=== PATIENT | male | born 1960 | race Caucasian/White ===

== ENCOUNTER 2016-07-29 13:40 | Inpatient (IN) | payer MEDICARE, MEDICAID ==
[2016-07-29 14:17] VITALS: BMI 24.6
[2016-07-29] MEDS ORDERED: Lidocaine 2% Jelly (Uro-Jet) TOP ONE (14:25)
[2016-07-29 14:44] LABS: BASO # 0.1 K/uL (0.0-0.2); EOS # 0.2 K/uL (0.0-0.7); EOS % 1.9 % (0.0-4.0); HEMATOCRIT 36.3 % (35.0-51.0); LYMPH % 21.5 % (20.0-40.0); MEAN CELL VOLUME 85.8 fL (80.0-94.0); MEAN CORPUSCULAR HEMOGLOBIN 27.8 pg (27.0-31.0); MEAN CORPUSCULAR HGB CONC 32.4 g/dL (33.0-37.0); MEAN PLATELET VOLUME 7.5 fL (7.2-11.7); MONO # 0.7 K/uL (0.0-0.8); MONO % 7.6 % (0.0-10.0); RED CELL DISTRIBUTION WIDTH 14.7 % (11.5-14.5); WHITE BLOOD COUNT 9.1 K/uL (4.8-10.8)
[2016-07-29] MEDS ORDERED: Lidocaine 2% Jelly (Uro-Jet) ONE (14:47)
[2016-07-29 15:02] LABS: POTASSIUM 4.3 mmol/L (3.6-5.2)
[2016-07-29 15:04] LABS: ALB/GLOB RATIO 1.1 (1.0-2.1); BILIRUBIN,TOTAL 0.4 mg/dL (0.2-1.3); TOTAL PROTEIN 8.3 g/dL (6.3-8.3)
[2016-07-29 15:05] LABS: CALCIUM 9.5 mg/dl (8.6-10.4)
[2016-07-29 15:14] LABS: TROPONIN I 0.027 ng/mL (0.00-0.120)
[2016-07-29 15:16] LABS: RBC URINE 2 /hpf (0-3); URINE BACTERIA RARE (<OCC); URINE BILIRUBIN NEGATIVE (NEGATIVE); URINE BLOOD NEGATIVE (NEGATIVE); URINE COLOR Yellow (YELLOW); URINE GLUCOSE (UA) NORMAL (Normal); URINE HYALINE CAST >20 /lpf (0-2); URINE KETONE NEGATIVE (NEGATIVE); URINE LEUKOCYTE ESTERASE NEG Leu/uL (Negative); URINE PROTEIN 1+ mg/dL (NEGATIVE); URINE UROBILINOGEN NORMAL mg/dL (0.2-1.0); WBC URINE 6 /hpf (0-5)
--- NOTE | 2016-07-29 15:35 | RAD ---
HISTORY: cp COMPARISON: 05/28/2016 FINDINGS: LUNGS: No focal airspace opacity. PLEURA: No significant pleural effusion identified, no pneumothorax apparent. CARDIOVASCULAR: Possible coronary stent noted. OSSEOUS STRUCTURES: The osseous structures demonstrate degenerative changes. VISUALIZED UPPER ABDOMEN: Upper abdomen is suboptimally evaluated. OTHER FINDINGS: Left-sided AICD. IMPRESSION: No focal airspace opacity.
[2016-07-29] MEDS ORDERED: Sodium Chloride 0.9% 1,000 ML IV ONE (16:57)
--- NOTE | 2016-07-29 17:00 | C.PDOC ---
History Of Present Illness 55-year-old male, presents to the emergency department with complaints of urinary retention since last night. Pt notes a small dribble this morning,. Associated lower abdominal discomfort. Additionally patient reports he had a cardiac catheterization done two months ago, and has been experiencing frequent chest pain since then. States he told EMS en route, and they administered Nitro , after which pain resolved. No other complaints at this time. Time Seen by Provider: 07/29/16 14:02 Chief Complaint (Nursing): Chest Pain Past Medical History Vital Signs: Last Vital Signs Temp 98.2 F 07/30/16 08:00 Pulse 64 07/30/16 08:00 Resp 20 07/30/16 08:00 BP 121/80 07/30/16 10:44 Pulse Ox 99 07/30/16 08:00 - Medical History PMH: Anxiety, Asthma, Bipolar Disorder, Bronchitis, CAD, Cardia Arrhythmia, CHF , COPD (EMPHYSEMA), Diabetes, Emphysema, HTN, Hypercholesterolemia, Hypothyroidism, Pneumonia Denies: Chronic Kidney Disease Surgical History: Coronary Stent (x13), Pacemaker (defibrilator BY [employer]) - [facility] Procedures APPLICATION OF SPLINT (07/14/14) BUNIONECTOMY NEC (11/25/14) CORONAR ARTERIOGR-2 CATH (06/07/13) DESTRUC-FOOT JT LES NEC (11/25/14) FLUOROSCOPY OF LEFT HEART USING LOW OSMOLAR CONTRAST (05/23/16) FLUOROSCOPY OF MULT COR ART USING L OSM CONTRAST (05/23/16) LARYGNOSCOPY AND OTH TRACHEOSCOPY (12/31/13) LEFT HEART CARDIAC CATH (06/07/13) MEASURE OF CARDIAC SAMPL & PRESSURE, L HEART, PERC APPROACH (05/23/16) RT & LT HEART ANGIOCARD (06/07/13) Family History: States: Unknown Family Hx, [place] (dad at 49) - Social History Hx Tobacco Use: No Hx Alcohol Use: No Hx Substance Use: No - Immunization History Hx Tetanus Toxoid Vaccination: No Hx Influenza Vaccination: No Hx Pneumococcal Vaccination: No Review Of Systems Except As Marked, All Systems Reviewed And Found Negative. Constitutional: Negative for: Fever, Chills Cardiovascular: Positive for: Chest Pain. Negative for: Palpitations, Edema Gastrointestinal: Positive for: Abdominal Pain (discomfortt, lower). Negative for: Nausea, Vomiting Genitourinary: Positive for: Other (inability to urinate) Musculoskeletal: Negative for: Neck Pain, Back Pain Skin: Negative for: Rash Neurological: Negative for: Weakness, Numbness, Headache, Dizziness Physical Exam - Physical Exam Appears: Non-toxic, No Acute Distress Skin: Normal Color, Warm, Dry Head: Atraumatic, Normacephalic Eye(s): bilateral: Normal Inspection, PERRL Nose: Normal Oral Mucosa: Moist Lips: Normal Appearing Neck: Normal ROM Cardiovascular: Rhythm Regular Respiratory: Normal Breath Sounds Gastrointestinal/Abdominal: Soft, Tenderness (mild, suprapubic), No Guarding, No Rebound Extremity: Normal ROM Neurological/Psych: Oriented x3, Normal Speech ED Course And Treatment - Laboratory Results Result Diagrams: 07/30/16 07:21 07/30/16 07:21 ECG: Interpreted By Me, Viewed By Me, Discussed With Financial Secretary (Case/EKG discussed w/ Dr Jackson, 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 Disposition - Disposition Disposition: HOSPITALIZED Disposition Time: 17:11 Condition: STABLE - Clinical Impression Clinical Impression: Acute kidney injury - Scribe Statement The provider has reviewed the documentation as recorded by the Mrat Castle Provider Attestation: All medical record entries made by the Mart were at my direction and personally dictated by me. I have reviewed the chart and agree that the record accurately reflects my personal performance of the history, physical exam, medical decision making, and the department course for this patient. I have also personally directed, reviewed, and agree with the discharge instructions and disposition.
[2016-07-29] MEDS ORDERED: Sodium Chloride 0.9% 1,000 ML ONE ×2 (17:14→21:27)
[2016-07-29] MEDS ORDERED: Iohexol 350mg/ml 100 ML ONE (18:00)
--- NOTE | 2016-07-29 20:01 | CT ---
EXAM: CT Abdomen and Pelvis Without Intravenous Contrast. CLINICAL HISTORY: 55 years old, male; Pain; Abdominal pain; Flank; Right lower quadrant (rlq); Patient HX: Acute renal injury TECHNIQUE: Axial computed tomography images of the abdomen and pelvis without intravenous contrast. This CT exam was performed using one or more of the following dose reduction techniques: automated exposure control, adjustment of the mA and/or kV according to patient size, and/or use of iterative reconstruction technique. Coronal and sagittal reformatted images were created and reviewed. EXAM DATE/TIME: 07/29/2016 4:57 PM COMPARISON: CT - ABD PELVIS IV CONTRAST ONLY 12/11/2015 1:17:29 AM FINDINGS: Lower thorax: The heart is mildly enlarged.There is streak artifact from pacemaker leads. There is minimal scarring at the lung bases. ABDOMEN: Liver: unremarkable Gallbladder and bile ducts: unremarkable Pancreas: Pancreas is mildly fatty replaced. Spleen: unremarkable Adrenals: unremarkable Kidneys and ureters: Kidneys are unremarkable. There is no perinephric fluid or stranding.There is no pelvocaliectasis or ureterectasis. Stomach and bowel: Stomach is partially distended. Rotation is normal. There is no obstruction.Appendix and terminal ileum are unremarkable. There is moderate stool in the colon. There is scattered diverticulosis. Appendix: See stomach and bowel PELVIS: Bladder: Bladder is almost completely empty. Reproductive: Seminal vesicles and prostate are unremarkable. ABDOMEN and PELVIS: Intraperitoneal space: There is no free air or free fluid. Bones/joints: There are degenerative changes in the osseus structures. Soft tissues: There are small opacities in the subcutaneous fat of the abdominal wall. Vasculature: There are vascular calcifications. Lymph nodes: There is no pathologic adenopathy. IMPRESSION: Slightly limited evaluation of solid viscera due to lack of intravenous contrast, no acute solid visceral abnormality identified, no focal renal abnormality identified; no CT findings of appendicitis or diverticulitis; mild cardiomegaly with pacemaker
--- NOTE | 2016-07-29 20:50 | CP.PCM.HP ---
History of Present Illness - History of Present Illness History of Present Illness: H & P for Dr. Daquan Mancia, PGY-1 Pt S & E at bedside. 55M w/PMH sig for CHF, HT, HLD, DM, Peripheral neuropathy, bradycardia s/p AICD placement and BPH admitted with acute renal failure. Pt reports inability to urinate since last night, has only been dribbling. Additionally, last night pt reports mechanical fall w/trauma to his head and knees. Admits to one episodes of nbnb emesis, some nausea, wt loss of 50lbs/6 mos, poor appetite, constipation , headache, B/L flank pain with radiation to suprapubic area, suprapubic abdominal pain, depression, unsteady gait/feels that he can't walk straight, mood swings, anhedonia,chest pain x 4 mos s/p cardiac cath. Denies LOC, syncope , dizziness, changes in vision, dysuria, changes in hearing, F/C. PMH: CHF, HTN, HLD, DM, BPH, Peripheral neuropathy, bradycardia s/p AICD, hypothyroidism, CAD, Afib PSH: AICD x 2 All: Moxifloxacin, docosanol SH: History of ETOH, Tobacco, cocaine use (remote) PMD: Tiburcio Phamarcy: [facility] on [address] in [place] Present on Admission - Present on Admission Any Indicators Present on Admission: No History of DVT/PE: No History of Uncontrolled Diabetes: No Urinary Catheter: No Decubitus Ulcer Present: No Review of Systems - Review of Systems All systems: reviewed and no additional remarkable complaints except - Constitutional Constitutional: Weight Loss. absent: Chills, Fever - EENT Eyes: absent: Blurred Vision, Change in Vision Ears: absent: Dizziness Nose/Mouth/Throat: absent: Sore Throat - Cardiovascular Cardiovascular: Chest Pain (chronic). absent: Leg Edema - Respiratory Respiratory: absent: Cough - Gastrointestinal Gastrointestinal: Abdominal Pain, Constipation, Nausea, Vomiting. absent: Diarrhea, Hematemesis, Hematochezia - Genitourinary Genitourinary: Change in Urinary Stream, Difficulty Urinating, Flank Pain. absent: Dysuria, Hematuria - Musculoskeletal Musculoskeletal: Back Pain. absent: Numbness, Tingling - Neurological Neurological: Abnormal Gait. absent: Dizziness - Psychiatric Psychiatric: Anhedonia, Anxiety, Behavioral Changes, Irritability, Mood Swings Past Patient History - Infectious Disease Hx of Infectious Diseases: None - Tetanus Immunizations Tetanus Immunization: Unknown - Past Medical History & Family History Past Medical History?: Yes - Past Social History Smoking Status: Former Smoker - CARDIAC Hx Cardia Arrhythmia: Yes Hx Congestive Heart Failure: Yes Hx Hypercholesterolemia: Yes Hx Hypertension: Yes Hx Pacemaker: Yes (defibrilator BY [employer]) - PULMONARY Hx Asthma: Yes Hx Bronchitis: Yes Hx Chronic Obstructive Pulmonary Disease (COPD): Yes (EMPHYSEMA) Hx Emphysema: Yes Hx Pneumonia: Yes - NEUROLOGICAL Hx Neurological Disorder: No - HEENT Hx HEENT Problems: No - RENAL Hx Chronic Kidney Disease: No - ENDOCRINE/METABOLIC Hx Hypothyroidism: Yes - HEMATOLOGICAL/ONCOLOGICAL Hx Blood Disorders: No - INTEGUMENTARY Hx Dermatological Problems: No - MUSCULOSKELETAL/RHEUMATOLOGICAL Hx Falls: No - GASTROINTESTINAL Hx Gastrointestinal Disorders: No - GENITOURINARY/GYNECOLOGICAL Hx Genitourinary Disorders: No - PSYCHIATRIC Hx Anxiety: Yes Hx Bipolar Disorder: Yes Hx Substance Use: No - SURGICAL HISTORY Hx Coronary Stent: Yes (x13) - ANESTHESIA Hx Anesthesia: Yes Hx Anesthesia Reactions: No Hx Malignant Hyperthermia: No Meds Allergies/Adverse Reactions: Allergies Allergy/AdvReac Type Severity Reaction Status Date / Time moxifloxacin HCl Allergy RASH Verified 07/29/16 13:51 [From Avelox] docosanol [From Abreva] AdvReac Verified 07/29/16 13:51 Physical Exam - Constitutional Appears: Non-toxic, No Acute Distress - Head Exam Head Exam: ATRAUMATIC, NORMAL INSPECTION, NORMOCEPHALIC - Eye Exam Eye Exam: EOMI, Normal appearance, PERRL Pupil Exam: NORMAL ACCOMODATION, PERRL - ENT Exam ENT Exam: Mucous Membranes Moist, Normal Exam - Neck Exam Neck exam: Positive for: Full Rom, Normal Inspection - Respiratory Exam Respiratory Exam: Clear to Auscultation Bilateral, NORMAL BREATHING PATTERN. absent: Chest Wall Tenderness, Decreased Breath Sounds, Rales, Rhonchi, Wheezes , Respiratory Distress - Cardiovascular Exam Cardiovascular Exam: REGULAR RHYTHM, +S1, +S2 - GI/Abdominal Exam GI & Abdominal Exam: Normal Bowel Sounds, Soft, Tenderness (suprapubic). absent : Distended, Firm, Guarding - Extremities Exam Extremities exam: Positive for: normal inspection. Negative for: pedal edema, tenderness - Back Exam Back exam: NORMAL INSPECTION, paraspinal tenderness (low back) - Neurological Exam Neurological exam: Alert, CN II-XII Intact, Oriented x3 - Psychiatric Exam Psychiatric exam: Normal Affect, Normal Mood - Skin Skin Exam: Dry, Intact, Normal Color, Warm Results - Vital Signs Recent Vital Signs: Last Vital Signs Temp 97.7 F 07/29/16 17:15 Pulse 69 07/29/16 17:15 Resp 12 07/29/16 17:15 BP 101/75 07/29/16 17:15 Pulse Ox 99 07/29/16 17:57 - Labs Result Diagrams: 07/29/16 14:35 07/29/16 14:35 Assessment & Plan - Assessment and Plan (Free Text) Assessment: Acute Renal Failure BUN 17 Cr 1.9 Baseline Cr 1.0-1.4 NS@100 FU Renal U/S FU 24H urine protein FU 24H urine creatinine FU U/A CT abdomen/pelvis w/ Slightly limited evaluation of solid viscera due to lack of intravenous contrast, no acute solid visceral abnormality identified, no focal renal abnormality identified; no CT findings of appendicitis or diverticulitis; mild cardiomegaly with pacemaker s/p mechanical fall w/head trauma FU CT brain Fall precautions Cont home med: MV COPD Cont home med: Symbicort (or equivalent), Duonebs, Combivent DM/Peripheral neuropathy ISS Accuchecks Tylenol PRN pain HTN Cont home meds: Coreg, Enalapril CHF Cont home med: Lasix Hypothyroidism Cont home meds: Synthroid BPH Cont home med: Dutasteride CAD s/p AICD, AFib Cont home med: ASA, Brillinta, Amiodarone, Constipation Colace Nausea Zofran PRN HLD Cont home med: Crestor Anxiety Cont home med: Xanax GI/DVT ppx SCDs Pepcid Will consider starting VTE ppx if CT brain neg for bleed Dispo Admit to med-surg inpatient status VS Q4H Diabetic/Heart healthy diet Consider psych consult for depression [facility] attending - Date & Time Date: 07/29/16 Time: 06:30
--- NOTE | 2016-07-29 21:34 | CT ---
EXAM: CT Head Without Intravenous Contrast. CLINICAL HISTORY: 55 years old, male; Injury or trauma; Fall; Initial encounter; Concussion / head injury; Additional info: S/P fall- head injury TECHNIQUE: Axial computed tomography images of the head/brain without intravenous contrast. This CT exam was performed using one or more of the following dose reduction techniques: automated exposure control, adjustment of the mA and/or kV according to patient size, and/or use of iterative reconstruction technique. EXAM DATE/TIME: 07/29/2016 8:25 PM COMPARISON: There are no prior studies for comparison. FINDINGS: Brain: Ventricles are normal in size.. There is no midline shift. There is mild prominence of sulci and gyri. There are no intra-axial or extra-axial mass lesions or areas of hemorrhage. There are no abnormal fluid collections. Lo-white differentiation is maintained. Ventricles: See above. Bones: Cranial vault is intact. Soft tissues: unremarkable Sinuses: There is no acute sinusitis. Ears and mastoids: Middle ears are are unremarkable. Right mastoid is incompletely pneumatized. Orbits: Orbital contents are unremarkable. IMPRESSION: No acute intracranial abnormality
--- NOTE | 2016-07-29 21:56 | US ---
EXAM: US Retroperitoneal Complete, Renal. CLINICAL HISTORY: 55 years old, male; Condition or disease; Kidney or ureter condition; Other: Renal failure TECHNIQUE: Real-time ultrasound of the retroperitoneum (complete) with image documentation. EXAM DATE/TIME: 07/29/2016 8:25 PM COMPARISON: CT - ABD PELVIS W/O PO OR IV CONT 07/29/2016 7:39:01 PM FINDINGS: Right kidney: Right kidney measures approximately 10.5 x 4.4 x 4.7 cm. Corticomedullary differentiation is poorly visualized. There is no pelvocaliectasis. There is a 9 mm right lower pole cyst There is intrarenal flow on color Doppler imaging. Left kidney: Left kidney measures approximately 10.2 x 4.7 x 5 cm.Corticomedullary differentiation is not well visualized. There is no pelvocaliectasis. There is intrarenal flow on color imaging . Bladder: Bladder is empty which limits evaluation IMPRESSION: Normal size kidneys, no hydronephrosis; 9 mm right renal cyst
[2016-07-29] MEDS ORDERED: oxyCODONE 30 mg Immediate Release Tab PO PRN (21:59)
[2016-07-29] MEDS ORDERED: oxyCODONE 30 mg Immediate Release Tab ONE (22:03)
[2016-07-29] MEDS: Sodium Chloride 0.9% 1,000 ML IV SCH (22:15)
[2016-07-29] MEDS: (Novolog Mix 70/30) Insulin Aspart/Insulin Aspar 100 units/ml SC SCH (22:17)
[2016-07-30] MEDS ORDERED: oxyCODONE 30 mg Immediate Release Tab PO SCH
[2016-07-30 00:50] VITALS: RESP 20
[2016-07-30] MEDS: Sodium Chloride 0.9% 1,000 ML IV SCH ×2 (05:44→16:32)
[2016-07-30] MEDS: Levothyroxine 50 MCG TAB PO SCH (05:44)
[2016-07-30 07:34] LABS: BASO # 0.1 K/uL (0.0-0.2); BASO % 0.7 % (0.0-2.0); EOS # 0.2 K/uL (0.0-0.7); EOS % 2.2 % (0.0-4.0); HEMATOCRIT 32.9 % (35.0-51.0); LYMPH # 2.4 K/uL (1.0-4.3); LYMPH % 26.3 % (20.0-40.0); MEAN CORPUSCULAR HEMOGLOBIN 27.9 pg (27.0-31.0); MEAN CORPUSCULAR HGB CONC 32.5 g/dL (33.0-37.0); MEAN PLATELET VOLUME 7.4 fL (7.2-11.7); MONO # 0.9 K/uL (0.0-0.8); MONO % 10.2 % (0.0-10.0); RED CELL DISTRIBUTION WIDTH 14.9 % (11.5-14.5); WHITE BLOOD COUNT 8.9 K/uL (4.8-10.8)
[2016-07-30 07:49] LABS: CHLORIDE 100 mmol/L (98-107)
[2016-07-30 07:50] LABS: SODIUM 140 mmol/L (132-148)
[2016-07-30 07:51] LABS: POTASSIUM 4.2 mmol/L (3.6-5.2)
[2016-07-30 07:53] LABS: ALB/GLOB RATIO 1.1 (1.0-2.1); ALKALINE PHOSPHATASE 58 U/L (38-126); ALT/SGPT 30 U/L (21-72); AST/SGOT 29 U/L (17-59); BILIRUBIN,TOTAL 0.5 mg/dL (0.2-1.3); BLOOD UREA NITROGEN 20 mg/dL (9-20); CARBON DIOXIDE 26 mmol/L (22-30); GFR AFRICAN-AMERICAN > 60; GLUCOSE,RANDOM 91 mg/dL (75-110); TOTAL PROTEIN 7.3 g/dL (6.3-8.3)
[2016-07-30 07:54] LABS: CALCIUM 8.5 mg/dl (8.6-10.4)
[2016-07-30] MEDS ORDERED: Fluticasone-Salmeterol 250-50mcg Diskus INH SCH (08:00)
[2016-07-30] MEDS: (Novolog Mix 70/30) Insulin Aspart/Insulin Aspar 100 units/ml SC SCH ×2 (08:25→12:20)
[2016-07-30] MEDS ORDERED: Albuterol-Ipratrop 20 mcg/actuation (4 g) IH SCH (10:00)
[2016-07-30] MEDS: Multiple Vitamins Tab PO SCH (10:42)
[2016-07-30] MEDS: oxyCODONE 30 mg Immediate Release Tab PO PRN (14:31)
--- NOTE | 2016-07-30 16:49 | CP.PCM.PN ---
Subjective - Date & Time of Evaluation Date of Evaluation: 07/30/16 Time of Evaluation: 10:00 - Subjective Subjective: PGY2 on medicine Dr. Dye service: Pt seen and examined at bedside this morning. Pt said he was able to urinate with no problem. No other complaints at this time. Pt said he took dutasteride at home and it will make him stop urinating. Objective - Vital Signs/Intake and Output Vital Signs (last 24 hours): Temp Pulse Resp BP Pulse Ox 98.2 F 64 20 121/80 99 07/30/16 08:00 07/30/16 16:41 07/30/16 08:00 07/30/16 10:44 07/30/16 13:58 Intake and Output: 07/30/16 07/30/16 06:59 18:59 Intake Total 640 Balance 640 - Medications Medications: Current Medications Acetaminophen (Tylenol 325mg Tab) 650 mg PO Q6 PRN PRN Reason: Pain, moderate (4-7) Albuterol/Ipratropium (Combivent Respimat) 1 puff IH RQD STEPHAN Albuterol/Ipratropium (Duoneb 3 Mg/0.5 Mg (3 Ml) Ud) 3 ml IH RQ6 PRN PRN Reason: Shortness of Breath Alprazolam (Xanax) 1 mg PO BID [facility] Last Admin: 07/30/16 10:43 Dose: 1 mg Amiodarone HCl (Cordarone) 200 mg PO DAILY [facility] Last Admin: 07/30/16 10:43 Dose: 200 mg Aspirin (Aspirin Chewable) 81 mg PO DAILY [facility] Last Admin: 07/30/16 10:42 Dose: 81 mg Carvedilol (Coreg) 3.125 mg PO BID [facility] Last Admin: 07/30/16 10:43 Dose: 3.125 mg Docusate Sodium (Colace) 100 mg PO BID [facility] Last Admin: 07/30/16 10:44 Dose: 100 mg Enalapril Maleate (Vasotec) 5 mg PO DAILY [facility] Last Admin: 07/30/16 10:42 Dose: 5 mg Famotidine (Pepcid) 20 mg PO DAILY [facility] Last Admin: 07/30/16 10:43 Dose: 20 mg Finasteride (Proscar) 5 mg PO DAILY [facility] Last Admin: 07/30/16 10:46 Dose: Not Given Furosemide (Lasix) 20 mg PO DAILY [facility] Last Admin: 07/30/16 10:44 Dose: 20 mg Sodium Chloride (Sodium Chloride 0.9%) 1,000 mls @ 100 mls/hr IV .Q10H [facility] Last Admin: 07/30/16 16:32 Dose: 100 mls/hr Influenza Virus Vaccine (Afluria) 45 mcg IM .ONCE ONE Stop: 08/01/16 10:01 Insulin Aspart (Novolog Mix 70/30 (70/30 Units/Ml)) 0 units SC ACHS [facility] PRN Reason: Protocol Last Admin: 07/30/16 12:20 Dose: Not Given Levothyroxine Sodium (Synthroid) 50 mcg PO DAILY@0630 [facility] Last Admin: 07/30/16 05:44 Dose: 50 mcg Multivitamins (Hexavitamin) 1 tab PO DAILY [facility] Last Admin: 07/30/16 10:42 Dose: 1 tab Ondansetron HCl (Zofran Inj) 4 mg IVP Q6 PRN PRN Reason: Nausea/Vomiting Oxycodone HCl (Oxycodone Immediate Release Tab) 30 mg PO Q6H PRN PRN Reason: Pain, severe (8-10) Last Admin: 07/30/16 14:31 Dose: 30 mg Pneumococcal Polyvalent Vaccine (Pneumovax 23 Vaccine) 0.5 ml IM .ONCE ONE Stop: 08/01/16 10:11 Rosuvastatin Calcium (Crestor) 5 mg PO HS [facility] Last Admin: 07/29/16 22:17 Dose: 5 mg Fluticasone/Salmeterol (Advair Diskus 250/50) 1 puff INH RQ12 [facility] Ticagrelor (Brilinta) 90 mg PO BID [facility] Last Admin: 07/30/16 10:42 Dose: 90 mg - Labs Labs: 07/30/16 07:21 07/30/16 07:21 - Constitutional Appears: Non-toxic, No Acute Distress - Head Exam Head Exam: NORMAL INSPECTION, NORMOCEPHALIC - Eye Exam Eye Exam: EOMI, PERRL - Respiratory Exam Respiratory Exam: Clear to Ausculation Bilateral, NORMAL BREATHING PATTERN - Cardiovascular Exam Cardiovascular Exam: REGULAR RHYTHM, +S1, +S2. absent: Gallop, Rubs - GI/Abdominal Exam GI & Abdominal Exam: Soft, Normal Bowel Sounds - Neurological Exam Neurological Exam: Alert, Awake, Oriented x3 - Psychiatric Exam Psychiatric exam: Normal Mood - Skin Skin Exam: Dry, Intact Assessment and Plan - Assessment and Plan (Free Text) Assessment: Acute Renal Failure BUN 17 Cr 1.9 Baseline Cr 1.0-1.4 NS@100 FU Renal U/S FU 24H urine protein FU 24H urine creatinine FU U/A CT abdomen/pelvis w/ Slightly limited evaluation of solid viscera due to lack of intravenous contrast, no acute solid visceral abnormality identified, no focal renal abnormality identified; no CT findings of appendicitis or diverticulitis; mild cardiomegaly with pacemaker s/p mechanical fall w/head trauma FU CT brain Fall precautions Cont home med: MV COPD Cont home med: Symbicort (or equivalent), Duonebs, Combivent DM/Peripheral neuropathy ISS Accuchecks Tylenol PRN pain HTN Cont home meds: Coreg, Enalapril CHF Cont home med: Lasix Hypothyroidism Cont home meds: Synthroid BPH Cont home med: Dutasteride CAD s/p AICD, AFib Cont home med: ASA, Brillinta, Amiodarone, Constipation Colace Nausea Zofran PRN HLD Cont home med: Crestor Anxiety Cont home med: Xanax GI/DVT ppx SCDs Pepcid Will consider starting VTE ppx if CT brain neg for bleed Dispo Admit to med-surg inpatient status VS Q4H Diabetic/Heart healthy diet Consider psych consult for depression
[2016-07-30] MEDS: (Novolin R) Insulin Human Regular 100 units/ml vial SC SCH (21:22)
[2016-07-31] MEDS: Albuterol-Ipratrop 3 mg / 0.5 (3 ml) UD IH PRN ×3 (01:13→11:40)
[2016-07-31] MEDS: Sodium Chloride 0.9% 1,000 ML IV SCH ×2 (02:30→13:17)
[2016-07-31] MEDS: Levothyroxine 50 MCG TAB PO SCH (05:41)
[2016-07-31 06:20] LABS: BASO # 0.1 K/uL (0.0-0.2); EOS # 0.3 K/uL (0.0-0.7); EOS % 3.8 % (0.0-4.0); HEMATOCRIT 27.7 % (35.0-51.0); LYMPH # 1.4 K/uL (1.0-4.3); LYMPH % 20.9 % (20.0-40.0); MEAN CELL VOLUME 85.6 fL (80.0-94.0); MEAN CORPUSCULAR HEMOGLOBIN 28.8 pg (27.0-31.0); MEAN CORPUSCULAR HGB CONC 33.7 g/dL (33.0-37.0); MEAN PLATELET VOLUME 7.6 fL (7.2-11.7); MONO # 0.5 K/uL (0.0-0.8); MONO % 7.5 % (0.0-10.0); RED CELL DISTRIBUTION WIDTH 14.7 % (11.5-14.5); WHITE BLOOD COUNT 6.9 K/uL (4.8-10.8)
[2016-07-31 06:37] LABS: CHLORIDE 101 mmol/L (98-107); SODIUM 138 mmol/L (132-148)
[2016-07-31 06:39] LABS: AST/SGOT 31 U/L (17-59); BILIRUBIN,TOTAL 0.4 mg/dL (0.2-1.3); CARBON DIOXIDE 24 mmol/L (22-30); GFR AFRICAN-AMERICAN > 60
[2016-07-31 06:40] LABS: ALKALINE PHOSPHATASE 56 U/L (38-126); ALT/SGPT 28 U/L (21-72); BLOOD UREA NITROGEN 18 mg/dL (9-20); GLUCOSE,RANDOM 118 mg/dL (75-110); TOTAL PROTEIN 6.1 g/dL (6.3-8.3)
[2016-07-31 06:42] LABS: ALB/GLOB RATIO 1.3 (1.0-2.1)
[2016-07-31] MEDS: (Novolin R) Insulin Human Regular 100 units/ml vial SC SCH ×3 (08:08→16:54)
[2016-07-31] MEDS: oxyCODONE 30 mg Immediate Release Tab PO PRN ×2 (10:30→17:04)
[2016-07-31] MEDS: Multiple Vitamins Tab PO SCH (10:31)
[2016-07-31] MEDS ORDERED: Benzocaine/Menthol (Cepacol) Lozenge MT PRN (12:35)
[2016-07-31] MEDS ORDERED: Influenza Virus Vaccine 45 mcg/0.5 ml Syr IM ONE (16:30)
[2016-07-31 17:56] VITALS: BP 103/63; PULSE 73; TEMP 98; O2SAT 97
--- NOTE | 2016-07-31 18:41 | CP.PCM.DIS ---
Provider - Provider Date of Admission: 07/29/16 17:11 Attending physician: Emmett Dey Jr, MD Primary care physician: Dr. Dey Time Spent in preparation of Discharge (in minutes): 50 Hospital Course - Lab Results Lab Results: Most Recent Lab Values WBC 6.9 K/uL (4.8-10.8) 07/31/16 06:08 RBC 3.24 Mil/uL (4.40-5.90) L 07/31/16 06:08 Hgb 9.3 g/dL (12.0-18.0) L 07/31/16 06:08 Hct 27.7 % (35.0-51.0) L 07/31/16 06:08 MCV 85.6 fL (80.0-94.0) 07/31/16 06:08 MCH 28.8 pg (27.0-31.0) 07/31/16 06:08 MCHC 33.7 g/dL (33.0-37.0) 07/31/16 06:08 RDW 14.7 % (11.5-14.5) H 07/31/16 06:08 Plt Count 221 K/uL (130-400) 07/31/16 06:08 MPV 7.6 fL (7.2-11.7) 07/31/16 06:08 Neut % (Auto) 66.8 % (50.0-75.0) 07/31/16 06:08 Lymph % (Auto) 20.9 % (20.0-40.0) 07/31/16 06:08 [place] % (Auto) 7.5 % (0.0-10.0) 07/31/16 06:08 Eos % (Auto) 3.8 % (0.0-4.0) 07/31/16 06:08 Baso % (Auto) 1.0 % (0.0-2.0) 07/31/16 06:08 Neut # 4.6 K/uL (1.8-7.0) 07/31/16 06:08 Lymph # 1.4 K/uL (1.0-4.3) 07/31/16 06:08 [place] # 0.5 K/uL (0.0-0.8) 07/31/16 06:08 Eos # 0.3 K/uL (0.0-0.7) 07/31/16 06:08 Baso # 0.1 K/uL (0.0-0.2) 07/31/16 06:08 Sodium 138 mmol/L (132-148) 07/31/16 06:08 Potassium 4.0 mmol/L (3.6-5.2) 07/31/16 06:08 Chloride 101 mmol/L (98-107) 07/31/16 06:08 Carbon Dioxide 24 mmol/L (22-30) 07/31/16 06:08 Anion Gap 17 (10-20) 07/31/16 06:08 BUN 18 mg/dL (9-20) 07/31/16 06:08 Creatinine 1.3 MG/DL (0.8-1.5) 07/31/16 06:08 Est GFR ( Amer) > 60 07/31/16 06:08 Est GFR (Non-Af Amer) 57 07/31/16 06:08 POC Glucose (mg/dL) 92 mg/dL (65-110) 07/31/16 16:29 Random Glucose 118 mg/dL (75-110) H 07/31/16 06:08 Calcium 8.0 mg/dl (8.6-10.4) L 07/31/16 06:08 Total Bilirubin 0.4 mg/dL (0.2-1.3) 07/31/16 06:08 AST 31 U/L (17-59) 07/31/16 06:08 ALT 28 U/L (21-72) 07/31/16 06:08 Alkaline Phosphatase 56 U/L (38-126) 07/31/16 06:08 Troponin I 0.0270 ng/mL (0.00-0.120) 07/29/16 14:35 Total Protein 6.1 g/dL (6.3-8.3) L 07/31/16 06:08 Albumin 3.4 g/dL (3.5-5.0) L 07/31/16 06:08 Globulin 2.7 gm/dL (2.2-3.9) 07/31/16 06:08 Albumin/Globulin Ratio 1.3 (1.0-2.1) 07/31/16 06:08 Urine Color Yellow (YELLOW) 07/29/16 14:29 Urine Clarity Hazy (Clear) 07/29/16 14:29 Urine pH 5.0 (5.0-8.0) 07/29/16 14:29 Ur Specific [place] 1.024 (1.003-1.030) 07/29/16 14:29 Urine Protein 1+ mg/dL (NEGATIVE) H 07/29/16 14:29 Urine Glucose (UA) Normal mg/dL (Normal) 07/29/16 14:29 Urine Ketones Negative mg/dL (NEGATIVE) 07/29/16 14:29 Urine Blood Negative (NEGATIVE) 07/29/16 14: Urine Nitrate Negative (NEGATIVE) 07/29/16 14: Urine Bilirubin Negative (NEGATIVE) 07/29/16 14: Urine Urobilinogen Normal mg/dL (0.2-1.0) 07/29/16 14:29 Ur Leukocyte Esterase Neg [place]/uL (Negative) 07/29/16 14:29 Urine WBC (Auto) 6 /hpf (0-5) H 07/29/16 14:29 Urine RBC (Auto) 2 /hpf (0-3) 07/29/16 14:29 Ur Squamous Epith Cells 1 /hpf (0-5) 07/29/16 14:29 Urine Bacteria Rare (<OCC) 07/29/16 14:29 Hyaline Casts >20 /lpf (0-2) H 07/29/16 14:29 Urine Collection Time 24 HRS 07/31/16 06:32 Urine Total Volume 4350 mL 07/31/16 06:32 - Hospital Course Hospital Course: 55M w/PMH sig for CHF, HT, HLD, DM, Peripheral neuropathy, bradycardia s/p AICD placement and BPH admitted with acute renal failure. Pt reports inability to urinate since last night, has only been dribbling. Additionally, last night pt reports mechanical fall w/trauma to his head and knees. Admits to one episodes of nbnb emesis, some nausea, wt loss of 50lbs/6 mos, poor appetite, constipation , headache, B/L flank pain with radiation to suprapubic area, suprapubic abdominal pain, depression, unsteady gait/feels that he can't walk straight, mood swings, anhedonia,chest pain x 4 mos s/p cardiac cath. Denies LOC, syncope , dizziness, changes in vision, dysuria, changes in hearing, F/C. CT abdomen/pelvis w/ Slightly limited evaluation of solid viscera due to lack of intravenous contrast, no acute solid visceral abnormality identified, no focal renal abnormality identified; no CT findings of appendicitis or diverticulitis; mild cardiomegaly with pacemaker. Renal ultrasound and CT head were also negative for acute etiologies. Pt was able to void and finished 24 hour protein collection. Pt complained Dutasteride at home made him stop urinating. Pt had an episode of vomiting 07/30 night after eating rice, and another episode of bilious vomiting 07/31 with epigastric pain. Symptoms improved after Zofran. Pt also complains nose bleed 07/31 afternoon which stopped spontaneously as well. Pt instructed to resume his home medications with exception of Lasix, which he will now take one tablet every 12 hours instead of once daily. Zofran also written for pt as well. Pt instructed to follow up with Dr. Dey within 1-2 weeks after discharge. Pt and at bedside verbalize understanding. Discharge Exam - Head Exam Head Exam: NORMAL INSPECTION, NORMOCEPHALIC - Eye Exam Eye Exam: Normal appearance - Respiratory Exam Respiratory Exam: Clear to PA & Lateral, NORMAL BREATHING PATTERN - Cardiovascular Exam Cardiovascular Exam: REGULAR RHYTHM, +S1, +S2. absent: Gallop, Rubs - GI/Abdominal Exam GI & Abdominal Exam: Normal Bowel Sounds - Neurological Exam Neurological exam: Alert, Oriented x3 Discharge Plan - Discharge Medications Prescriptions: Furosemide [Lasix] 20 mg PO Q12H #60 tab Ondansetron [Zofran] 8 mg PO Q8H PRN #30 tab PRN Reason: nausea - Follow Up Plan Condition: IMPROVED Disposition: HOME/ ROUTINE Instructions: Acute Kidney Injury (DC) Additional Instructions: Discharged per Dr. Dey. Please resume your home medications with the following exceptions: Lasix will be 20mg tablets every 12 hours, and Zofran 8mg tablets as needed every 8 hours for nausea. Make appointment and follow up with your PMD Dr. Dey within 1-2 weeks after discharge. For tonight, take Xanax, Coreg, Crestor and Brilinta. Return to ED if symptoms reoccurred. Referrals: Emmett Dey Jr., MD [Medical Doctor] - Clinical Quality Measures - CQM - Heart Failure Ejection Fraction: Less Than 40 % Left Ventricular Function to be assessed after discharge: Yes BOBBY Inhibitor Prescribed: Yes Beta-Harini Prescribed: Carvedilol Angiotensin II Receptor Harini Prescribed: No Contraindication/Reason for not providing: on ACEI AnticoagulationTherapy for Atrial Fibrillation/Atrialflutter: Yes Aldosterone Antagonist Prescribed: No Contraindication/Reason for not providing: not indicated Hydralazine Nitrate Prescribed: No Contraindication/Reason for not providing: not indicated Implantable Cardioverter Defibrillator Therapy: Yes Cardiac Resynchronization Therapy Prescribed: No Contraindication/Reason for not providing: not indicated Will be discharged to: Home Follow Up Date (must be within 7 days from discharge): 08/08/16 Follow Up Time: 09:00
[2016-08-01] MEDS ORDERED: Pneumococcal 23-Valent Vaccine IM ONE (10:10)
== END 2016-07-31 17:25 | disposition home or self-care (01) | DRG 684 ==
LOC: C.ER 13:40 → C.9E 17:11 → OBSVTOIN 17:11 → C.3T 22:46
PROVIDERS: ADMIT Internal Medicine; ATTEND Internal Medicine
DX: N17.9 Acute kidney failure, unspecified (principal); I11.0 Hypertensive heart disease with heart failure; I50.9 Heart failure, unspecified; E11.42 Type 2 diabetes mellitus with diabetic polyneuropathy; W19.XXXA Unspecified fall, initial encounter; S09.90XA Unspecified injury of head, initial encounter; N40.1 Benign prostatic hyperplasia with lower urinary tract symptoms; R33.8 Other retention of urine; E03.9 Hypothyroidism, unspecified; I25.10 Atherosclerotic heart disease of native coronary artery without angina pectoris; R07.9 Chest pain, unspecified; I48.91 Unspecified atrial fibrillation; F41.9 Anxiety disorder, unspecified; F31.9 Bipolar disorder, unspecified; J43.9 Emphysema, unspecified; Y92.9 Unspecified place or not applicable; Z95.810 Presence of automatic (implantable) cardiac defibrillator; Z95.5 Presence of coronary angioplasty implant and graft; Z87.01 Personal history of pneumonia (recurrent); K59.00 Constipation, unspecified

== ENCOUNTER 2016-08-14 18:56 | Inpatient (IN) | payer MEDICARE, MEDICAID ==
[2016-08-14 18:56] VITALS: BMI 24.6
[2016-08-14] MEDS ORDERED: Albuterol-Ipratrop 3 mg / 0.5 (3 ml) UD INH STA (19:16)
[2016-08-14] MEDS ORDERED: Albuterol-Ipratrop 3 mg / 0.5 (3 ml) UD ONE (19:24)
[2016-08-14 19:45] LABS: BASO # 0.1 K/uL (0.0-0.2); BASO % 0.6 % (0.0-2.0); EOS # 0.2 K/uL (0.0-0.7); EOS % 1.6 % (0.0-4.0); HEMATOCRIT 28.8 % (35.0-51.0); LYMPH # 1.3 K/uL (1.0-4.3); LYMPH % 14.1 % (20.0-40.0); MEAN CELL VOLUME 86.2 fL (80.0-94.0); MEAN CORPUSCULAR HEMOGLOBIN 28.6 pg (27.0-31.0); MEAN CORPUSCULAR HGB CONC 33.2 g/dL (33.0-37.0); MEAN PLATELET VOLUME 7.4 fL (7.2-11.7); MONO # 0.5 K/uL (0.0-0.8); MONO % 5.5 % (0.0-10.0); NRBC % 0.1 % (0.0-2.0); RED CELL DISTRIBUTION WIDTH 15.4 % (11.5-14.5); WHITE BLOOD COUNT 9.5 K/uL (4.8-10.8)
--- NOTE | 2016-08-14 19:45 | C.PDOC ---
History Of Present Illness 55 year old male pt presents to the ED c/o increasing SOB for the past 2 days and productive coughs for the past day. Pt notes producing yellowish sputum with coughs. Pt states that he tool Nebulizers at home with no relief. Pt reports vomiting twice and a subjective fever, but denies chest pain, nausea, diarrhea, headaches, dizziness, or any other complaints. Chief Complaint (Nursing): Shortness Of Breath History Per: Patient Onset/Duration Of Symptoms: Days (2 days for SOB. 1 day for coughs) Current Symptoms Are (Timing): Still Present Severity: Mild Associated Symptoms: Fever (subjective) Recent travel outside of the [place]: No Past Medical History Reviewed: Historical Data, Nursing Documentation, Vital Signs Vital Signs: Last Vital Signs Temp 97.6 F 08/15/16 00:33 Pulse 81 08/15/16 00:33 Resp 20 08/15/16 00:33 BP 122/64 08/15/16 00:33 Pulse Ox 97 08/15/16 00:33 - Medical History PMH: Anxiety, Asthma, Bipolar Disorder, Bronchitis, CAD, Cardia Arrhythmia, CHF , COPD (EMPHYSEMA), Diabetes, Emphysema, HTN, Hypercholesterolemia, Hypothyroidism, Pneumonia Denies: Chronic Kidney Disease Surgical History: Coronary Stent (x13), Pacemaker (defibrilator BY [employer]) - [facility] Procedures APPLICATION OF SPLINT (07/14/14) BUNIONECTOMY NEC (11/25/14) CORONAR ARTERIOGR-2 CATH (06/07/13) DESTRUC-FOOT JT LES NEC (11/25/14) FLUOROSCOPY OF LEFT HEART USING LOW OSMOLAR CONTRAST (05/23/16) FLUOROSCOPY OF MULT COR ART USING L OSM CONTRAST (05/23/16) LARYGNOSCOPY AND OTH TRACHEOSCOPY (12/31/13) LEFT HEART CARDIAC CATH (06/07/13) MEASURE OF CARDIAC SAMPL & PRESSURE, L HEART, PERC APPROACH (05/23/16) RT & LT HEART ANGIOCARD (06/07/13) Family History: States: Unknown Family Hx, [place] (dad at 49) - Social History Hx Tobacco Use: No Hx Alcohol Use: No Hx Substance Use: No - Immunization History Hx Tetanus Toxoid Vaccination: No Hx Influenza Vaccination: No Hx Pneumococcal Vaccination: No Review Of Systems Except As Marked, All Systems Reviewed And Found Negative. Constitutional: Positive for: Fever (subjective fever) Cardiovascular: Negative for: Chest Pain Respiratory: Positive for: Cough, Shortness of Breath Gastrointestinal: Positive for: Vomiting. Negative for: Nausea, Diarrhea Neurological: Negative for: Headache, Dizziness Physical Exam - Physical Exam Appears: Non-toxic, No Acute Distress Skin: Warm, Dry Head: Atraumatic, Normacephalic Eye(s): bilateral: Normal Inspection Cardiovascular: Rhythm Regular, No Murmur Respiratory: Rales (Rales of the bases), No Rhonchi, Wheezing (Expiratory wheezing bilaterally) Gastrointestinal/Abdominal: Bowel Sounds (Normal), Soft, No Tenderness Neurological/Psych: Oriented x3, Normal Speech, Normal Cognition ED Course And Treatment - Laboratory Results Result Diagrams: 08/14/16 19:43 08/14/16 19:43 ECG: Interpreted By Me, Viewed By Me ECG Rhythm: AV Paced (AV dual-paced 67) O2 Sat by Pulse Oximetry: 96 (Nasal cannula) Pulse Ox Interpretation: Normal Medical Decision Making Medical Decision Making: Plans: -CXR -ALbuterol -IV fluids -Blood works -Nebulizer treatment -O2 nasal cannula -Rocephin -SOLU-Medrol -Tylenol -Zithromax -Reassess and disposition Disposition - Disposition Disposition: HOSPITALIZED Disposition Time: 20:20 Condition: GOOD - Clinical Impression Clinical Impression: Pneumonia, Chronic congestive heart failure - Scribe Statement The provider has reviewed the documentation as recorded by the Scribe Luis Miguel Evans All medical record entries made by the Scribe were at my direction and personally dictated by me. I have reviewed the chart and agree that the record accurately reflects my personal performance of the history, physical exam, medical decision making, and the department course for this patient. I have also personally directed, reviewed, and agree with the discharge instructions and disposition.
[2016-08-14 19:54] LABS: POTASSIUM 4.4 mmol/L (3.6-5.2)
[2016-08-14 19:56] LABS: ALB/GLOB RATIO 1.3 (1.0-2.1); BILIRUBIN,TOTAL 0.3 mg/dL (0.2-1.3)
[2016-08-14 19:57] LABS: CALCIUM 8.8 mg/dl (8.6-10.4)
[2016-08-14 20:09] LABS: TROPONIN I 0.07 ng/mL (0.00-0.120)
[2016-08-14] MEDS ORDERED: Azithromycin 500 MG in Sodium Chloride 0.9% 250 ML IVPB STA (20:20)
[2016-08-14] MEDS ORDERED: cefTRIAXone IV 1 gm in Dextros 50 ML IVPB ONE (20:26)
[2016-08-14] MEDS ORDERED: Azithromycin 500mg/250ML NS 250 ML IVPB ONE (21:17)
[2016-08-14] MEDS ORDERED: oxyCODONE 30 mg Immediate Release Tab ONE (21:17)
[2016-08-14] MEDS: oxyCODONE 30 mg Immediate Release Tab PO SCH (21:23)
--- NOTE | 2016-08-14 21:24 | CP.PCM.HP ---
History of Present Illness - History of Present Illness History of Present Illness: CC: "I couldn't breathe." Patient is a 55 year old male with past medical history of CHF s/p AICD, HTN, HLD, DM, peripheral neuropathy, and gout who presents with complaint that he could not breathe this evening. Patient states this occurred suddenly at home. He states that he tried his nebulizer at home and it did not help. Patient states that he did not try his inhalers as they are scheduled medications and it was not time to take them. Patient states he also experienced a tightness in his chest that he states he has had before when he has had a COPD exacerbation. Patient states that he also had a fever of 103.3 at home that decreased to around 100. Patient complains of cough productive of yellow sputum that also started today. Patient also complains of dizziness, light-headedness, and weakness that also began today. Patient denies nausea, vomiting, abdominal pain, change in appetite. Patient was recently hospitalized 07/29/16 for acute renal failure. PMD: Tiburcio Outpatient cardio: Manuel Outpatient pulm: Marcial Outpatient podiatry: Sherry PMHx: COPD/ emphysema, HLD, HTN, DM, CAD, gout, neuropathy, hypothyroidism PSHx: ACID, cardiac cath, left foot surgery FamHx: father of [place] @ 49, mother of lung cancer at 56 Social: former 5 ppd smoker for 40 years, quit 4 years ago; formerly used alcohol, quit in 2008 Allergies: moxifloxacin Present on Admission - Present on Admission Any Indicators Present on Admission: No Review of Systems - Constitutional Constitutional: Fever, Weakness. absent: Chills - EENT Eyes: absent: Blurred Vision Nose/Mouth/Throat: absent: Nasal Congestion - Cardiovascular Cardiovascular: Dyspnea, Lightheadedness. absent: Diaphoresis, Leg Edema - Respiratory Respiratory: Cough - Gastrointestinal Gastrointestinal: absent: Abdominal Pain, Nausea, Vomiting - Genitourinary Genitourinary: absent: Difficulty Urinating - Musculoskeletal Musculoskeletal: absent: Back Pain - Integumentary Integumentary: absent: Rash - Neurological Neurological: Dizziness, Weakness. absent: Focal Weakness Past Patient History - Infectious Disease Hx of Infectious Diseases: None - Tetanus Immunizations Tetanus Immunization: Unknown - Past Medical History & Family History Past Medical History?: Yes - Past Social History Smoking Status: Former Smoker - CARDIAC Hx Cardia Arrhythmia: Yes Hx Congestive Heart Failure: Yes Hx Hypercholesterolemia: Yes Hx Hypertension: Yes Hx Pacemaker: Yes (defibrilator BY [employer]) - PULMONARY Hx Asthma: Yes Hx Bronchitis: Yes Hx Chronic Obstructive Pulmonary Disease (COPD): Yes (EMPHYSEMA) Hx Emphysema: Yes Hx Pneumonia: Yes - NEUROLOGICAL Hx Neurological Disorder: No - HEENT Hx HEENT Problems: No - RENAL Hx Chronic Kidney Disease: No - ENDOCRINE/METABOLIC Hx Hypothyroidism: Yes - HEMATOLOGICAL/ONCOLOGICAL Hx Blood Disorders: No - INTEGUMENTARY Hx Dermatological Problems: No - MUSCULOSKELETAL/RHEUMATOLOGICAL Hx Falls: Yes - GASTROINTESTINAL Hx Gastrointestinal Disorders: No - GENITOURINARY/GYNECOLOGICAL Hx Genitourinary Disorders: No Hx Prostate Problems: Yes - PSYCHIATRIC Hx Anxiety: Yes Hx Bipolar Disorder: Yes Hx Substance Use: No - SURGICAL HISTORY Hx Coronary Stent: Yes (x13) - ANESTHESIA Hx Anesthesia: Yes Hx Anesthesia Reactions: No Hx Malignant Hyperthermia: No Meds Allergies/Adverse Reactions: Allergies Allergy/AdvReac Type Severity Reaction Status Date / Time moxifloxacin HCl Allergy RASH Verified 08/14/16 21:13 [From Avelox] docosanol [From Abreva] AdvReac Verified 08/14/16 21:13 Physical Exam - Constitutional Appears: Non-toxic, No Acute Distress - Head Exam Head Exam: ATRAUMATIC, NORMOCEPHALIC - Eye Exam Eye Exam: EOMI. absent: Conjunctival injection Additional comments: no conjunctival pallor - ENT Exam ENT Exam: Mucous Membranes Moist - Neck Exam Neck exam: Negative for: Lymphadenopathy - Respiratory Exam Respiratory Exam: Decreased Breath Sounds (poor inspiration). absent: Rales, Rhonchi, Wheezes - Cardiovascular Exam Cardiovascular Exam: RRR, +S1, +S2. absent: JVD - GI/Abdominal Exam GI & Abdominal Exam: Normal Bowel Sounds, Soft. absent: Tenderness - Extremities Exam Extremities exam: Positive for: normal inspection. Negative for: calf tenderness, pedal edema - Neurological Exam Neurological exam: Alert, CN II-XII Intact, Oriented x3 - Psychiatric Exam Psychiatric exam: Normal Affect, Normal Mood - Skin Skin Exam: Dry, Warm Results - Vital Signs Recent Vital Signs: Last Vital Signs Temp 101 F H 08/14/16 19:02 Pulse 68 08/14/16 19:02 Resp 20 08/14/16 19:02 BP 90/67 L 08/14/16 19:02 Pulse Ox 96 08/14/16 20:59 - Labs Result Diagrams: 08/14/16 19:43 08/14/16 19:43 Labs: Laboratory Results - last 24 hr 08/14/16 08/14/16 19:43 19:44 WBC 9.5 RBC 3.34 L Hgb 9.6 L Hct 28.8 L MCV 86.2 MCH 28.6 MCHC 33.2 RDW 15.4 H Plt Count 194 MPV 7.4 Neut % (Auto) 78.2 H Lymph % (Auto) 14.1 L [place] % (Auto) 5.5 Eos % (Auto) 1.6 Baso % (Auto) 0.6 Neut # 7.4 H Lymph # 1.3 [place] # 0.5 Eos # 0.2 Baso # 0.1 Sodium 139 Potassium 4.4 Chloride 100 Carbon Dioxide 26 Anion Gap 17 BUN 23 H Creatinine 1.5 Est GFR ( Amer) 59 Est GFR (Non-Af Amer) 49 Random Glucose 91 Calcium 8.8 Total Bilirubin 0.3 AST 40 ALT 42 Alkaline Phosphatase 51 Troponin I 0.0700 NT-Pro-B Natriuret Pep 2300 H Total Protein 7.0 Albumin 3.9 Globulin 3.1 Albumin/Globulin Ratio 1.3 Influenza Typ A,B (EIA) Negative for flu a/b Assessment & Plan - Assessment and Plan (Free Text) Assessment: 1. Pneumonia (HCAP) vs COPD exacerbation azithromycin 500mg IVPB daily ceftriaxone 1g daily tylenol 650 q6 prn fever advair 250/50 q12 duonebs q6 prn solumedrol 40mg IV q8h portable CXR, report pending pulm consult, Dr. Ceja: help appreciated 2. CHF- left ventricular systolic dysfunction s/p cath 05/23/16- EF 15-20 % BNP in ER: 2300 continue home meds: lasix 20mg PO q12h, amiodarone 200mg daily 3. CAD continue home meds: brilinta 90mg BID, ASA 81mg 4. HTN continue home meds: enalapril 5mg daily coreg 3.125mg BID 5 Hypothyroidism continue home meds: levothyroxine 50mcg daily 6. Diabetes continue home meds: glimepiride 1mg PO BIDAC ISS fingersticks ACHS 7. Peripheral neuropathy continue home meds: oxycodone 30mg PO Q6h 8. HDL continue home meds: crestor 5mg HS 9. Anxiety continue home meds: xanax 1mg PO BID 10. Prophylaxis heparin 5000 q8 protonix 40mg daily
[2016-08-14] MEDS: Azithromycin 500 MG in Sodium Chloride 0.9% 250 ML IVPB SCH (21:41)
[2016-08-14] MEDS: cefTRIAXone IV 1 gm in Dextros 50 ML IVPB SCH (21:41)
[2016-08-14] MEDS: (Novolin R) Insulin Human Regular 100 units/ml vial SC SCH (21:59)
[2016-08-15] MEDS ORDERED: MethylPREDNISolone 40 mg Vial IVP SCH (04:00)
[2016-08-15] MEDS: Albuterol-Ipratrop 3 mg / 0.5 (3 ml) UD IH PRN (05:14)
[2016-08-15] MEDS: Levothyroxine 50 MCG TAB PO SCH (05:37)
[2016-08-15] MEDS: oxyCODONE 30 mg Immediate Release Tab PO SCH ×3 (05:37→17:02)
[2016-08-15] MEDS: MethylPREDNISolone 40 mg Vial IVP SCH ×3 (05:39→21:29)
[2016-08-15 06:15] LABS: BASO % 0.1 % (0.0-2.0); EOS % 0.1 % (0.0-4.0); HEMATOCRIT 26.6 % (35.0-51.0); LYMPH # 0.9 K/uL (1.0-4.3); LYMPH % 10.3 % (20.0-40.0); MEAN CELL VOLUME 86.5 fL (80.0-94.0); MEAN CORPUSCULAR HEMOGLOBIN 28.5 pg (27.0-31.0); MEAN PLATELET VOLUME 7.8 fL (7.2-11.7); MONO # 0.1 K/uL (0.0-0.8); MONO % 0.7 % (0.0-10.0); WHITE BLOOD COUNT 8.5 K/uL (4.8-10.8)
[2016-08-15 06:29] LABS: POTASSIUM 4.4 mmol/L (3.6-5.2)
[2016-08-15 06:31] LABS: ALB/GLOB RATIO 1.2 (1.0-2.1); BILIRUBIN,TOTAL 0.7 mg/dL (0.2-1.3); TOTAL PROTEIN 6.8 g/dL (6.3-8.3)
[2016-08-15 06:32] LABS: CALCIUM 8.4 mg/dl (8.6-10.4)
--- NOTE | 2016-08-15 08:27 | RAD ---
PROCEDURE: CHEST RADIOGRAPH, 1 VIEW HISTORY: Pneumonia COMPARISON: 07/29/2016 FINDINGS: LUNGS: Mild venous congestion. Right hilar prominence. Left basilar airspace opacity with small left pleural effusion. PLEURA: As above. CARDIOVASCULAR: Cardiomegaly. Left-sided pacemaker. OSSEOUS STRUCTURES: No significant abnormalities. VISUALIZED UPPER ABDOMEN: Normal. OTHER FINDINGS: None. IMPRESSION: Mild venous congestion. Right hilar prominence. Left basilar airspace opacity with small left pleural effusion.
[2016-08-15] MEDS: (Novolin R) Insulin Human Regular 100 units/ml vial SC SCH ×4 (09:00→21:20)
[2016-08-15] MEDS ORDERED: Albuterol-Ipratrop 20 mcg/actuation (4 g) IH SCH (10:00)
[2016-08-15] MEDS: Pantoprazole 40 mg EC Tab PO SCH (10:56)
[2016-08-15] MEDS: Fluticasone-Salmeterol 250-50mcg Diskus IH SCH ×2 (11:28→19:30)
--- NOTE | 2016-08-15 13:21 | CP.PCM.CON ---
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 The patient was brought to [facility] for acute shortness of breath and wheezing. Pulmonology was consulted due to extensive history of asthma and COPD. The patient was seen and examined at bedside today in no acute distress and resting comfortably in bed. The patient reports that the day before the patient suddenly experienced an episode of shortness of breath and wheezing that did not respond to his rescue inhaler treatments. The patient's called an ambulance and the patient was brought to the hospital for further evaluation. The patient reported that he had intense wheezes that prompted his to call the ambulance, he denies fainting or losing consciousness. The patient is currently denies cough, nausea, vomiting, chest pain, fever, chill, headache, nasal congestion at this time. PMHx: COPD/ emphysema, HLD, HTN, DM, CAD, gout, neuropathy, hypothyroidism PSHx: ACID, cardiac cath, left foot surgery FamHx: father of NC @ 49, mother of lung cancer at 56 Social: former 5 ppd smoker for 40 years, quit 4 years ago; formerly used alcohol, quit in 2008 Allergies: moxifloxacin Review of Systems - Cardiovascular Cardiovascular: Dyspnea, Dyspnea on Exertion. absent: Chest Pain, Chest Pain at Rest, Edema, Palpitations, Pedal Edema, Syncope - Respiratory Respiratory: Dyspnea, Dyspnea on Exertion, Wheezing, Chest Congestion. absent: Cough, Stridor, Pain on Inspiration, Excessive Mucous Production Past Patient History - Infectious Disease Hx of Infectious Diseases: None - Tetanus Immunizations Tetanus Immunization: Unknown - Past Medical History & Family History Past Medical History?: Yes - Past Social History Smoking Status: Former Smoker - CARDIAC Hx Cardia Arrhythmia: Yes Hx Congestive Heart Failure: Yes Hx Hypercholesterolemia: Yes Hx Hypertension: Yes Hx Pacemaker: Yes (defibrilator BY [employer]) - PULMONARY Hx Asthma: Yes Hx Bronchitis: Yes Hx Chronic Obstructive Pulmonary Disease (COPD): Yes (EMPHYSEMA) Hx Emphysema: Yes Hx Pneumonia: Yes - NEUROLOGICAL Hx Neurological Disorder: No - HEENT Hx HEENT Problems: No - RENAL Hx Chronic Kidney Disease: No - ENDOCRINE/METABOLIC Hx Hypothyroidism: Yes - HEMATOLOGICAL/ONCOLOGICAL Hx Blood Disorders: No - INTEGUMENTARY Hx Dermatological Problems: No - MUSCULOSKELETAL/RHEUMATOLOGICAL Hx Falls: Yes - GASTROINTESTINAL Hx Gastrointestinal Disorders: No - GENITOURINARY/GYNECOLOGICAL Hx Genitourinary Disorders: Yes Hx Prostate Problems: Yes - PSYCHIATRIC Hx Anxiety: Yes Hx Bipolar Disorder: Yes Hx Substance Use: No - SURGICAL HISTORY Hx Coronary Stent: Yes (x13) - ANESTHESIA Hx Anesthesia: Yes Hx Anesthesia Reactions: No Hx Malignant Hyperthermia: No Has any member of the family had a problem w/ anesthesia?: No Meds Allergies/Adverse Reactions: Allergies Allergy/AdvReac Type Severity Reaction Status Date / Time moxifloxacin HCl Allergy RASH Verified 08/14/16 21:13 [From Avelox] docosanol [From Abreva] AdvReac Verified 08/14/16 21:13 - Medications Medications: Current Medications Acetaminophen (Tylenol 325mg Tab) 650 mg PO Q6H PRN PRN Reason: Fever >100.4 F Albuterol/Ipratropium (Duoneb 3 Mg/0.5 Mg (3 Ml) Ud) 3 ml IH RQ6 PRN PRN Reason: Shortness of Breath Last Admin: 08/15/16 05:14 Dose: 3 ml Alprazolam (Xanax) 1 mg PO BID [facility] Last Admin: 08/15/16 10:57 Dose: 1 mg Amiodarone HCl (Cordarone) 200 mg PO DAILY [facility] Last Admin: 08/15/16 10:56 Dose: 200 mg Aspirin (Aspirin Chewable) 81 mg PO DAILY [facility] Last Admin: 08/15/16 10:56 Dose: 81 mg Carvedilol (Coreg) 3.125 mg PO BID [facility] Last Admin: 08/15/16 10:56 Dose: 3.125 mg Enalapril Maleate (Vasotec) 5 mg PO DAILY [facility] Last Admin: 08/15/16 10:56 Dose: 5 mg Furosemide (Lasix) 20 mg PO Q12 [facility] Last Admin: 08/15/16 10:56 Dose: 20 mg Glimepiride (Amaryl) 1 mg PO BIDAC [facility] Last Admin: 08/15/16 09:10 Dose: 1 mg Heparin Sodium (Porcine) (Heparin) 5,000 units SC Q8 [facility] Last Admin: 08/15/16 05:39 Dose: 5,000 units Ceftriaxone Sodium (Rocephin Iv 1 Gm Duplex) 50 mls @ 100 mls/hr IVPB Q24H [facility] Last Admin: 08/14/16 21:41 Dose: Not Given Azithromycin 500 mg/ Sodium (Chloride) 250 mls @ 250 mls/hr IVPB Q24H [facility] Last Admin: 08/14/16 21:41 Dose: Not Given Insulin Human Regular (Novolin R) 0 unit SC ACHS [facility] PRN Reason: Protocol Last Admin: 08/15/16 12:45 Dose: 1 unit Levothyroxine Sodium (Synthroid) 50 mcg PO DAILY@0630 [facility] Last Admin: 08/15/16 05:37 Dose: 50 mcg Methylprednisolone (Solu-Medrol) 40 mg IVP Q8H [facility] Last Admin: 08/15/16 05:39 Dose: 40 mg Oxycodone HCl (Oxycodone Immediate Release Tab) 30 mg PO Q6 [facility] Last Admin: 08/15/16 13:00 Dose: 30 mg Pantoprazole Sodium (Protonix Ec Tab) 40 mg PO DAILY [facility] Last Admin: 08/15/16 10:56 Dose: 40 mg Rosuvastatin Calcium (Crestor) 5 mg PO HS [facility] Last Admin: 08/14/16 21:40 Dose: 5 mg Fluticasone/Salmeterol (Advair Diskus 250/50) 1 puff IH RQ12 [facility] Last Admin: 08/15/16 11:28 Dose: Not Given Ticagrelor (Brilinta) 90 mg PO BID [facility] Last Admin: 08/15/16 11:04 Dose: 90 mg Physical Exam - Constitutional Appears: Well, Non-toxic, No Acute Distress - Head Exam Head Exam: ATRAUMATIC, NORMAL INSPECTION - Eye Exam Eye Exam: Normal appearance - ENT Exam ENT Exam: Normal Exam - Neck Exam Neck exam: Positive for: Normal Inspection - Respiratory Exam Respiratory Exam: Decreased Breath Sounds, Wheezes - Cardiovascular Exam Cardiovascular Exam: +S1, +S2 - Neurological Exam Neurological exam: Alert, Oriented x3 - Skin Skin Exam: Dry, Normal Color, Warm Results - Vital Signs Recent Vital Signs: Last Vital Signs Temp 97.6 F 08/15/16 00:33 Pulse 81 08/15/16 00:33 Resp 20 08/15/16 00:33 BP 117/70 08/15/16 10:56 Pulse Ox 96 08/15/16 05:07 - Labs Result Diagrams: 08/15/16 06:03 08/15/16 06:03 Labs: Laboratory Results - last 24 hr 08/14/16 08/15/16 08/15/16 21:55 06:03 08:00 WBC 8.5 RBC 3.07 L Hgb 8.8 L Hct 26.6 L MCV 86.5 MCH 28.5 MCHC 33.0 RDW 15.0 H Plt Count 178 MPV 7.8 Neut % (Auto) 88.8 H Lymph % (Auto) 10.3 L [place] % (Auto) 0.7 Eos % (Auto) 0.1 Baso % (Auto) 0.1 Neut # 7.5 H Lymph # 0.9 L [place] # 0.1 Eos # 0.0 Baso # 0.0 Sodium 138 Potassium 4.4 Chloride 95 L Carbon Dioxide 25 Anion Gap 22 H BUN 27 H Creatinine 1.5 Est GFR ( Amer) 59 Est GFR (Non-Af Amer) 49 POC Glucose (mg/dL) 166 H 161 H Random Glucose 137 H Calcium 8.4 L Total Bilirubin 0.7 AST 34 ALT 41 Alkaline Phosphatase 47 Total Protein 6.8 Albumin 3.7 Globulin 3.0 Albumin/Globulin Ratio 1.2 Assessment & Plan - Assessment and Plan (Free Text) Plan: 1) Asthma Exacerbation Start IV steroids Continue breathing treatments as needed 2) COPD continue nebulizer treatments Continue recommendations by medicine team - Date & Time Date: 08/15/16 Time: 13:19
--- NOTE | 2016-08-15 16:13 | CP.PCM.PN ---
<Peterson Cristina - Last Filed: 08/15/16 16:42> Subjective - Date & Time of Evaluation Date of Evaluation: 08/15/16 Time of Evaluation: 09:05 - Subjective Subjective: Pt seen and examined. Pt reports that he is wheezing and has slight shortness of breath. He also reports feeling depressed due to being in the hospital and difficulty sleeping. Pt reports b/l knee pain and weakness in knees. Pt denies fever, chills, chest pain, nausea, and vomiting. Objective - Vital Signs/Intake and Output Vital Signs (last 24 hours): Temp Pulse Resp BP Pulse Ox 98.0 F 75 20 117/70 96 08/15/16 10:00 08/15/16 10:00 08/15/16 10:00 08/15/16 10:56 08/15/16 10:00 Intake and Output: 08/15/16 08/15/16 06:59 18:59 Intake Total 480 Balance 480 - Medications Medications: Current Medications Acetaminophen (Tylenol 325mg Tab) 650 mg PO Q6H PRN PRN Reason: Fever >100.4 F Albuterol/Ipratropium (Duoneb 3 Mg/0.5 Mg (3 Ml) Ud) 3 ml IH RQ6 PRN PRN Reason: Shortness of Breath Last Admin: 08/15/16 05:14 Dose: 3 ml Alprazolam (Xanax) 1 mg PO BID [facility] Last Admin: 08/15/16 10:57 Dose: 1 mg Amiodarone HCl (Cordarone) 200 mg PO DAILY [facility] Last Admin: 08/15/16 10:56 Dose: 200 mg Aspirin (Aspirin Chewable) 81 mg PO DAILY [facility] Last Admin: 08/15/16 10:56 Dose: 81 mg Carvedilol (Coreg) 3.125 mg PO BID [facility] Last Admin: 08/15/16 10:56 Dose: 3.125 mg Enalapril Maleate (Vasotec) 5 mg PO DAILY [facility] Last Admin: 08/15/16 10:56 Dose: 5 mg Furosemide (Lasix) 20 mg PO Q12 [facility] Last Admin: 08/15/16 10:56 Dose: 20 mg Glimepiride (Amaryl) 1 mg PO BIDAC [facility] Last Admin: 08/15/16 09:10 Dose: 1 mg Heparin Sodium (Porcine) (Heparin) 5,000 units SC Q8 [facility] Last Admin: 08/15/16 14:43 Dose: 5,000 units Ceftriaxone Sodium (Rocephin Iv 1 Gm Duplex) 50 mls @ 100 mls/hr IVPB Q24H [facility] Last Admin: 08/14/16 21:41 Dose: Not Given Azithromycin 500 mg/ Sodium (Chloride) 250 mls @ 250 mls/hr IVPB Q24H [facility] Last Admin: 08/14/16 21:41 Dose: Not Given Insulin Human Regular (Novolin R) 0 unit SC ACHS [facility] PRN Reason: Protocol Last Admin: 08/15/16 12:45 Dose: 1 unit Levothyroxine Sodium (Synthroid) 50 mcg PO DAILY@0630 [facility] Last Admin: 08/15/16 05:37 Dose: 50 mcg Methylprednisolone (Solu-Medrol) 40 mg IVP Q8H [facility] Last Admin: 08/15/16 14:43 Dose: 40 mg Oxycodone HCl (Oxycodone Immediate Release Tab) 30 mg PO Q6 [facility] Last Admin: 08/15/16 13:00 Dose: 30 mg Pantoprazole Sodium (Protonix Ec Tab) 40 mg PO DAILY [facility] Last Admin: 08/15/16 10:56 Dose: 40 mg Rosuvastatin Calcium (Crestor) 5 mg PO HS [facility] Last Admin: 08/14/16 21:40 Dose: 5 mg Fluticasone/Salmeterol (Advair Diskus 250/50) 1 puff IH RQ12 [facility] Last Admin: 08/15/16 11:28 Dose: Not Given Ticagrelor (Brilinta) 90 mg PO BID [facility] Last Admin: 08/15/16 11:04 Dose: 90 mg - Labs Labs: 08/15/16 06:03 08/15/16 06:03 - Constitutional Appears: No Acute Distress - Head Exam Head Exam: ATRAUMATIC, NORMOCEPHALIC - Eye Exam Eye Exam: EOMI, PERRL - ENT Exam ENT Exam: Mucous Membranes Moist. absent: Mucous Membranes Dry - Neck Exam Neck Exam: Full ROM. absent: Lymphadenopathy - Respiratory Exam Respiratory Exam: Wheezes. absent: Accessory Muscle Use, Rales - Cardiovascular Exam Cardiovascular Exam: Gallop, +S1, +S2. absent: Rubs - GI/Abdominal Exam GI & Abdominal Exam: Soft, Normal Bowel Sounds. absent: Tenderness - Neurological Exam Neurological Exam: Alert, Awake, Oriented x3 - Psychiatric Exam Psychiatric exam: Normal Affect, Normal Mood - Skin Skin Exam: Normal Color, Warm Assessment and Plan - Assessment and Plan (Free Text) Assessment: Community Acquired Pneumonia: CXR - Mild venous congestion, right hilar prominence, left basilar opacity with small left pleural effusion (please see full report) Tmax 101, nontachycardic No leukocytosis Azithromycin 500mg IVPB qd Ceftriaxone 1g IV q24h Blood cultures pending COPD Exacerbation: Mild venous congestion, right hilar prominence, left basilar opacity with small left pleural effusion (please see full report) azithromycin 500mg IVPB daily Pulmonology, Dr. Ceja, consulted. Help appreciated. Advair 250/50 1 puff IH q12h yanni Duonebs q6 prn Solumedrol 40mg IV q8h Acute on Chronic CHF: Left ventricular systolic dysfunction Cardiac Cath 05/23/16- EF 15-20 % Pro-BNP 2300 Lasix 20 mg po q12h yanni Coreg 3.125 mg po qd Enalapril 5 mg po qd Cardiology, Dr. Jackson, consulted. Help appreciated. Coronary Artery Disease: Brilinta 90 mg po bid ASA 81 mg po qd B/L Knee pain and weakness: Knee X rays b/l 3 views HTN: Enalapril 5 mg po qd Coreg 3.125 mg po qd Amiodarone 200 mg po qd Hypothyroidism: Levothyroxine 50 mcg po qd Diabetes: Glimepiride 1 mg PO BIDAC Regular Insulin sliding scale fingersticks ACHS Peripheral neuropathy: Oxycodone 30mg PO Q6h Hyperlipidemia: Crestor 5 mg po hs Anxiety Xanax 1mg PO BID Depression/Insomnia: Lexapro 10 mg po qd Restoril 15 mg po hs prn Prophylactic Measures: GI: Protonix 40 mg po qd DVT: heparin 5000 units sc q8h <Emmett Dey Jr. - Last Filed: 08/19/16 16:41> Objective - Vital Signs/Intake and Output Vital Signs (last 24 hours): Temp Pulse Resp BP Pulse Ox 97.9 F 96 H 20 136/75 85 L 08/18/16 15:00 08/18/16 16:33 08/18/16 15:00 08/18/16 15:00 08/18/16 15:00 - Labs Labs: 08/17/16 13:42 08/17/16 13:42 Attending/Attestation - Attestation I have personally seen and examined this patient.: Yes I have fully participated in the care of the patient.: Yes I have reviewed all pertinent clinical information, including history, physical exam and plan: Yes Notes (Text): 08/19/16 16:41 Patient seen and examined. Reviewed resident note and findings. Agree with findings and plan.
[2016-08-15] MEDS: cefTRIAXone IV 1 gm in Dextros 50 ML IVPB SCH (21:31)
[2016-08-15] MEDS: Azithromycin 500 MG in Sodium Chloride 0.9% 250 ML IVPB SCH (21:32)
[2016-08-16] MEDS: Albuterol-Ipratrop 3 mg / 0.5 (3 ml) UD IH PRN ×4 (00:30→12:27)
[2016-08-16] MEDS: MethylPREDNISolone 40 mg Vial IVP SCH ×3 (05:15→22:20)
[2016-08-16] MEDS: Levothyroxine 50 MCG TAB PO SCH (05:35)
[2016-08-16] MEDS: oxyCODONE 30 mg Immediate Release Tab PO SCH ×4 (05:35→17:47)
[2016-08-16] MEDS: Fluticasone-Salmeterol 250-50mcg Diskus IH SCH ×2 (07:42→19:52)
[2016-08-16 07:52] LABS: HEMATOCRIT 24.9 % (35.0-51.0); LYMPH # 0.8 K/uL (1.0-4.3); LYMPH % 4.7 % (20.0-40.0); MEAN CORPUSCULAR HEMOGLOBIN 28.2 pg (27.0-31.0); MEAN CORPUSCULAR HGB CONC 32.4 g/dL (33.0-37.0); MEAN PLATELET VOLUME 8.1 fL (7.2-11.7); MONO # 0.6 K/uL (0.0-0.8); MONO % 3.3 % (0.0-10.0); PLATELET COUNT 188 K/uL (130-400); RED CELL DISTRIBUTION WIDTH 15.5 % (11.5-14.5)
[2016-08-16 07:56] LABS: WHITE BLOOD COUNT 16.9 K/uL (4.8-10.8)
[2016-08-16 08:18] LABS: POTASSIUM 4.9 mmol/L (3.6-5.2)
[2016-08-16 08:20] LABS: ALB/GLOB RATIO 1.3 (1.0-2.1); BILIRUBIN,TOTAL 0.3 mg/dL (0.2-1.3); PHOSPHOROUS 3.8 mg/dL (2.5-4.5); TOTAL PROTEIN 6.9 g/dL (6.3-8.3)
[2016-08-16 08:21] LABS: CALCIUM 8.3 mg/dl (8.6-10.4); MAGNESIUM 2.2 mg/dL (1.6-2.3)
[2016-08-16] MEDS: (Novolin R) Insulin Human Regular 100 units/ml vial SC SCH ×4 (08:36→22:22)
[2016-08-16 09:08] LABS: TOTAL CELLS COUNTED 100
[2016-08-16 09:09] LABS: NEUTROPHIL 94 % (50-75)
[2016-08-16] MEDS: Pantoprazole 40 mg EC Tab PO SCH (10:18)
--- NOTE | 2016-08-16 11:31 | CP.PCM.CON ---
History of Present Illness - History of Present Illness History of Present Illness: I was asked to see patient by Dr. Dey. Patient is a 55 year old male with PMH HTN ischemic cardiomyopathy, HTN, who presents with dyspnea. The patient describes productive cough which began last week. The patient developed progressive wheezing necessitating [facility] admission. The patient denies chest pain or palpitations. Review of Systems - Constitutional Constitutional: absent: As Per HPI, Anorexia, Chills, Daytime Sleepiness, Excessive Sweating, Fatigue, Fever, Frequent Falls, Headache, Increased Appetite , Lethargy, Malaise, Night Sweats, Snoring, Sleep Apnea, Weight Gain, Weight Loss, Weakness, Other - EENT Eyes: absent: As Per HPI, Blind Spots, Blurred Vision, Change in Vision, Decreased Night Vision, Diplopia, Discharge, Dry Eye, Exophthalmos, Floaters, Irritation, Itchy Eyes, Loss of Peripheral Vision, Pain, Photophobia, Requires Corrective Lenses, Sees Flashes, Spots in Vision, Tunnel Vision, Other Visual Disturbances, Loss of Vision, Other Ears: absent: As Per HPI, Decreased Hearing, Ear Discharge, Ear Pain, Tinnitus, Abnormal Hearing, Disequilibrium, Dizziness, Other Nose/Mouth/Throat: absent: As Per HPI, Epistaxis, Nasal Congestion, Nasal Discharge, Nasal Obstruction, Nasal Trauma, Nose Pain, Post Nasal Drip, Sinus Pain, Sinus Pressure, Bleeding Gums, Change in Voice, Dental Pain, Dry Mouth, Dysphagia, Halitosis, Hoarsness, Lip Swelling, Mouth Lesions, Mouth Pain, Odynophagia, Sore Throat, Throat Swelling, Tongue Swelling, Facial Pain, Neck Pain, Neck Mass, Other - Cardiovascular Cardiovascular: absent: As Per HPI, Acrocyanosis, Chest Pain, Chest Pain at Rest , Chest Pain with Activity, Claudication, Diaphoresis, Dyspnea, Dyspnea on Exertion, Edema, Irregular Heart Rhythm, Pain Radiating to Arm/Neck/Jaw, Leg Edema, Leg Ulcers, Lightheadedness, Orthopnea, Palpitations, Paroxysmal Nocturnal Dyspnea, Pedal Edema, Radiating Pain, Rapid Heart Rate, Slow Heart Rate, Syncope, Other - Respiratory Respiratory: Cough, Dyspnea, Excessive Mucous Production - Gastrointestinal Gastrointestinal: absent: As Per HPI, Abdominal Pain, Belching, Bloating, Change in Bowel Habits, Change in Stool Character, Coffee Ground Emesis, Constipation, Cramping, Diarrhea, Dyspepsia, Dysphagia, Early Satiety, Excessive Flatus, Fecal Incontinence, Heartburn, Hematemesis, Hematochezia, Loose Stools, Melena, Nausea, Odynophagia, Temesmus, Vomiting, Other - Genitourinary Genitourinary: absent: As Per HPI, Change in Urinary Stream, Difficulty Urinating, Dysuria, Flank Pain, Hematuria, Pyuria, Nocturia, Urinary Incontinence, Urinary Frequency, Urinary Hesitance, Urinary Urgency, Voiding Freq/Small Amts, Freq UTI, Hx Renal/Bladder Calculi, Hx /Renal Surgery, Bladder Distension, Other - Musculoskeletal Musculoskeletal: absent: As Per HPI, Abnormal Gait, Arthralgias, Atrophy, Back Pain, Deformity, Joint Swelling, Limited Range of Motion, Loss of Height, Muscle Cramps, Muscle Weakness, Myalgias, Neck Pain, Numbness, Radiating Pain into Limb, Stiffness, Tingling, Other - Integumentary Integumentary: absent: As Per HPI, Acne, Alopecia, Bleeding Lesions, Change in Hair, Change in Nails, Change in Pigmentation, Changing Lesions, Dry Skin, Erythema, Furuncle, Hirsutism, Lesions, New Lesions, Non-Healing Lesions, Photosensitivity, Pruritus, Rash, Skin Pain, Skin Ulcer, Sores, Striae, Swelling , Unusual Bruising, Wounds, Jaundice, Other - Neurological Neurological: absent: As Per HPI, Abnormal Gait, Abnormal Hearing, Abnormal Movements, Abnormal Speech, Behavioral Changes, Burning Sensations, Confusion, Convulsions, Disequilibrium, Dizziness, Numbness, Focal Weakness, Frequent Falls , Headaches, Lack of Coordination, Loss of Vision, Memory Loss, Paresthesias, Radicular Pain, Restless Legs, Sensory Deficit, Syncope, Tingling, Tremor, Vertigo, Weakness, Other Visual Disturbances, Other - Psychiatric Psychiatric: absent: As Per HPI, Abnormal Sleep Pattern, Anhedonia, Anxiety, Auditory Hallucinations, Behavioral Changes, Change in Appetite, Change in Libido, Confusion, Depression, Difficulty Concentrating, Hallucinations, Homicidal Ideation, Hopelessness, Irritability, Memory Loss, Mood Swings, Panic Attacks, Paranoia, Suicidal Ideation, Visual Hallucinations, Tactile Hallucinations, Other - Endocrine Endocrine: absent: As Per HPI, Change in Body Appearance, Change in Libido, Cold Intolorance, Deepening of Voice, Excessive Sweating, Fatigue, Flushing, Heat Intolorance, Increase in Ring/Shoe/Hat Size, Palpitations, Polydipsia, Polyphagia, Polyuria, Other - Hematologic/Lymphatic Hematologic: absent: As Per HPI, Easy Bleeding, Easy Bruising, Lymphadenopathy, Other Past Patient History - Infectious Disease Hx of Infectious Diseases: None - Tetanus Immunizations Tetanus Immunization: Unknown - Past Medical History & Family History Past Medical History?: Yes - Past Social History Smoking Status: Former Smoker - CARDIAC Hx Cardia Arrhythmia: Yes Hx Congestive Heart Failure: Yes Hx Hypercholesterolemia: Yes Hx Hypertension: Yes Hx Pacemaker: Yes (defibrilator BY [employer]) - PULMONARY Hx Asthma: Yes Hx Bronchitis: Yes Hx Chronic Obstructive Pulmonary Disease (COPD): Yes (EMPHYSEMA) Hx Emphysema: Yes Hx Pneumonia: Yes - NEUROLOGICAL Hx Neurological Disorder: No - HEENT Hx HEENT Problems: No - RENAL Hx Chronic Kidney Disease: No - ENDOCRINE/METABOLIC Hx Hypothyroidism: Yes - HEMATOLOGICAL/ONCOLOGICAL Hx Blood Disorders: No - INTEGUMENTARY Hx Dermatological Problems: No - MUSCULOSKELETAL/RHEUMATOLOGICAL Hx Falls: Yes - GASTROINTESTINAL Hx Gastrointestinal Disorders: No - GENITOURINARY/GYNECOLOGICAL Hx Genitourinary Disorders: Yes Hx Prostate Problems: Yes - PSYCHIATRIC Hx Anxiety: Yes Hx Bipolar Disorder: Yes Hx Substance Use: No - SURGICAL HISTORY Hx Coronary Stent: Yes (x13) - ANESTHESIA Hx Anesthesia: Yes Hx Anesthesia Reactions: No Hx Malignant Hyperthermia: No Has any member of the family had a problem w/ anesthesia?: No Meds Allergies/Adverse Reactions: Allergies Allergy/AdvReac Type Severity Reaction Status Date / Time moxifloxacin HCl Allergy RASH Verified 08/14/16 21:13 [From Avelox] docosanol [From Abreva] AdvReac Verified 08/14/16 21:13 - Medications Medications: Current Medications Acetaminophen (Tylenol 325mg Tab) 650 mg PO Q6H PRN PRN Reason: Fever >100.4 F Albuterol/Ipratropium (Duoneb 3 Mg/0.5 Mg (3 Ml) Ud) 3 ml IH RQ6 PRN PRN Reason: Shortness of Breath Last Admin: 08/16/16 08:38 Dose: 3 ml Alprazolam (Xanax) 1 mg PO BID [facility] Last Admin: 08/16/16 10:19 Dose: 1 mg Amiodarone HCl (Cordarone) 200 mg PO DAILY [facility] Last Admin: 08/16/16 10:19 Dose: 200 mg Aspirin (Aspirin Chewable) 81 mg PO DAILY [facility] Last Admin: 08/16/16 10:17 Dose: 81 mg Benzocaine/Menthol (Cepacol Sore Throat) 1 yasir MT Q4 PRN PRN Reason: Sore Throat Carvedilol (Coreg) 3.125 mg PO BID [facility] Last Admin: 08/16/16 10:17 Dose: 3.125 mg Enalapril Maleate (Vasotec) 5 mg PO DAILY [facility] Last Admin: 08/16/16 10:17 Dose: 5 mg Escitalopram Oxalate (Lexapro) 10 mg PO DAILY [facility] Last Admin: 08/16/16 10:18 Dose: 10 mg Furosemide (Lasix) 20 mg PO Q12 [facility] Last Admin: 08/16/16 10:18 Dose: 20 mg Glimepiride (Amaryl) 1 mg PO BIDAC [facility] Last Admin: 08/16/16 08:36 Dose: 1 mg Heparin Sodium (Porcine) (Heparin) 5,000 units SC Q8 [facility] Last Admin: 08/16/16 05:15 Dose: 5,000 units Ceftriaxone Sodium (Rocephin Iv 1 Gm Duplex) 50 mls @ 100 mls/hr IVPB Q24H [facility] Last Admin: 08/15/16 21:31 Dose: 100 mls/hr Azithromycin 500 mg/ Sodium (Chloride) 250 mls @ 250 mls/hr IVPB Q24H [facility] Last Admin: 08/15/16 21:32 Dose: 250 mls/hr Insulin Human Regular (Novolin R) 0 unit SC ACHS [facility] PRN Reason: Protocol Last Admin: 08/16/16 08:36 Dose: 1 unit Levothyroxine Sodium (Synthroid) 50 mcg PO DAILY@0630 [facility] Last Admin: 08/16/16 05:35 Dose: 50 mcg Methylprednisolone (Solu-Medrol) 40 mg IVP Q8H [facility] Last Admin: 08/16/16 05:15 Dose: 40 mg Oxycodone HCl (Oxycodone Immediate Release Tab) 30 mg PO Q6 [facility] Last Admin: 08/16/16 05:35 Dose: 30 mg Pantoprazole Sodium (Protonix Ec Tab) 40 mg PO DAILY [facility] Last Admin: 08/16/16 10:18 Dose: 40 mg Rosuvastatin Calcium (Crestor) 5 mg PO HS [facility] Last Admin: 08/15/16 21:19 Dose: 5 mg Fluticasone/Salmeterol (Advair Diskus 250/50) 1 puff IH RQ12 [facility] Last Admin: 08/16/16 07:42 Dose: Not Given Temazepam (Restoril) 15 mg PO HS PRN PRN Reason: Insomnia Ticagrelor (Brilinta) 90 mg PO BID [facility] Last Admin: 08/16/16 10:18 Dose: 90 mg Physical Exam - Constitutional Appears: Non-toxic - Head Exam Head Exam: NORMAL INSPECTION - Eye Exam Eye Exam: Normal appearance - ENT Exam ENT Exam: Mucous Membranes Moist - Neck Exam Neck exam: Positive for: Full Rom - Respiratory Exam Respiratory Exam: Decreased Breath Sounds, Rhonchi, Wheezes - Cardiovascular Exam Cardiovascular Exam: REGULAR RHYTHM - GI/Abdominal Exam GI & Abdominal Exam: Normal Bowel Sounds - Rectal Exam Rectal Exam: Deferred - Extremities Exam Extremities exam: Positive for: full ROM. Negative for: pedal edema, tenderness - Back Exam Back exam: NORMAL INSPECTION - Neurological Exam Neurological exam: Alert, Oriented x3 - Psychiatric Exam Psychiatric exam: Normal Affect - Skin Skin Exam: Normal Color Results - Vital Signs Recent Vital Signs: Last Vital Signs Temp 97.7 F 08/16/16 08:11 Pulse 77 08/16/16 08:11 Resp 20 08/16/16 08:11 BP 109/61 08/16/16 10:18 Pulse Ox 95 08/16/16 08:11 - Labs Result Diagrams: 08/16/16 07:33 08/16/16 07:33 Labs: Laboratory Results - last 24 hr 08/15/16 08/15/16 08/15/16 11:35 16:07 21:14 WBC RBC Hgb Hct MCV MCH MCHC RDW Plt Count MPV Neut % (Auto) Lymph % (Auto) [place] % (Auto) Eos % (Auto) Baso % (Auto) Neut # Lymph # [place] # Eos # Baso # Neutrophils % (Manual) Band Neutrophils % Lymphocytes % (Manual) Monocytes % (Manual) Toxic Granulation Platelet Estimate Hypochromasia (manual) Poikilocytosis (manual Anisocytosis (manual) Tear Drop Cells Ovalocytes Sodium Potassium Chloride Carbon Dioxide Anion Gap BUN Creatinine Est GFR ( Amer) Est GFR (Non-Af Amer) POC Glucose (mg/dL) 160 H 135 H 116 H Random Glucose Calcium Phosphorus Magnesium Total Bilirubin AST ALT Alkaline Phosphatase Total Protein Albumin Globulin Albumin/Globulin Ratio 08/16/16 08/16/16 07:09 07:33 WBC 16.9 H D RBC 2.86 L Hgb 8.1 L Hct 24.9 L MCV 87.0 MCH 28.2 MCHC 32.4 L RDW 15.5 H Plt Count 188 MPV 8.1 Neut % (Auto) 92.0 H Lymph % (Auto) 4.7 L [place] % (Auto) 3.3 Eos % (Auto) 0.0 Baso % (Auto) 0.0 Neut # 15.6 H Lymph # 0.8 L [place] # 0.6 Eos # 0.0 Baso # 0.0 Neutrophils % (Manual) 94 H Band Neutrophils % 1 Lymphocytes % (Manual) 3 L Monocytes % (Manual) 2 Toxic Granulation Present Platelet Estimate Normal Hypochromasia (manual) Slight Poikilocytosis (manual Slight Anisocytosis (manual) Slight Tear Drop Cells Slight Ovalocytes Slight Sodium 130 L Potassium 4.9 Chloride 91 L Carbon Dioxide 24 Anion Gap 21 H BUN 32 H Creatinine 1.5 Est GFR ( Amer) 59 Est GFR (Non-Af Amer) 49 POC Glucose (mg/dL) 173 H Random Glucose 149 H Calcium 8.3 L Phosphorus 3.8 Magnesium 2.2 Total Bilirubin 0.3 AST 42 ALT 36 Alkaline Phosphatase 47 Total Protein 6.9 Albumin 3.9 Globulin 3.0 Albumin/Globulin Ratio 1.3 - EKG Data EKG Interpreted by: Myself Assessment & Plan (1) Bronchitis Assessment and Plan: likely exacerbating COPD. pulmonary management Status: Acute (2) Chronic congestive heart failure Assessment and Plan: current not in acute CHF. continue medical therapy Status: Acute (3) Ischemic cardiomyopathy Assessment and Plan: antiplatelet therapy Status: Acute (4) CAD (coronary artery disease) Assessment and Plan: antiplatelet therapy Status: Chronic
--- NOTE | 2016-08-16 13:21 | RAD ---
PROCEDURE: Bilateral Knee Radiographs. HISTORY: knee pain, weakness COMPARISON: None. FINDINGS: BONES: Right Knee: No fracture. Left Knee: . No fracture. JOINTS: Right Knee: . No osteoarthritis. Left knee: no osteoarthritis. SOFT TISSUES: Bilateral arterial vascular calcifications. Few concomitant calcified phleboliths possible JOINT EFFUSION: Right Knee: None. Left Knee: None. OTHER FINDINGS: Minimal tibial spine spurring bilaterally . Each patellofemoral joint space appears narrowed IMPRESSION: No destructive lesions. Minimal spurring consistent with minimal degenerative osteoarthrosis.
--- NOTE | 2016-08-16 13:29 | CP.PCM.PN ---
Subjective - Date & Time of Evaluation Date of Evaluation: 08/16/16 Time of Evaluation: 11:10 - Subjective Subjective: Patient was seen and examined at bedside, no acute distress, no acute events overnight. The patient was resting comofortably in bed, but reported that he had issues breathing overnight. The patient reports that he was unable to get the sufficient amount of breathing treatments that he needed to help him get through the night because they were spaced so far apart. Pt complains continued cough that has bringing up green sputum. Pt continues to complain of wheezing and mild dyspnea but does admit to mild improvement. Patient currently denies chest pain, palpitations, fever, chills, nausea, vomiting, nasal congestion, at this time. Objective - Vital Signs/Intake and Output Vital Signs (last 24 hours): Temp Pulse Resp BP Pulse Ox 97.7 F 77 20 109/61 95 08/16/16 08:11 08/16/16 08:11 08/16/16 08:11 08/16/16 10:18 08/16/16 08:11 Intake and Output: 08/16/16 08/16/16 06:59 18:59 Intake Total 320 Balance 320 - Medications Medications: Current Medications Acetaminophen (Tylenol 325mg Tab) 650 mg PO Q6H PRN PRN Reason: Fever >100.4 F Albuterol/Ipratropium (Duoneb 3 Mg/0.5 Mg (3 Ml) Ud) 3 ml IH RQ4 [facility] Alprazolam (Xanax) 1 mg PO BID [facility] Last Admin: 08/16/16 10:19 Dose: 1 mg Amiodarone HCl (Cordarone) 200 mg PO DAILY [facility] Last Admin: 08/16/16 10:19 Dose: 200 mg Aspirin (Aspirin Chewable) 81 mg PO DAILY [facility] Last Admin: 08/16/16 10:17 Dose: 81 mg Benzocaine/Menthol (Cepacol Sore Throat) 1 yasir MT Q4 PRN PRN Reason: Sore Throat Carvedilol (Coreg) 3.125 mg PO BID [facility] Last Admin: 08/16/16 10:17 Dose: 3.125 mg Enalapril Maleate (Vasotec) 5 mg PO DAILY [facility] Last Admin: 08/16/16 10:17 Dose: 5 mg Escitalopram Oxalate (Lexapro) 10 mg PO DAILY [facility] Last Admin: 08/16/16 10:18 Dose: 10 mg Furosemide (Lasix) 20 mg PO Q12 [facility] Last Admin: 08/16/16 10:18 Dose: 20 mg Glimepiride (Amaryl) 1 mg PO BIDAC [facility] Last Admin: 08/16/16 08:36 Dose: 1 mg Heparin Sodium (Porcine) (Heparin) 5,000 units SC Q8 [facility] Last Admin: 08/16/16 05:15 Dose: 5,000 units Ceftriaxone Sodium (Rocephin Iv 1 Gm Duplex) 50 mls @ 100 mls/hr IVPB Q24H [facility] Last Admin: 08/15/16 21:31 Dose: 100 mls/hr Azithromycin 500 mg/ Sodium (Chloride) 250 mls @ 250 mls/hr IVPB Q24H [facility] Last Admin: 08/15/16 21:32 Dose: 250 mls/hr Insulin Human Regular (Novolin R) 0 unit SC ACHS [facility] PRN Reason: Protocol Last Admin: 08/16/16 12:21 Dose: 1 unit Levothyroxine Sodium (Synthroid) 50 mcg PO DAILY@0630 [facility] Last Admin: 08/16/16 05:35 Dose: 50 mcg Methylprednisolone (Solu-Medrol) 40 mg IVP Q8H [facility] Last Admin: 08/16/16 05:15 Dose: 40 mg Oxycodone HCl (Oxycodone Immediate Release Tab) 30 mg PO Q6 [facility] Last Admin: 08/16/16 12:20 Dose: 30 mg Pantoprazole Sodium (Protonix Ec Tab) 40 mg PO DAILY [facility] Last Admin: 08/16/16 10:18 Dose: 40 mg Promethazine HCl/Dextromethorphan (Phenergan Dm Syrup) 5 ml PO Q6H PRN PRN Reason: Cough and congestion Rosuvastatin Calcium (Crestor) 5 mg PO HS [facility] Last Admin: 08/15/16 21:19 Dose: 5 mg Fluticasone/Salmeterol (Advair Diskus 250/50) 1 puff IH RQ12 [facility] Last Admin: 08/16/16 07:42 Dose: Not Given Temazepam (Restoril) 15 mg PO HS PRN PRN Reason: Insomnia Ticagrelor (Brilinta) 90 mg PO BID [facility] Last Admin: 08/16/16 10:18 Dose: 90 mg - Labs Labs: 08/16/16 07:33 08/16/16 07:33 - Constitutional Appears: Well, Non-toxic, No Acute Distress - Head Exam Head Exam: ATRAUMATIC, NORMAL INSPECTION - Eye Exam Eye Exam: Normal appearance - ENT Exam ENT Exam: Normal Exam - Neck Exam Neck Exam: Normal Inspection - Respiratory Exam Respiratory Exam: Decreased Breath Sounds, Clear to Ausculation Bilateral. absent: Wheezes - Cardiovascular Exam Cardiovascular Exam: +S1, +S2 - Neurological Exam Neurological Exam: Alert, Awake, Oriented x3 - Skin Skin Exam: Dry, Normal Color, Warm Assessment and Plan - Assessment and Plan (Free Text) Plan: 1) Bronchitis Patient is improving Switch nebulizer treatments to q4h continue Abx Cepacol for cough control continue steroid treatments 2) COPD Nebulizer treatments increased to q4 Continue recommendations by medicine team
--- NOTE | 2016-08-16 14:51 | CP.PCM.PN ---
<Peterson Cristina - Last Filed: 08/16/16 14:48> Subjective - Date & Time of Evaluation Date of Evaluation: 08/16/16 Time of Evaluation: 07:15 - Subjective Subjective: Pt seen and examined. Pt reports that he is wheezing, slightly short of breath, and reports productive cough with copious amounts of green phlegm. Pt denies fever, chills, chest pain, nausea, and vomiting. Objective - Vital Signs/Intake and Output Vital Signs (last 24 hours): Temp Pulse Resp BP Pulse Ox 97.7 F 77 20 109/61 95 08/16/16 08:11 08/16/16 08:11 08/16/16 08:11 08/16/16 10:18 08/16/16 08:11 Intake and Output: 08/16/16 08/16/16 06:59 18:59 Intake Total 320 Balance 320 - Medications Medications: Current Medications Acetaminophen (Tylenol 325mg Tab) 650 mg PO Q6H PRN PRN Reason: Fever >100.4 F Albuterol/Ipratropium (Duoneb 3 Mg/0.5 Mg (3 Ml) Ud) 3 ml IH RQ4 [facility] Alprazolam (Xanax) 1 mg PO BID [facility] Last Admin: 08/16/16 10:19 Dose: 1 mg Amiodarone HCl (Cordarone) 200 mg PO DAILY [facility] Last Admin: 08/16/16 10:19 Dose: 200 mg Aspirin (Aspirin Chewable) 81 mg PO DAILY [facility] Last Admin: 08/16/16 10:17 Dose: 81 mg Benzocaine/Menthol (Cepacol Sore Throat) 1 yasir MT Q4 PRN PRN Reason: Sore Throat Carvedilol (Coreg) 3.125 mg PO BID [facility] Last Admin: 08/16/16 10:17 Dose: 3.125 mg Enalapril Maleate (Vasotec) 5 mg PO DAILY [facility] Last Admin: 08/16/16 10:17 Dose: 5 mg Escitalopram Oxalate (Lexapro) 10 mg PO DAILY [facility] Last Admin: 08/16/16 10:18 Dose: 10 mg Furosemide (Lasix) 20 mg PO Q12 [facility] Last Admin: 08/16/16 10:18 Dose: 20 [facility] Admin: 08/16/16 08:36 Dose: 1 mg Heparin Sodium (Porcine) (Heparin) 5,000 units SC Q8 [facility] Last Admin: 08/16/16 05:15 Dose: 5,000 units Ceftriaxone Sodium (Rocephin Iv 1 Gm Duplex) 50 mls @ 100 mls/hr IVPB Q24H [facility] Last Admin: 08/15/16 21:31 Dose: 100 mls/hr Azithromycin 500 mg/ Sodium (Chloride) 250 mls @ 250 mls/hr IVPB Q24H [facility] Last Admin: 08/15/16 21:32 Dose: 250 mls/hr Insulin Human Regular (Novolin R) 0 unit SC ACHS [facility] PRN Reason: Protocol Last Admin: 08/16/16 12:21 Dose: 1 unit Levothyroxine Sodium (Synthroid) 50 mcg PO DAILY@0630 [facility] Last Admin: 08/16/16 05:35 Dose: 50 mcg Methylprednisolone (Solu-Medrol) 40 mg IVP Q8H [facility] Last Admin: 08/16/16 05:15 Dose: 40 mg Oxycodone HCl (Oxycodone Immediate Release Tab) 30 mg PO Q6 [facility] Last Admin: 08/16/16 12:20 Dose: 30 mg Pantoprazole Sodium (Protonix Ec Tab) 40 mg PO DAILY [facility] Last Admin: 08/16/16 10:18 Dose: 40 mg Promethazine HCl/Dextromethorphan (Phenergan Dm Syrup) 5 ml PO Q6H PRN PRN Reason: Cough and congestion Rosuvastatin Calcium (Crestor) 5 mg PO HS [facility] Last Admin: 08/15/16 21:19 Dose: 5 mg Fluticasone/Salmeterol (Advair Diskus 250/50) 1 puff IH RQ12 [facility] Last Admin: 08/16/16 07:42 Dose: Not Given Temazepam (Restoril) 15 mg PO HS PRN PRN Reason: Insomnia Ticagrelor (Brilinta) 90 mg PO BID [facility] Last Admin: 08/16/16 10:18 Dose: 90 mg - Labs Labs: 08/16/16 07:33 08/16/16 07:33 - Constitutional Appears: No Acute Distress - Head Exam Head Exam: ATRAUMATIC, NORMOCEPHALIC - Eye Exam Eye Exam: EOMI, PERRL - ENT Exam ENT Exam: Mucous Membranes Moist. absent: Mucous Membranes Dry - Neck Exam Neck Exam: Full ROM. absent: Lymphadenopathy - Respiratory Exam Respiratory Exam: Wheezes - Cardiovascular Exam Cardiovascular Exam: +S1, +S2. absent: Gallop, Rubs - Extremities Exam Extremities Exam: Full ROM. absent: Pedal Edema - Neurological Exam Neurological Exam: Alert, Awake, Oriented x3 - Psychiatric Exam Psychiatric exam: Normal Affect - Skin Skin Exam: Normal Color, Warm Assessment and Plan - Assessment and Plan (Free Text) Assessment: Assessment: Bronchitis: CXR - Mild venous congestion, right hilar prominence, left basilar opacity with small left pleural effusion (please see full report) Afebrile, nontachycardic WBC - 16.9, likely due to steroids Azithromycin 500mg IVPB qd Ceftriaxone 1g IV q24h Blood cultures pending COPD Exacerbation: Mild venous congestion, right hilar prominence, left basilar opacity with small left pleural effusion (please see full report) azithromycin 500mg IVPB daily Pulmonology, Dr. Ceja, consulted. Help appreciated. Advair 250/50 1 puff IH q12h yanni Duonebs q6 prn Solumedrol 40mg IV q8h Acute on Chronic CHF: Left ventricular systolic dysfunction Cardiac Cath 05/23/16- EF 15-20 % Pro-BNP 2300 Lasix 20 mg po q12h yanni Coreg 3.125 mg po qd Enalapril 5 mg po qd Cardiology, Dr. Jackson, consulted. Help appreciated. Coronary Artery Disease: Brilinta 90 mg po bid ASA 81 mg po qd B/L Knee pain and weakness: Knee X rays b/l 3 views - no fracture HTN: Enalapril 5 mg po qd Coreg 3.125 mg po qd Amiodarone 200 mg po qd Hypothyroidism: Levothyroxine 50 mcg po qd Diabetes: Glimepiride 1 mg PO BIDAC Regular Insulin sliding scale fingersticks ACHS Peripheral neuropathy: Oxycodone 30mg PO Q6h Hyperlipidemia: Crestor 5 mg po hs Anxiety Xanax 1mg PO BID Depression/Insomnia: Lexapro 10 mg po qd Restoril 15 mg po hs prn Prophylactic Measures: GI: Protonix 40 mg po qd DVT: heparin 5000 units sc q8h <Emmett Dey Jr. - Last Filed: 08/19/16 16:44> Objective - Vital Signs/Intake and Output Vital Signs (last 24 hours): Temp Pulse Resp BP Pulse Ox 97.9 F 96 H 20 136/75 85 L 08/18/16 15:00 08/18/16 16:33 08/18/16 15:00 08/18/16 15:00 08/18/16 15:00 - Labs Labs: 08/17/16 13:42 08/17/16 13:42 Attending/Attestation - Attestation I have personally seen and examined this patient.: Yes I have fully participated in the care of the patient.: Yes I have reviewed all pertinent clinical information, including history, physical exam and plan: Yes Notes (Text): 08/19/16 16:44 Patient seen and examined. Review resident note and agree with findings and plan of care
[2016-08-16] MEDS: Albuterol-Ipratrop 3 mg / 0.5 (3 ml) UD IH SCH ×3 (15:30→23:37)
[2016-08-16] MEDS: Promethazine DM 6.25 mg-15 mg/5 ml Syrup PO PRN (17:42)
[2016-08-16] MEDS: Benzocaine/Menthol (Cepacol) Lozenge MT PRN (17:47)
[2016-08-16] MEDS: cefTRIAXone IV 1 gm in Dextros 50 ML IVPB SCH (22:20)
[2016-08-16] MEDS: Azithromycin 500 MG in Sodium Chloride 0.9% 250 ML IVPB SCH (22:21)
[2016-08-17] MEDS: Albuterol-Ipratrop 3 mg / 0.5 (3 ml) UD IH SCH ×6 (03:00→23:25)
[2016-08-17] MEDS: Benzocaine/Menthol (Cepacol) Lozenge MT PRN ×3 (03:15→21:40)
[2016-08-17] MEDS: oxyCODONE 30 mg Immediate Release Tab PO SCH ×6 (03:20→17:36)
[2016-08-17] MEDS: Levothyroxine 50 MCG TAB PO SCH (05:39)
[2016-08-17] MEDS: MethylPREDNISolone 40 mg Vial IVP SCH ×3 (05:40→21:44)
[2016-08-17] MEDS: (Novolin R) Insulin Human Regular 100 units/ml vial SC SCH ×4 (07:40→21:41)
[2016-08-17] MEDS: Pantoprazole 40 mg EC Tab PO SCH (10:48)
[2016-08-17] MEDS: Promethazine DM 6.25 mg-15 mg/5 ml Syrup PO PRN ×2 (11:03→21:39)
--- NOTE | 2016-08-17 11:12 | CP.PCM.PN ---
Subjective - Date & Time of Evaluation Date of Evaluation: 08/17/16 Time of Evaluation: 10:15 - Subjective Subjective: Patient was seen and examined at bedside this morning, no acute distress, no acute events overnight. The pt reports that the nebulizer treatments have been improving his breathing and that he does not feel as if he is wheezing as much. the pt also reports that his cough has improved, it has become loser and clearer in color. The pt currently denies headache, nausea, vomiting, fever, chills, chest pain, dyspnea, nasal congestion, or stridor at this time. Objective - Vital Signs/Intake and Output Vital Signs (last 24 hours): Temp Pulse Resp BP Pulse Ox 98.0 F 81 20 109/66 95 08/17/16 07:00 08/17/16 07:00 08/17/16 07:00 08/17/16 10:49 08/17/16 07:00 Intake and Output: 08/17/16 08/17/16 06:59 18:59 Intake Total 320 Balance 320 - Medications Medications: Current Medications Acetaminophen (Tylenol 325mg Tab) 650 mg PO Q6H PRN PRN Reason: Fever >100.4 F Albuterol/Ipratropium (Duoneb 3 Mg/0.5 Mg (3 Ml) Ud) 3 ml IH RQ4 [facility] Last Admin: 08/17/16 03:00 Dose: 3 ml Alprazolam (Xanax) 1 mg PO BID [facility] Last Admin: 08/17/16 10:50 Dose: 1 mg Amiodarone HCl (Cordarone) 200 mg PO DAILY [facility] Last Admin: 08/17/16 10:49 Dose: 200 mg Aspirin (Aspirin Chewable) 81 mg PO DAILY [facility] Last Admin: 08/17/16 10:52 Dose: 81 mg Benzocaine/Menthol (Cepacol Sore Throat) 1 yasir MT Q4 PRN PRN Reason: Sore Throat Last Admin: 08/17/16 11:03 Dose: 1 yasir Carvedilol (Coreg) 3.125 mg PO BID [facility] Last Admin: 08/17/16 10:50 Dose: 3.125 mg Enalapril Maleate (Vasotec) 5 mg PO DAILY [facility] Last Admin: 08/17/16 10:49 Dose: 5 mg Escitalopram Oxalate (Lexapro) 10 mg PO DAILY [facility] Last Admin: 04/12/17 10:49 Dose: 10 mg Furosemide (Lasix) 20 mg PO Q12 [facility] Last Admin: 08/17/16 10:49 Dose: 20 mg Glimepiride (Amaryl) 1 mg PO BIDAC [facility] Last Admin: 08/17/16 08:20 Dose: 1 mg Heparin Sodium (Porcine) (Heparin) 5,000 units SC Q8 [facility] Last Admin: 08/17/16 05:35 Dose: 5,000 units Ceftriaxone Sodium (Rocephin Iv 1 Gm Duplex) 50 mls @ 100 mls/hr IVPB Q24H [facility] Last Admin: 08/16/16 22:20 Dose: 100 mls/hr Azithromycin 500 mg/ Sodium (Chloride) 250 mls @ 250 mls/hr IVPB Q24H [facility] Last Admin: 08/16/16 22:21 Dose: 250 mls/hr Insulin Human Regular (Novolin R) 0 unit SC ACHS [facility] PRN Reason: Protocol Last Admin: 08/17/16 07:40 Dose: Not Given Levothyroxine Sodium (Synthroid) 50 mcg PO DAILY@0630 [facility] Last Admin: 08/17/16 05:39 Dose: 50 mcg Methylprednisolone (Solu-Medrol) 40 mg IVP Q8H [facility] Last Admin: 08/17/16 05:40 Dose: 40 mg Oxycodone HCl (Oxycodone Immediate Release Tab) 30 mg PO Q6 [facility] Last Admin: 08/17/16 11:04 Dose: Not Given Pantoprazole Sodium (Protonix Ec Tab) 40 mg PO DAILY [facility] Last Admin: 08/17/16 10:48 Dose: 40 mg Promethazine HCl/Dextromethorphan (Phenergan Dm Syrup) 5 ml PO Q6H PRN PRN Reason: Cough and congestion Last Admin: 08/17/16 11:03 Dose: 5 ml Rosuvastatin Calcium (Crestor) 5 mg PO HS [facility] Last Admin: 08/16/16 22:21 Dose: 5 mg Fluticasone/Salmeterol (Advair Diskus 250/50) 1 puff IH RQ12 [facility] Last Admin: 08/16/16 19:52 Dose: Not Given Temazepam (Restoril) 15 mg PO HS PRN PRN Reason: Insomnia Last Admin: 08/16/16 22:20 Dose: 15 mg Ticagrelor (Brilinta) 90 mg PO BID [facility] Last Admin: 08/17/16 10:54 Dose: 90 mg - Labs Labs: 08/16/16 07:33 08/16/16 07:33 - Constitutional Appears: Well, Non-toxic, No Acute Distress - Head Exam Head Exam: NORMAL INSPECTION - Eye Exam Eye Exam: Normal appearance Pupil Exam: NORMAL ACCOMODATION - ENT Exam ENT Exam: Normal Exam - Neck Exam Neck Exam: Normal Inspection - Respiratory Exam Respiratory Exam: Decreased Breath Sounds, Wheezes - Cardiovascular Exam Cardiovascular Exam: +S1, +S2 - Neurological Exam Neurological Exam: Alert, Awake, Oriented x3 - Skin Skin Exam: Dry, Normal Color, Warm Assessment and Plan - Assessment and Plan (Free Text) Plan: 1) Bronchitis Patient is improving continue Abx continue steroids Pt can be discharged tomorrow with PO abx and PO steroids. 2) COPD continue steroid treatments discharge with PO steroids Continue recommendations by medicine team
[2016-08-17] MEDS: Fluticasone-Salmeterol 250-50mcg Diskus IH SCH (11:17)
[2016-08-17 13:46] LABS: BASO % 0.1 % (0.0-2.0); HEMATOCRIT 25.7 % (35.0-51.0); LYMPH # 0.7 K/uL (1.0-4.3); LYMPH % 4.6 % (20.0-40.0); MEAN CELL VOLUME 86.8 fL (80.0-94.0); MEAN CORPUSCULAR HEMOGLOBIN 28.3 pg (27.0-31.0); MEAN CORPUSCULAR HGB CONC 32.6 g/dL (33.0-37.0); MONO # 0.8 K/uL (0.0-0.8); MONO % 5.1 % (0.0-10.0); PLATELET COUNT 205 K/uL (130-400); RED CELL DISTRIBUTION WIDTH 15.9 % (11.5-14.5); WHITE BLOOD COUNT 15.9 K/uL (4.8-10.8)
[2016-08-17 13:53] LABS: CHLORIDE 93 mmol/L (98-107); SODIUM 131 mmol/L (132-148)
[2016-08-17 13:54] LABS: POTASSIUM 4.4 mmol/L (3.6-5.2)
[2016-08-17 13:55] LABS: GFR AFRICAN-AMERICAN > 60
[2016-08-17 13:56] LABS: ALB/GLOB RATIO 1.3 (1.0-2.1); ALKALINE PHOSPHATASE 51 U/L (38-126); ALT/SGPT 26 U/L (21-72); AST/SGOT 30 U/L (17-59); BILIRUBIN,TOTAL 0.2 mg/dL (0.2-1.3); BLOOD UREA NITROGEN 28 mg/dL (9-20); CARBON DIOXIDE 26 mmol/L (22-30); GLUCOSE,RANDOM 118 mg/dL (75-110); PHOSPHOROUS 2.8 mg/dL (2.5-4.5); TOTAL PROTEIN 6.9 g/dL (6.3-8.3)
[2016-08-17 13:57] LABS: CALCIUM 8.4 mg/dl (8.6-10.4); MAGNESIUM 2.3 mg/dL (1.6-2.3)
[2016-08-17 17:12] LABS: GIANT PLATELETS PRESENT; LARGE PLATELETS PRESENT; NEUTROPHIL 95 % (50-75); TOTAL CELLS COUNTED 100
--- NOTE | 2016-08-17 19:43 | CP.PCM.PN ---
<Peterson Cristina - Last Filed: 08/17/16 19:40> Subjective - Date & Time of Evaluation Date of Evaluation: 08/17/16 Time of Evaluation: 11:04 - Subjective Subjective: Pt seen and examined. Pt reports that his shortness of breath has improved. Pt reports productive cough with clear sputum. Pt denies fever, chills, chest pain , nausea, and vomiting. Objective - Vital Signs/Intake and Output Vital Signs (last 24 hours): Temp Pulse Resp BP Pulse Ox 97.1 F L 72 21 113/66 94 L 08/17/16 15:00 08/17/16 17:13 08/17/16 15:00 08/17/16 15:00 08/17/16 15:00 - Medications Medications: Current Medications Acetaminophen (Tylenol 325mg Tab) 650 mg PO Q6H PRN PRN Reason: Fever >100.4 F Albuterol/Ipratropium (Duoneb 3 Mg/0.5 Mg (3 Ml) Ud) 3 ml IH RQ4 [facility] Last Admin: 08/17/16 15:52 Dose: 3 ml Alprazolam (Xanax) 1 mg PO BID [facility] Last Admin: 08/17/16 17:36 Dose: 1 mg Amiodarone HCl (Cordarone) 200 mg PO DAILY [facility] Last Admin: 08/17/16 10:49 Dose: 200 mg Aspirin (Aspirin Chewable) 81 mg PO DAILY [facility] Last Admin: 08/17/16 10:52 Dose: 81 mg Benzocaine/Menthol (Cepacol Sore Throat) 1 yasir MT Q4 PRN PRN Reason: Sore Throat Last Admin: 08/17/16 11:03 Dose: 1 yasir Carvedilol (Coreg) 3.125 mg PO BID [facility] Last Admin: 08/17/16 17:39 Dose: 3.125 mg Enalapril Maleate (Vasotec) 5 mg PO DAILY [facility] Last Admin: 08/17/16 10:49 Dose: 5 mg Escitalopram Oxalate (Lexapro) 10 mg PO DAILY [facility] Last Admin: 08/17/16 10:49 Dose: 10 mg Furosemide (Lasix) 20 mg PO Q12 [facility] Last Admin: 08/17/16 10:49 Dose: 20 mg Glimepiride (Amaryl) 1 mg PO BIDAC [facility] Last Admin: 08/17/16 16:08 Dose: 1 mg Heparin Sodium (Porcine) (Heparin) 5,000 units SC Q8 [facility] Last Admin: 08/17/16 13:08 Dose: 5,000 units Ceftriaxone Sodium (Rocephin Iv 1 Gm Duplex) 50 mls @ 100 mls/hr IVPB Q24H [facility] Last Admin: 08/16/16 22:20 Dose: 100 mls/hr Azithromycin 500 mg/ Sodium (Chloride) 250 mls @ 250 mls/hr IVPB Q24H [facility] Last Admin: 08/16/16 22:21 Dose: 250 mls/hr Insulin Human Regular (Novolin R) 0 unit SC ACHS [facility] PRN Reason: Protocol Last Admin: 08/17/16 16:46 Dose: Not Given Levothyroxine Sodium (Synthroid) 50 mcg PO DAILY@0630 [facility] Last Admin: 08/17/16 05:39 Dose: 50 mcg Methylprednisolone (Solu-Medrol) 40 mg IVP Q8H [facility] Last Admin: 08/17/16 13:07 Dose: 40 mg Oxycodone HCl (Oxycodone Immediate Release Tab) 30 mg PO Q6 [facility] Last Admin: 08/17/16 17:36 Dose: 30 mg Pantoprazole Sodium (Protonix Ec Tab) 40 mg PO DAILY [facility] Last Admin: 08/17/16 10:48 Dose: 40 mg Promethazine HCl/Dextromethorphan (Phenergan Dm Syrup) 5 ml PO Q6H PRN PRN Reason: Cough and congestion Last Admin: 08/17/16 11:03 Dose: 5 ml Rosuvastatin Calcium (Crestor) 5 mg PO HS [facility] Last Admin: 08/16/16 22:21 Dose: 5 mg Fluticasone/Salmeterol (Advair Diskus 250/50) 1 puff IH RQ12 [facility] Last Admin: 08/17/16 11:17 Dose: Not Given Temazepam (Restoril) 15 mg PO HS PRN PRN Reason: Insomnia Last Admin: 08/16/16 22:20 Dose: 15 mg Ticagrelor (Brilinta) 90 mg PO BID [facility] Last Admin: 08/17/16 17:38 Dose: 90 mg - Labs Labs: 08/17/16 13:42 08/17/16 13:42 - Constitutional Appears: No Acute Distress - Head Exam Head Exam: ATRAUMATIC, NORMOCEPHALIC - Eye Exam Eye Exam: EOMI, PERRL - ENT Exam ENT Exam: Mucous Membranes Moist. absent: Mucous Membranes Dry - Neck Exam Neck Exam: Full ROM. absent: Lymphadenopathy - Respiratory Exam Respiratory Exam: Rhonchi, Wheezes. absent: Rales - Cardiovascular Exam Cardiovascular Exam: +S1, +S2 - GI/Abdominal Exam GI & Abdominal Exam: Soft. absent: Tenderness - Extremities Exam Extremities Exam: Full ROM. absent: Pedal Edema - Neurological Exam Neurological Exam: Alert, Awake, Oriented x3 - Psychiatric Exam Psychiatric exam: Normal Affect, Normal Mood - Skin Skin Exam: Normal Color, Warm Assessment and Plan - Assessment and Plan (Free Text) Assessment: Bronchitis: CXR - Mild venous congestion, right hilar prominence, left basilar opacity with small left pleural effusion (please see full report) Afebrile, nontachycardic WBC - 16.9, likely due to steroids Azithromycin 500mg IVPB qd Ceftriaxone 1g IV q24h Blood cultures negative after 48 hrs COPD Exacerbation: Mild venous congestion, right hilar prominence, left basilar opacity with small left pleural effusion (please see full report) azithromycin 500mg IVPB daily Pulmonology, Dr. Ceja, consulted. Help appreciated. Advair 250/50 1 puff IH q12h [facility] Duonebs q6 prn Solumedrol 40mg IV q8h Acute on Chronic CHF: Left ventricular systolic dysfunction Cardiac Cath 05/23/16- EF 15-20 % Pro-BNP 2300 Lasix 20 mg po q12h yanni Coreg 3.125 mg po qd Enalapril 5 mg po qd Cardiology, Dr. Jackson, consulted. Help appreciated. Coronary Artery Disease: Brilinta 90 mg po bid ASA 81 mg po qd B/L Knee pain and weakness: Knee X rays b/l 3 views - no fracture HTN: Enalapril 5 mg po qd Coreg 3.125 mg po qd Amiodarone 200 mg po qd Hypothyroidism: Levothyroxine 50 mcg po qd Diabetes: Glimepiride 1 mg PO BIDAC Regular Insulin sliding scale fingersticks ACHS Peripheral neuropathy: Oxycodone 30mg PO Q6h Hyperlipidemia: Crestor 5 mg po hs Anxiety Xanax 1mg PO BID Depression/Insomnia: Lexapro 10 mg po qd Restoril 15 mg po hs prn Prophylactic Measures: GI: Protonix 40 mg po qd DVT: heparin 5000 units sc q8h <Emmett Dey Jr. - Last Filed: 08/19/16 16:54> Objective - Vital Signs/Intake and Output Vital Signs (last 24 hours): Temp Pulse Resp BP Pulse Ox 97.9 F 96 H 20 136/75 85 L 08/18/16 15:00 08/18/16 16:33 08/18/16 15:00 08/18/16 15:00 08/18/16 15:00 - Labs Labs: 08/17/16 13:42 08/17/16 13:42 Attending/Attestation - Attestation I have personally seen and examined this patient.: Yes I have fully participated in the care of the patient.: Yes I have reviewed all pertinent clinical information, including history, physical exam and plan: Yes Notes (Text): 08/19/16 16:54 Patient seen and examined. Reviewed resident note and agree with plan of care and findings
[2016-08-17] MEDS: cefTRIAXone IV 1 gm in Dextros 50 ML IVPB SCH (21:33)
[2016-08-17] MEDS: Azithromycin 500 MG in Sodium Chloride 0.9% 250 ML IVPB SCH (22:39)
[2016-08-18] MEDS: oxyCODONE 30 mg Immediate Release Tab PO SCH ×4 (00:25→17:43)
[2016-08-18 01:12] VITALS: RESP 20
[2016-08-18] MEDS: Albuterol-Ipratrop 3 mg / 0.5 (3 ml) UD IH SCH ×4 (03:08→16:21)
[2016-08-18] MEDS: MethylPREDNISolone 40 mg Vial IVP SCH ×2 (06:10→13:08)
[2016-08-18] MEDS: Levothyroxine 50 MCG TAB PO SCH (06:11)
[2016-08-18] MEDS: Benzocaine/Menthol (Cepacol) Lozenge MT PRN ×2 (06:15→09:48)
[2016-08-18] MEDS: Fluticasone-Salmeterol 250-50mcg Diskus IH SCH (07:36)
[2016-08-18 07:49] VITALS: PULSE 96
[2016-08-18] MEDS: (Novolin R) Insulin Human Regular 100 units/ml vial SC SCH ×3 (08:13→16:30)
[2016-08-18] MEDS: Pantoprazole 40 mg EC Tab PO SCH (09:47)
[2016-08-18] MEDS: Promethazine DM 6.25 mg-15 mg/5 ml Syrup PO PRN (09:49)
--- NOTE | 2016-08-18 10:44 | CP.PCM.PN ---
Subjective - Date & Time of Evaluation Date of Evaluation: 08/18/16 Time of Evaluation: 10:41 - Subjective Subjective: Patient was seen and examined at bedside this am, no acute distress, no acute events overnight. The patient reports to be feeling much better and that the cough has improved as well, mucus is now clear. The pt reports that he slept well through the night and had no wheezes or shortness of breath. Pt is ready to go home. Pt currently denies nausea, vomiting, fever, chills, diarrhea, constipation, chest pain, palpitations, headaches at this time. Objective - Vital Signs/Intake and Output Vital Signs (last 24 hours): Temp Pulse Resp BP Pulse Ox 98 F 96 H 20 95/63 L 94 L 08/18/16 07:48 08/18/16 07:48 08/18/16 07:48 08/18/16 09:53 08/18/16 07:48 Intake and Output: 08/18/16 08/18/16 06:59 18:59 Intake Total 320 Balance 320 - Medications Medications: Current Medications Acetaminophen (Tylenol 325mg Tab) 650 mg PO Q6H PRN PRN Reason: Fever >100.4 F Albuterol/Ipratropium (Duoneb 3 Mg/0.5 Mg (3 Ml) Ud) 3 ml IH RQ4 [facility] Last Admin: 08/18/16 07:36 Dose: 3 ml Alprazolam (Xanax) 1 mg PO BID [facility] Last Admin: 08/18/16 09:47 Dose: 1 mg Amiodarone HCl (Cordarone) 200 mg PO DAILY [facility] Last Admin: 08/18/16 09:52 Dose: Not Given Aspirin (Aspirin Chewable) 81 mg PO DAILY [facility] Last Admin: 08/18/16 09:47 Dose: 81 mg Benzocaine/Menthol (Cepacol Sore Throat) 1 yasir MT Q4 PRN PRN Reason: Sore Throat Last Admin: 08/18/16 09:48 Dose: 1 yasir Carvedilol (Coreg) 3.125 mg PO BID [facility] Last Admin: 08/18/16 09:52 Dose: Not Given Enalapril Maleate (Vasotec) 5 mg PO DAILY [facility] Last Admin: 08/18/16 09:53 Dose: Not Given Escitalopram Oxalate (Lexapro) 10 mg PO DAILY [facility] Last Admin: 08/18/16 09:47 Dose: 10 mg Furosemide (Lasix) 20 mg PO Q12 [facility] Last Admin: 08/18/16 09:52 Dose: Not Given Glimepiride (Amaryl) 1 mg PO BIDAC [facility] Last Admin: 08/18/16 09:47 Dose: 1 mg Ceftriaxone Sodium (Rocephin Iv 1 Gm Duplex) 50 mls @ 100 mls/hr IVPB Q24H [facility] Last Admin: 08/17/16 21:33 Dose: 100 mls/hr Azithromycin 500 mg/ Sodium (Chloride) 250 mls @ 250 mls/hr IVPB Q24H [facility] Last Admin: 08/17/16 22:39 Dose: 250 mls/hr Insulin Human Regular (Novolin R) 0 unit SC ACHS [facility] PRN Reason: Protocol Last Admin: 08/18/16 08:13 Dose: 2 unit Levothyroxine Sodium (Synthroid) 50 mcg PO DAILY@0630 [facility] Last Admin: 08/18/16 06:11 Dose: 50 mcg Methylprednisolone (Solu-Medrol) 40 mg IVP Q8H [facility] Last Admin: 08/18/16 06:10 Dose: 40 mg Oxycodone HCl (Oxycodone Immediate Release Tab) 30 mg PO Q6 [facility] Last Admin: 08/18/16 06:10 Dose: 30 mg Pantoprazole Sodium (Protonix Ec Tab) 40 mg PO DAILY [facility] Last Admin: 08/18/16 09:47 Dose: 40 mg Promethazine HCl/Dextromethorphan (Phenergan Dm Syrup) 5 ml PO Q6H PRN PRN Reason: Cough and congestion Last Admin: 08/18/16 09:49 Dose: 5 ml Rosuvastatin Calcium (Crestor) 5 mg PO HS [facility] Last Admin: 08/17/16 21:28 Dose: 5 mg Fluticasone/Salmeterol (Advair Diskus 250/50) 1 puff IH RQ12 [facility] Last Admin: 08/18/16 07:36 Dose: Not Given Temazepam (Restoril) 15 mg PO HS PRN PRN Reason: Insomnia Last Admin: 08/17/16 21:39 Dose: 15 mg Ticagrelor (Brilinta) 90 mg PO BID [facility] Last Admin: 08/18/16 09:48 Dose: 90 mg - Labs Labs: 08/17/16 13:42 08/17/16 13:42 - Constitutional Appears: Well, Non-toxic, No Acute Distress - Head Exam Head Exam: ATRAUMATIC, NORMAL INSPECTION - Eye Exam Eye Exam: Normal appearance - Neck Exam Neck Exam: Normal Inspection - Respiratory Exam Respiratory Exam: Clear to Ausculation Bilateral, NORMAL BREATHING PATTERN. absent: Wheezes - Cardiovascular Exam Cardiovascular Exam: +S1, +S2 - Neurological Exam Neurological Exam: Alert, Awake, Oriented x3 - Skin Skin Exam: Dry, Normal Color, Warm Assessment and Plan - Assessment and Plan (Free Text) Plan: 1) Bronchitis Pt is stable from pulmonary standpoint, clear for discharge Discharge with PO Abx, cough medication, and steroid 2) COPD discharge with PO steroids Continue recommendations by medicine team
--- NOTE | 2016-08-18 11:03 | RAD ---
PROCEDURE: Radiographs of the right elbow. HISTORY: right elbow pain after fall COMPARISON: No prior. FINDINGS: BONES: S tiny anterior coronoid/ulnar spurring and posterior olecranon spurring are present. No cortical fracture. On 1 of the single frontal views a thread-like prominent vertically oriented trabecular marking over the central distal humerus just distal to the olecranon fossa is noted. JOINTS: Osteoarthrosis SOFT TISSUES: An overlying IV line is in place. There is trace subcutaneous gas along the lateral aspect of the distal forearm consistent with recent venous access attempt JOINT EFFUSION: None. OTHER FINDINGS: None. IMPRESSION: Mild osteoarthrosis. No cortical fracture. Probable prominent trabecular with the distal central humerus. If symptoms persist/warrant consider MRI.
[2016-08-18 17:23] VITALS: BP 136/75; TEMP 97.9; O2SAT 85
--- NOTE | 2016-08-18 17:49 | CP.PCM.DIS ---
Provider - Provider Date of Admission: 08/14/16 20:22 Attending physician: Emmett Dey Jr, MD Time Spent in preparation of Discharge (in minutes): 33 Hospital Course - Lab Results Lab Results: Most Recent Lab Values WBC 15.9 K/uL (4.8-10.8) H 08/17/16 13:42 RBC 2.96 Mil/uL (4.40-5.90) L 08/17/16 13:42 Hgb 8.4 g/dL (12.0-18.0) L 08/17/16 13:42 Hct 25.7 % (35.0-51.0) L 08/17/16 13:42 MCV 86.8 fL (80.0-94.0) 08/17/16 13:42 MCH 28.3 pg (27.0-31.0) 08/17/16 13:42 MCHC 32.6 g/dL (33.0-37.0) L 08/17/16 13:42 RDW 15.9 % (11.5-14.5) H 08/17/16 13:42 Plt Count 205 K/uL (130-400) 08/17/16 13:42 MPV 8.0 fL (7.2-11.7) 08/17/16 13:42 Neut % (Auto) 90.2 % (50.0-75.0) H 08/17/16 13:42 Lymph % (Auto) 4.6 % (20.0-40.0) L 08/17/16 13:42 Hodgeman % (Auto) 5.1 % (0.0-10.0) 08/17/16 13:42 Eos % (Auto) 0.0 % (0.0-4.0) 08/17/16 13:42 Baso % (Auto) 0.1 % (0.0-2.0) 08/17/16 13:42 Neut # 14.3 K/uL (1.8-7.0) H 08/17/16 13:42 Lymph # 0.7 K/uL (1.0-4.3) L 08/17/16 13:42 Hodgeman # 0.8 K/uL (0.0-0.8) 08/17/16 13:42 Eos # 0.0 K/uL (0.0-0.7) 08/17/16 13:42 Baso # 0.0 K/uL (0.0-0.2) 08/17/16 13:42 Neutrophils % (Manual) 95 % (50-75) H 08/17/16 13:42 Band Neutrophils % 1 % (0-2) 08/17/16 13:42 Lymphocytes % (Manual) 3 % (20-40) L 08/17/16 13:42 Monocytes % (Manual) 1 % (0-10) 08/17/16 13:42 Toxic Granulation Present 08/16/16 07:33 Platelet Estimate Normal (NORMAL) 08/17/16 13:42 Large Platelets Present 08/17/16 13:42 Giant Platelets Present 08/17/16 13:42 Hypochromasia (manual) Slight 08/17/16 13:42 Poikilocytosis (manual Slight 08/16/16 07:33 Anisocytosis (manual) Slight 08/16/16 07:33 Microcytosis (manual) Slight 08/17/16 13:42 Tear Drop Cells Slight 08/16/16 07:33 Ovalocytes Slight 08/16/16 07:33 Sodium 131 mmol/L (132-148) L 08/17/16 13:42 Potassium 4.4 mmol/L (3.6-5.2) 08/17/16 13:42 Chloride 93 mmol/L (98-107) L 08/17/16 13:42 Carbon Dioxide 26 mmol/L (22-30) 08/17/16 13:42 Anion Gap 17 (10-20) 08/17/16 13:42 BUN 28 mg/dL (9-20) H 08/17/16 13:42 Creatinine 1.2 MG/DL (0.8-1.5) 08/17/16 13:42 Est GFR ( Amer) > 60 08/17/16 13:42 Est GFR (Non-Af Amer) > 60 08/17/16 13:42 POC Glucose (mg/dL) 169 mg/dL (65-110) H 08/18/16 16:13 Random Glucose 118 mg/dL (75-110) H 08/17/16 13:42 Calcium 8.4 mg/dl (8.6-10.4) L 08/17/16 13:42 Phosphorus 2.8 mg/dL (2.5-4.5) 08/17/16 13:42 Magnesium 2.3 mg/dL (1.6-2.3) 08/17/16 13:42 Total Bilirubin 0.2 mg/dL (0.2-1.3) 08/17/16 13:42 AST 30 U/L (17-59) 08/17/16 13:42 ALT 26 U/L (21-72) 08/17/16 13:42 Alkaline Phosphatase 51 U/L (38-126) 08/17/16 13:42 Troponin I 0.0700 ng/mL (0.00-0.120) 08/14/16 19:43 NT-Pro-B Natriuret Pep 2300 pg/mL (0-900) H 08/14/16 19:43 Total Protein 6.9 g/dL (6.3-8.3) 08/17/16 13:42 Albumin 3.9 g/dL (3.5-5.0) 08/17/16 13:42 Globulin 3.0 gm/dL (2.2-3.9) 08/17/16 13:42 Albumin/Globulin Ratio 1.3 (1.0-2.1) 08/17/16 13:42 Influenza Typ A,B (EIA) Negative for flu a/b (NEGATIVE) 08/14/16 19:44 - Hospital Course Hospital Course: HPI: Pt is a 55 year old male with a PMHx of CHF s/p AICD, HTN, HLD, DM, peripheral neuropathy, and gout who presented with complaints of shortness of breath. Hospital Course: Pt was admitted for bronchitis, COPD exacerbation, and acute on chronic CHF. CXR revealed mild venous congestion, right hilar prominence, left basilar opacity with small left pleural effusion (please see full report). Pt initially presented with a fever of 101. Pt was nontachycardic and did not have leukocytosis on presentation. Pt was started on azithromycin and rocephin. Blood cultures were negative after 48 hrs. Pt was wheezing diffusely on presentation. Pulmonology, Dr. Ceja, was consulted. Cardiology, Dr. Jackson, was consulted. Pt was started on duonebs and steroids. Pro BNP on admission was 2300. Pt was started on lasix. Pt's home medications of coreg and enalapril were restarted. Pt improved clinically and his wheezing resolved. Pt was stable for discharge. Discharge Exam - Head Exam Head Exam: ATRAUMATIC, NORMAL INSPECTION - Eye Exam Eye Exam: EOMI, PERRL - ENT Exam ENT Exam: Mucous Membranes Moist. absent: Mucous Membranes Dry - Neck Exam Neck exam: Full Rom - Respiratory Exam Respiratory Exam: Wheezes (very slight wheezes). absent: Rales, Rhonchi - Cardiovascular Exam Cardiovascular Exam: +S1, +S2. absent: Rubs - GI/Abdominal Exam GI & Abdominal Exam: Soft. absent: Distended, Guarding - Extremities Exam Extremities exam: full ROM - Neurological Exam Neurological exam: Alert, Oriented x3 - Psychiatric Exam Psychiatric exam: Normal Affect, Normal Mood - Skin Skin Exam: Normal Color, Warm Discharge Plan - Discharge Medications Prescriptions: Methylprednisolone [Medrol Dose Pack (21 tabs)] 4 mg PO DAILY #21 mg - Follow Up Plan Condition: FAIR Disposition: HOME/ ROUTINE Patient education suggested?: Yes Instructions: Heart Failure (DC), Asthma (DC), Pneumonia (DC) Additional Instructions: Please follow up with PMD, Dr. Dey, within one week. Please resume all home medications and take new medication, medrol dose pack, as prescribed. Please return to the hospital if symptoms worsen or new symptoms arise. Referrals: Emmett Dey Jr., MD [Medical Doctor] -
--- NOTE | 2016-08-19 11:30 | PCM.HF ---
Heart Failure Core Measure - Heart Failure Ejection Fraction: Less Than 40 % (lvef 30%) BOBBY Inhibitor Prescribed: Yes Beta-Harini Prescribed: Carvedilol Angiotensin II Receptor Harini Prescribed: No Contraindication/Reason for not providing: on bobby AnticoagulationTherapy for Atrial Fibrillation/Atrialflutter: No Contraindication/Reason for not providing: no afib Aldosterone Antagonist Prescribed: No Contraindication/Reason for not providing: renal dysfunction Hydralazine Nitrate Prescribed: No Contraindication/Reason for not providing: low bp Implantable Cardioverter Defibrillator Therapy: Yes Cardiac Resynchronization Therapy Prescribed: No Contraindication/Reason for not providing: has AICD - Follow up Will be discharged to: Home Follow Up Date (must be within 7 days from discharge): 08/22/16 Follow Up Time: 09:00
== END 2016-08-18 18:15 | disposition home or self-care (01) | DRG 190 ==
LOC: C.ER 18:56 → C.9E 20:22 → C.3T 21:56
PROVIDERS: ADMIT Internal Medicine; ATTEND Internal Medicine
DX: J44.1 Chronic obstructive pulmonary disease with (acute) exacerbation (principal); I50.23 Acute on chronic systolic (congestive) heart failure; J44.0 Chronic obstructive pulmonary disease with (acute) lower respiratory infection; I11.0 Hypertensive heart disease with heart failure; E11.42 Type 2 diabetes mellitus with diabetic polyneuropathy; I25.10 Atherosclerotic heart disease of native coronary artery without angina pectoris; M25.562 Pain in left knee; M25.561 Pain in right knee; E78.5 Hyperlipidemia, unspecified; M10.9 Gout, unspecified; J20.9 Acute bronchitis, unspecified; E03.9 Hypothyroidism, unspecified; I25.5 Ischemic cardiomyopathy; F41.9 Anxiety disorder, unspecified; Z95.810 Presence of automatic (implantable) cardiac defibrillator; Z87.891 Personal history of nicotine dependence; Z88.1 Allergy status to other antibiotic agents

== ENCOUNTER 2016-09-21 23:40 | Emergency (ER) | payer MEDICAID, MEDICARE ==
[2016-09-21 23:41] VITALS: BMI 24.6
[2016-09-21 23:51] VITALS: BP 120/77; PULSE 69; RESP 20; TEMP 98.1; O2SAT 96
[2016-09-22] MEDS ORDERED: Sodium Chloride 0.9% 1,000 ML ONE (02:21)
[2016-09-22 23:09] LABS: ALB/GLOB RATIO 1.8 (1.0-2.1); ALKALINE PHOSPHATASE 63 U/L (38-126); ALT/SGPT 42 U/L (21-72); AST/SGOT 50 U/L (17-59); BILIRUBIN,TOTAL 0.7 mg/dL (0.2-1.3); BLOOD UREA NITROGEN 29 mg/dL (9-20); CARBON DIOXIDE 26 mmol/L (22-30); CHLORIDE 98 mmol/L (98-107); GFR AFRICAN-AMERICAN > 60; GLUCOSE,RANDOM 83 mg/dL (75-110); POTASSIUM 4.4 mmol/L (3.6-5.2); SODIUM 136 mmol/L (132-148); TOTAL PROTEIN 8.1 g/dL (6.3-8.3)
[2016-09-22 23:55] LABS: HEMATOCRIT 33.8 % (35.0-51.0); MEAN CELL VOLUME 86.2 fL (80.0-94.0); MEAN CORPUSCULAR HEMOGLOBIN 28.7 pg (27.0-31.0); MEAN CORPUSCULAR HGB CONC 33.3 g/dL (33.0-37.0); MEAN PLATELET VOLUME 7.3 fL (7.2-11.7); RED CELL DISTRIBUTION WIDTH 14.8 % (11.5-14.5); WHITE BLOOD COUNT 10.1 K/uL (4.8-10.8)
--- NOTE | 2016-09-23 10:08 | RAD ---
Chest x-ray two views History: Chest pain. Comparison: None available. Findings: No focal infiltrate or effusion. Left-sided pacemaker. Heart size within normal limits. Coronary calcification and/or stent. Degenerative changes in the spine. Impression: No focal infiltrate or effusion.
== END 2016-09-22 06:10 | disposition home or self-care (01) ==
LOC: C.ER 23:40
DX: J44.9 Chronic obstructive pulmonary disease, unspecified (principal); G62.9 Polyneuropathy, unspecified

== ENCOUNTER 2016-09-24 02:26 | Observation (INO) | payer MEDICAID, MEDICARE ==
[2016-09-24 02:26] VITALS: BMI 24.6
--- NOTE | 2016-09-24 02:37 | C.PDOC ---
History Of Present Illness Patient presents to the ER with a complaint of left sided chest wall pain, palpitations, and shortness of breath since 22:00. Patient is speaking in complete sentences, denies fever or chills. Time Seen by Provider: 09/24/16 02:36 History Per: Patient History/Exam Limitations: no limitations Onset/Duration Of Symptoms: Hrs (Since 22:00) Current Symptoms Are (Timing): Still Present Context: Other (Not known) Severity: Moderate Pain Scale Rating Of: 4 Quality: Other (Chest wall) Modifying Factors: None Exacerbating Factors: None Alleviating Factors: None Recent travel outside of the [place]: No Past Medical History Reviewed: Historical Data, Nursing Documentation, Vital Signs Vital Signs: Last Vital Signs Temp 97.9 F 09/24/16 02:37 Pulse 71 09/24/16 02:54 Resp 16 09/24/16 02:37 BP 120/82 09/24/16 02:37 Pulse Ox 99 09/24/16 03:45 - Medical History PMH: Anxiety, Asthma, Bipolar Disorder, Bronchitis, CAD, Cardia Arrhythmia, CHF , COPD (EMPHYSEMA), Diabetes, Emphysema, HTN, Hypercholesterolemia, Hypothyroidism, Pneumonia Surgical History: Coronary Stent, Pacemaker (defibrilator BY [employer]) - [facility] Procedures APPLICATION OF SPLINT (07/14/14) BUNIONECTOMY NEC (11/25/14) CORONAR ARTERIOGR-2 CATH (06/07/13) DESTRUC-FOOT JT LES NEC (11/25/14) FLUOROSCOPY OF LEFT HEART USING LOW OSMOLAR CONTRAST (05/23/16) FLUOROSCOPY OF MULT COR ART USING L OSM CONTRAST (05/23/16) LARYGNOSCOPY AND OTH TRACHEOSCOPY (12/31/13) LEFT HEART CARDIAC CATH (06/07/13) MEASURE OF CARDIAC SAMPL & PRESSURE, L HEART, PERC APPROACH (05/23/16) RT & LT HEART ANGIOCARD (06/07/13) Family History: States: [place] (dad at 49) - Social History Hx Tobacco Use: No Hx Alcohol Use: No Hx Substance Use: No - Immunization History Hx Tetanus Toxoid Vaccination: No Hx Influenza Vaccination: No Hx Pneumococcal Vaccination: No Review Of Systems Constitutional: Negative for: Fever, Chills ENT: Negative for: Mouth Pain Cardiovascular: Positive for: Chest Pain (Left sided), Palpitations Respiratory: Positive for: Shortness of Breath Gastrointestinal: Negative for: Nausea, Vomiting Genitourinary: Negative for: Hematuria Musculoskeletal: Negative for: Back Pain Skin: Negative for: Rash, Lesions, Jaundice Neurological: Negative for: Weakness Psych: Negative for: Anxiety Physical Exam - Physical Exam Appears: Non-toxic Skin: Warm, Dry Head: Normacephalic Eye(s): bilateral: Normal Inspection Oral Mucosa: Moist Neck: Supple Chest: Other (Pacemaker/defibrillator) Cardiovascular: Rhythm Regular, No Murmur Respiratory: Rales (At bases), No Rhonchi, No Wheezing Gastrointestinal/Abdominal: Soft, No Tenderness Back: Normal Inspection Extremity: Normal ROM Extremity: Bilateral: Atraumatic, Normal Color And Temperature Neurological/Psych: Oriented x3, Normal Speech, Normal Cognition Gait: Steady ED Course And Treatment - Laboratory Results Result Diagrams: 09/24/16 02:48 09/24/16 02:48 ECG: Interpreted By Me, Viewed By Me ECG Rhythm: Sinus Rhythm (77), R BBB (atrial paced), Nonspecific Changes O2 Sat by Pulse Oximetry: 99 Pulse Ox Interpretation: Normal - Radiology CXR: Interpreted by Me, Viewed By Me CXR Interpretation: No: Infiltrates, Fracture, Other (pacer on left, unchanged from 09/22/16) Progress Note: EKG, CXR, urinalysis, and blood work ordered. Ecotrin PO administered. Disposition Discussed With : Emmett Dey Jr. Comment: accepted the pt on his service and took over the care at 4:44 AM Doctor Will See Patient In The: ED Counseled Patient/Family Regarding: Studies Performed, Diagnosis - Disposition Disposition: HOSPITALIZED Disposition Time: 04:44 Condition: FAIR - POA Present On Arrival: None - Clinical Impression Clinical Impression: HTN (hypertension), Chest pain, COPD (chronic obstructive pulmonary disease) - Scribe Statement The provider has reviewed the documentation as recorded by the Scribe Provider Attestation: Deshawn Valdez All medical record entries made by the Scribe were at my direction and personally dictated by me. I have reviewed the chart and agree that the record accurately reflects my personal performance of the history, physical exam, medical decision making, and the department course for this patient. I have also personally directed, reviewed, and agree with the discharge instructions and disposition. Decision To Admit - Pt Status Changed To: Hospital Disposition Of: Observation - . Bed Request Type: Telemetry Admitting Physician: Emmett Dey Jr. Patient Diagnosis: HTN (hypertension), Chest pain, COPD (chronic obstructive pulmonary disease)
[2016-09-24] MEDS ORDERED: Aspirin 325 mg EC Tablets PO STA (02:40)
[2016-09-24 02:51] LABS: BASO # 0.1 K/uL (0.0-0.2); EOS # 0.1 K/uL (0.0-0.7); EOS % 0.8 % (0.0-4.0); HEMATOCRIT 33.1 % (35.0-51.0); LYMPH % 24.1 % (20.0-40.0); MEAN CELL VOLUME 86.4 fL (80.0-94.0); MEAN CORPUSCULAR HEMOGLOBIN 28.4 pg (27.0-31.0); MEAN CORPUSCULAR HGB CONC 32.8 g/dL (33.0-37.0); MEAN PLATELET VOLUME 7.2 fL (7.2-11.7); MONO # 0.6 K/uL (0.0-0.8); MONO % 7.2 % (0.0-10.0); RED CELL DISTRIBUTION WIDTH 15.2 % (11.5-14.5); WHITE BLOOD COUNT 8.4 K/uL (4.8-10.8)
[2016-09-24] MEDS ORDERED: Aspirin 325 mg EC Tablets PO ONE (02:51)
[2016-09-24 02:59] LABS: INR 1.2
[2016-09-24 03:02] LABS: CHLORIDE 101 mmol/L (98-107)
[2016-09-24 03:03] LABS: POTASSIUM 4.3 mmol/L (3.6-5.2); SODIUM 140 mmol/L (132-148)
[2016-09-24 03:05] LABS: ALB/GLOB RATIO 1.7 (1.0-2.1); ALKALINE PHOSPHATASE 61 U/L (38-126); ALT/SGPT 38 U/L (21-72); AST/SGOT 41 U/L (17-59); BILIRUBIN,TOTAL 0.4 mg/dL (0.2-1.3); BLOOD UREA NITROGEN 21 mg/dL (9-20); CARBON DIOXIDE 27 mmol/L (22-30); GFR AFRICAN-AMERICAN > 60; GLUCOSE,RANDOM 88 mg/dL (75-110); TOTAL PROTEIN 7.6 g/dL (6.3-8.3)
[2016-09-24 03:21] LABS: RBC URINE 1 /hpf (0-3); URINE BACTERIA RARE (<OCC); URINE BILIRUBIN NEGATIVE (NEGATIVE); URINE BLOOD NEGATIVE (NEGATIVE); URINE COLOR Yellow (YELLOW); URINE GLUCOSE (UA) NORMAL (Normal); URINE KETONE NEGATIVE (NEGATIVE); URINE LEUKOCYTE ESTERASE NEG Leu/uL (Negative); URINE PROTEIN NEGATIVE (NEGATIVE); URINE UROBILINOGEN NORMAL mg/dL (0.2-1.0); WBC URINE 1 /hpf (0-5)
--- NOTE | 2016-09-24 05:34 | CP.PCM.HP ---
History of Present Illness - History of Present Illness History of Present Illness: CC: "My blood pressure was high and then some chest pain and SOB" Patient is a 55 year old male with past medical history of CHF s/p AICD, HTN, HLD, DM, peripheral neuropathy, and gout who presents with complaint that he developed some left sided chest pain and SOB after eating some chilidogs. He states he checked his BP and it was 130's/90's and got scared. He reports having multiple MN's in the past and this does not feel like past MN's. He reports his chest pain alleviated as did his SOB prior to coming to the ED. He does report a history of neuropathy for which he is supposed to go to pain management. He also reports having felt his pacer go off tonight. He says at one point he became nauseous and had a green bowel movement. He denies any fever , chills, abdominal pain, dysuria, diarrhea, hematachezia, dizziness, or weakness. PMD: Tiburcio Outpatient cardio: Manuel Outpatient pulm: Marcial Outpatient podiatry: Sherry PMHx: COPD/ emphysema, HLD, HTN, DM, CAD, gout, neuropathy, hypothyroidism PSHx: ACID, cardiac cath, left foot surgery FamHx: father of MN @ 49, mother of lung cancer at 56 Social: former 5 ppd smoker for 40 years, quit 4 years ago; formerly used alcohol, quit in 2008 Allergies: moxifloxacin Present on Admission - Present on Admission Any Indicators Present on Admission: No Review of Systems - Constitutional Constitutional: absent: Chills, Fever, Weakness - EENT Eyes: absent: Change in Vision Ears: absent: Decreased Hearing, Disequilibrium Nose/Mouth/Throat: absent: Dysphagia, Sore Throat, Neck Mass - Cardiovascular Cardiovascular: Chest Pain (resolved), Dyspnea (improved). absent: Pain Radiating to Arm/Neck/Jaw, Leg Edema, Leg Ulcers - Respiratory Respiratory: Dyspnea (improved). absent: Cough, Hemoptysis - Gastrointestinal Gastrointestinal: Nausea. absent: Abdominal Pain, Vomiting - Genitourinary Genitourinary: absent: Dysuria - Integumentary Integumentary: absent: Lesions, Rash, Skin Pain, Wounds - Neurological Neurological: Tremor. absent: Dizziness, Weakness - Psychiatric Psychiatric: absent: Anxiety, Depression - Endocrine Endocrine: absent: Fatigue, Palpitations - Hematologic/Lymphatic Hematologic: absent: Easy Bleeding, Lymphadenopathy Past Patient History - Infectious Disease Hx of Infectious Diseases: None - Tetanus Immunizations Tetanus Immunization: Unknown - Past Medical History & Family History Past Medical History?: Yes - Past Social History Smoking Status: Former Smoker Alcohol: None Drugs: Denies Home Situation {Lives}: With Family - CARDIAC Hx Cardia Arrhythmia: Yes Hx Congestive Heart Failure: Yes Hx Hypercholesterolemia: Yes Hx Hypertension: Yes Hx Pacemaker: Yes (defibrilator BY [employer]) - PULMONARY Hx Asthma: Yes Hx Bronchitis: Yes Hx Chronic Obstructive Pulmonary Disease (COPD): Yes (EMPHYSEMA) Hx Emphysema: Yes Hx Pneumonia: Yes - NEUROLOGICAL Hx Neurological Disorder: No - HEENT Hx HEENT Problems: No - RENAL Hx Chronic Kidney Disease: No - ENDOCRINE/METABOLIC Hx Hypothyroidism: Yes - HEMATOLOGICAL/ONCOLOGICAL Hx Blood Disorders: No - INTEGUMENTARY Hx Dermatological Problems: No - MUSCULOSKELETAL/RHEUMATOLOGICAL Hx Falls: Yes - GASTROINTESTINAL Hx Gastrointestinal Disorders: No - GENITOURINARY/GYNECOLOGICAL Hx Genitourinary Disorders: Yes Hx Prostate Problems: Yes - PSYCHIATRIC Hx Anxiety: Yes Hx Bipolar Disorder: Yes Hx Substance Use: No - SURGICAL HISTORY Hx Coronary Stent: Yes - ANESTHESIA Hx Anesthesia: Yes Hx Anesthesia Reactions: No Hx Malignant Hyperthermia: No Meds Allergies/Adverse Reactions: Allergies Allergy/AdvReac Type Severity Reaction Status Date / Time moxifloxacin HCl Allergy RASH Verified 09/21/16 23:54 [From Avelox] docosanol [From Abreva] AdvReac Verified 09/21/16 23:54 Physical Exam - Constitutional Appears: Non-toxic, No Acute Distress - Head Exam Head Exam: ATRAUMATIC, NORMOCEPHALIC - Eye Exam Eye Exam: EOMI, Normal appearance, PERRL Pupil Exam: NORMAL ACCOMODATION, PERRL - ENT Exam ENT Exam: Mucous Membranes Moist, Normal Oropharynx - Neck Exam Neck exam: Positive for: Normal Inspection. Negative for: Tenderness - Respiratory Exam Respiratory Exam: Decreased Breath Sounds (bilaterl lower lobes), Clear to Auscultation Bilateral, NORMAL BREATHING PATTERN. absent: Chest Wall Tenderness , Rhonchi, Wheezes - Cardiovascular Exam Cardiovascular Exam: REGULAR RHYTHM, +S1, +S2. absent: Gallop, Rubs, Systolic Murmur - GI/Abdominal Exam GI & Abdominal Exam: Normal Bowel Sounds, Soft. absent: Distended, Firm, Guarding, Tenderness - Extremities Exam Extremities exam: Positive for: normal capillary refill, normal inspection, pedal pulses present. Negative for: pedal edema, tenderness - Back Exam Back exam: NORMAL INSPECTION. absent: rash noted, tenderness - Neurological Exam Neurological exam: Alert, CN II-XII Intact, Oriented x3 - Psychiatric Exam Psychiatric exam: Normal Affect, Normal Mood - Skin Skin Exam: Dry, Intact, Normal Color, Warm Results - Vital Signs Recent Vital Signs: Last Vital Signs Temp 97.9 F 09/24/16 02:37 Pulse 82 09/24/16 05:00 Resp 18 09/24/16 05:00 BP 127/76 09/24/16 05:00 Pulse Ox 100 09/24/16 05:00 - Labs Result Diagrams: 09/24/16 02:48 09/24/16 02:48 Labs: Laboratory Results - last 24 hr 09/24/16 09/24/16 09/24/16 02:48 02:48 02:48 WBC 8.4 RBC 3.83 L Hgb 10.9 L Hct 33.1 L MCV 86.4 MCH 28.4 MCHC 32.8 L RDW 15.2 H Plt Count 219 MPV 7.2 Neut % (Auto) 66.9 Lymph % (Auto) 24.1 Powell % (Auto) 7.2 Eos % (Auto) 0.8 Baso % (Auto) 1.0 Neut # 5.6 Lymph # 2.0 Powell # 0.6 Eos # 0.1 Baso # 0.1 PT 13.1 H INR 1.2 APTT 30 Sodium 140 Potassium 4.3 Chloride 101 Carbon Dioxide 27 Anion Gap 16 BUN 21 H Creatinine 1.2 Est GFR ( Amer) > 60 Est GFR (Non-Af Amer) > 60 Random Glucose 88 Calcium 9.0 Total Bilirubin 0.4 AST 41 ALT 38 Alkaline Phosphatase 61 Troponin I 0.0220 Total Protein 7.6 Albumin 4.8 Globulin 2.9 Albumin/Globulin Ratio 1.7 Urine Color Urine Clarity Urine pH Ur Specific Lane Urine Protein Urine Glucose (UA) Urine Ketones Urine Blood Urine Nitrate Urine Bilirubin Urine Urobilinogen Ur Leukocyte Esterase Urine WBC (Auto) Urine RBC (Auto) Ur Squamous Epith Cells Urine Bacteria 09/24/16 03:13 WBC RBC Hgb Hct MCV MCH MCHC RDW Plt Count MPV Neut % (Auto) Lymph % (Auto) Powell % (Auto) Eos % (Auto) Baso % (Auto) Neut # Lymph # Powell # Eos # Baso # PT INR APTT Sodium Potassium Chloride Carbon Dioxide Anion Gap BUN Creatinine Est GFR ( Amer) Est GFR (Non-Af Amer) Random Glucose Calcium Total Bilirubin AST ALT Alkaline Phosphatase Troponin I Total Protein Albumin Globulin Albumin/Globulin Ratio Urine Color Yellow Urine Clarity Hazy Urine pH [address] 1.012 Urine Protein Negative Urine Glucose (UA) Normal Urine Ketones Negative Urine Blood Negative Urine Nitrate Negative Urine Bilirubin Negative Urine Urobilinogen Normal Ur Leukocyte Esterase Neg Urine WBC (Auto) 1 Urine RBC (Auto) 1 Ur Squamous Epith Cells 5 Urine Bacteria Rare Assessment & Plan - Assessment and Plan (Free Text) Plan: 1. CP r/o ACS intitial troponin negative ekg paced 77bpm RBB and old lat infarct pain resolved follow up serial trop 2. CHF- left ventricular systolic dysfunction s/p cath 05/23/16- EF 15-20 % continue home meds: lasix 20mg PO q12h, amiodarone 200mg daily 3. CAD continue home meds: brilinta 90mg BID, ASA 81mg 4. HTN continue home meds: enalapril 5mg daily coreg 3.125mg BID 5 Hypothyroidism continue home meds: levothyroxine 50mcg daily 6. Diabetes continue home meds: glimepiride 1mg PO BIDAC ISS fingersticks ACHS 7. Peripheral neuropathy per patient, no longer on oxycodeone 30 will put percocet5/325 prn 8. HDL continue home meds: crestor 5mg HS 9. Anxiety continue home meds: xanax 1mg PO BID 10. Prophylaxis heparin 5000 q8 protonix 40mg daily
[2016-09-24] MEDS ORDERED: oxyCODONE 30 mg Immediate Release Tab PO SCH (06:00)
[2016-09-24] MEDS: Albuterol-Ipratrop 3 mg / 0.5 (3 ml) UD INH SCH ×2 (08:10→13:25)
--- NOTE | 2016-09-24 09:00 | RAD ---
PROCEDURE: CHEST RADIOGRAPH, 1 VIEW HISTORY: chest pain COMPARISON: 09/22/2016 FINDINGS: LUNGS: Mild venous congestion. Patchy left basilar airspace opacity. Upper lobe granulomatous changes. Punctate nodular density at the right lung apex may represent vessel on end versus small nodule and or granuloma. PLEURA: No pneumothorax or pleural fluid seen. CARDIOVASCULAR: Mild cardiomegaly. Left-sided pacemaker. OSSEOUS STRUCTURES: No significant abnormalities. VISUALIZED UPPER ABDOMEN: Normal. OTHER FINDINGS: None. IMPRESSION: Mild venous congestion. Patchy left basilar airspace opacity. Upper lobe granulomatous changes. Punctate nodular density at the right lung apex may represent vessel on end versus small nodule and or granuloma.
[2016-09-24] MEDS: Oxycodone/Acetaminophen 5/325 mg Tab PO PRN ×2 (09:04→17:26)
[2016-09-24] MEDS: Levothyroxine 50 MCG TAB PO SCH (09:04)
[2016-09-24] MEDS ORDERED: Levothyroxine 50 MCG TAB PO SCH (10:00)
[2016-09-24] MEDS ORDERED: Albuterol-Ipratrop 20 mcg/actuation (4 g) IH SCH (10:00)
[2016-09-24] MEDS ORDERED: Home Med 1 UNIT (Budesonide/Formoterol Fumarate [Symbicort 160-4.5 Mcg Inhaler] 1 AER) IH SCH (10:00)
[2016-09-24] MEDS: Pantoprazole 40 mg EC Tab PO SCH (10:26)
[2016-09-24] MEDS: Multiple Vitamins Tab PO SCH (10:26)
[2016-09-24 12:33] LABS: CHLORIDE 100 mmol/L (98-107)
[2016-09-24 12:34] LABS: SODIUM 139 mmol/L (132-148)
[2016-09-24 12:36] LABS: ALB/GLOB RATIO 1.3 (1.0-2.1); ALKALINE PHOSPHATASE 56 U/L (38-126); AST/SGOT 104 U/L (17-59); BILIRUBIN,TOTAL 0.5 mg/dL (0.2-1.3); BLOOD UREA NITROGEN 19 mg/dL (9-20); CARBON DIOXIDE 27 mmol/L (22-30); CHOLESTEROL 131 mg/dL (0-199); GFR AFRICAN-AMERICAN > 60; GLUCOSE,RANDOM 91 mg/dL (75-110); TOTAL PROTEIN 7.1 g/dL (6.3-8.3)
[2016-09-24 12:37] LABS: ALT/SGPT 33 U/L (21-72); CALCIUM 8.7 mg/dl (8.6-10.4)
[2016-09-24 12:55] LABS: T4 10.5 ug/dL (5.5-11.0)
[2016-09-24 13:09] LABS: THYROID STIMULATING HORMONE 3.32 mIU/L (0.46-4.68)
[2016-09-24] MEDS: (Novolin R) Insulin Human Regular 100 units/ml vial SC SCH ×2 (13:24→17:13)
--- NOTE | 2016-09-24 15:09 | CP.PCM.CON ---
History of Present Illness - History of Present Illness History of Present Illness: I was asked to see patient by Dr. Dey. Patient is a 55 year old male with a history of HTN who presents with dyspnea. He has had previous COPD exacerbation and cough. He is s/p stent of the RCA. He has nonspecific intermittent chest pain. Review of Systems - Constitutional Constitutional: absent: As Per HPI, Anorexia, Chills, Daytime Sleepiness, Excessive Sweating, Fatigue, Fever, Frequent Falls, Headache, Increased Appetite , Lethargy, Malaise, Night Sweats, Snoring, Sleep Apnea, Weight Gain, Weight Loss, Weakness, Other - EENT Eyes: absent: As Per HPI, Blind Spots, Blurred Vision, Change in Vision, Decreased Night Vision, Diplopia, Discharge, Dry Eye, Exophthalmos, Floaters, Irritation, Itchy Eyes, Loss of Peripheral Vision, Pain, Photophobia, Requires Corrective Lenses, Sees Flashes, Spots in Vision, Tunnel Vision, Other Visual Disturbances, Loss of Vision, Other Nose/Mouth/Throat: absent: As Per HPI, Epistaxis, Nasal Congestion, Nasal Discharge, Nasal Obstruction, Nasal Trauma, Nose Pain, Post Nasal Drip, Sinus Pain, Sinus Pressure, Bleeding Gums, Change in Voice, Dental Pain, Dry Mouth, Dysphagia, Halitosis, Hoarsness, Lip Swelling, Mouth Lesions, Mouth Pain, Odynophagia, Sore Throat, Throat Swelling, Tongue Swelling, Facial Pain, Neck Pain, Neck Mass, Other - Cardiovascular Cardiovascular: absent: As Per HPI, Acrocyanosis, Chest Pain, Chest Pain at Rest , Chest Pain with Activity, Claudication, Diaphoresis, Dyspnea, Dyspnea on Exertion, Edema, Irregular Heart Rhythm, Pain Radiating to Arm/Neck/Jaw, Leg Edema, Leg Ulcers, Lightheadedness, Orthopnea, Palpitations, Paroxysmal Nocturnal Dyspnea, Pedal Edema, Radiating Pain, Rapid Heart Rate, Slow Heart Rate, Syncope, Other - Respiratory Respiratory: Cough, Dyspnea - Gastrointestinal Gastrointestinal: absent: As Per HPI, Abdominal Pain, Belching, Bloating, Change in Bowel Habits, Change in Stool Character, Coffee Ground Emesis, Constipation, Cramping, Diarrhea, Dyspepsia, Dysphagia, Early Satiety, Excessive Flatus, Fecal Incontinence, Heartburn, Hematemesis, Hematochezia, Loose Stools, Melena, Nausea, Odynophagia, Temesmus, Vomiting, Other - Genitourinary Genitourinary: absent: As Per HPI, Change in Urinary Stream, Difficulty Urinating, Dysuria, Flank Pain, Hematuria, Pyuria, Nocturia, Urinary Incontinence, Urinary Frequency, Urinary Hesitance, Urinary Urgency, Voiding Freq/Small Amts, Freq UTI, Hx Renal/Bladder Calculi, Hx /Renal Surgery, Bladder Distension, Other - Musculoskeletal Musculoskeletal: absent: As Per HPI, Abnormal Gait, Arthralgias, Atrophy, Back Pain, Deformity, Joint Swelling, Limited Range of Motion, Loss of Height, Muscle Cramps, Muscle Weakness, Myalgias, Neck Pain, Numbness, Radiating Pain into Limb, Stiffness, Tingling, Other - Integumentary Integumentary: absent: As Per HPI, Acne, Alopecia, Bleeding Lesions, Change in Hair, Change in Nails, Change in Pigmentation, Changing Lesions, Dry Skin, Erythema, Furuncle, Hirsutism, Lesions, New Lesions, Non-Healing Lesions, Photosensitivity, Pruritus, Rash, Skin Pain, Skin Ulcer, Sores, Striae, Swelling , Unusual Bruising, Wounds, Jaundice, Other - Psychiatric Psychiatric: absent: As Per HPI, Abnormal Sleep Pattern, Anhedonia, Anxiety, Auditory Hallucinations, Behavioral Changes, Change in Appetite, Change in Libido, Confusion, Depression, Difficulty Concentrating, Hallucinations, Homicidal Ideation, Hopelessness, Irritability, Memory Loss, Mood Swings, Panic Attacks, Paranoia, Suicidal Ideation, Visual Hallucinations, Tactile Hallucinations, Other - Endocrine Endocrine: absent: As Per HPI, Change in Body Appearance, Change in Libido, Cold Intolorance, Deepening of Voice, Excessive Sweating, Fatigue, Flushing, Heat Intolorance, Increase in Ring/Shoe/Hat Size, Palpitations, Polydipsia, Polyphagia, Polyuria, Other - Hematologic/Lymphatic Hematologic: absent: As Per HPI, Easy Bleeding, Easy Bruising, Lymphadenopathy, Other Past Patient History - Infectious Disease Hx of Infectious Diseases: None - Tetanus Immunizations Tetanus Immunization: Unknown - Past Medical History & Family History Past Medical History?: Yes - Past Social History Smoking Status: Former Smoker - CARDIAC Hx Cardia Arrhythmia: Yes Hx Congestive Heart Failure: Yes Hx Hypercholesterolemia: Yes Hx Hypertension: Yes Hx Pacemaker: Yes (defibrilator BY [employer]) - PULMONARY Hx Asthma: Yes Hx Bronchitis: Yes Hx Chronic Obstructive Pulmonary Disease (COPD): Yes (EMPHYSEMA) Hx Emphysema: Yes Hx Pneumonia: Yes - NEUROLOGICAL Hx Neurological Disorder: No - HEENT Hx HEENT Problems: No - RENAL Hx Chronic Kidney Disease: No - ENDOCRINE/METABOLIC Hx Hypothyroidism: Yes - HEMATOLOGICAL/ONCOLOGICAL Hx Blood Disorders: No - INTEGUMENTARY Hx Dermatological Problems: No - MUSCULOSKELETAL/RHEUMATOLOGICAL Hx Falls: Yes - GASTROINTESTINAL Hx Gastrointestinal Disorders: No - GENITOURINARY/GYNECOLOGICAL Hx Genitourinary Disorders: Yes Hx Prostate Problems: Yes - PSYCHIATRIC Hx Anxiety: Yes Hx Bipolar Disorder: Yes Hx Substance Use: No - SURGICAL HISTORY Hx Coronary Stent: Yes - ANESTHESIA Hx Anesthesia: Yes Hx Anesthesia Reactions: No Hx Malignant Hyperthermia: No Meds Allergies/Adverse Reactions: Allergies Allergy/AdvReac Type Severity Reaction Status Date / Time moxifloxacin HCl Allergy RASH Verified 09/21/16 23:54 [From Avelox] docosanol [From Abreva] AdvReac Verified 09/21/16 23:54 - Medications Medications: Current Medications Acetaminophen (Tylenol 325mg Tab) 650 mg PO Q6 PRN PRN Reason: Fever >100.4 F Albuterol/Ipratropium (Combivent Respimat) 1 puff IH DAILY [facility] Albuterol/Ipratropium (Duoneb 3 Mg/0.5 Mg (3 Ml) Ud) 3 ml INH RQ6 [facility] Last Admin: 09/24/16 13:25 Dose: 3 ml Alprazolam (Xanax) 1 mg PO BID [facility] Last Admin: 09/24/16 10:26 Dose: 1 mg Amiodarone HCl (Cordarone) 200 mg PO DAILY [facility] Last Admin: 09/24/16 10:26 Dose: 200 mg Aspirin (Aspirin Chewable) 81 mg PO DAILY [facility] Last Admin: 09/24/16 10:26 Dose: 81 mg Carvedilol (Coreg) 3.125 mg PO BID [facility] Last Admin: 09/24/16 10:26 Dose: 3.125 mg Enalapril Maleate (Vasotec) 5 mg PO DAILY [facility] Last Admin: 09/24/16 10:26 Dose: 5 mg Furosemide (Lasix) 20 mg PO Q12H [facility] Last Admin: 09/24/16 06:34 Dose: 20 mg Glimepiride (Amaryl) 1 mg PO BID [facility] Last Admin: 09/24/16 10:27 Dose: Not Given Ibuprofen (Motrin Tab) 400 mg PO Q6 PRN PRN Reason: Pain, Mild (1-3) Insulin Human Regular (Novolin R) 0 unit SC ACHS [facility] PRN Reason: Protocol Last Admin: 09/24/16 13:24 Dose: Not Given Levothyroxine Sodium (Synthroid) 50 mcg PO DAILY@0630 [facility] Last Admin: 09/24/16 09:04 Dose: 50 mcg Multivitamins (Hexavitamin) 1 tab PO DAILY [facility] Last Admin: 09/24/16 10:26 Dose: 1 tab Ondansetron HCl (Zofran Inj) 4 mg IVP Q6 PRN PRN Reason: Nausea/Vomiting Oxycodone/Acetaminophen (Percocet 5/325 Mg Tab) 1 tab PO Q6H PRN PRN Reason: Pain, moderate (4-7) Stop: 09/27/16 05:43 Last Admin: 09/24/16 09:04 Dose: 1 tab Pantoprazole Sodium (Protonix Ec Tab) 40 mg PO DAILY [facility] Last Admin: 09/24/16 10:26 Dose: 40 mg Rosuvastatin Calcium (Crestor) 5 mg PO HS [facility] Fluticasone/Salmeterol (Advair Diskus 250/50) 1 puff IH RBID [facility] Ticagrelor (Brilinta) 90 mg PO BID [facility] Last Admin: 09/24/16 10:26 Dose: 90 mg Physical Exam - Constitutional Appears: Non-toxic - Head Exam Head Exam: NORMAL INSPECTION - Eye Exam Eye Exam: Normal appearance - ENT Exam ENT Exam: Mucous Membranes Moist - Neck Exam Neck exam: Positive for: Full Rom - Cardiovascular Exam Cardiovascular Exam: REGULAR RHYTHM - GI/Abdominal Exam GI & Abdominal Exam: Normal Bowel Sounds - Rectal Exam Rectal Exam: Deferred - Extremities Exam Extremities exam: Positive for: pedal edema - Back Exam Back exam: NORMAL INSPECTION - Neurological Exam Neurological exam: Alert - Psychiatric Exam Psychiatric exam: Normal Affect - Skin Skin Exam: Normal Color Results - Vital Signs Recent Vital Signs: Last Vital Signs Temp 98 F 09/24/16 07:30 Pulse 77 09/24/16 07:30 Resp 18 09/24/16 14:10 BP 109/70 09/24/16 10:26 Pulse Ox 98 09/24/16 14:10 - Labs Result Diagrams: 09/25/16 06:38 09/25/16 06:38 Labs: Laboratory Results - last 24 hr 09/24/16 12:26 Sodium 139 Potassium 4.0 Chloride 100 Carbon Dioxide 27 Anion Gap 16 BUN 19 Creatinine 1.2 Est GFR ( Amer) > 60 Est GFR (Non-Af Amer) > 60 Random Glucose 91 Calcium 8.7 Total Bilirubin 0.5 AST 104 H D ALT 33 Alkaline Phosphatase 56 Troponin I 0.0240 NT-Pro-B Natriuret Pep 1530 H Total Protein 7.1 Albumin 4.0 Globulin 3.1 Albumin/Globulin Ratio 1.3 Triglycerides 124 D Cholesterol 131 LDL Cholesterol Direct 56 HDL Cholesterol 39 Thyroxine (T4) 10.5 TSH 3rd Generation 3.32 - EKG Data EKG Interpreted by: Myself Assessment & Plan (1) Left ventricular systolic dysfunction, chronic Assessment and Plan: s/p BiV AICD. function is normal. Status: Acute (2) Chest pain Assessment and Plan: appears noncardiac. check serial cardiac enzymes Status: Acute (3) HTN (hypertension) Assessment and Plan: blood pressure control Status: Chronic (4) Hyperlipidemia Assessment and Plan: statin therapy Status: Acute (5) CAD (coronary artery disease) Assessment and Plan: continue ASA/Brilinta Status: Acute
--- NOTE | 2016-09-24 15:34 | CP.PCM.CON ---
History of Present Illness - History of Present Illness History of Present Illness: Reason for consultation: Shortness of breath and cough 55 year old white male well-known to me with past medical history of COPD, CHF s /p AICD, HTN, HLD, DM, peripheral neuropathy, and gout who presents with complaint of left sided chest pain and SOB after eating some chilidogs. Also complaining of cough productive of yellowish sputum. Denies fever or chills. He says at one point he became nauseous and had a green bowel movement. Review of Systems - Review of Systems All systems: reviewed and no additional remarkable complaints except (Shortness of breath and cough) Past Patient History - Infectious Disease Hx of Infectious Diseases: None - Tetanus Immunizations Tetanus Immunization: Unknown - Past Medical History & Family History Past Medical History?: Yes - Past Social History Smoking Status: Former Smoker - CARDIAC Hx Cardia Arrhythmia: Yes Hx Congestive Heart Failure: Yes Hx Hypercholesterolemia: Yes Hx Hypertension: Yes Hx Pacemaker: Yes (defibrilator BY [employer]) - PULMONARY Hx Asthma: Yes Hx Bronchitis: Yes Hx Chronic Obstructive Pulmonary Disease (COPD): Yes (EMPHYSEMA) Hx Emphysema: Yes Hx Pneumonia: Yes - NEUROLOGICAL Hx Neurological Disorder: No - HEENT Hx HEENT Problems: No - RENAL Hx Chronic Kidney Disease: No - ENDOCRINE/METABOLIC Hx Hypothyroidism: Yes - HEMATOLOGICAL/ONCOLOGICAL Hx Blood Disorders: No - INTEGUMENTARY Hx Dermatological Problems: No - MUSCULOSKELETAL/RHEUMATOLOGICAL Hx Falls: Yes - GASTROINTESTINAL Hx Gastrointestinal Disorders: No - GENITOURINARY/GYNECOLOGICAL Hx Genitourinary Disorders: Yes Hx Prostate Problems: Yes - PSYCHIATRIC Hx Anxiety: Yes Hx Bipolar Disorder: Yes Hx Substance Use: No - SURGICAL HISTORY Hx Coronary Stent: Yes - ANESTHESIA Hx Anesthesia: Yes Hx Anesthesia Reactions: No Hx Malignant Hyperthermia: No Meds Allergies/Adverse Reactions: Allergies Allergy/AdvReac Type Severity Reaction Status Date / Time moxifloxacin HCl Allergy RASH Verified 09/21/16 23:54 [From Avelox] docosanol [From Abreva] AdvReac Verified 09/21/16 23:54 - Medications Medications: Current Medications Acetaminophen (Tylenol 325mg Tab) 650 mg PO Q6 PRN PRN Reason: Fever >100.4 F Albuterol/Ipratropium (Combivent Respimat) 1 puff IH DAILY STEPHAN Albuterol/Ipratropium (Duoneb 3 Mg/0.5 Mg (3 Ml) Ud) 3 ml INH RQ6 [facility] Last Admin: 09/24/16 13:25 Dose: 3 ml Alprazolam (Xanax) 1 mg PO BID [facility] Last Admin: 09/24/16 10:26 Dose: 1 mg Amiodarone HCl (Cordarone) 200 mg PO DAILY [facility] Last Admin: 09/24/16 10:26 Dose: 200 mg Aspirin (Aspirin Chewable) 81 mg PO DAILY [facility] Last Admin: 09/24/16 10:26 Dose: 81 mg Carvedilol (Coreg) 3.125 mg PO BID [facility] Last Admin: 09/24/16 10:26 Dose: 3.125 mg Enalapril Maleate (Vasotec) 5 mg PO DAILY [facility] Last Admin: 09/24/16 10:26 Dose: 5 mg Furosemide (Lasix) 20 mg PO Q12H [facility] Last Admin: 09/24/16 06:34 Dose: 20 mg Glimepiride (Amaryl) 1 mg PO BID [facility] Last Admin: 09/24/16 10:27 Dose: Not Given Ibuprofen (Motrin Tab) 400 mg PO Q6 PRN PRN Reason: Pain, Mild (1-3) Insulin Human Regular (Novolin R) 0 unit SC [facility] PRN Reason: Protocol Last Admin: 09/24/16 13:24 Dose: Not Given Levothyroxine Sodium (Synthroid) 50 mcg PO DAILY@0630 [facility] Last Admin: 09/24/16 09:04 Dose: 50 mcg Multivitamins (Hexavitamin) 1 tab PO DAILY [facility] Last Admin: 09/24/16 10:26 Dose: 1 tab Ondansetron HCl (Zofran Inj) 4 mg IVP Q6 PRN PRN Reason: Nausea/Vomiting Oxycodone/Acetaminophen (Percocet 5/325 Mg Tab) 1 tab PO Q6H PRN PRN Reason: Pain, moderate (4-7) Stop: 09/27/16 05:43 Last Admin: 09/24/16 09:04 Dose: 1 tab Pantoprazole Sodium (Protonix Ec Tab) 40 mg PO DAILY [facility] Last Admin: 09/24/16 10:26 Dose: 40 mg Rosuvastatin Calcium (Crestor) 5 mg PO HS [facility] Fluticasone/Salmeterol (Advair Diskus 250/50) 1 puff IH RBID STEPHAN Ticagrelor (Brilinta) 90 mg PO BID [facility] Last Admin: 09/24/16 10:26 Dose: 90 mg Physical Exam - Constitutional Appears: No Acute Distress - Head Exam Head Exam: ATRAUMATIC, NORMOCEPHALIC - Eye Exam Eye Exam: Normal appearance - ENT Exam ENT Exam: Mucous Membranes Moist - Respiratory Exam Respiratory Exam: Clear to Auscultation Bilateral - Cardiovascular Exam Cardiovascular Exam: REGULAR RHYTHM - GI/Abdominal Exam GI & Abdominal Exam: Normal Bowel Sounds, Soft - Extremities Exam Extremities exam: Positive for: normal inspection Results - Vital Signs Recent Vital Signs: Last Vital Signs Temp 98 F 09/24/16 07:30 Pulse 77 09/24/16 07:30 Resp 18 09/24/16 14:10 BP 109/70 09/24/16 10:26 Pulse Ox 98 09/24/16 14:10 - Labs Result Diagrams: 09/24/16 17:52 09/24/16 12:26 Labs: Laboratory Results - last 24 hr 09/24/16 12:26 Sodium 139 Potassium 4.0 Chloride 100 Carbon Dioxide 27 Anion Gap 16 BUN 19 Creatinine 1.2 Est GFR ( Amer) > 60 Est GFR (Non-Af Amer) > 60 Random Glucose 91 Calcium 8.7 Total Bilirubin 0.5 AST 104 H D ALT 33 Alkaline Phosphatase 56 Troponin I 0.0240 NT-Pro-B Natriuret Pep 1530 H Total Protein 7.1 Albumin 4.0 Globulin 3.1 Albumin/Globulin Ratio 1.3 Triglycerides 124 D Cholesterol 131 LDL Cholesterol Direct 56 HDL Cholesterol 39 Thyroxine (T4) 10.5 TSH 3rd Generation 3.32 Assessment & Plan (1) COPD exacerbation Status: Acute Comment: Started on IV steroids and nebulizer treatment. Antibiotics because of productive cough (2) Pneumonia Assessment and Plan: Chest x-ray consistent with left retrocardiac infiltrate Check procalcitonin level unLikely pneumonia Status: Acute
[2016-09-24] MEDS ORDERED: cefTRIAXone IV 1 gm in Dextros 50 ML IVPB SCH (16:30)
[2016-09-24 18:03] LABS: BASO # 0.1 K/uL (0.0-0.2); BASO % 0.7 % (0.0-2.0); EOS # 0.1 K/uL (0.0-0.7); EOS % 1.1 % (0.0-4.0); HEMATOCRIT 31.1 % (35.0-51.0); LYMPH # 1.6 K/uL (1.0-4.3); MEAN CELL VOLUME 86.5 fL (80.0-94.0); MEAN CORPUSCULAR HEMOGLOBIN 28.4 pg (27.0-31.0); MEAN CORPUSCULAR HGB CONC 32.9 g/dL (33.0-37.0); MEAN PLATELET VOLUME 7.6 fL (7.2-11.7); MONO # 0.5 K/uL (0.0-0.8); RED CELL DISTRIBUTION WIDTH 15.2 % (11.5-14.5); WHITE BLOOD COUNT 7.3 K/uL (4.8-10.8)
[2016-09-24 18:07] LABS: INR 1.2
[2016-09-24 18:10] VITALS: RESP 20
[2016-09-24] MEDS ORDERED: Fluticasone-Salmeterol 250-50mcg Diskus IH SCH (20:00)
[2016-09-25] MEDS: Oxycodone/Acetaminophen 5/325 mg Tab PO PRN ×3 (00:13→12:14)
[2016-09-25] MEDS: Albuterol-Ipratrop 3 mg / 0.5 (3 ml) UD INH SCH ×3 (01:22→13:53)
[2016-09-25] MEDS: Levothyroxine 50 MCG TAB PO SCH (06:20)
[2016-09-25 06:47] LABS: BASO % 0.3 % (0.0-2.0); HEMATOCRIT 32.7 % (35.0-51.0); LYMPH # 0.8 K/uL (1.0-4.3); LYMPH % 11.5 % (20.0-40.0); MEAN CELL VOLUME 85.9 fL (80.0-94.0); MEAN CORPUSCULAR HEMOGLOBIN 28.7 pg (27.0-31.0); MEAN CORPUSCULAR HGB CONC 33.4 g/dL (33.0-37.0); MEAN PLATELET VOLUME 7.6 fL (7.2-11.7); MONO % 0.5 % (0.0-10.0); NRBC % 0.1 % (0.0-2.0); WHITE BLOOD COUNT 6.6 K/uL (4.8-10.8)
[2016-09-25 07:03] LABS: CHLORIDE 100 mmol/L (98-107)
[2016-09-25 07:04] LABS: POTASSIUM 4.7 mmol/L (3.6-5.2); SODIUM 138 mmol/L (132-148)
[2016-09-25 07:06] LABS: ALB/GLOB RATIO 1.5 (1.0-2.1); ALKALINE PHOSPHATASE 53 U/L (38-126); AST/SGOT 29 U/L (17-59); BILIRUBIN,TOTAL 0.5 mg/dL (0.2-1.3); BLOOD UREA NITROGEN 20 mg/dL (9-20); CARBON DIOXIDE 24 mmol/L (22-30); GFR AFRICAN-AMERICAN > 60; GLUCOSE,RANDOM 157 mg/dL (75-110); TOTAL PROTEIN 7.1 g/dL (6.3-8.3)
[2016-09-25 07:07] LABS: ALT/SGPT 32 U/L (21-72); CALCIUM 8.5 mg/dl (8.6-10.4)
[2016-09-25 08:50] VITALS: PULSE 70; TEMP 98.2; O2SAT 97
[2016-09-25] MEDS: Pantoprazole 40 mg EC Tab PO SCH (10:05)
[2016-09-25] MEDS: Multiple Vitamins Tab PO SCH (10:05)
[2016-09-25] MEDS: (Novolin R) Insulin Human Regular 100 units/ml vial SC SCH ×2 (10:06→12:14)
[2016-09-25 10:07] VITALS: BP 104/63
--- NOTE | 2016-09-25 16:30 | CP.PCM.DIS ---
Provider - Provider Date of Admission: 09/24/16 04:47 Attending physician: Emmett Dey Jr, MD Primary care physician: Dr. Dey Consults: Dr. Ceja, Dr. Jackson Time Spent in preparation of Discharge (in minutes): 30 Hospital Course - Lab Results Lab Results: Most Recent Lab Values WBC 6.6 K/uL (4.8-10.8) 09/25/16 06:38 RBC 3.80 Mil/uL (4.40-5.90) L 09/25/16 06:38 Hgb 10.9 g/dL (12.0-18.0) L 09/25/16 06:38 Hct 32.7 % (35.0-51.0) L 09/25/16 06:38 MCV 85.9 fL (80.0-94.0) 09/25/16 06:38 MCH 28.7 pg (27.0-31.0) 09/25/16 06:38 MCHC 33.4 g/dL (33.0-37.0) 09/25/16 06:38 RDW 15.0 % (11.5-14.5) H 09/25/16 06:38 Plt Count 213 K/uL (130-400) 09/25/16 06:38 MPV 7.6 fL (7.2-11.7) 09/25/16 06:38 Neut % (Auto) 87.7 % (50.0-75.0) H 09/25/16 06:38 Lymph % (Auto) 11.5 % (20.0-40.0) L 09/25/16 06:38 [place] % (Auto) 0.5 % (0.0-10.0) 09/25/16 06:38 Eos % (Auto) 0.0 % (0.0-4.0) 09/25/16 06:38 Baso % (Auto) 0.3 % (0.0-2.0) 09/25/16 06:38 Neut # 5.8 K/uL (1.8-7.0) 09/25/16 06:38 Lymph # 0.8 K/uL (1.0-4.3) L 09/25/16 06:38 [place] # 0.0 K/uL (0.0-0.8) 09/25/16 06:38 Eos # 0.0 K/uL (0.0-0.7) 09/25/16 06:38 Baso # 0.0 K/uL (0.0-0.2) 09/25/16 06:38 PT 13.8 SECONDS (9.7-12.2) H 09/24/16 17:52 INR 1.2 09/24/16 17:52 APTT 30 SECONDS (21-34) 09/24/16 17:52 Sodium 138 mmol/L (132-148) 09/25/16 06:38 Potassium 4.7 mmol/L (3.6-5.2) 09/25/16 06:38 Chloride 100 mmol/L (98-107) 09/25/16 06:38 Carbon Dioxide 24 mmol/L (22-30) 09/25/16 06:38 Anion Gap 18 (10-20) 09/25/16 06:38 BUN 20 mg/dL (9-20) 09/25/16 06:38 Creatinine 1.4 MG/DL (0.8-1.5) 09/25/16 06:38 Est GFR ( Amer) > 60 09/25/16 06:38 Est GFR (Non-Af Amer) 53 09/25/16 06:38 Random Glucose 157 mg/dL (75-110) H 09/25/16 06:38 Calcium 8.5 mg/dl (8.6-10.4) L 09/25/16 06:38 Total Bilirubin 0.5 mg/dL (0.2-1.3) 09/25/16 06:38 AST 29 U/L (17-59) 09/25/16 06:38 ALT 32 U/L (21-72) 09/25/16 06:38 Alkaline Phosphatase 53 U/L (38-126) 09/25/16 06:38 Troponin I 0.0180 ng/mL (0.00-0.120) 09/24/16 18:10 NT-Pro-B Natriuret Pep 1530 pg/mL (0-900) H 09/24/16 12:26 Total Protein 7.1 g/dL (6.3-8.3) 09/25/16 06:38 Albumin 4.2 g/dL (3.5-5.0) 09/25/16 06:38 Globulin 2.9 gm/dL (2.2-3.9) 09/25/16 06:38 Albumin/Globulin Ratio 1.5 (1.0-2.1) 09/25/16 06:38 Triglycerides 124 mg/dL (0-149) D 09/24/16 12:26 Cholesterol 131 mg/dL (0-199) 09/24/16 12:26 LDL Cholesterol Direct 56 mg/dL (0-129) 09/24/16 12:26 HDL Cholesterol 39 mg/dL (30-70) 09/24/16 12:26 Procalcitonin < 0.05 NG/ML (0.19-0.49) L 09/24/16 17:16 Thyroxine (T4) 10.5 ug/dL (5.5-11.0) 09/24/16 12:26 TSH 3rd Generation 3.32 mIU/L (0.46-4.68) 09/24/16 12:26 Urine Color Yellow (YELLOW) 09/24/16 03:13 Urine Clarity Hazy (Clear) 09/24/16 03:13 Urine pH 6.0 (5.0-8.0) 09/24/16 03:13 Ur Specific Herald 1.012 (1.003-1.030) 09/24/16 03:13 Urine Protein Negative mg/dL (NEGATIVE) 09/24/16 03:13 Urine Glucose (UA) Normal mg/dL (Normal) 09/24/16 03:13 Urine Ketones Negative mg/dL (NEGATIVE) 09/24/16 03:13 Urine Blood Negative (NEGATIVE) 09/24/16 03:13 Urine Nitrate Negative (NEGATIVE) 09/24/16 03:13 Urine Bilirubin Negative (NEGATIVE) 09/24/16 03:13 Urine Urobilinogen Normal mg/dL (0.2-1.0) 09/24/16 03:13 Ur Leukocyte Esterase Neg Jeronimo/uL (Negative) 09/24/16 03:13 Urine WBC (Auto) 1 /hpf (0-5) 09/24/16 03:13 Urine RBC (Auto) 1 /hpf (0-3) 09/24/16 03:13 Ur Squamous Epith Cells 5 /hpf (0-5) 09/24/16 03:13 Urine Bacteria Rare (<OCC) 09/24/16 03:13 - Hospital Course Hospital Course: Patient is a 55 year old male with past medical history of CHF s/p AICD, HTN, HLD, DM, peripheral neuropathy, and gout who presents with complaint that he developed some left sided chest pain and SOB after eating some chilidogs. He states he checked his BP and it was 130's/90's and got scared. He reports having multiple NM's in the past and this does not feel like past NM's. He reports his chest pain alleviated as did his SOB prior to coming to the ED. He does report a history of neuropathy for which he is supposed to go to pain management. He also reports having felt his pacer go off tonight. He says at one point he became nauseous and had a green bowel movement. He denies any fever , chills, abdominal pain, dysuria, diarrhea, hematachezia, dizziness, or weakness. EKG, EMMA were ordered and negative. Home medications were resumed. Dr. Jackson and Dr. Ceja were consulted. CXR showed left retrocardiac infiltrate and Rocephin was started for productive cough. Pt condition improved and discharged with home meds with addition of Augmentin for 7 days. Discharge Exam - Head Exam Head Exam: NORMAL INSPECTION - Eye Exam Eye Exam: Normal appearance - Respiratory Exam Respiratory Exam: Clear to PA & Lateral, NORMAL BREATHING PATTERN - Cardiovascular Exam Cardiovascular Exam: REGULAR RHYTHM, +S1, +S2. absent: Gallop, Rubs - GI/Abdominal Exam GI & Abdominal Exam: Normal Bowel Sounds, Soft. absent: Tenderness - Neurological Exam Neurological exam: Alert, Oriented x3 Discharge Plan - Discharge Medications Prescriptions: Amoxicillin/Clavulanate [Augmentin 875 MG-125 MG] 1 tab PO Q12H #14 tab - Follow Up Plan Condition: IMPROVED Disposition: HOME/ ROUTINE Instructions: Amoxicillin/Clavulanate Potassium (By mouth), Heart Failure (GEN) , Chest Pain (GEN), Dyspnea (GEN) Additional Instructions: Discharged per Dr. Dey. Please resume all of your home medications. Take antibiotics and complete it in 7 days. Make appointment and follow up with Dr. Dey, Dr. Ceja and Dr. Jackson within 1-2 weeks. Avoid eating chilidogs. Come to ED if symptoms reoccurred. Referrals: Mike Ceja MD [Staff Provider] - Emmett Dey Jr., MD [Medical Doctor] - Sarah Jackson MD [Staff Provider] -
[2016-09-25] MEDS ORDERED: Fluticasone-Salmeterol 250-50mcg Diskus IH SCH (20:00)
--- NOTE | 2016-09-25 20:07 | CP.PCM.PN ---
Subjective - Date & Time of Evaluation Date of Evaluation: 09/25/16 Time of Evaluation: 10:30 - Subjective Subjective: less dyspnea. no current chest pain. Objective - Vital Signs/Intake and Output Vital Signs (last 24 hours): Temp Pulse Resp BP Pulse Ox 98.2 F 70 20 104/63 97 09/25/16 08:00 09/25/16 08:00 09/25/16 08:00 09/25/16 10:06 09/25/16 08:00 - Labs Labs: 09/25/16 06:38 09/25/16 06:38 PT 13.8 SECONDS (9.7-12.2) H 09/24/16 17:52 INR 1.2 09/24/16 17:52 APTT 30 SECONDS (21-34) 09/24/16 17:52 - Constitutional Appears: Non-toxic - Head Exam Head Exam: NORMAL INSPECTION - Eye Exam Eye Exam: Normal appearance - ENT Exam ENT Exam: Mucous Membranes Moist - Neck Exam Neck Exam: Full ROM - Cardiovascular Exam Cardiovascular Exam: REGULAR RHYTHM - GI/Abdominal Exam GI & Abdominal Exam: Normal Bowel Sounds - Rectal Exam Rectal Exam: Deferred - Extremities Exam Extremities Exam: Pedal Edema - Back Exam Back Exam: NORMAL INSPECTION - Neurological Exam Neurological Exam: Alert - Psychiatric Exam Psychiatric exam: Normal Affect - Skin Skin Exam: Normal Color Assessment and Plan (1) Left ventricular systolic dysfunction, chronic Assessment & Plan: well compensated Status: Acute (2) Chest pain Assessment & Plan: unlikely cardiac Status: Acute (3) HTN (hypertension) Assessment & Plan: well controlled Status: Chronic (4) Hyperlipidemia Assessment & Plan: statin therapy Status: Acute (5) CAD (coronary artery disease) Assessment & Plan: recommend continued ASA 81 mg daily, Brilinta 90 mg BID Status: Acute
[2016-09-26] MEDS ORDERED: Albuterol-Ipratrop 20 mcg/actuation (4 g) IH SCH ×2 (10:00)
--- NOTE | 2016-09-26 14:31 | CARD ---
APPROVED REPORT EKG Measurement Heart [id number] <Conclusion> Atrial-paced rhythm Right bundle branch block Possible Lateral infarct, age undetermined Inferior infarct, age undetermined Abnormal ECG
== END 2016-09-25 15:35 | disposition home or self-care (01) ==
LOC: C.ER 02:26 → C.5T 04:47 → C.9E 04:47 → INTOOBSV 04:47 → C.5T 07:59
PROVIDERS: ADMIT Internal Medicine; ATTEND Internal Medicine
DX: R07.89 Other chest pain (principal); E03.9 Hypothyroidism, unspecified; E78.00 Pure hypercholesterolemia, unspecified; F31.9 Bipolar disorder, unspecified; I11.0 Hypertensive heart disease with heart failure; I25.2 Old myocardial infarction; I50.9 Heart failure, unspecified; J44.9 Chronic obstructive pulmonary disease, unspecified; J45.909 Unspecified asthma, uncomplicated; M10.9 Gout, unspecified; Z87.891 Personal history of nicotine dependence
CPT/HCPCS: 36415; 71010; 80053; 80061; 81001; 82948; 83036; 83880; 84145; 84436; 84443; 84484; 85025; 85610; 85730; 93005; 94640; 99284; G0378; J0696; J2930

== ENCOUNTER 2016-10-01 18:42 | Observation (INO) | payer MEDICARE ==
[2016-10-01 18:42] VITALS: BMI 24.6
[2016-10-01 19:30] LABS: BASO % 0.6 % (0.0-2.0); EOS # 0.1 K/uL (0.0-0.7); EOS % 0.7 % (0.0-4.0); HEMATOCRIT 34.4 % (35.0-51.0); LYMPH # 1.7 K/uL (1.0-4.3); LYMPH % 22.5 % (20.0-40.0); MEAN CELL VOLUME 86.7 fL (80.0-94.0); MEAN CORPUSCULAR HEMOGLOBIN 28.6 pg (27.0-31.0); MEAN CORPUSCULAR HGB CONC 32.9 g/dL (33.0-37.0); MEAN PLATELET VOLUME 7.9 fL (7.2-11.7); MONO # 0.6 K/uL (0.0-0.8); MONO % 7.6 % (0.0-10.0); NRBC % 0.1 % (0.0-2.0); RED CELL DISTRIBUTION WIDTH 15.3 % (11.5-14.5); WHITE BLOOD COUNT 7.7 K/uL (4.8-10.8)
[2016-10-01 19:39] LABS: INR 1.1
[2016-10-01 19:42] LABS: CHLORIDE 97 mmol/L (98-107); SODIUM 135 mmol/L (132-148)
[2016-10-01 19:44] LABS: ALB/GLOB RATIO 1.6 (1.0-2.1); ALKALINE PHOSPHATASE 57 U/L (38-126); AST/SGOT 33 U/L (17-59); BILIRUBIN,TOTAL 0.5 mg/dL (0.2-1.3); CARBON DIOXIDE 25 mmol/L (22-30); GFR AFRICAN-AMERICAN > 60; TOTAL PROTEIN 7.5 g/dL (6.3-8.3)
[2016-10-01 19:45] LABS: ALT/SGPT 44 U/L (21-72); BLOOD UREA NITROGEN 22 mg/dL (9-20); CALCIUM 8.6 mg/dl (8.6-10.4); GLUCOSE,RANDOM 115 mg/dL (75-110)
--- NOTE | 2016-10-01 20:05 | C.PDOC ---
History Of Present Illness Patient is a 55 y/o male that presents to the ED complaining of not feeling well , and generalized pain. Pt reports increased left lower extremity pain due to neuropathy. Pt reports taking new meds, unknown name, today. Pt states he has difficulty ambulating, and fell several times today. Otherwise, denies any head injury, LOC, chest pain, shortness of breath, fever, chills, extremity numbness/ weakness, or any other associated symptoms at this time. Time Seen by Provider: 10/01/16 19:01 Chief Complaint (Nursing): Chest Pain History Per: Patient History/Exam Limitations: no limitations Current Symptoms Are (Timing): Still Present Past Medical History Reviewed: Historical Data, Nursing Documentation, Vital Signs Vital Signs: Last Vital Signs Temp 98.2 F 10/01/16 18:48 Pulse 69 10/01/16 21:28 Resp 15 10/01/16 21:28 BP 143/88 10/01/16 22:56 Pulse Ox 98 10/01/16 23:53 - Medical History PMH: Anxiety, Asthma, Bipolar Disorder, Bronchitis, CAD, Cardia Arrhythmia, CHF , COPD (EMPHYSEMA), Diabetes, Emphysema, HTN, Hypercholesterolemia, Hypothyroidism, Pneumonia Denies: Chronic Kidney Disease Surgical History: Coronary Stent (x13), Pacemaker (defibrilator BY [employer]) - [facility] Procedures APPLICATION OF SPLINT (07/14/14) BUNIONECTOMY NEC (11/25/14) CORONAR ARTERIOGR-2 CATH (06/07/13) DESTRUC-FOOT JT LES NEC (11/25/14) FLUOROSCOPY OF LEFT HEART USING LOW OSMOLAR CONTRAST (05/23/16) FLUOROSCOPY OF MULT COR ART USING L OSM CONTRAST (05/23/16) LARYGNOSCOPY AND OTH TRACHEOSCOPY (12/31/13) LEFT HEART CARDIAC CATH (06/07/13) MEASURE OF CARDIAC SAMPL & PRESSURE, L HEART, PERC APPROACH (05/23/16) RT & LT HEART ANGIOCARD (06/07/13) Family History: States: Unknown Family Hx, [place] (dad at 49) - Social History Hx Tobacco Use: No Hx Alcohol Use: No Hx Substance Use: No - Immunization History Hx Tetanus Toxoid Vaccination: No Hx Influenza Vaccination: No Hx Pneumococcal Vaccination: Yes Review Of Systems Except As Marked, All Systems Reviewed And Found Negative. Constitutional: Negative for: Fever, Chills Cardiovascular: Negative for: Chest Pain, Palpitations Respiratory: Negative for: Cough, Shortness of Breath Musculoskeletal: Positive for: Leg Pain (left) Neurological: Negative for: Weakness, Numbness Physical Exam - Physical Exam Appears: Non-toxic, No Acute Distress Skin: Normal Color, Warm, Dry Head: Atraumatic, Normacephalic Neck: Normal ROM, Supple Chest: Symmetrical Cardiovascular: Rhythm Regular, No Murmur Respiratory: Normal Breath Sounds, No Rales, No Rhonchi, No Wheezing Gastrointestinal/Abdominal: Soft, No Tenderness Extremity: Normal ROM, No Pedal Edema, No Deformity Neurological/Psych: Oriented x3, Normal Speech, Normal Cognition, Normal Motor, Normal Sensation Gait: Unsteady ED Course And Treatment - Laboratory Results Result Diagrams: 10/01/16 19:27 10/01/16 19:27 ECG: Interpreted By Me, Viewed By Id ECG Rhythm: A Paced Interpretation Of ECG: Left axis, non specific IVCD, no change from prior Rate From EC O2 Sat by Pulse Oximetry: 98 - Radiology CXR: Interpreted by Me CXR Interpretation: Yes: Other (AICD). No: Infiltrates - CT Scan/US Head CT Other Rad Studies (CT/US): Read By Radiologist, Radiology Report Reviewed CT/US Interpretation: FINDINGS: Brain: Unremarkable. No hemorrhage. No significant white matter disease. No edema. Ventricles: Unremarkable. No ventriculomegaly. Bones/joints: Unremarkable. No acute fracture. Soft tissues : Unremarkable. Sinuses: Unremarkable as visualized. No acute sinusitis. Mastoid air cells: Unremarkable as visualized. No mastoid effusion. IMPRESSION: Normal head/brain CT. Progress Note: Head CT, labs, EKG, CXR ordered and reviewed. Pt was given Tylenol and Toradol in the ER. Medical Decision Making Medical Decision Making: Pt stable in the ED Labs unremarkable, Falls may be related to the "new unknown" pain medication ??gabapentin Casee discussed with dr Dey, in view of the symptoms and medical problems observation indicated Disposition - Disposition Disposition: HOSPITALIZED Disposition Time: 20:02 Condition: GOOD - Clinical Impression Clinical Impression: Chronic congestive heart failure, CAD (coronary artery disease), Multiple falls , Neuropathy - Scribe Statement The provider has reviewed the documentation as recorded by the Mart Levi Provider Attestation: All medical record entries made by the Scribe were at my direction and personally dictated by me. I have reviewed the chart and agree that the record accurately reflects my personal performance of the history, physical exam, medical decision making, and the department course for this patient. I have also personally directed, reviewed, and agree with the discharge instructions and disposition.
--- NOTE | 2016-10-01 21:09 | CT ---
EXAM: CT Head Without Intravenous Contrast CLINICAL HISTORY: 55 years old, male; Injury or trauma; Fall; Initial encounter; Blunt trauma (contusions or hematomas); Additional info: Multiple fall on noac TECHNIQUE: Axial computed tomography images of the head/brain without intravenous contrast. This CT exam was performed using one or more of the following dose reduction techniques: automated exposure control, adjustment of the mA and/or kV according to patient size, and/or use of iterative reconstruction technique. EXAM DATE/TIME: Exam ordered 10/01/2016 8:04 PM COMPARISON: CT - HEAD W/O CONTRAST 07/29/2016 9:13:26 PM FINDINGS: Brain: Unremarkable. No hemorrhage. No significant white matter disease. No edema. Ventricles: Unremarkable. No ventriculomegaly. Bones/joints: Unremarkable. No acute fracture. Soft tissues: Unremarkable. Sinuses: Unremarkable as visualized. No acute sinusitis. Mastoid air cells: Unremarkable as visualized. No mastoid effusion. IMPRESSION: Normal head/brain CT.
--- NOTE | 2016-10-01 21:56 | CP.PCM.HP ---
History of Present Illness - History of Present Illness History of Present Illness: This is a 55 yo male with past medical hx of DM, diabetic neuropathy, gout, HLD , COPD, HF with pacemaker and defibrillator presenting with chief complaint of syncope. Pt was recently discharged last week. He reports 3 syncopal episodes today. Each time, he was in his bedroom, standing up. He cannot recall the circumstances surrounding each event or any symptoms before or after. He says each time they were witnessed by his . When asked why he did not come to the hospital after the first event, he says he has been to the hospital too much. He does say he fell to the ground and hit his head. He denies fevers, chills, vomiting, diarrhea, hematuria, bloody BMs. He does report a headache. He also reports he took unknown "pain med" 3x today that was given him by Dr. Jackson yesterday. PMH: DM, diabetic neuropathy, gout, HLD, COPD, HF with pacemaker/ICD PSH: Left foot sx, ICD/pacer Allergies: moxifloxacin, docosanol FH: Mother- - lung cancer; father- - [place] Social hx: Former smoker. Former heavy drinker, last drink 2008. Denies illegal drugs. Does not work. Lives in with . Present on Admission - Present on Admission Any Indicators Present on Admission: No History of DVT/PE: No History of Uncontrolled Diabetes: No Urinary Catheter: No Decubitus Ulcer Present: No Review of Systems - Review of Systems All systems: reviewed and no additional remarkable complaints except Review of Systems: Negative except as per HPI. Past Patient History - Infectious Disease Hx of Infectious Diseases: None - Tetanus Immunizations Tetanus Immunization: Unknown - Past Medical History & Family History Past Medical History?: Yes Past Family History: Reviewed and not pertinent - Past Social History Smoking Status: Former Smoker Chewing Tobacco Use: No Cigar Use: No Alcohol: None Drugs: Denies Home Situation {Lives}: With Family Domestic Violence: Negative - CARDIAC Hx Cardia Arrhythmia: Yes Hx Congestive Heart Failure: Yes Hx Hypercholesterolemia: Yes Hx Hypertension: Yes Hx Pacemaker: Yes (defibrilator BY [employer]) - PULMONARY Hx Asthma: Yes Hx Bronchitis: Yes Hx Chronic Obstructive Pulmonary Disease (COPD): Yes (EMPHYSEMA) Hx Emphysema: Yes Hx Pneumonia: Yes - NEUROLOGICAL Hx Neurological Disorder: No - HEENT Hx HEENT Problems: No - RENAL Hx Chronic Kidney Disease: No - ENDOCRINE/METABOLIC Hx Hypothyroidism: Yes - HEMATOLOGICAL/ONCOLOGICAL Hx Blood Disorders: No - INTEGUMENTARY Hx Dermatological Problems: No - MUSCULOSKELETAL/RHEUMATOLOGICAL Hx Falls: Yes - GASTROINTESTINAL Hx Gastrointestinal Disorders: No - GENITOURINARY/GYNECOLOGICAL Hx Genitourinary Disorders: Yes Hx Prostate Problems: Yes - PSYCHIATRIC Hx Anxiety: Yes Hx Bipolar Disorder: Yes Hx Substance Use: No - SURGICAL HISTORY Hx Coronary Stent: Yes (x13) - ANESTHESIA Hx Anesthesia: Yes Hx Anesthesia Reactions: No Hx Malignant Hyperthermia: No Meds Allergies/Adverse Reactions: Allergies Allergy/AdvReac Type Severity Reaction Status Date / Time moxifloxacin HCl Allergy RASH Verified 10/01/16 18:53 [From Avelox] docosanol [From Abreva] AdvReac Verified 10/01/16 18:53 Physical Exam - Constitutional Appears: Non-toxic, No Acute Distress - Head Exam Head Exam: ATRAUMATIC, NORMAL INSPECTION, NORMOCEPHALIC - Eye Exam Eye Exam: EOMI - ENT Exam ENT Exam: Mucous Membranes Moist - Neck Exam Neck exam: Positive for: Full Rom, Normal Inspection - Respiratory Exam Respiratory Exam: Decreased Breath Sounds. absent: Respiratory Distress - Cardiovascular Exam Cardiovascular Exam: +S1, +S2 - Extremities Exam Extremities exam: Positive for: full ROM, normal inspection - Back Exam Back exam: NORMAL INSPECTION - Neurological Exam Neurological exam: Alert, CN II-XII Intact, Oriented x3 - Psychiatric Exam Psychiatric exam: Normal Affect, Normal Mood - Skin Skin Exam: Dry, Intact, Normal Color, Warm Results - Vital Signs Recent Vital Signs: Last Vital Signs Temp 98.2 F 10/01/16 18:48 Pulse 69 10/01/16 21:28 Resp 15 10/01/16 21:28 BP 94/67 L 10/01/16 21:28 Pulse Ox 98 10/01/16 21:44 - Labs Result Diagrams: 10/01/16 19:27 10/01/16 19:27 Labs: Laboratory Results - last 24 hr 10/01/16 21:05 Troponin I 0.0260 Assessment & Plan - Assessment and Plan (Free Text) Assessment: This is a 55 yo male with past medical hx of DM, gout, HTN, HLD, Heart failure presenting with syncope x 3. 1. Syncope -orthostatics -head ct negative -cardiology consult. recs appreciated -trops x 3, 1st one negative -ekg -will start asa 81 mg po daily -will continue brillinta daily -cxr pending -carotid dopplers -echo -will get urine drug screen 2. hx of COPD -duonebs prn -advair 3. Hx of congestive heart failure -cardiology consult. recs appreciated. -continue enalapril daily -continue coreg daily -continue asa 81 daily -continue brillinta daily -continue crestor daily -continue amiodarone daily 4. hx of HLD -continue crestor PO HS 5. hx of DM -ISS/accuchecks 6. GI/DVT ppx -SCDs -protonix 40 daily to be discussed with Dr. Dey.
[2016-10-01] MEDS: (Novolin R) Insulin Human Regular 100 units/ml vial SC SCH (22:36)
[2016-10-02 03:04] LABS: CHLORIDE 107 mmol/L (98-107); POTASSIUM 3.1 mmol/L (3.6-5.2); SODIUM 137 mmol/L (132-148)
[2016-10-02 03:06] LABS: GFR AFRICAN-AMERICAN > 60
[2016-10-02 03:07] LABS: ALKALINE PHOSPHATASE 40 U/L (38-126); ALT/SGPT 31 U/L (21-72); AST/SGOT 24 U/L (17-59); BILIRUBIN,TOTAL 0.4 mg/dL (0.2-1.3); BLOOD UREA NITROGEN 18 mg/dL (9-20); CARBON DIOXIDE 22 mmol/L (22-30); GLUCOSE,RANDOM 67 mg/dL (75-110); PHOSPHOROUS 2.5 mg/dL (2.5-4.5); TOTAL PROTEIN 5.2 g/dL (6.3-8.3)
[2016-10-02 03:08] LABS: CALCIUM 6.4 mg/dl (8.6-10.4)
[2016-10-02 03:16] LABS: ALB/GLOB RATIO 1.2 (1.0-2.1)
[2016-10-02] MEDS ORDERED: Potassium Chloride 20 mEq ER Tab PO ONE ×2 (03:40→08:15)
[2016-10-02] MEDS: Levothyroxine 50 MCG TAB PO SCH (06:51)
--- NOTE | 2016-10-02 07:54 | CP.PCM.PN ---
<Amelia Quick - Last Filed: 10/03/16 11:56> Subjective - Date & Time of Evaluation Date of Evaluation: 10/02/16 Time of Evaluation: 09:00 - Subjective Subjective: PGY1 Medicine note for Dr. Dey Patient seen and examined at bedside. Patient was tearful on encounter and saying he was in a lot of pain. The last time he received opioids was when he was admitted at . Patient was also complaining of neuropathic pain in his legs b/l. He denied headache, dizziness, chest pain, palpitations, SOB, cough, abd pain, nausea, vomiting, bowel/bladder complaints. Objective - Vital Signs/Intake and Output Vital Signs (last 24 hours): Temp Pulse Resp BP Pulse Ox 97.5 F L 62 18 100/65 98 10/02/16 04:44 10/02/16 04:44 10/02/16 04:44 10/02/16 04:44 10/02/16 04:44 - Medications Medications: Current Medications Amiodarone HCl (Cordarone) 200 mg PO DAILY [facility] Aspirin (Aspirin Chewable) 81 mg PO DAILY [facility] Carvedilol (Coreg) 3.125 mg PO BID [facility] Enalapril Maleate (Vasotec) 5 mg PO DAILY [facility] Furosemide (Lasix) 20 mg PO Q12H [facility] Last Admin: 10/01/16 22:56 Dose: 20 mg Insulin Human Regular (Novolin R) 0 unit SC ACHS [facility] PRN Reason: Protocol Last Admin: 10/01/16 22:36 Dose: Not Given Levothyroxine Sodium (Synthroid) 50 mcg PO DAILY@0630 [facility] Last Admin: 10/02/16 06:51 Dose: 50 mcg Multivitamins (Hexavitamin) 1 tab PO DAILY [facility] Pantoprazole Sodium (Protonix Inj) 40 mg IVP DAILY [facility] Pneumococcal Polyvalent Vaccine (Pneumovax 23 Vaccine) 0.5 ml IM .ONCE ONE Stop: 10/03/16 10:01 Potassium Chloride (K-Dur 20 Meq Er Tab) 40 meq PO ONCE ONE Stop: 10/02/16 07:45 Rosuvastatin Calcium (Crestor) 5 mg PO HS [facility] Last Admin: 10/01/16 22:57 Dose: 5 mg Fluticasone/Salmeterol (Advair Diskus 250/50) 1 puff INH RQ12 [facility] Ticagrelor (Brilinta) 90 mg PO BID [facility] - Labs Labs: 10/02/16 02:52 PT 12.4 SECONDS (9.7-12.2) H 10/01/16 19:27 INR 1.1 10/01/16 19:27 APTT 25 SECONDS (21-34) 10/01/16 19:27 - Constitutional Appears: Non-toxic, No Acute Distress - Head Exam Head Exam: NORMAL INSPECTION - Eye Exam Eye Exam: Normal appearance. absent: Conjunctival injection, Scleral icterus - ENT Exam ENT Exam: Mucous Membranes Moist - Neck Exam Neck Exam: Normal Inspection. absent: Tenderness - Respiratory Exam Respiratory Exam: Clear to Ausculation Bilateral, NORMAL BREATHING PATTERN. absent: Rales, Rhonchi, Wheezes - Cardiovascular Exam Cardiovascular Exam: +S1, +S2 - GI/Abdominal Exam GI & Abdominal Exam: Soft, Normal Bowel Sounds. absent: Tenderness - Rectal Exam Rectal Exam: Deferred - Extremities Exam Extremities Exam: Normal Capillary Refill, Normal Inspection - Back Exam Back Exam: NORMAL INSPECTION. absent: rash noted - Neurological Exam Neurological Exam: Alert, Awake, Oriented x3 - Psychiatric Exam Psychiatric exam: Anxious - Skin Skin Exam: Dry, Intact, Warm Assessment and Plan - Assessment and Plan (Free Text) Assessment: 55 yo male with past medical hx of DM, gout, HTN, HLD, Heart failure presenting with syncope x 3. Plan: Syncope -orthostatics -head ct negative -cardiology consult. recs appreciated -trops x 3, 1st one negative -ekg -will start asa 81 mg po daily -will continue brillinta daily -cxr pending -carotid dopplers -echo -will get urine drug screen hx of COPD -duonebs prn -advair Hx of congestive heart failure -cardiology consult. recs appreciated. -continue enalapril daily -continue coreg daily -continue asa 81 daily -continue brillinta daily -continue crestor daily -continue amiodarone daily Hx of HLD -Crestor PO HS Hx of DM -ISS/accuchecks GI/DVT ppx -SCDs -protonix 40 daily Will discuss with Dr. Tiburcio Quick PGY1 <Emmett Dey Jr. - Last Filed: 10/05/16 14:57> Objective - Vital Signs/Intake and Output Vital Signs (last 24 hours): Temp Pulse Resp BP Pulse Ox 98.3 F 71 18 120/83 98 10/03/16 08:12 10/03/16 08:12 10/03/16 08:12 10/03/16 10:59 10/03/16 08:12 - Labs Labs: 10/03/16 11:08 10/03/16 11:08 PT 12.4 SECONDS (9.7-12.2) H 10/01/16 19:27 INR 1.1 10/01/16 19:27 APTT 25 SECONDS (21-34) 10/01/16 19:27 Attending/Attestation - Attestation I have personally seen and examined this patient.: Yes I have fully participated in the care of the patient.: Yes I have reviewed all pertinent clinical information, including history, physical exam and plan: Yes Notes (Text): 10/05/16 14:56 Agree with resident's findings and plan of care
[2016-10-02 07:58] LABS: BASO % 0.4 % (0.0-2.0); EOS # 0.2 K/uL (0.0-0.7); EOS % 1.9 % (0.0-4.0); HEMATOCRIT 29.9 % (35.0-51.0); LYMPH # 2.8 K/uL (1.0-4.3); LYMPH % 34.7 % (20.0-40.0); MEAN CELL VOLUME 86.8 fL (80.0-94.0); MEAN CORPUSCULAR HGB CONC 33.4 g/dL (33.0-37.0); MEAN PLATELET VOLUME 7.6 fL (7.2-11.7); MONO # 0.7 K/uL (0.0-0.8); MONO % 9.1 % (0.0-10.0); RED CELL DISTRIBUTION WIDTH 15.7 % (11.5-14.5)
[2016-10-02] MEDS ORDERED: Fluticasone-Salmeterol 250-50mcg Diskus INH SCH (08:00)
[2016-10-02] MEDS: (Novolin R) Insulin Human Regular 100 units/ml vial SC SCH ×4 (08:28→21:09)
--- NOTE | 2016-10-02 09:04 | RAD ---
PROCEDURE: CHEST RADIOGRAPH, 1 VIEW portable study 19:15. HISTORY: chest pain COMPARISON: 09/24/2016. FINDINGS: LUNGS: Clear. PLEURA: No pneumothorax or pleural fluid seen. CARDIOVASCULAR: No radiographic findings to suggest acute or significant cardiovascular disease. Position/ configuration of pacemaker device: Satisfactory. OSSEOUS STRUCTURES: No significant abnormalities. VISUALIZED UPPER ABDOMEN: Normal. OTHER FINDINGS: None. IMPRESSION: No active disease. No acute/significant interval changes. Concordant results with the preliminary interpretation rendered by the emergency department physician procedure.
[2016-10-02] MEDS: Multiple Vitamins Tab PO SCH (10:34)
[2016-10-02] MEDS: Tramadol 25 mg PO PRN ×2 (15:07→21:54)
--- NOTE | 2016-10-03 03:50 | CP.PCM.PN ---
<MerrillingridWarren - Last Filed: 10/03/16 03:57> Subjective - Date & Time of Evaluation Date of Evaluation: 10/03/16 Time of Evaluation: 03:24 - Subjective Subjective: PGY1 Medicine note for Dr. Dey Pt seen and examined at bedside. Nursing reports no acute events overnight. Pt found laying in bed in no acute distress. He denies being in any pain at this time. He is tolerating diet, and reports having normal BM this AM. Objective - Vital Signs/Intake and Output Vital Signs (last 24 hours): Temp Pulse Resp BP Pulse Ox 98.6 F 65 20 106/75 97 10/02/16 23:05 10/02/16 23:30 10/02/16 23:05 10/02/16 23:05 10/02/16 23:05 Intake and Output: 10/02/16 10/03/16 18:59 06:59 Intake Total 350 Balance 350 - Medications Medications: Current Medications Amiodarone HCl (Cordarone) 200 mg PO DAILY [facility] Last Admin: 10/02/16 10:33 Dose: 200 mg Aspirin (Aspirin Chewable) 81 mg PO DAILY [facility] Last Admin: 10/02/16 10:33 Dose: 81 mg Carvedilol (Coreg) 3.125 mg PO BID [facility] Last Admin: 10/02/16 17:05 Dose: 3.125 mg Enalapril Maleate (Vasotec) 5 mg PO DAILY [facility] Last Admin: 10/02/16 10:35 Dose: 5 mg Furosemide (Lasix) 20 mg PO Q12H [facility] Last Admin: 10/02/16 21:54 Dose: Not Given Gabapentin (Neurontin) 100 mg PO TID [facility] Last Admin: 10/02/16 17:06 Dose: 100 mg Insulin Human Regular (Novolin R) 0 unit SC [facility] PRN Reason: Protocol Last Admin: 10/02/16 21:09 Dose: Not Given Levothyroxine Sodium (Synthroid) 50 mcg PO DAILY@0630 [facility] Last Admin: 10/02/16 06:51 Dose: 50 mcg Multivitamins (Hexavitamin) 1 tab PO DAILY [facility] Last Admin: 10/02/16 10:34 Dose: 1 tab Pantoprazole Sodium (Protonix Inj) 40 mg IVP DAILY [facility] Last Admin: 10/02/16 10:35 Dose: 40 mg Pneumococcal Polyvalent Vaccine (Pneumovax 23 Vaccine) 0.5 ml IM .ONCE ONE Stop: 10/03/16 10:01 Rosuvastatin Calcium (Crestor) 5 mg PO HS [facility] Last Admin: 10/02/16 21:53 Dose: 5 mg Fluticasone/Salmeterol (Advair Diskus 250/50) 1 puff INH RQ12 [facility] Ticagrelor (Brilinta) 90 mg PO BID [facility] Last Admin: 10/02/16 17:06 Dose: 90 mg Tramadol HCl (Ultram) 25 mg PO TID PRN PRN Reason: Pain, moderate (4-7) Last Admin: 10/02/16 21:54 Dose: 25 mg - Labs Labs: 10/02/16 07:24 10/02/16 02:52 PT 12.4 SECONDS (9.7-12.2) H 10/01/16 19:27 INR 1.1 10/01/16 19:27 APTT 25 SECONDS (21-34) 10/01/16 19:27 - Constitutional Appears: Non-toxic, No Acute Distress - Head Exam Head Exam: ATRAUMATIC, NORMAL INSPECTION, NORMOCEPHALIC - Eye Exam Eye Exam: EOMI Pupil Exam: PERRL - ENT Exam ENT Exam: Mucous Membranes Moist - Respiratory Exam Respiratory Exam: Clear to Ausculation Bilateral, NORMAL BREATHING PATTERN - Cardiovascular Exam Cardiovascular Exam: REGULAR RHYTHM, +S1, +S2 - Extremities Exam Extremities Exam: Normal Inspection. absent: Pedal Edema, Tenderness - Neurological Exam Neurological Exam: Alert, Awake, Oriented x3 - Psychiatric Exam Psychiatric exam: Normal Affect, Normal Mood - Skin Skin Exam: Normal Color, Warm Assessment and Plan - Assessment and Plan (Free Text) Assessment: 55 yo male with past medical hx of DM, gout, HTN, HLD, Heart failure presenting with syncope x 3. Plan: Syncope -orthostatics -head ct negative -cardiology consult. recs appreciated -trops negative x 3, -ekg (10/02/16): Av-dual paced rhythm, -asa 81 mg po daily -continue brillinta daily -cxr (10/02/16): NAD -f/u carotid dopplers -f/u echo -f/u urine drug screen hx of COPD -duonebs prn -advair Hx of congestive heart failure -cardiology consult. recs appreciated. -continue enalapril daily -continue coreg daily -continue asa 81 daily -continue brillinta daily -continue crestor daily -continue amiodarone daily Hx of HLD -Crestor PO HS Hx of DM -ISS/accuchecks GI/DVT ppx -SCDs -protonix 40mg IV daily Will discuss with Dr. Tiburcio Myrick PGY-1 <Emmett Dey Jr. - Last Filed: 10/05/16 14:55> Objective - Vital Signs/Intake and Output Vital Signs (last 24 hours): Temp Pulse Resp BP Pulse Ox 98.3 F 71 18 120/83 98 10/03/16 08:12 10/03/16 08:12 10/03/16 08:12 10/03/16 10:59 10/03/16 08:12 - Labs Labs: 10/03/16 11:08 10/03/16 11:08 PT 12.4 SECONDS (9.7-12.2) H 10/01/16 19:27 INR 1.1 10/01/16 19:27 APTT 25 SECONDS (21-34) 10/01/16 19:27 Attending/Attestation - Attestation I have personally seen and examined this patient.: Yes I have fully participated in the care of the patient.: Yes I have reviewed all pertinent clinical information, including history, physical exam and plan: Yes Notes (Text): 10/05/16 14:55 Agree with resident's findings and plan of care
[2016-10-03] MEDS: Tramadol 25 mg PO PRN ×2 (04:44→11:03)
[2016-10-03] MEDS: Levothyroxine 50 MCG TAB PO SCH (06:06)
[2016-10-03] MEDS: (Novolin R) Insulin Human Regular 100 units/ml vial SC SCH (07:45)
[2016-10-03] MEDS ORDERED: Albuterol-Ipratrop 3 mg / 0.5 (3 ml) UD INH PRN (08:00)
[2016-10-03 08:14] VITALS: PULSE 71; RESP 18; TEMP 98.3; O2SAT 98
[2016-10-03] MEDS ORDERED: Pneumococcal 23-Valent Vaccine IM ONE (10:00)
[2016-10-03] MEDS: Multiple Vitamins Tab PO SCH (11:00)
[2016-10-03 11:08] VITALS: BP 120/83
[2016-10-03 11:20] LABS: BASO # 0.1 K/uL (0.0-0.2); EOS # 0.3 K/uL (0.0-0.7); EOS % 2.8 % (0.0-4.0); HEMATOCRIT 33.4 % (35.0-51.0); LYMPH # 2.7 K/uL (1.0-4.3); LYMPH % 27.9 % (20.0-40.0); MEAN CORPUSCULAR HEMOGLOBIN 28.7 pg (27.0-31.0); MEAN PLATELET VOLUME 7.7 fL (7.2-11.7); MONO % 9.9 % (0.0-10.0); RED CELL DISTRIBUTION WIDTH 15.8 % (11.5-14.5); WHITE BLOOD COUNT 9.7 K/uL (4.8-10.8)
--- NOTE | 2016-10-03 11:20 | CP.PCM.DIS ---
Provider - Provider Date of Admission: 10/01/16 20:00 Attending physician: Emmett Dey Jr, MD Time Spent in preparation of Discharge (in minutes): 44 Hospital Course - Lab Results Lab Results: Most Recent Lab Values WBC 8.0 K/uL (4.8-10.8) 10/02/16 07:24 RBC 3.44 Mil/uL (4.40-5.90) L 10/02/16 07:24 Hgb 10.0 g/dL (12.0-18.0) L 10/02/16 07:24 Hct 29.9 % (35.0-51.0) L 10/02/16 07:24 MCV 86.8 fL (80.0-94.0) 10/02/16 07:24 MCH 29.0 pg (27.0-31.0) 10/02/16 07:24 MCHC 33.4 g/dL (33.0-37.0) 10/02/16 07:24 RDW 15.7 % (11.5-14.5) H 10/02/16 07:24 Plt Count 168 K/uL (130-400) 10/02/16 07:24 MPV 7.6 fL (7.2-11.7) 10/02/16 07:24 Neut % (Auto) 53.9 % (50.0-75.0) 10/02/16 07:24 Lymph % (Auto) 34.7 % (20.0-40.0) 10/02/16 07:24 Bradford % (Auto) 9.1 % (0.0-10.0) 10/02/16 07:24 Eos % (Auto) 1.9 % (0.0-4.0) 10/02/16 07:24 Baso % (Auto) 0.4 % (0.0-2.0) 10/02/16 07:24 Neut # 4.3 K/uL (1.8-7.0) 10/02/16 07:24 Lymph # 2.8 K/uL (1.0-4.3) 10/02/16 07:24 Bradford # 0.7 K/uL (0.0-0.8) 10/02/16 07:24 Eos # 0.2 K/uL (0.0-0.7) 10/02/16 07:24 Baso # 0.0 K/uL (0.0-0.2) 10/02/16 07:24 PT 12.4 SECONDS (9.7-12.2) H 10/01/16 19:27 INR 1.1 10/01/16 19:27 APTT 25 SECONDS (21-34) 10/01/16 19:27 Sodium 137 mmol/L (132-148) 10/02/16 02:52 Potassium 3.1 mmol/L (3.6-5.2) L 10/02/16 02:52 Chloride 107 mmol/L (98-107) 10/02/16 02:52 Carbon Dioxide 22 mmol/L (22-30) 10/02/16 02:52 Anion Gap 11 (10-20) 10/02/16 02:52 BUN 18 mg/dL (9-20) 10/02/16 02:52 Creatinine 1.1 MG/DL (0.8-1.5) 10/02/16 02:52 Est GFR ( Amer) > 60 10/02/16 02:52 Est GFR (Non-Af Amer) > 60 10/02/16 02:52 POC Glucose (mg/dL) 101 mg/dL (65-110) 10/03/16 06:03 Random Glucose 67 mg/dL (75-110) L 10/02/16 02:52 Calcium 6.4 mg/dl (8.6-10.4) L 10/02/16 02:52 Phosphorus 2.5 mg/dL (2.5-4.5) 10/02/16 02:52 Magnesium 2.0 mg/dL (1.6-2.3) 10/02/16 02:52 Total Bilirubin 0.4 mg/dL (0.2-1.3) 10/02/16 02:52 AST 24 U/L (17-59) 10/02/16 02:52 ALT 31 U/L (21-72) 10/02/16 02:52 Alkaline Phosphatase 40 U/L (38-126) 10/02/16 02:52 Troponin I 0.0280 ng/mL (0.00-0.120) 10/02/16 02:52 Total Protein 5.2 g/dL (6.3-8.3) L 10/02/16 02:52 Albumin 2.8 g/dL (3.5-5.0) L D 10/02/16 02:52 Globulin 2.4 gm/dL (2.2-3.9) 10/02/16 02:52 Albumin/Globulin Ratio 1.2 (1.0-2.1) 10/02/16 02:52 - Hospital Course Hospital Course: Upon Admission: This is a 55 yo male with past medical hx of DM, diabetic neuropathy, gout, HLD , COPD, HF with pacemaker and defibrillator presenting with chief complaint of syncope. Pt was recently discharged last week. He reports 3 syncopal episodes today. Each time, he was in his bedroom, standing up. He cannot recall the circumstances surrounding each event or any symptoms before or after. He says each time they were witnessed by his . When asked why he did not come to the hospital after the first event, he says he has been to the hospital too much. He does say he fell to the ground and hit his head. He denies fevers, chills, vomiting, diarrhea, hematuria, bloody BMs. He does report a headache. He also reports he took unknown "pain med" 3x today that was given him by Dr. Jackson yesterday. PMH: DM, diabetic neuropathy, gout, HLD, COPD, HF with pacemaker/ICD PSH: Left foot sx, ICD/pacer Allergies: moxifloxacin, docosanol FH: Mother- - lung cancer; father- - [place] Social hx: Former smoker. Former heavy drinker, last drink 2008. Denies illegal drugs. Does not work. Lives in with . Throughout Hospital Course: Patient was admitted under observation for syncope. Orthostatics were done, all workup was negative. Head CT was negative. Patient was continued on his home medications for COPD, CHF, HLD, and DM. Patient was instructed to follow up with [facility], Dr. Jackson. He was instructed to follow up with a Urologist for his symptoms of urinary frequency and difficulty urinating. This is a brief summary of the patient's hospital course. Please review EMR for full record. Discharge Exam - Head Exam Head Exam: ATRAUMATIC, NORMAL INSPECTION, NORMOCEPHALIC - Eye Exam Eye Exam: Normal appearance - ENT Exam ENT Exam: Mucous Membranes Moist - Respiratory Exam Respiratory Exam: Decreased Breath Sounds, NORMAL BREATHING PATTERN - Cardiovascular Exam Cardiovascular Exam: REGULAR RHYTHM, +S1, +S2 - GI/Abdominal Exam GI & Abdominal Exam: Normal Bowel Sounds, Soft. absent: Distended, Tenderness - Neurological Exam Neurological exam: Alert, Oriented x3 - Skin Skin Exam: Dry, Intact, Normal Color, Warm Discharge Plan - Discharge Medications Prescriptions: Nitrofurantoin Macrocrystals [Macrobid] 100 mg PO BID #14 cap - Follow Up Plan Condition: GOOD Disposition: HOME/ ROUTINE Instructions: Nitrofurantoin Combination (By mouth), Heart Failure (DC), Atrial Fibrillation (DC), How to Stop Smoking (GEN), Syncope (DC), Syncope (GEN) , Cigarette Smoking and Your Health (GEN), Chronic Pain (DC), Diabetic Neuropathy (DC), Implantable Cardioverter Defibrillator (DC) Additional Instructions: Patient is safe for discharge. He is to continue his current medications in addition to Macrobid 100mg by mouth twice a day for 7 days. Patient is to follow up with Urology for his difficulty urinating. Patient is to follow up with his [facility]. Patient is encouraged to return to the ED if his symptoms worsen or return.
[2016-10-03 11:29] LABS: CHLORIDE 98 mmol/L (98-107)
[2016-10-03 11:30] LABS: POTASSIUM 4.2 mmol/L (3.6-5.2); SODIUM 136 mmol/L (132-148)
[2016-10-03 11:32] LABS: ALB/GLOB RATIO 1.4 (1.0-2.1); AST/SGOT 44 U/L (17-59); BILIRUBIN,TOTAL 0.4 mg/dL (0.2-1.3); BLOOD UREA NITROGEN 18 mg/dL (9-20); CARBON DIOXIDE 28 mmol/L (22-30); GFR AFRICAN-AMERICAN > 60
[2016-10-03 11:33] LABS: ALKALINE PHOSPHATASE 56 U/L (38-126); ALT/SGPT 43 U/L (21-72); CALCIUM 9.1 mg/dl (8.6-10.4); GLUCOSE,RANDOM 96 mg/dL (75-110); MAGNESIUM 2.5 mg/dL (1.6-2.3); PHOSPHOROUS 3.9 mg/dL (2.5-4.5)
--- NOTE | 2016-10-04 12:13 | CARD ---
APPROVED REPORT EKG Measurement Heart [id number] <Conclusion> A-V SEQUENTIAL PACED RHYTHM
--- NOTE | 2016-10-05 08:13 | CARD ---
APPROVED REPORT EKG Measurement Heart [id number] <Conclusion> AV dual-paced rhythm Abnormal ECG
--- NOTE | 2016-10-05 17:27 | CARD ---
APPROVED REPORT EKG Measurement Heart [id number] <Conclusion> AV sequential-paced rhythm Inferior infarct, age undetermined Anterolateral infarct, age undetermined Abnormal ECG
== END 2016-10-03 13:15 | disposition home or self-care (01) ==
LOC: C.ER 18:42 → C.9E 20:00 → C.5T 21:03 → C.6T 10-02 12:23
PROVIDERS: ADMIT Internal Medicine; ATTEND Internal Medicine
DX: E11.40 Type 2 diabetes mellitus with diabetic neuropathy, unspecified (principal); E78.00 Pure hypercholesterolemia, unspecified; E78.5 Hyperlipidemia, unspecified; F31.9 Bipolar disorder, unspecified; J44.9 Chronic obstructive pulmonary disease, unspecified; M10.9 Gout, unspecified; R29.6 Repeated falls; Z87.891 Personal history of nicotine dependence; I25.10 Atherosclerotic heart disease of native coronary artery without angina pectoris
CPT/HCPCS: 36415; 70450; 71010; 80053; 82948; 83735; 84100; 84484; 85025; 85610; 85730; 93005; 96374; 99285; C9113; G0378; J1885; J2270

== ENCOUNTER 2016-10-20 23:36 | Inpatient (IN) | payer MEDICAID, MEDICARE ==
[2016-10-20 23:37] VITALS: BMI 24.6
[2016-10-21] MEDS ORDERED: Sodium Chloride 0.9% 1,000 ML IV ONE (00:09)
[2016-10-21] MEDS ORDERED: Iohexol 240 (50 ml) PO ONE (00:11)
[2016-10-21 00:18] LABS: BASO # 0.1 K/uL (0.0-0.2); EOS # 0.2 K/uL (0.0-0.7); EOS % 2.5 % (0.0-4.0); HEMATOCRIT 34.9 % (35.0-51.0); LYMPH # 1.9 K/uL (1.0-4.3); LYMPH % 28.9 % (20.0-40.0); MEAN CELL VOLUME 88.7 fL (80.0-94.0); MEAN CORPUSCULAR HEMOGLOBIN 28.8 pg (27.0-31.0); MEAN CORPUSCULAR HGB CONC 32.5 g/dL (33.0-37.0); MEAN PLATELET VOLUME 7.9 fL (7.2-11.7); MONO # 0.7 K/uL (0.0-0.8); MONO % 9.9 % (0.0-10.0); NRBC % 0.1 % (0.0-2.0); RED CELL DISTRIBUTION WIDTH 17.2 % (11.5-14.5); WHITE BLOOD COUNT 6.7 K/uL (4.8-10.8)
[2016-10-21] MEDS ORDERED: Sodium Chloride 0.9% 1,000 ML ONE (00:30)
[2016-10-21] MEDS ORDERED: Iohexol 240 (50 ml) ONE (00:30)
[2016-10-21 00:40] LABS: CHLORIDE 105 mmol/L (98-107); SODIUM 143 mmol/L (132-148)
[2016-10-21 00:41] LABS: POTASSIUM 4.2 mmol/L (3.6-5.2)
[2016-10-21 00:43] LABS: ALB/GLOB RATIO 1.4 (1.0-2.1); ALKALINE PHOSPHATASE 64 U/L (38-126); ALT/SGPT 99 U/L (21-72); AST/SGOT 81 U/L (17-59); BILIRUBIN,TOTAL 0.4 mg/dL (0.2-1.3); BLOOD UREA NITROGEN 19 mg/dL (9-20); CALCIUM 9.2 mg/dl (8.6-10.4); CARBON DIOXIDE 28 mmol/L (22-30); GFR AFRICAN-AMERICAN > 60; GLUCOSE,RANDOM 90 mg/dL (75-110); TOTAL PROTEIN 7.3 g/dL (6.3-8.3)
--- NOTE | 2016-10-21 00:56 | C.PDOC ---
History Of Present Illness A 55 y/o male c/o severe abdominal pain with one episode of bright red blood per rectal (BRBPR) that began tonight. Pt notes nausea but denies vomiting, diarrhea, fever, chills, or any other complaints. Time Seen by Provider: 10/21/16 00:34 Chief Complaint (Nursing): GI Problem History Per: Patient History/Exam Limitations: no limitations Onset/Duration Of Symptoms: Hrs Current Symptoms Are (Timing): Still Present Severity: Severe Recent travel outside of the [place]: No Additional History Per: Patient Past Medical History Reviewed: Historical Data, Nursing Documentation, Vital Signs Vital Signs: Last Vital Signs Temp 97.7 F 10/20/16 23:43 Pulse 64 10/21/16 06:55 Resp 20 10/21/16 06:55 BP 107/58 L 10/21/16 06:55 Pulse Ox 98 10/21/16 07:08 - Medical History PMH: Anxiety, Asthma, Bipolar Disorder, Bronchitis, CAD, Cardia Arrhythmia, CHF , COPD (EMPHYSEMA), Diabetes, Emphysema, HTN, Hypercholesterolemia, Hypothyroidism, Pneumonia Denies: Chronic Kidney Disease Surgical History: Coronary Stent, Pacemaker (defibrilator BY [employer]) - [facility] Procedures APPLICATION OF SPLINT (07/14/14) BUNIONECTOMY NEC (11/25/14) CORONAR ARTERIOGR-2 CATH (06/07/13) DESTRUC-FOOT JT LES NEC (11/25/14) FLUOROSCOPY OF LEFT HEART USING LOW OSMOLAR CONTRAST (05/23/16) FLUOROSCOPY OF MULT COR ART USING L OSM CONTRAST (05/23/16) LARYGNOSCOPY AND OTH TRACHEOSCOPY (12/31/13) LEFT HEART CARDIAC CATH (06/07/13) MEASURE OF CARDIAC SAMPL & PRESSURE, L HEART, PERC APPROACH (05/23/16) RT & LT HEART ANGIOCARD (06/07/13) Family History: States: Unknown Family Hx, [place] (dad at 49) - Social History Hx Tobacco Use: No Hx Alcohol Use: Yes (quit 4 years ago) Hx Substance Use: Yes (quit 4 years ago) - Immunization History Hx Tetanus Toxoid Vaccination: No Hx Influenza Vaccination: No Hx Pneumococcal Vaccination: No Review Of Systems Except As Marked, All Systems Reviewed And Found Negative. Constitutional: Negative for: Fever, Chills Gastrointestinal: Positive for: Nausea, Abdominal Pain, Other (BRBPR). Negative for: Vomiting, Diarrhea Physical Exam - Physical Exam Appears: Non-toxic, In Acute Distress (Mild distress) Skin: Warm, Dry Head: Atraumatic, Normacephalic Eye(s): bilateral: Normal Inspection Chest: Symmetrical Cardiovascular: Rhythm Regular, No Murmur Respiratory: Normal Breath Sounds, No Accessory Muscle Use, No Rales, No Rhonchi , No Wheezing Gastrointestinal/Abdominal: Soft, Tenderness (General tenderness more on the LLQ with rebound), Distention, No Guarding, Rebound Neurological/Psych: Oriented x3, Normal Speech, Normal Cognition, Other (No focal deficit) ED Course And Treatment - Laboratory Results Result Diagrams: 10/21/16 00:10 10/21/16 00:07 O2 Sat by Pulse Oximetry: 98 (RA) Pulse Ox Interpretation: Normal - CT Scan/US CT Abd/Pel with contrast Other Rad Studies (CT/US): Interpreted By Me, Read By Radiologist CT/US Interpretation: EXAM: CT Abdomen and Pelvis With Intravenous Contrast. CLINICAL HISTORY: 55 years old, male; Pain; Abdominal pain and other: Lwoer abd pain and gi mleed; Patient HX: . TECHNIQUE: Axial computed tomography images of the abdomen and pelvis with intravenous contrast. This CT. exam was performed using one or more of the following dose reduction techniques: automated. exposure control, adjustment of the mA and/or kV according to patient size, and/or use of iterative. reconstruction technique. Coronal and sagittal reformatted images were created and reviewed. CONTRAST: 100 mL of [id number] administered intravenously. EXAM DATE/TIME: 10/21/2016 2 :14 AM. COMPARISON: CT - ABD PELVIS W/O PO OR IV CONT 07/29/2016 7:39:01 PM. FINDINGS: Pacemaker and cardiomegaly. The liver is normal. The spleen is normal. The pancreas is normal. No gallstones. No hydronephrosis or perinephric stranding. The stomach is massively dilated. There are dilated small bowel loops measuring up to 3.5 cm in. diameter. There is normal caliber small bowel distally. The transition from dilated contrast-filled small. bowel to nondilated bowel occurs through a stool filled bowel loop in the upper pelvis on coronal. images 29 through 37, axial images 55 through 70. Stool is present throughout the colon. A normal appendix is identified coronal images 66 -71. IMPRESSION: Marked gastric dilation. Dilated small bowel proximally with nondilated small bowel distally. Findings. suggest distal obstruction although an abrupt transition point is not present but rather a gradual. change in caliber occurring through a stool filled loop in the upper pelvis. Medical Decision Making Medical Decision Making: Impression: A 55 y/o male c/o severe abdominal pain with one episode of BRBPR that began tonight. Plans: Blood labs CT Abd/pel Omnipaque Morphine IV fluids Reassess Spoke to Dr. Dey and pt is to be admitted. Disposition Discussed With : Emmett Dey Jr. Doctor Will See Patient In The: Hospital Counseled Patient/Family Regarding: Diagnosis - Disposition Disposition: HOSPITALIZED Disposition Time: 06:50 Condition: STABLE - POA Present On Arrival: None - Clinical Impression Clinical Impression: Abdominal pain, Small bowel obstruction - Scribe Statement The provider has reviewed the documentation as recorded by the Scribe Luis Miguel claudio All medical record entries made by the Lyndonibbradley were at my direction and personally dictated by me. I have reviewed the chart and agree that the record accurately reflects my personal performance of the history, physical exam, medical decision making, and the department course for this patient. I have also personally directed, reviewed, and agree with the discharge instructions and disposition.
[2016-10-21 01:03] LABS: URINE BILIRUBIN NEGATIVE (NEGATIVE); URINE BLOOD NEGATIVE (NEGATIVE); URINE COLOR Straw (YELLOW); URINE GLUCOSE (UA) NORMAL (Normal); URINE KETONE NEGATIVE (NEGATIVE); URINE LEUKOCYTE ESTERASE NEG Leu/uL (Negative); URINE PROTEIN NEGATIVE (NEGATIVE); URINE UROBILINOGEN NORMAL mg/dL (0.2-1.0); WBC URINE < 1 /hpf (0-5)
[2016-10-21] MEDS ORDERED: Albuterol-Ipratrop 3 mg / 0.5 (3 ml) UD ONE (01:04)
[2016-10-21] MEDS ORDERED: Albuterol-Ipratrop 3 mg / 0.5 (3 ml) UD INH STA (01:14)
[2016-10-21] MEDS ORDERED: Iodixanol 320 MG/ML 100 ML BOTTLE IV ONE (01:40)
--- NOTE | 2016-10-21 06:08 | CT ---
EXAM: CT Abdomen and Pelvis With Intravenous Contrast CLINICAL HISTORY: 55 years old, male; Pain; Abdominal pain and other: Lwoer abd pain and gi mleed; Patient HX: 07-29-16 TECHNIQUE: Axial computed tomography images of the abdomen and pelvis with intravenous contrast. This CT exam was performed using one or more of the following dose reduction techniques: automated exposure control, adjustment of the mA and/or kV according to patient size, and/or use of iterative reconstruction technique. Coronal and sagittal reformatted images were created and reviewed. CONTRAST: 100 mL of [id number] administered intravenously. EXAM DATE/TIME: 10/21/2016 2:14 AM COMPARISON: CT - ABD PELVIS W/O PO OR IV CONT 07/29/2016 7:39:01 PM FINDINGS: Pacemaker and cardiomegaly. The liver is normal. The spleen is normal. The pancreas is normal. No gallstones. No hydronephrosis or perinephric stranding. The stomach is massively dilated. There are dilated small bowel loops measuring up to 3.5 cm in diameter. There is normal caliber small bowel distally. The transition from dilated contrast-filled small bowel to nondilated bowel occurs through a stool filled bowel loop in the upper pelvis on coronal images 29 through 37, axial images 55 through 70. Stool is present throughout the colon. A normal appendix is identified coronal images 66-71. IMPRESSION: Marked gastric dilation. Dilated small bowel proximally with nondilated small bowel distally. Findings suggest distal obstruction although an abrupt transition point is not present but rather a gradual change in caliber occurring through a stool filled loop in the upper pelvis.
[2016-10-21] MEDS ORDERED: Dextrose 5%/0.9% NS 1,000 ML IV ONE ×3 (07:47→08:08)
--- NOTE | 2016-10-21 08:00 | CP.PCM.CON ---
History of Present Illness - History of Present Illness History of Present Illness: Gen Sx: Dr Borja Re: SBO Pt is a 55M with extensive cardiac history, s/p 12-13 MIs with defibrillator, on prison anti-coagulation. Pt presents to ED with cc of hemtochezia. Pt states yesterday he had 5 bowel movements, and on the last one he had a significant amount of bright red blood in the toilet. Despite his known history of hemorrhoids pt states he has never experienced this before. After showering and cleaning himself up pt notes there was no blood coming from hemorrhoid when he wiped the area, prompting his visit to ED for evaluation. Pt denies experiencing nausea or vomiting at any time. He has diffuse abdominal pain, 3/10, cramping in nature, feels distended, but continues to pass flatus. CT read as partial sbo, however beyond the distended stomach there is little evidence of small bowel dilatation. His HgB is consistent with previous admissions. Two attempts were made to pass NGT in the ED without success. Pt currently refusing, but procedure likely not necessary at this time. His care team includes Dr Dey, Dr Waleska Jackson, Dr Gomez, and Dr Ceja. Review of Systems - Review of Systems All systems: reviewed and no additional remarkable complaints except (as per hpi ) Past Patient History - Infectious Disease Hx of Infectious Diseases: None - Tetanus Immunizations Tetanus Immunization: Unknown - Past Medical History & Family History Past Medical History?: Yes - Past Social History Smoking Status: Former Smoker - CARDIAC Hx Cardia Arrhythmia: Yes Hx Congestive Heart Failure: Yes Hx Hypercholesterolemia: Yes Hx Hypertension: Yes Hx Pacemaker: Yes (defibrilator BY [employer]) - PULMONARY Hx Asthma: Yes Hx Bronchitis: Yes Hx Chronic Obstructive Pulmonary Disease (COPD): Yes (EMPHYSEMA) Hx Emphysema: Yes Hx Pneumonia: Yes - NEUROLOGICAL Hx Neurological Disorder: No - HEENT Hx HEENT Problems: No - RENAL Hx Chronic Kidney Disease: No - ENDOCRINE/METABOLIC Hx Hypothyroidism: Yes - HEMATOLOGICAL/ONCOLOGICAL Hx Blood Disorders: No - INTEGUMENTARY Hx Dermatological Problems: No - MUSCULOSKELETAL/RHEUMATOLOGICAL Hx Falls: Yes - GASTROINTESTINAL Hx Gastrointestinal Disorders: No - GENITOURINARY/GYNECOLOGICAL Hx Genitourinary Disorders: Yes Hx Prostate Problems: Yes - PSYCHIATRIC Hx Anxiety: Yes Hx Bipolar Disorder: Yes Hx Substance Use: Yes (quit 4 years ago) - SURGICAL HISTORY Hx Coronary Stent: Yes - ANESTHESIA Hx Anesthesia: Yes Hx Anesthesia Reactions: No Hx Malignant Hyperthermia: No Meds Allergies/Adverse Reactions: Allergies Allergy/AdvReac Type Severity Reaction Status Date / Time moxifloxacin HCl Allergy RASH Verified 10/20/16 23:41 [From Avelox] docosanol [From Abreva] AdvReac Verified 10/20/16 23:41 - Medications Medications: Current Medications Albuterol/Ipratropium (Combivent Respimat) 1 puff IH DAILY [facility] Amiodarone HCl (Cordarone) 200 mg PO DAILY [facility] Aspirin (Aspirin Chewable) 81 mg PO DAILY [facility] Carvedilol (Coreg) 3.125 mg PO BID [facility] Enalapril Maleate (Vasotec) 5 mg PO DAILY [facility] Furosemide (Lasix) 20 mg PO Q12H [facility] Gabapentin (Neurontin) 100 mg PO TID [facility] Glimepiride (Amaryl) 1 mg PO BIDAC [facility] Home Med (Budesonide/Formoterol Fumarate [Symbicort 160-4.5 Mcg Inhaler]) 1 aer IH DAILY [facility] Hydromorphone HCl (Dilaudid) 0.5 mg IVP Q3 PRN PRN Reason: Pain, severe (8-10) Sodium Chloride (Sodium Chloride 0.9%) 1,000 mls @ 100 mls/hr IV .Q10H ONE Stop: 10/21/16 10:08 Last Admin: 10/21/16 00:30 Dose: 100 mls/hr Dextrose/Sodium Chloride (Dextrose 5%/0.9% Ns 1000 Ml) 1,000 mls @ 60 mls/hr IV .[id number] ONE Stop: 10/22/16 00:26 Levothyroxine Sodium (Synthroid) 50 mcg PO DAILY@0630 [facility] Ondansetron HCl (Zofran Inj) 4 mg IVP Q6 PRN PRN Reason: Nausea/Vomiting Rosuvastatin Calcium (Crestor) 5 mg PO HS [facility] Ticagrelor (Brilinta) 90 mg PO BID [facility] Physical Exam - Constitutional Appears: Non-toxic, No Acute Distress - ENT Exam ENT Exam: Mucous Membranes Moist - Respiratory Exam Respiratory Exam: absent: Accessory Muscle Use, Respiratory Distress - Cardiovascular Exam Cardiovascular Exam: absent: Tachycardia - GI/Abdominal Exam GI & Abdominal Exam: Distended, Normal Bowel Sounds, Soft. absent: Firm, Guarding, Hernia, Rigid, Tenderness - Rectal Exam Rectal Exam: Hemorrhoids - Extremities Exam Extremities exam: Negative for: pedal edema - Neurological Exam Neurological exam: Alert, Oriented x3 - Psychiatric Exam Psychiatric exam: Normal Affect, Normal Mood - Skin Skin Exam: Normal Color, Warm Results - Vital Signs Recent Vital Signs: Last Vital Signs Temp 98.3 F 10/21/16 07:20 Pulse 62 10/21/16 07:20 Resp 18 10/21/16 07:20 BP 105/75 10/21/16 07:20 Pulse Ox 98 10/21/16 07:21 - Labs Result Diagrams: 10/21/16 00:10 10/21/16 00:07 Assessment & Plan - Assessment and Plan (Free Text) Assessment: 55M admitted with abdominal pain, hematochezia; Sx consulted r/o SBO Plan: unlikely obstructed as passing flatus and had 5 BMs yesterday more concern for reported bloody bowel movement recommend GI consult with Dr Gomez to eval possible lower GI bleed will cont to follow D/W Dr Huong Ryan, PGY2 - Date & Time Date: 10/21/16 Time: 10:03
[2016-10-21] MEDS: HYDROmorphone 0.5 mg/0.5 ml ISec IVP PRN ×5 (09:18→22:57)
[2016-10-21] MEDS ORDERED: Albuterol-Ipratrop 20 mcg/actuation (4 g) IH SCH ×2 (10:00→12:00)
[2016-10-21] MEDS ORDERED: Home Med 1 UNIT (Budesonide/Formoterol Fumarate [Symbicort 160-4.5 Mcg Inhaler] 1 AER) IH SCH (10:00)
[2016-10-21] MEDS: Levothyroxine 50 MCG TAB PO SCH (10:49)
--- NOTE | 2016-10-21 17:35 | CP.PCM.CON ---
History of Present Illness - History of Present Illness History of Present Illness: This is a 55 year old man admitted with abdominal pain and rectal bleeding. Patient states that he normally has three or four soft bowel movements a day, but had five bowel movements yesterday, the last of which contained bright red blood. At the same time, he noted sudden onset of severe, cramping lower abdominal pain radiating to the back. The pain persisted until he presented to the ER and received parenteral pain medication. He felt nauseated but did not vomit. He denies having heartburn, difficulty swallowing, loss of appetite or constipation. He had lost over forty pounds over the past six months, which he attributes to depression related to poor health and multiple hospitalizations. In the ER, the HGB was 11.3, unchanged from 10/03/2016. A CT scan showed dilatation of the stomach, dilated small bowel loops, several showing mural thickening. Review of Systems - Constitutional Constitutional: absent: Chills, Fever - Cardiovascular Cardiovascular: absent: Chest Pain, Dyspnea, Syncope - Respiratory Respiratory: absent: Cough - Gastrointestinal Gastrointestinal: Abdominal Pain, Hematochezia, Nausea. absent: Constipation, Dysphagia, Heartburn - Genitourinary Genitourinary: absent: Difficulty Urinating Past Patient History - Infectious Disease Hx of Infectious Diseases: None - Tetanus Immunizations Tetanus Immunization: Unknown - Past Medical History & Family History Past Medical History?: Yes - Past Social History Smoking Status: Former Smoker - CARDIAC Hx Cardia Arrhythmia: Yes Hx Congestive Heart Failure: Yes Hx Hypercholesterolemia: Yes Hx Hypertension: Yes Hx Pacemaker: Yes (defibrilator BY [employer]) - PULMONARY Hx Asthma: Yes Hx Bronchitis: Yes Hx Chronic Obstructive Pulmonary Disease (COPD): Yes (EMPHYSEMA) Hx Emphysema: Yes Hx Pneumonia: Yes - NEUROLOGICAL Hx Neurological Disorder: Yes Other/Comment: history of CVA 2009 - HEENT Hx HEENT Problems: No - RENAL Hx Chronic Kidney Disease: No - ENDOCRINE/METABOLIC Hx Hypothyroidism: Yes - HEMATOLOGICAL/ONCOLOGICAL Hx Blood Disorders: No - INTEGUMENTARY Hx Dermatological Problems: No - MUSCULOSKELETAL/RHEUMATOLOGICAL Hx Falls: No - GASTROINTESTINAL Hx Gastrointestinal Disorders: Yes Hx Hemorrhoids: Yes - GENITOURINARY/GYNECOLOGICAL Hx Genitourinary Disorders: Yes Hx Prostate Problems: Yes - PSYCHIATRIC Hx Anxiety: Yes Hx Bipolar Disorder: Yes Hx Substance Use: Yes (quit 8 years ago) - SURGICAL HISTORY Hx Coronary Stent: Yes Other/Comment: left foot surgery - ANESTHESIA Hx Anesthesia: Yes Hx Anesthesia Reactions: No Hx Malignant Hyperthermia: No Meds Allergies/Adverse Reactions: Allergies Allergy/AdvReac Type Severity Reaction Status Date / Time moxifloxacin HCl Allergy RASH Verified 10/20/16 23:41 [From Avelox] docosanol [From Abreva] AdvReac Verified 10/20/16 23:41 - Medications Medications: Current Medications Albuterol/Ipratropium (Combivent Respimat) 1 puff IH RQID [facility] Albuterol/Ipratropium (Duoneb 3 Mg/0.5 Mg (3 Ml) Ud) 3 ml INH RQ6 [facility] Amiodarone HCl (Cordarone) 200 mg PO DAILY [facility] Last Admin: 10/21/16 10:49 Dose: 200 mg Aspirin (Aspirin Chewable) 81 mg PO DAILY [facility] Carvedilol (Coreg) 3.125 mg PO BID [facility] Last Admin: 10/21/16 17:27 Dose: 3.125 mg Enalapril Maleate (Vasotec) 5 mg PO DAILY [facility] Last Admin: 10/21/16 12:04 Dose: 5 mg Furosemide (Lasix) 20 mg PO Q12H [facility] Last Admin: 10/21/16 10:49 Dose: 20 mg Gabapentin (Neurontin) 100 mg PO TID [facility] Last Admin: 10/21/16 17:26 Dose: 100 mg Glimepiride (Amaryl) 1 mg PO BIDAC [facility] Last Admin: 10/21/16 17:26 Dose: 1 mg Hydromorphone HCl (Dilaudid) 0.5 mg IVP Q3 PRN PRN Reason: Pain, severe (8-10) Last Admin: 10/21/16 15:54 Dose: 0.5 mg Dextrose/Sodium Chloride (Dextrose 5%/0.9% Ns 1000 Ml) 1,000 mls @ 60 mls/hr IV .[id number] ONE Stop: 10/22/16 00:26 Last Admin: 10/21/16 09:20 Dose: 60 mls/hr Levothyroxine Sodium (Synthroid) 50 mcg PO DAILY@0630 [facility] Last Admin: 10/21/16 10:49 Dose: 50 mcg Ondansetron HCl (Zofran Inj) 4 mg IVP Q6 PRN PRN Reason: Nausea/Vomiting Pantoprazole Sodium (Protonix Inj) 40 mg IVP Q12 [facility] Last Admin: 10/21/16 10:51 Dose: 40 mg Rosuvastatin Calcium (Crestor) 5 mg PO HS [facility] Fluticasone/Salmeterol (Advair Diskus 250/50) 1 puff INH RQ12 [facility] Ticagrelor (Brilinta) 90 mg PO BID [facility] Physical Exam - Constitutional Appears: No Acute Distress - Head Exam Head Exam: ATRAUMATIC, NORMOCEPHALIC - Eye Exam Eye Exam: EOMI, PERRL - Neck Exam Neck exam: Negative for: Lymphadenopathy, Thyromegaly - Respiratory Exam Respiratory Exam: NORMAL BREATHING PATTERN. absent: Rales, Rhonchi, Wheezes - Cardiovascular Exam Cardiovascular Exam: REGULAR RHYTHM, +S1, +S2. absent: Gallop, Rubs, Systolic Murmur - GI/Abdominal Exam GI & Abdominal Exam: Normal Bowel Sounds, Soft. absent: Mass, Organomegaly, Tenderness - Rectal Exam Additional comments: No stool in rectal vault - Extremities Exam Extremities exam: Negative for: calf tenderness, pedal edema Results - Vital Signs Recent Vital Signs: Last Vital Signs Temp 98 F 10/21/16 15:00 Pulse 64 10/21/16 15:00 Resp 20 10/21/16 15:00 BP 101/61 10/21/16 15:00 Pulse Ox 96 10/21/16 15:00 - Labs Result Diagrams: 10/22/16 07:34 10/22/16 07:34 Labs: Laboratory Results - last 24 hr 10/21/16 10/21/16 10/21/16 08:08 09:31 11:08 POC Glucose (mg/dL) 127 H 93 92 10/21/16 16:31 POC Glucose (mg/dL) 81 Assessment & Plan (1) Abdominal pain Assessment and Plan: Patient presents with abdominal pain, rectal bleeding and CT evidence of dilated bowel loops. Differential diagosis includes early or partial SBO, intramural hematoma, ischemia. Will check lactate and schedule CT angiogram. Status: Acute
[2016-10-21 18:03] LABS: HEMATOCRIT 32.7 % (35.0-51.0); MEAN CELL VOLUME 88.8 fL (80.0-94.0); MEAN CORPUSCULAR HEMOGLOBIN 29.1 pg (27.0-31.0); MEAN CORPUSCULAR HGB CONC 32.8 g/dL (33.0-37.0); RED CELL DISTRIBUTION WIDTH 17.1 % (11.5-14.5); WHITE BLOOD COUNT 9.3 K/uL (4.8-10.8)
[2016-10-21] MEDS: Albuterol-Ipratrop 3 mg / 0.5 (3 ml) UD INH SCH (19:22)
[2016-10-21] MEDS: Fluticasone-Salmeterol 250-50mcg Diskus INH SCH (19:24)
--- NOTE | 2016-10-21 20:21 | CP.PCM.HP ---
History of Present Illness - History of Present Illness History of Present Illness: CC - "I had a bloody bowel movement last night" HPI - 55 yeasr old male with an extensive cardiac history, CHF with pacemaker and defibrillator, of DM, diabetic neuropathy, gout, HLD, COPD, presenting with hemtochezia x 1 episode which occurred at around 10PM last evening, He states he did not want to come to the ED but his encouraged him to come. Pt states yesterday he had 5 bowel movements, and on the last one he had a significant amount of bright red blood in the toilet. Despite his known history of hemorrhoids pt states he has never experienced this before. Pt admits to experiencing nausea but has no vomited at this time. He has diffuse abdominal pain, 3/10, cramping in nature, feels distended, but continues to pass flatus. CT read as partial sbo, however beyond the distended stomach there is little evidence of small bowel dilatation. His HgB is consistent with previous admissions. Two attempts were made to pass NGT in the ED without success. Patient denies shortness or breath, chest pain, headache, changes in vision, numbness or weakness in the extremities, dizziness. Patient states he is frustrated because he keeps having to return to the hospital. PMH: DM, diabetic neuropathy, gout, HLD, COPD, CHF with pacemaker/ICD, hemorrhoids PSH: Left foot sx, ICD/pacer Allergies: moxifloxacin, docosanol Meds: FH: Mother: - lung cancer; father- - HI Social hx: Former smoker. Former heavy drinker, last drink 2008. Denies illegal drugs. Does not work. Lives in with . Present on Admission - Present on Admission Any Indicators Present on Admission: No Review of Systems - Constitutional Constitutional: absent: Chills, Fever - EENT Eyes: absent: Change in Vision - Cardiovascular Cardiovascular: absent: Chest Pain, Chest Pain at Rest, Chest Pain with Activity , Dyspnea, Syncope - Respiratory Respiratory: absent: Cough, Dyspnea, Dyspnea on Exertion - Gastrointestinal Gastrointestinal: Abdominal Pain, Bloating, Hematochezia, Nausea. absent: Constipation, Dyspepsia, Dysphagia, Heartburn, Vomiting - Genitourinary Genitourinary: absent: Change in Urinary Stream, Difficulty Urinating - Neurological Neurological: absent: Abnormal Gait, Numbness, Weakness Past Patient History - Infectious Disease Hx of Infectious Diseases: None - Tetanus Immunizations Tetanus Immunization: Unknown - Past Medical History & Family History Past Medical History?: Yes - Past Social History Smoking Status: Former Smoker - CARDIAC Hx Cardia Arrhythmia: Yes Hx Congestive Heart Failure: Yes Hx Hypercholesterolemia: Yes Hx Hypertension: Yes Hx Pacemaker: Yes (defibrilator BY [employer]) - PULMONARY Hx Asthma: Yes Hx Bronchitis: Yes Hx Chronic Obstructive Pulmonary Disease (COPD): Yes (EMPHYSEMA) Hx Emphysema: Yes Hx Pneumonia: Yes - NEUROLOGICAL Hx Neurological Disorder: Yes Other/Comment: history of CVA 2009 - HEENT Hx HEENT Problems: No - RENAL Hx Chronic Kidney Disease: No - ENDOCRINE/METABOLIC Hx Hypothyroidism: Yes - HEMATOLOGICAL/ONCOLOGICAL Hx Blood Disorders: No - INTEGUMENTARY Hx Dermatological Problems: No - MUSCULOSKELETAL/RHEUMATOLOGICAL Hx Falls: No - GASTROINTESTINAL Hx Gastrointestinal Disorders: Yes Hx Hemorrhoids: Yes - GENITOURINARY/GYNECOLOGICAL Hx Genitourinary Disorders: Yes Hx Prostate Problems: Yes - PSYCHIATRIC Hx Anxiety: Yes Hx Bipolar Disorder: Yes Hx Substance Use: Yes (quit 8 years ago) - SURGICAL HISTORY Hx Coronary Stent: Yes Other/Comment: left foot surgery - ANESTHESIA Hx Anesthesia: Yes Hx Anesthesia Reactions: No Hx Malignant Hyperthermia: No Meds Allergies/Adverse Reactions: Allergies Allergy/AdvReac Type Severity Reaction Status Date / Time moxifloxacin HCl Allergy RASH Verified 10/20/16 23:41 [From Avelox] docosanol [From Abreva] AdvReac Verified 10/20/16 23:41 Physical Exam - Constitutional Appears: Non-toxic, No Acute Distress - Eye Exam Eye Exam: Normal appearance, PERRL Pupil Exam: NORMAL ACCOMODATION - ENT Exam ENT Exam: Mucous Membranes Moist - Respiratory Exam Respiratory Exam: Clear to Auscultation Bilateral, Rales, NORMAL BREATHING PATTERN - Cardiovascular Exam Cardiovascular Exam: REGULAR RHYTHM, +S1, +S2 - GI/Abdominal Exam GI & Abdominal Exam: Distended (slightly), Guarding, Hypoactive Bowel Sounds, Soft, Tenderness. absent: Firm - Back Exam Back exam: NORMAL INSPECTION. absent: CVA tenderness (L), CVA tenderness (R), paraspinal tenderness - Neurological Exam Neurological exam: Alert, CN II-XII Intact, Oriented x3 - Psychiatric Exam Psychiatric exam: Anxious, Normal Affect - Skin Skin Exam: Dry, Intact, Normal Color Results - Vital Signs Recent Vital Signs: Last Vital Signs Temp 98 F 10/21/16 15:00 Pulse 80 10/21/16 15:30 Resp 20 10/21/16 15:00 BP 108/65 10/21/16 19:39 Pulse Ox 96 10/21/16 15:00 - Labs Result Diagrams: 10/21/16 17:52 10/21/16 00:07 Labs: Laboratory Results - last 24 hr 10/21/16 10/21/16 10/21/16 08:08 09:31 11:08 WBC RBC Hgb Hct MCV MCH MCHC RDW Plt Count MPV POC Glucose (mg/dL) 127 H 93 92 Lactic Acid Amylase 10/21/16 10/21/16 10/21/16 16:31 17:52 19:49 WBC 9.3 RBC 3.68 L Hgb 10.7 L Hct 32.7 L MCV 88.8 MCH 29.1 MCHC 32.8 L RDW 17.1 H Plt Count 216 MPV 8.0 POC Glucose (mg/dL) 81 Lactic Acid Amylase 52 10/21/16 19:49 WBC RBC Hgb Hct MCV MCH MCHC RDW Plt Count MPV POC Glucose (mg/dL) Lactic Acid 0.9 Amylase Assessment & Plan - Assessment and Plan (Free Text) Assessment: Small bowel obstruction r/o ischemia CT read as partial sbo, however beyond the distended stomach there is little evidence of small bowel dilatation Surgery consulted, Dr. Borja help appreciated GI consulted, Dr. Gomez, help appreciated Protonix IV NPO Liver enzymes noted to be elevated f/u am labs, lactate Hematochezia His HgB is consistent with previous admissions GI consulted, Dr. Gomez, help appreciated NG tube attempted to be placed but patient is anxious due to first attempt being unsuccessful and refusing Hx of congestive heart failure ICD/pace in place, patient with low EF Coreg 3.125 mg PO daily Enalapril 5mg PO daily Lasix 20 mg PO Q12 Crestor 5 mg PO HS Amiodarone 200 mg PO daily Hx HI/Coronary stents Brilinta 90 mg PO BID Aspirin 81 mg PO BID Has seen Dr. Curtis in the past Will hold until active GI bleed ruled out Hx of HLD Crestor PO HS Hx of DM ISS/accuchecks Glimepiride 1 mg PO BID D5NS at 60 cc/hour while NPO Hypothyroid Levothyroxine 50mcg PO daily COPD Duonebs prn Advair 250/50 Symicort GI/DVT ppx SCDs protonix 40mg IV BID NPO/bowel rest
[2016-10-22] MEDS: Albuterol-Ipratrop 3 mg / 0.5 (3 ml) UD INH SCH ×5 (01:35→19:55)
[2016-10-22] MEDS: HYDROmorphone 0.5 mg/0.5 ml ISec IVP PRN ×5 (04:35→22:13)
[2016-10-22] MEDS: Levothyroxine 50 MCG TAB PO SCH (05:58)
[2016-10-22] MEDS: Dextrose 5%/0.9% NS 1,000 ML IV ONE ×2 (06:35→20:18)
[2016-10-22 08:00] LABS: BASO % 0.5 % (0.0-2.0); EOS # 0.2 K/uL (0.0-0.7); EOS % 3.1 % (0.0-4.0); HEMATOCRIT 30.8 % (35.0-51.0); LYMPH % 26.3 % (20.0-40.0); MEAN PLATELET VOLUME 7.9 fL (7.2-11.7); MONO # 0.7 K/uL (0.0-0.8); MONO % 8.9 % (0.0-10.0); NRBC % 0.1 % (0.0-2.0); RED CELL DISTRIBUTION WIDTH 17.1 % (11.5-14.5); WHITE BLOOD COUNT 7.5 K/uL (4.8-10.8)
[2016-10-22 08:13] LABS: CHLORIDE 98 mmol/L (98-107)
[2016-10-22 08:14] LABS: POTASSIUM 4.2 mmol/L (3.6-5.2)
[2016-10-22] MEDS: Fluticasone-Salmeterol 250-50mcg Diskus INH SCH ×2 (08:14→19:56)
[2016-10-22 08:15] LABS: BILIRUBIN,TOTAL 0.6 mg/dL (0.2-1.3); GFR AFRICAN-AMERICAN > 60
[2016-10-22 08:16] LABS: ALB/GLOB RATIO 1.4 (1.0-2.1); ALKALINE PHOSPHATASE 57 U/L (38-126); ALT/SGPT 82 U/L (21-72); AST/SGOT 66 U/L (17-59); BLOOD UREA NITROGEN 21 mg/dL (9-20); CALCIUM 8.5 mg/dl (8.6-10.4); CARBON DIOXIDE 27 mmol/L (22-30); GLUCOSE,RANDOM 69 mg/dL (75-110); PHOSPHOROUS 3.9 mg/dL (2.5-4.5); TOTAL PROTEIN 6.3 g/dL (6.3-8.3)
[2016-10-22 08:18] LABS: SODIUM 134 mmol/L (132-148)
[2016-10-22] MEDS ORDERED: Iodixanol 320 mg/ml 150 ml Bottle IV ONE (08:35)
--- NOTE | 2016-10-22 09:57 | CP.PCM.PN ---
Subjective - Date & Time of Evaluation Date of Evaluation: 10/22/16 Time of Evaluation: 09:54 - Subjective Subjective: Gen Sx: Dr Borja Pt S&E. Continues to have bowel movements. No further bleeding. Denies abdominal pain at this time. Never had N/V. Wants to eat more food. Objective - Vital Signs/Intake and Output Vital Signs (last 24 hours): Temp Pulse Resp BP Pulse Ox 98.4 F 65 18 114/69 96 10/22/16 07:02 10/22/16 08:44 10/22/16 07:02 10/22/16 08:46 10/22/16 07:02 Intake and Output: 10/22/16 10/22/16 06:59 18:59 Intake Total 530 Balance 530 - Medications Medications: Current Medications Albuterol/Ipratropium (Combivent Respimat) 1 puff IH RQID [facility] Albuterol/Ipratropium (Duoneb 3 Mg/0.5 Mg (3 Ml) Ud) 3 ml INH RQ6 [facility] Last Admin: 10/22/16 08:14 Dose: 3 ml Alprazolam (Xanax) 1 mg PO DAILY [facility] Last Admin: 10/22/16 00:03 Dose: 1 mg Amiodarone HCl (Cordarone) 200 mg PO DAILY [facility] Last Admin: 10/21/16 10:49 Dose: 200 mg Aspirin (Aspirin Chewable) 81 mg PO DAILY [facility] Carvedilol (Coreg) 3.125 mg PO BID [facility] Last Admin: 10/21/16 17:27 Dose: 3.125 mg Enalapril Maleate (Vasotec) 5 mg PO DAILY [facility] Last Admin: 10/21/16 12:04 Dose: 5 mg Furosemide (Lasix) 20 mg PO Q12H [facility] Last Admin: 10/22/16 08:46 Dose: 20 mg Gabapentin (Neurontin) 100 mg PO TID [facility] Last Admin: 10/21/16 17:26 Dose: 100 mg Glimepiride (Amaryl) 1 mg PO BIDAC [facility] Last Admin: 10/22/16 08:03 Dose: Not Given Hydromorphone HCl (Dilaudid) 0.5 mg IVP Q3 PRN PRN Reason: Pain, severe (8-10) Last Admin: 10/22/16 08:46 Dose: 0.5 mg Dextrose/Sodium Chloride (Dextrose 5%/0.9% Ns 1000 Ml) 1,000 mls @ 60 mls/hr IV .[id number] ONE Stop: 10/22/16 23:12 Last Admin: 10/22/16 06:35 Dose: 60 mls/hr Levothyroxine Sodium (Synthroid) 50 mcg PO DAILY@0630 [facility] Last Admin: 10/22/16 05:58 Dose: 50 mcg Ondansetron HCl (Zofran Inj) 4 mg IVP Q6 PRN PRN Reason: Nausea/Vomiting Pantoprazole Sodium (Protonix Inj) 40 mg IVP Q12 [facility] Last Admin: 10/21/16 21:26 Dose: 40 mg Rosuvastatin Calcium (Crestor) 5 mg PO HS [facility] Last Admin: 10/21/16 21:27 Dose: 5 mg Fluticasone/Salmeterol (Advair Diskus 250/50) 1 puff INH RQ12 [facility] Last Admin: 10/22/16 08:14 Dose: Not Given Ticagrelor (Brilinta) 90 mg PO BID [facility] - Labs Labs: 10/22/16 07:34 10/22/16 07:34 PT 11.6 SECONDS (9.7-12.2) 10/21/16 00:10 INR 1.0 10/21/16 00:10 APTT 27 SECONDS (21-34) 10/21/16 00:10 - Constitutional Appears: Non-toxic, No Acute Distress - Respiratory Exam Respiratory Exam: NORMAL BREATHING PATTERN - Cardiovascular Exam Cardiovascular Exam: absent: Tachycardia - GI/Abdominal Exam GI & Abdominal Exam: Soft, Normal Bowel Sounds. absent: Distended, Tenderness - Neurological Exam Neurological Exam: Alert, Awake - Psychiatric Exam Psychiatric exam: Normal Affect, Normal Mood Assessment and Plan - Assessment and Plan (Free Text) Assessment: 55M with abdominal pain, brbpr; resolved Plan: no obstruction recommend colonoscopy OK to feed if OK with GI surgery signing off, please reconsult if necessary will d/w Dr Huong Ryan, PGY2
--- NOTE | 2016-10-22 11:11 | CP.PCM.PN ---
Subjective - Date & Time of Evaluation Date of Evaluation: 10/22/16 Time of Evaluation: 11:05 - Subjective Subjective: Patient states that the pain is much better; he has mild periumbilical pain still. He denies having nausea, vomiting. He had one bowel movement which was firm and required straining in order to evacuate. There was no rectal bleeding. Objective - Vital Signs/Intake and Output Vital Signs (last 24 hours): Temp Pulse Resp BP Pulse Ox 98.4 F 65 18 117/72 96 10/22/16 07:02 10/22/16 10:20 10/22/16 07:02 10/22/16 10:26 10/22/16 07:02 Intake and Output: 10/22/16 10/22/16 06:59 18:59 Intake Total 530 Balance 530 - Medications Medications: Current Medications Albuterol/Ipratropium (Combivent Respimat) 1 puff IH RQID [facility] Albuterol/Ipratropium (Duoneb 3 Mg/0.5 Mg (3 Ml) Ud) 3 ml INH RQ6 [facility] Last Admin: 10/22/16 08:14 Dose: 3 ml Alprazolam (Xanax) 1 mg PO DAILY [facility] Last Admin: 10/22/16 10:20 Dose: Not Given Amiodarone HCl (Cordarone) 200 mg PO DAILY [facility] Last Admin: 10/22/16 10:26 Dose: 200 mg Aspirin (Aspirin Chewable) 81 mg PO DAILY [facility] Carvedilol (Coreg) 3.125 mg PO BID [facility] Last Admin: 10/22/16 10:26 Dose: 3.125 mg Enalapril Maleate (Vasotec) 5 mg PO DAILY [facility] Last Admin: 10/22/16 10:26 Dose: 5 mg Furosemide (Lasix) 20 mg PO Q12H [facility] Last Admin: 10/22/16 08:46 Dose: 20 mg Gabapentin (Neurontin) 100 mg PO TID [facility] Last Admin: 10/22/16 10:26 Dose: 100 mg Glimepiride (Amaryl) 1 mg PO BIDAC [facility] Last Admin: 10/22/16 08:03 Dose: Not Given Hydromorphone HCl (Dilaudid) 0.5 mg IVP Q3 PRN PRN Reason: Pain, severe (8-10) Last Admin: 10/22/16 08:46 Dose: 0.5 mg Dextrose/Sodium Chloride (Dextrose 5%/0.9% Ns 1000 Ml) 1,000 mls @ 60 mls/hr IV .[id number] ONE Stop: 10/22/16 23:12 Last Admin: 10/22/16 06:35 Dose: 60 mls/hr Levothyroxine Sodium (Synthroid) 50 mcg PO DAILY@0630 [facility] Last Admin: 10/22/16 05:58 Dose: 50 mcg Ondansetron HCl (Zofran Inj) 4 mg IVP Q6 PRN PRN Reason: Nausea/Vomiting Pantoprazole Sodium (Protonix Inj) 40 mg IVP Q12 [facility] Last Admin: 10/22/16 10:26 Dose: 40 mg Rosuvastatin Calcium (Crestor) 5 mg PO HS [facility] Last Admin: 10/21/16 21:27 Dose: 5 mg Fluticasone/Salmeterol (Advair Diskus 250/50) 1 puff INH RQ12 [facility] Last Admin: 10/22/16 08:14 Dose: Not Given Ticagrelor (Brilinta) 90 mg PO BID [facility] - Labs Labs: 10/22/16 07:34 10/22/16 07:34 PT 11.6 SECONDS (9.7-12.2) 10/21/16 00:10 INR 1.0 10/21/16 00:10 APTT 27 SECONDS (21-34) 10/21/16 00:10 - Constitutional Appears: No Acute Distress - Head Exam Head Exam: ATRAUMATIC, NORMOCEPHALIC - Eye Exam Eye Exam: EOMI, PERRL - Neck Exam Neck Exam: absent: Lymphadenopathy, Thyromegaly - Respiratory Exam Respiratory Exam: NORMAL BREATHING PATTERN. absent: Rales, Rhonchi, Wheezes - Cardiovascular Exam Cardiovascular Exam: REGULAR RHYTHM, +S1, +S2. absent: Gallop, Rubs, Murmur - GI/Abdominal Exam GI & Abdominal Exam: Soft, Normal Bowel Sounds. absent: Tenderness, Mass, Organomegaly - Rectal Exam Rectal Exam: Deferred - Extremities Exam Extremities Exam: absent: Calf Tenderness, Pedal Edema Assessment and Plan (1) Abdominal pain Assessment & Plan: Abdominal pain is improving, though there is still no clear-cut etiology. Preliminary report on the CT angiogram shown no signficant stenoses. Will advance the diet and plan for colonoscopy on Monday. Status: Acute
--- NOTE | 2016-10-22 11:36 | CP.PCM.PN ---
<Nikki Meléndez H - Last Filed: 10/22/16 11:32> Subjective - Date & Time of Evaluation Date of Evaluation: 10/22/16 Time of Evaluation: 08:10 - Subjective Subjective: PGY2 Medicine Note - Dr. Dey's service: Patient seen and examined at bedside this AM. Patient upset that he was not able to eat last night. Patient saying he wants a corn muffin and a [employer] breakfast sandwich. Patient reports mild juanita umbilical pain. Patient reports small, hard bowel movement with straining this AM. Patient denies blood per rectum since night. Objective - Vital Signs/Intake and Output Vital Signs (last 24 hours): Temp Pulse Resp BP Pulse Ox 98.4 F 65 18 117/72 96 10/22/16 07:02 10/22/16 10:20 10/22/16 07:02 10/22/16 10:26 10/22/16 07:02 Intake and Output: 10/22/16 10/22/16 06:59 18:59 Intake Total 530 Balance 530 - Medications Medications: Current Medications Albuterol/Ipratropium (Combivent Respimat) 1 puff IH RQID [facility] Albuterol/Ipratropium (Duoneb 3 Mg/0.5 Mg (3 Ml) Ud) 3 ml INH RQ6 [facility] Last Admin: 10/22/16 08:14 Dose: 3 ml Alprazolam (Xanax) 1 mg PO DAILY [facility] Last Admin: 10/22/16 10:20 Dose: Not Given Amiodarone HCl (Cordarone) 200 mg PO DAILY [facility] Last Admin: 10/22/16 10:26 Dose: 200 mg Aspirin (Aspirin Chewable) 81 mg PO DAILY [facility] Carvedilol (Coreg) 3.125 mg PO BID [facility] Last Admin: 10/22/16 10:26 Dose: 3.125 mg Enalapril Maleate (Vasotec) 5 mg PO DAILY [facility] Last Admin: 10/22/16 10:26 Dose: 5 mg Furosemide (Lasix) 20 mg PO Q12H [facility] Last Admin: 10/22/16 08:46 Dose: 20 mg Gabapentin (Neurontin) 100 mg PO TID [facility] Last Admin: 10/22/16 10:26 Dose: 100 mg Glimepiride (Amaryl) 1 mg PO BIDAC [facility] Last Admin: 10/22/16 08:03 Dose: Not Given Hydromorphone HCl (Dilaudid) 0.5 mg IVP Q3 PRN PRN Reason: Pain, severe (8-10) Last Admin: 10/22/16 08:46 Dose: 0.5 mg Dextrose/Sodium Chloride (Dextrose 5%/0.9% Ns 1000 Ml) 1,000 mls @ 60 mls/hr IV .[id number] ONE Stop: 10/22/16 23:12 Last Admin: 10/22/16 06:35 Dose: 60 mls/hr Levothyroxine Sodium (Synthroid) 50 mcg PO DAILY@0630 [facility] Last Admin: 10/22/16 05:58 Dose: 50 mcg Ondansetron HCl (Zofran Inj) 4 mg IVP Q6 PRN PRN Reason: Nausea/Vomiting Pantoprazole Sodium (Protonix Inj) 40 mg IVP Q12 [facility] Last Admin: 10/22/16 10:26 Dose: 40 mg Rosuvastatin Calcium (Crestor) 5 mg PO HS [facility] Last Admin: 10/21/16 21:27 Dose: 5 mg Fluticasone/Salmeterol (Advair Diskus 250/50) 1 puff INH RQ12 [facility] Last Admin: 10/22/16 08:14 Dose: Not Given Ticagrelor (Brilinta) 90 mg PO BID [facility] - Labs Labs: 10/22/16 07:34 10/22/16 07:34 PT 11.6 SECONDS (9.7-12.2) 10/21/16 00:10 INR 1.0 10/21/16 00:10 APTT 27 SECONDS (21-34) 10/21/16 00:10 - Constitutional Appears: Non-toxic, No Acute Distress - Head Exam Head Exam: NORMAL INSPECTION - Eye Exam Eye Exam: EOMI - ENT Exam ENT Exam: Mucous Membranes Moist - Respiratory Exam Respiratory Exam: Clear to Ausculation Bilateral, NORMAL BREATHING PATTERN. absent: Rales, Rhonchi, Wheezes - Cardiovascular Exam Cardiovascular Exam: REGULAR RHYTHM, +S1, +S2. absent: Gallop, Rubs, Murmur - GI/Abdominal Exam GI & Abdominal Exam: Soft, Tenderness (per umbilical), Normal Bowel Sounds. absent: Firm, Guarding, Rigid - Extremities Exam Extremities Exam: absent: Pedal Edema - Neurological Exam Neurological Exam: Alert, Awake, Oriented x3 - Psychiatric Exam Psychiatric exam: Agitated - Skin Skin Exam: Normal Color, Warm Assessment and Plan - Assessment and Plan (Free Text) Assessment: Abdominal pain CTA of abdomen - celiac and SMA look open, f/u official report d dimer 488 CT read as partial sbo, however beyond the distended stomach there is little evidence of small bowel dilatation Surgery consulted, Dr. Borja help appreciated GI consulted, Dr. Gomez, help appreciated Protonix IV liquid diet - advance as tolerated Liver enzymes noted to be elevated Hematochezia Hgb dropped from 11.3 to 10.2 Likely secondary to hemorrhoids GI consulted, Dr. Gomez, help appreciated Colonoscopy for Monday surgery consult - Dr. Borja - f/u recs for hemorrhoidectomy Hx of congestive heart failure ICD/pace in place, patient with low EF Coreg 3.125 mg PO daily Enalapril 5mg PO daily Lasix 20 mg PO Q12 Crestor 5 mg PO HS Amiodarone 200 mg PO daily Hx MD/Coronary stents Brilinta 90 mg PO BID Aspirin 81 mg PO BID Has seen Dr. Curtis in the past Will hold until active GI bleed ruled out Hx of HLD Crestor PO HS Hx of DM ISS/accuchecks Glimepiride 1 mg PO BID D5NS at 60 cc/hour while NPO Hypothyroid Levothyroxine 50mcg PO daily COPD Duonebs prn Advair 250/50 Symicort GI/DVT ppx SCDs protonix 40mg IV BID NPO/bowel rest <Emmett Dey Jr. - Last Filed: 10/27/16 17:08> Objective - Vital Signs/Intake and Output Vital Signs (last 24 hours): Temp Pulse Resp BP Pulse Ox 97.6 F 101 H 18 122/80 98 10/25/16 08:35 10/25/16 08:35 10/25/16 08:35 10/25/16 09:40 10/25/16 08:35 - Labs Labs: 10/25/16 07:03 10/25/16 07:03 PT 11.6 SECONDS (9.7-12.2) 10/21/16 00:10 INR 1.0 10/21/16 00:10 APTT 27 SECONDS (21-34) 10/21/16 00:10 Attending/Attestation - Attestation I have personally seen and examined this patient.: Yes I have fully participated in the care of the patient.: Yes I have reviewed all pertinent clinical information, including history, physical exam and plan: Yes Notes (Text): 10/27/16 17:08 Agree with resident note and findings
--- NOTE | 2016-10-22 17:34 | CP.PCM.CON ---
History of Present Illness - History of Present Illness History of Present Illness: reason for consultation: productive cough 55 yeasr old male with an extensive cardiac history, CHF with pacemaker and defibrillator, of DM, diabetic neuropathy, gout, HLD, COPD, presenting with hemtochezia. Pt states yesterday he had 5 bowel movements, and on the last one he had a significant amount of bright red blood in the toilet. Patient also complaining of cough productive off initially blood-tinged and later brownish sputum. Denies shortness of breath, denies chills PMH: DM, diabetic neuropathy, gout, HLD, COPD, CHF with pacemaker/ICD, hemorrhoids PSH: Left foot sx, ICD/pacer Allergies: moxifloxacin, docosanol Meds: FH: Mother: - lung cancer; father- - [place] Social hx: Former smoker. Former heavy drinker, last drink 2008. Denies illegal drugs. Does not work. Lives in with . Review of Systems - Review of Systems All systems: reviewed and no additional remarkable complaints except (shortness of breath and hematochezia) Past Patient History - Infectious Disease Hx of Infectious Diseases: None - Tetanus Immunizations Tetanus Immunization: Unknown - Past Medical History & Family History Past Medical History?: Yes - Past Social History Smoking Status: Former Smoker - CARDIAC Hx Cardia Arrhythmia: Yes Hx Congestive Heart Failure: Yes Hx Hypercholesterolemia: Yes Hx Hypertension: Yes Hx Pacemaker: Yes (defibrilator BY [employer]) - PULMONARY Hx Asthma: Yes Hx Bronchitis: Yes Hx Chronic Obstructive Pulmonary Disease (COPD): Yes (EMPHYSEMA) Hx Emphysema: Yes Hx Pneumonia: Yes - NEUROLOGICAL Hx Neurological Disorder: Yes Other/Comment: history of CVA 2009 - HEENT Hx HEENT Problems: No - RENAL Hx Chronic Kidney Disease: No - ENDOCRINE/METABOLIC Hx Hypothyroidism: Yes - HEMATOLOGICAL/ONCOLOGICAL Hx Blood Disorders: No - INTEGUMENTARY Hx Dermatological Problems: No - MUSCULOSKELETAL/RHEUMATOLOGICAL Hx Falls: No - GASTROINTESTINAL Hx Gastrointestinal Disorders: Yes Hx Hemorrhoids: Yes - GENITOURINARY/GYNECOLOGICAL Hx Genitourinary Disorders: Yes Hx Prostate Problems: Yes - PSYCHIATRIC Hx Anxiety: Yes Hx Bipolar Disorder: Yes Hx Substance Use: Yes (quit 8 years ago) - SURGICAL HISTORY Hx Coronary Stent: Yes Other/Comment: left foot surgery - ANESTHESIA Hx Anesthesia: Yes Hx Anesthesia Reactions: No Hx Malignant Hyperthermia: No Meds Allergies/Adverse Reactions: Allergies Allergy/AdvReac Type Severity Reaction Status Date / Time moxifloxacin HCl Allergy RASH Verified 10/20/16 23:41 [From Avelox] docosanol [From Abreva] AdvReac Verified 10/20/16 23:41 - Medications Medications: Current Medications Albuterol/Ipratropium (Combivent Respimat) 1 puff IH RQID REPLACED BY [facility] Albuterol/Ipratropium (Duoneb 3 Mg/0.5 Mg (3 Ml) Ud) 3 ml INH RQ6 REPLACED BY [facility] Last Admin: 10/22/16 13:24 Dose: 3 ml Alprazolam (Xanax) 1 mg PO DAILY REPLACED BY [facility] Last Admin: 10/22/16 10:20 Dose: Not Given Amiodarone HCl (Cordarone) 200 mg PO DAILY REPLACED BY [facility] Last Admin: 10/22/16 10:26 Dose: 200 mg Aspirin (Aspirin Chewable) 81 mg PO DAILY REPLACED BY [facility] Carvedilol (Coreg) 3.125 mg PO BID REPLACED BY [facility] Last Admin: 10/22/16 17:24 Dose: 3.125 mg Enalapril Maleate (Vasotec) 5 mg PO DAILY REPLACED BY [facility] Last Admin: 10/22/16 10:26 Dose: 5 mg Furosemide (Lasix) 20 mg PO Q12H REPLACED BY [facility] Last Admin: 10/22/16 08:46 Dose: 20 mg Gabapentin (Neurontin) 100 mg PO TID REPLACED BY [facility] Last Admin: 10/22/16 17:24 Dose: 100 mg Glimepiride (Amaryl) 1 mg PO BIDAC REPLACED BY [facility] Last Admin: 10/22/16 17:24 Dose: 1 mg Hydromorphone HCl (Dilaudid) 0.5 mg IVP Q3 PRN PRN Reason: Pain, severe (8-10) Last Admin: 10/22/16 17:25 Dose: 0.5 mg Dextrose/Sodium Chloride (Dextrose 5%/0.9% Ns 1000 Ml) 1,000 mls @ 60 mls/hr IV .[id number] ONE Stop: 10/22/16 23:12 Last Admin: 10/22/16 06:35 Dose: 60 mls/hr Levothyroxine Sodium (Synthroid) 50 mcg PO DAILY@0630 REPLACED BY [facility] Last Admin: 10/22/16 05:58 Dose: 50 mcg Ondansetron HCl (Zofran Inj) 4 mg IVP Q6 PRN PRN Reason: Nausea/Vomiting Pantoprazole Sodium (Protonix Inj) 40 mg IVP Q12 REPLACED BY [facility] Last Admin: 10/22/16 10:26 Dose: 40 mg Polyethylene Glycol/Electrolytes (Golytely) 4,000 ml PO ONCE ONE Stop: 10/23/16 18:01 Rosuvastatin Calcium (Crestor) 5 mg PO HS REPLACED BY [facility] Last Admin: 10/21/16 21:27 Dose: 5 mg Fluticasone/Salmeterol (Advair Diskus 250/50) 1 puff INH RQ12 REPLACED BY [facility] Last Admin: 10/22/16 08:14 Dose: Not Given Ticagrelor (Brilinta) 90 mg PO BID REPLACED BY [facility] Physical Exam - Head Exam Head Exam: ATRAUMATIC, NORMOCEPHALIC - Eye Exam Eye Exam: Normal appearance - ENT Exam ENT Exam: Mucous Membranes Moist - Neck Exam Neck exam: Positive for: Normal Inspection - Respiratory Exam Respiratory Exam: Clear to Auscultation Bilateral - Cardiovascular Exam Cardiovascular Exam: REGULAR RHYTHM - GI/Abdominal Exam GI & Abdominal Exam: Normal Bowel Sounds Results - Vital Signs Recent Vital Signs: Last Vital Signs Temp 98.5 F 10/22/16 16:18 Pulse 86 10/22/16 16:18 Resp 20 10/22/16 16:18 BP 106/70 10/22/16 16:18 Pulse Ox 95 10/22/16 16:18 - Labs Result Diagrams: 10/22/16 07:34 10/22/16 07:34 Labs: Laboratory Results - last 24 hr 10/21/16 10/21/16 10/21/16 17:52 19:49 19:49 WBC 9.3 RBC 3.68 L Hgb 10.7 L Hct 32.7 L MCV 88.8 MCH 29.1 MCHC 32.8 L RDW 17.1 H Plt Count 216 MPV 8.0 Neut % (Auto) Lymph % (Auto) [place] % (Auto) Eos % (Auto) Baso % (Auto) Neut # Lymph # [place] # Eos # Baso # D-Dimer, Quantitative 488 H Sodium Potassium Chloride Carbon Dioxide Anion Gap BUN Creatinine Est GFR ( Amer) Est GFR (Non-Af Amer) POC Glucose (mg/dL) Random Glucose Lactic Acid Calcium Phosphorus Magnesium Total Bilirubin AST ALT Alkaline Phosphatase Total Protein Albumin Globulin Albumin/Globulin Ratio Amylase 52 10/21/16 10/21/16 10/21/16 19:49 21:05 21:59 WBC RBC Hgb Hct MCV MCH MCHC RDW Plt Count MPV Neut % (Auto) Lymph % (Auto) [place] % (Auto) Eos % (Auto) Baso % (Auto) Neut # Lymph # [place] # Eos # Baso # D-Dimer, Quantitative Sodium Potassium Chloride Carbon Dioxide Anion Gap BUN Creatinine Est GFR ( Amer) Est GFR (Non-Af Amer) POC Glucose (mg/dL) 63 L 74 Random Glucose Lactic Acid 0.9 Calcium Phosphorus Magnesium Total Bilirubin AST ALT Alkaline Phosphatase Total Protein Albumin Globulin Albumin/Globulin Ratio Amylase 10/22/16 10/22/16 10/22/16 06:30 07:34 07:34 WBC 7.5 RBC 3.50 L Hgb 10.2 L Hct 30.8 L MCV 88.0 MCH 29.0 MCHC 33.0 RDW 17.1 H Plt Count 198 MPV 7.9 Neut % (Auto) 61.2 Lymph % (Auto) 26.3 [place] % (Auto) 8.9 Eos % (Auto) 3.1 Baso % (Auto) 0.5 Neut # 4.6 Lymph # 2.0 [place] # 0.7 Eos # 0.2 Baso # 0.0 D-Dimer, Quantitative Sodium 134 Potassium 4.2 Chloride 98 Carbon Dioxide 27 Anion Gap 13 BUN 21 H Creatinine 1.2 Est GFR ( Amer) > 60 Est GFR (Non-Af Amer) > 60 POC Glucose (mg/dL) 157 H Random Glucose 69 L Lactic Acid Calcium 8.5 L Phosphorus 3.9 Magnesium 2.0 Total Bilirubin 0.6 AST 66 H ALT 82 H Alkaline Phosphatase 57 Total Protein 6.3 Albumin 3.6 Globulin 2.7 Albumin/Globulin Ratio 1.4 Amylase 10/22/16 10/22/16 11:24 17:04 WBC RBC Hgb Hct MCV MCH MCHC RDW Plt Count MPV Neut % (Auto) Lymph % (Auto) [place] % (Auto) Eos % (Auto) Baso % (Auto) Neut # Lymph # [place] # Eos # Baso # D-Dimer, Quantitative Sodium Potassium Chloride Carbon Dioxide Anion Gap BUN Creatinine Est GFR ( Amer) Est GFR (Non-Af Amer) POC Glucose (mg/dL) 184 H 105 Random Glucose Lactic Acid Calcium Phosphorus Magnesium Total Bilirubin AST ALT Alkaline Phosphatase Total Protein Albumin Globulin Albumin/Globulin Ratio Amylase Assessment & Plan (1) COPD (chronic obstructive pulmonary disease) Status: Acute Comment: continue nebulizer treatment and inhaled steroids. Follow up in the office. GI workup (2) Hematochezia Status: Acute
[2016-10-23] MEDS: Albuterol-Ipratrop 3 mg / 0.5 (3 ml) UD INH SCH ×5 (01:37→19:20)
[2016-10-23] MEDS: HYDROmorphone 0.5 mg/0.5 ml ISec IVP PRN (02:09)
[2016-10-23] MEDS ORDERED: DiphenhydrAMINE 50 mg/ml Inj IVP ONE (05:15)
[2016-10-23] MEDS: HYDROmorphone 1 mg/ml ISec IVP PRN ×5 (05:21→22:58)
[2016-10-23] MEDS: Levothyroxine 50 MCG TAB PO SCH (05:29)
[2016-10-23] MEDS: Fluticasone-Salmeterol 250-50mcg Diskus INH SCH ×2 (07:34→19:20)
--- NOTE | 2016-10-23 08:25 | CP.PCM.PN ---
<Nikki Meléndez H - Last Filed: 10/23/16 08:20> Subjective - Date & Time of Evaluation Date of Evaluation: 10/23/16 Time of Evaluation: 06:35 - Subjective Subjective: PGY2 Medicine Note - Dr. Dey's service: Patient seen and examined at bedside this AM. Patient says he started breathing treatments last night for his COPD and saw Dr. Ceja. Patient first said no surgeon ever saw him but later admitted to seeing Dr. Borja last night who he says he knows is a surgeon. Patient wants his hemorrhoid removed. He says he has used Preparation H which has not worked. Patient reports no abdominal pain, nausea, or vomiting. Objective - Vital Signs/Intake and Output Vital Signs (last 24 hours): Temp Pulse Resp BP Pulse Ox 98.5 F 68 20 106/67 96 10/22/16 23:05 10/22/16 23:05 10/22/16 23:05 10/22/16 23:05 10/22/16 23:05 Intake and Output: 10/23/16 10/23/16 06:59 18:59 Intake Total 880 Balance 880 - Medications Medications: Current Medications Albuterol/Ipratropium (Combivent Respimat) 1 puff IH RQID [facility] Albuterol/Ipratropium (Duoneb 3 Mg/0.5 Mg (3 Ml) Ud) 3 ml INH RQ6 [facility] Last Admin: 10/23/16 07:33 Dose: 3 ml Alprazolam (Xanax) 1 mg PO DAILY [facility] Last Admin: 10/22/16 10:20 Dose: Not Given Amiodarone HCl (Cordarone) 200 mg PO DAILY [facility] Last Admin: 10/22/16 10:26 Dose: 200 mg Aspirin (Aspirin Chewable) 81 mg PO DAILY [facility] Carvedilol (Coreg) 3.125 mg PO BID [facility] Last Admin: 10/22/16 17:24 Dose: 3.125 mg Enalapril Maleate (Vasotec) 5 mg PO DAILY [facility] Last Admin: 10/22/16 10:26 Dose: 5 mg Furosemide (Lasix) 20 mg PO Q12H [facility] Last Admin: 10/22/16 20:17 Dose: 20 mg Gabapentin (Neurontin) 100 mg PO TID [facility] Last Admin: 10/22/16 17:24 Dose: 100 mg Glimepiride (Amaryl) 1 mg PO BIDAC [facility] Last Admin: 10/22/16 17:24 Dose: 1 mg Hydromorphone HCl (Dilaudid) 0.5 mg IVP Q3 PRN PRN Reason: Pain, severe (8-10) Last Admin: 10/23/16 05:21 Dose: 0.5 mg Levothyroxine Sodium (Synthroid) 50 mcg PO DAILY@0630 [facility] Last Admin: 10/23/16 05:29 Dose: 50 mcg Ondansetron HCl (Zofran Inj) 4 mg IVP Q6 PRN PRN Reason: Nausea/Vomiting Pantoprazole Sodium (Protonix Inj) 40 mg IVP Q12 [facility] Last Admin: 10/22/16 22:12 Dose: 40 mg Polyethylene Glycol/Electrolytes (Golytely) 4,000 ml PO ONCE ONE Stop: 10/23/16 18:01 Rosuvastatin Calcium (Crestor) 5 mg PO HS [facility] Last Admin: 10/22/16 22:13 Dose: 5 mg Fluticasone/Salmeterol (Advair Diskus 250/50) 1 puff INH RQ12 [facility] Last Admin: 10/23/16 07:34 Dose: Not Given Ticagrelor (Brilinta) 90 mg PO BID [facility] - Labs Labs: 10/22/16 07:34 10/22/16 07:34 PT 11.6 SECONDS (9.7-12.2) 10/21/16 00:10 INR 1.0 10/21/16 00:10 APTT 27 SECONDS (21-34) 10/21/16 00:10 - Constitutional Appears: Non-toxic, No Acute Distress - Head Exam Head Exam: NORMAL INSPECTION - Eye Exam Eye Exam: EOMI - ENT Exam ENT Exam: Mucous Membranes Moist - Respiratory Exam Respiratory Exam: Clear to Ausculation Bilateral, NORMAL BREATHING PATTERN. absent: Rales, Rhonchi, Wheezes - Cardiovascular Exam Cardiovascular Exam: REGULAR RHYTHM, +S1, +S2. absent: Gallop, Rubs, Murmur - GI/Abdominal Exam GI & Abdominal Exam: Soft, Normal Bowel Sounds. absent: Tenderness - Extremities Exam Extremities Exam: absent: Pedal Edema - Neurological Exam Neurological Exam: Alert, Awake, Oriented x3 - Psychiatric Exam Psychiatric exam: Normal Affect, Normal Mood - Skin Skin Exam: Normal Color, Warm Assessment and Plan - Assessment and Plan (Free Text) Assessment: Abdominal pain d dimer 488 CTA of abdomen - celiac and SMA look open, f/u official report CT read as partial sbo, however beyond the distended stomach there is little evidence of small bowel dilatation Surgery consulted, Dr. Borja help appreciated GI consulted, Dr. Gomez, heena appreciated Protonix IV Liver enzymes noted to be elevated Liquid diet today and NPO after midnight for colonoscopy tomrrow Hematochezia Hgb dropped from 11.3 to 10.2 Likely secondary to hemorrhoids GI consulted, Dr. Gomez, help appreciated Colonoscopy for Monday surgery consult - Dr. Borja - heena appreciated No need for hemorrhoidectomy per residential driver, Dr. Londono Hx of congestive heart failure ICD/pace in place, patient with low EF Coreg 3.125 mg PO daily Enalapril 5mg PO daily Lasix 20 mg PO Q12 Crestor 5 mg PO HS Amiodarone 200 mg PO daily Hx ID/Coronary stents Brilinta 90 mg PO BID Aspirin 81 mg PO BID Has seen Dr. Curtis in the past Will hold until active GI bleed ruled out Hx of HLD Crestor PO HS Hx of DM ISS/accuchecks Glimepiride 1 mg PO BID D5NS at 60 cc/hour while NPO Hypothyroid Levothyroxine 50mcg PO daily COPD Duonebs prn Advair 250/50 Symicort GI/DVT ppx SCDs protonix 40mg IV BID NPO/bowel rest <Emmett Dey Jr. - Last Filed: 10/27/16 17:09> Objective - Vital Signs/Intake and Output Vital Signs (last 24 hours): Temp Pulse Resp BP Pulse Ox 97.6 F 101 H 18 122/80 98 10/25/16 08:35 10/25/16 08:35 10/25/16 08:35 10/25/16 09:40 10/25/16 08:35 - Labs Labs: 10/25/16 07:03 10/25/16 07:03 PT 11.6 SECONDS (9.7-12.2) 10/21/16 00:10 INR 1.0 10/21/16 00:10 APTT 27 SECONDS (21-34) 10/21/16 00:10 Attending/Attestation - Attestation I have personally seen and examined this patient.: Yes I have fully participated in the care of the patient.: Yes I have reviewed all pertinent clinical information, including history, physical exam and plan: Yes Notes (Text): 10/27/16 17:08 Agree with resident note and findings
[2016-10-23 08:41] LABS: BASO # 0.1 K/uL (0.0-0.2); BASO % 1.2 % (0.0-2.0); EOS # 0.2 K/uL (0.0-0.7); EOS % 4.5 % (0.0-4.0); HEMATOCRIT 32.2 % (35.0-51.0); LYMPH # 1.5 K/uL (1.0-4.3); LYMPH % 32.4 % (20.0-40.0); MEAN CELL VOLUME 88.8 fL (80.0-94.0); MEAN CORPUSCULAR HEMOGLOBIN 28.5 pg (27.0-31.0); MEAN CORPUSCULAR HGB CONC 32.1 g/dL (33.0-37.0); MEAN PLATELET VOLUME 8.1 fL (7.2-11.7); MONO # 0.5 K/uL (0.0-0.8); MONO % 11.6 % (0.0-10.0); RED CELL DISTRIBUTION WIDTH 17.1 % (11.5-14.5); WHITE BLOOD COUNT 4.7 K/uL (4.8-10.8)
[2016-10-23 08:49] LABS: POTASSIUM 4.2 mmol/L (3.6-5.2)
[2016-10-23 08:51] LABS: BILIRUBIN,TOTAL 0.5 mg/dL (0.2-1.3)
[2016-10-23 08:52] LABS: ALB/GLOB RATIO 1.4 (1.0-2.1); CALCIUM 8.5 mg/dl (8.6-10.4); PHOSPHOROUS 3.5 mg/dL (2.5-4.5); TOTAL PROTEIN 6.6 g/dL (6.3-8.3)
[2016-10-23 08:53] LABS: MAGNESIUM 2.3 mg/dL (1.6-2.3)
--- NOTE | 2016-10-23 11:16 | CP.PCM.PN ---
Subjective - Date & Time of Evaluation Date of Evaluation: 10/23/16 Time of Evaluation: 11:14 - Subjective Subjective: Patient complains of frequent urination overnight but he has not had a bowel movement. He denies having nausea, vomiting, abdominal pain. Objective - Vital Signs/Intake and Output Vital Signs (last 24 hours): Temp Pulse Resp BP Pulse Ox 97.9 F 79 20 128/81 96 10/23/16 07:00 10/23/16 09:52 10/23/16 07:00 10/23/16 09:54 10/23/16 07:00 Intake and Output: 10/23/16 10/23/16 06:59 18:59 Intake Total 880 Balance 880 - Medications Medications: Current Medications Albuterol/Ipratropium (Combivent Respimat) 1 puff IH RQID [facility] Albuterol/Ipratropium (Duoneb 3 Mg/0.5 Mg (3 Ml) Ud) 3 ml INH RQ6 [facility] Last Admin: 10/23/16 07:33 Dose: 3 ml Alprazolam (Xanax) 1 mg PO DAILY [facility] Last Admin: 10/23/16 09:54 Dose: 1 mg Amiodarone HCl (Cordarone) 200 mg PO DAILY [facility] Last Admin: 10/23/16 09:54 Dose: 200 mg Aspirin (Aspirin Chewable) 81 mg PO DAILY [facility] Carvedilol (Coreg) 3.125 mg PO BID [facility] Last Admin: 10/23/16 09:54 Dose: 3.125 mg Enalapril Maleate (Vasotec) 5 mg PO DAILY [facility] Last Admin: 10/23/16 09:54 Dose: 5 mg Furosemide (Lasix) 20 mg PO Q12H [facility] Last Admin: 10/23/16 08:36 Dose: 20 mg Gabapentin (Neurontin) 100 mg PO TID [facility] Last Admin: 10/23/16 09:54 Dose: 100 [facility] Last Admin: 10/23/16 08:29 Dose: 1 mg Hydromorphone HCl (Dilaudid) 0.5 mg IVP Q3 PRN PRN Reason: Pain, severe (8-10) Last Admin: 10/23/16 08:36 Dose: 0.5 mg Levothyroxine Sodium (Synthroid) 50 mcg PO DAILY@0630 [facility] Last Admin: 10/23/16 05:29 Dose: 50 mcg Ondansetron HCl (Zofran Inj) 4 mg IVP Q6 PRN PRN Reason: Nausea/Vomiting Pantoprazole Sodium (Protonix Inj) 40 mg IVP Q12 [facility] Last Admin: 10/22/16 22:12 Dose: 40 mg Polyethylene Glycol/Electrolytes (Golytely) 4,000 ml PO ONCE ONE Stop: 10/23/16 18:01 Rosuvastatin Calcium (Crestor) 5 mg PO HS [facility] Last Admin: 10/22/16 22:13 Dose: 5 mg Fluticasone/Salmeterol (Advair Diskus 250/50) 1 puff INH RQ12 [facility] Last Admin: 10/23/16 07:34 Dose: Not Given Ticagrelor (Brilinta) 90 mg PO BID [facility] - Labs Labs: 10/23/16 08:22 10/23/16 08:22 PT 11.6 SECONDS (9.7-12.2) 10/21/16 00:10 INR 1.0 10/21/16 00:10 APTT 27 SECONDS (21-34) 10/21/16 00:10 - Constitutional Appears: No Acute Distress - Head Exam Head Exam: ATRAUMATIC, NORMOCEPHALIC - Eye Exam Eye Exam: EOMI, PERRL - Neck Exam Neck Exam: absent: Lymphadenopathy, Thyromegaly - Respiratory Exam Respiratory Exam: NORMAL BREATHING PATTERN. absent: Rales, Rhonchi, Wheezes - Cardiovascular Exam Cardiovascular Exam: REGULAR RHYTHM, +S1, +S2. absent: Gallop, Rubs, Murmur - GI/Abdominal Exam GI & Abdominal Exam: Soft, Normal Bowel Sounds. absent: Tenderness, Mass, Organomegaly - Rectal Exam Rectal Exam: Deferred - Extremities Exam Extremities Exam: absent: Calf Tenderness Assessment and Plan (1) Abdominal pain Assessment & Plan: Abdominal pain has resolved, and patient has not had any further bleeding per rectum. The HGB is stable at 10.3. Colonosocpy in AM. Status: Acute
[2016-10-23] MEDS: Dextrose 5%/0.45% NS 1,000 ML IV SCH (16:17)
[2016-10-23] MEDS ORDERED: Peg-Electrolyte Oral Soln 4L (Golytely) PO ONE (18:00)
--- NOTE | 2016-10-24 01:20 | CT ---
EXAM: CT Abdomen and Pelvis With Intravenous Contrast CLINICAL HISTORY: 55 years old, male; Pain; Abdominal pain; Generalized; Additional info: Mesenteric ischemia TECHNIQUE: Axial computed tomography images of the abdomen and pelvis with intravenous contrast during the arterial phase of enhancement. This CT exam was performed using one or more of the following dose reduction techniques: automated exposure control, adjustment of the mA and/or kV according to patient size, and/or use of iterative reconstruction technique. Coronal and sagittal reformatted images were created and reviewed. CONTRAST: 100 mL of [id number] administered intravenously. EXAM DATE/TIME: 10/22/2016 7:00 AM COMPARISON: CT - ABD PELVIS PO IV CONTRAST 10/21/2016 2:14:37 AM FINDINGS: Lower thorax: The heart is mildly enlarged. There is streak artifact from pacemaker leads. There is atelectasis and scarring at the lung bases VASCULATURE: Aorta: There are atherosclerotic calcifications in the aorta. There is noncalcified plaque in the distal abdominal aorta. There is no aneurysm Celiac trunk and mesenteric arteries: Inferior mesenteric artery is unremarkable. There is a replaced gastric artery. There is small plaque at the origin the celiac artery. There is perfusion of hepatic and splenic arteries. There is a nonobstructing plaque at the origin of the superior mesenteric artery. There is perfusion of peripheral branches. Renal arteries: There is plaque at the origin of the left renal artery. Renal arteries are otherwise unremarkable. Iliac arteries: There is perfusion of iliac arteries bilaterally. There is atherosclerotic calcification in the iliacs. ABDOMEN: Liver: Liver is unremarkable. Gallbladder and bile ducts: Gallbladder is distended. There is radiopaque contrast in the gallbladder. Common duct is unremarkable. Pancreas: Pancreas is mildly fatty-replaced. Spleen: Spleen is unremarkable. Adrenals: unremarkable Kidneys and ureters: There are small bilateral renal cysts.Kidneys and ureters are otherwise unremarkable. Stomach and bowel: Stomach is almost completely empty. Rotation is normal. There are mildly distended small bowel loops in the upper abdomen with air-fluid levels. There is no focal wall thickening. There is no small bowel obstruction.. Terminal ileum is unremarkable. Appendix is unremarkable. There is contrast from a prior study in the colon. Appendix: See above. PELVIS: Bladder: unremarkable Reproductive: Seminal vesicles and prostate are unremarkable. ABDOMEN and PELVIS: Intraperitoneal space: There is no free air or free fluid. Bones/joints: There are degenerative changes in the osseus structures. Soft tissues: unremarkable Lymph nodes: unremarkable Other findings: There are calcified phleboliths. IMPRESSION: Mild atherosclerotic disease, no major arterial occlusion; probable mild ileus, no obstruction; vicarious excretion of contrast in the gallbladder Additional findings as described above.
[2016-10-24] MEDS: Albuterol-Ipratrop 3 mg / 0.5 (3 ml) UD INH SCH ×4 (01:44→19:29)
[2016-10-24] MEDS: Dextrose 5%/0.45% NS 1,000 ML IV SCH ×2 (05:00→22:46)
[2016-10-24] MEDS: Levothyroxine 50 MCG TAB PO SCH (05:31)
[2016-10-24 06:31] LABS: BASO # 0.1 K/uL (0.0-0.2); BASO % 1.2 % (0.0-2.0); EOS # 0.3 K/uL (0.0-0.7); EOS % 5.2 % (0.0-4.0); HEMATOCRIT 30.3 % (35.0-51.0); LYMPH # 1.5 K/uL (1.0-4.3); LYMPH % 30.5 % (20.0-40.0); MEAN CELL VOLUME 88.2 fL (80.0-94.0); MEAN CORPUSCULAR HEMOGLOBIN 28.5 pg (27.0-31.0); MEAN CORPUSCULAR HGB CONC 32.4 g/dL (33.0-37.0); MONO # 0.6 K/uL (0.0-0.8); MONO % 11.1 % (0.0-10.0); NRBC % 0.1 % (0.0-2.0); RED CELL DISTRIBUTION WIDTH 16.7 % (11.5-14.5)
[2016-10-24 06:41] LABS: CHLORIDE 100 mmol/L (98-107); POTASSIUM 3.7 mmol/L (3.6-5.2); SODIUM 135 mmol/L (132-148)
[2016-10-24 06:43] LABS: BILIRUBIN,TOTAL 0.5 mg/dL (0.2-1.3); GFR AFRICAN-AMERICAN > 60
[2016-10-24 06:44] LABS: ALB/GLOB RATIO 1.3 (1.0-2.1); ALKALINE PHOSPHATASE 52 U/L (38-126); ALT/SGPT 67 U/L (21-72); AST/SGOT 48 U/L (17-59); BLOOD UREA NITROGEN 12 mg/dL (9-20); CALCIUM 8.3 mg/dl (8.6-10.4); CARBON DIOXIDE 27 mmol/L (22-30); GLUCOSE,RANDOM 93 mg/dL (75-110); PHOSPHOROUS 2.9 mg/dL (2.5-4.5); TOTAL PROTEIN 6.1 g/dL (6.3-8.3)
[2016-10-24] MEDS: Fluticasone-Salmeterol 250-50mcg Diskus INH SCH ×2 (08:48→19:28)
[2016-10-24] MEDS ORDERED: Lactated Ringer's 500 ML IV SCH (10:00)
[2016-10-24] MEDS: HYDROmorphone 1 mg/ml ISec IVP PRN ×3 (11:14→21:41)
--- NOTE | 2016-10-24 11:40 | CP.PCM.PN ---
<Herb Cheema - Last Filed: 10/24/16 19:20> Subjective - Date & Time of Evaluation Date of Evaluation: 10/24/16 Time of Evaluation: 11:34 - Subjective Subjective: PGY1 Medicine Note - Dr. Dey's Service: Patient was seen and examined at bedside this AM. Patient was using breathing treatment during examination. Patient stated he felt well and had no overnight issues. He stated he did not have any bleeding per rectum overnight. Patient has been NPO since midnight as he was to have a colonoscopy this morning. Patient was seen again after the colonoscopy with Dr. Dey where patient stated he felt a little dizzy. He denies fevers, abdominal pain, chest pain, nausea or vomiting. Objective - Vital Signs/Intake and Output Vital Signs (last 24 hours): Temp Pulse Resp BP Pulse Ox 97.8 F 63 14 120/76 97 10/24/16 10:30 10/24/16 11:13 10/24/16 10:30 10/24/16 11:17 10/24/16 10:30 Intake and Output: 10/24/16 10/24/16 06:59 18:59 Intake Total 4060 200 Balance 4060 200 - Medications Medications: Current Medications Albuterol/Ipratropium (Combivent Respimat) 1 puff IH RQID [facility] Albuterol/Ipratropium (Duoneb 3 Mg/0.5 Mg (3 Ml) Ud) 3 ml INH RQ6 [facility] Last Admin: 10/24/16 08:20 Dose: 3 ml Alprazolam (Xanax) 1 mg PO DAILY [facility] Last Admin: 10/23/16 09:54 Dose: 1 mg Amiodarone HCl (Cordarone) 200 mg PO DAILY [facility] Last Admin: 10/24/16 11:17 Dose: 200 mg Aspirin (Aspirin Chewable) 81 mg PO DAILY [facility] Carvedilol (Coreg) 3.125 mg PO BID [facility] Last Admin: 10/24/16 11:18 Dose: 3.125 mg Enalapril Maleate (Vasotec) 5 mg PO DAILY [facility] Last Admin: 10/23/16 09:54 Dose: 5 mg Furosemide (Lasix) 20 mg PO Q12H [facility] Last Admin: 10/24/16 11:17 Dose: 20 mg Gabapentin (Neurontin) 100 mg PO TID [facility] Last Admin: 10/24/16 11:16 Dose: 100 mg Glimepiride (Amaryl) 1 mg PO BIDAC [facility] Last Admin: 10/24/16 07:42 Dose: Not Given Hydromorphone HCl (Dilaudid) 0.5 mg IVP Q3 PRN PRN Reason: Pain, severe (8-10) Last Admin: 10/24/16 11:14 Dose: 0.5 mg Dextrose/Sodium Chloride (Dextrose 5%/0.45% Ns 1000 Ml) 1,000 mls @ 80 mls/hr IV .[id number] [facility] Last Admin: 10/24/16 05:00 Dose: 80 mls/hr Lactated Ringer's (Lactated Ringer's 500ml) 500 mls @ 75 mls/hr IV .Q6H40M [facility] Levothyroxine Sodium (Synthroid) 50 mcg PO DAILY@0630 [facility] Last Admin: 10/24/16 05:31 Dose: 50 mcg Ondansetron HCl (Zofran Inj) 4 mg IVP Q6 PRN PRN Reason: Nausea/Vomiting Pantoprazole Sodium (Protonix Inj) 40 mg IVP Q12 [facility] Last Admin: 10/24/16 11:19 Dose: 40 mg Rosuvastatin Calcium (Crestor) 5 mg PO HS [facility] Last Admin: 10/23/16 21:27 Dose: 5 mg Fluticasone/Salmeterol (Advair Diskus 250/50) 1 puff INH RQ12 [facility] Last Admin: 10/24/16 08:48 Dose: Not Given Ticagrelor (Brilinta) 90 mg PO BID [facility] - Labs Labs: 10/24/16 06:19 10/24/16 06:19 PT 11.6 SECONDS (9.7-12.2) 10/21/16 00:10 INR 1.0 10/21/16 00:10 APTT 27 SECONDS (21-34) 10/21/16 00:10 - Additional Findings Additional findings: - Constitutional Appears: Non-toxic, No Acute Distress - Head Exam Head Exam: NORMAL INSPECTION - Eye Exam Eye Exam: EOMI - ENT Exam ENT Exam: Mucous Membranes Moist - Respiratory Exam Respiratory Exam: Clear to Ausculation Bilateral, NORMAL BREATHING PATTERN. absent: Rales, Rhonchi, Wheezes - Cardiovascular Exam Cardiovascular Exam: REGULAR RHYTHM, +S1, +S2. absent: Gallop, Rubs, Murmur - GI/Abdominal Exam GI & Abdominal Exam: Soft, Normal Bowel Sounds. absent: Tenderness - Extremities Exam Extremities Exam: absent: Pedal Edema - Neurological Exam Neurological Exam: Alert, Awake, Oriented x3 - Psychiatric Exam Psychiatric exam: Normal Affect, Normal Mood - Skin Skin Exam: Normal Color, Warm Assessment and Plan - Assessment and Plan (Free Text) Assessment: Abdominal pain d dimer 488 on 08/21/16 Angio abdomen & pelvis w/contrast exam date 10/22/16. Impression: Mild atherosclerotic disease, no major arterial occlusion; probably mild ileus, no obstruction; vicarious excretion of contrast in the gallbladder. Protonix IV Liver enzymes retruend to WNL Hematochezia Hgb dropped from 10.3 on 10/23 to 9.8 on 10/24 Likely secondary to internal hemorrhoids s/p colonoscopy this AM - Impression: internal hemorrhoids, diverticulosis in sigmoid colon, examination otherwise normal. Dr. Gomez recommends posisble same day discharge, regular diet, con't present meds, repeat colonoscopy in 10 yrs for screening purposes and f/u in office in 2 weeks Hx of congestive heart failure ICD/pace in place, patient with low EF Coreg 3.125 mg PO daily Enalapril 5mg PO daily Lasix 20 mg PO Q12 Crestor 5 mg PO HS Amiodarone 200 mg PO daily Hx NM/Coronary stents Brilinta 90 mg PO BID Aspirin 81 mg PO BID Has seen Dr. Curtis in the past Per GI no active bleed Hx of HLD Crestor PO HS Hx of DM ISS/accuchecks Glimepiride 1 mg PO BID D5NS at 60 cc/hour while NPO Hypothyroid Levothyroxine 50mcg PO daily COPD Continue nebulizer treatment and inhaled steroids Stable from pulmonary standpoint Duonebs prn Advair 250/50 Symicort GI/DVT ppx Patient is able to ambulate protonix 40mg IV BID <Emmett Dey Jr. - Last Filed: 10/27/16 17:11> Objective - Vital Signs/Intake and Output Vital Signs (last 24 hours): Temp Pulse Resp BP Pulse Ox 97.6 F 101 H 18 122/80 98 10/25/16 08:35 10/25/16 08:35 10/25/16 08:35 10/25/16 09:40 10/25/16 08:35 - Labs Labs: 10/25/16 07:03 10/25/16 07:03 PT 11.6 SECONDS (9.7-12.2) 10/21/16 00:10 INR 1.0 10/21/16 00:10 APTT 27 SECONDS (21-34) 10/21/16 00:10 Attending/Attestation - Attestation I have personally seen and examined this patient.: Yes I have fully participated in the care of the patient.: Yes I have reviewed all pertinent clinical information, including history, physical exam and plan: Yes Notes (Text): 10/27/16 17:11 Agree with resident note and findings
--- NOTE | 2016-10-24 12:06 | CP.PCM.PN ---
Subjective - Date & Time of Evaluation Date of Evaluation: 10/24/16 Time of Evaluation: 09:00 - Subjective Subjective: patient seen and examined. Patient is scheduled for colonoscopy today breathing much improved with slight cough Objective - Vital Signs/Intake and Output Vital Signs (last 24 hours): Temp Pulse Resp BP Pulse Ox 97.8 F 63 14 120/76 97 10/24/16 10:30 10/24/16 11:13 10/24/16 10:30 10/24/16 11:17 10/24/16 10:30 Intake and Output: 10/24/16 10/24/16 06:59 18:59 Intake Total 4060 200 Balance 4060 200 - Medications Medications: Current Medications Albuterol/Ipratropium (Combivent Respimat) 1 puff IH RQID [facility] Albuterol/Ipratropium (Duoneb 3 Mg/0.5 Mg (3 Ml) Ud) 3 ml INH RQ6 [facility] Last Admin: 10/24/16 08:20 Dose: 3 ml Alprazolam (Xanax) 1 mg PO DAILY [facility] Last Admin: 10/23/16 09:54 Dose: 1 mg Amiodarone HCl (Cordarone) 200 mg PO DAILY [facility] Last Admin: 10/24/16 11:17 Dose: 200 mg Aspirin (Aspirin Chewable) 81 mg PO DAILY [facility] Carvedilol (Coreg) 3.125 mg PO BID [facility] Last Admin: 10/24/16 11:18 Dose: 3.125 mg Enalapril Maleate (Vasotec) 5 mg PO DAILY [facility] Last Admin: 10/23/16 09:54 Dose: 5 mg Furosemide (Lasix) 20 mg PO Q12H [facility] Last Admin: 10/24/16 11:17 Dose: 20 mg Gabapentin (Neurontin) 100 mg PO TID [facility] Last Admin: 10/24/16 11:16 Dose: 100 mg [facility] Last Admin: 10/24/16 07:42 Dose: Not Given Hydromorphone HCl (Dilaudid) 0.5 mg IVP Q3 PRN PRN Reason: Pain, severe (8-10) Last Admin: 10/24/16 11:14 Dose: 0.5 mg Dextrose/Sodium Chloride (Dextrose 5%/0.45% Ns 1000 Ml) 1,000 mls @ 80 mls/hr IV .[id number] [facility] Last Admin: 10/24/16 05:00 Dose: 80 mls/hr Lactated Ringer's (Lactated Ringer's 500ml) 500 mls @ 75 mls/hr IV .Q6H40M [facility] Levothyroxine Sodium (Synthroid) 50 mcg PO DAILY@0630 [facility] Last Admin: 10/24/16 05:31 Dose: 50 mcg Ondansetron HCl (Zofran Inj) 4 mg IVP Q6 PRN PRN Reason: Nausea/Vomiting Pantoprazole Sodium (Protonix Inj) 40 mg IVP Q12 [facility] Last Admin: 10/24/16 11:19 Dose: 40 mg Rosuvastatin Calcium (Crestor) 5 mg PO HS [facility] Last Admin: 10/23/16 21:27 Dose: 5 mg Fluticasone/Salmeterol (Advair Diskus 250/50) 1 puff INH RQ12 [facility] Last Admin: 10/24/16 08:48 Dose: Not Given Ticagrelor (Brilinta) 90 mg PO BID [facility] - Labs Labs: 10/24/16 06:19 10/24/16 06:19 PT 11.6 SECONDS (9.7-12.2) 10/21/16 00:10 INR 1.0 10/21/16 00:10 APTT 27 SECONDS (21-34) 10/21/16 00:10 - Constitutional Appears: No Acute Distress - Head Exam Head Exam: ATRAUMATIC, NORMOCEPHALIC - Eye Exam Eye Exam: Normal appearance - ENT Exam ENT Exam: Mucous Membranes Moist - Neck Exam Neck Exam: Full ROM, Normal Inspection - Respiratory Exam Respiratory Exam: Clear to Ausculation Bilateral - Cardiovascular Exam Cardiovascular Exam: REGULAR RHYTHM - GI/Abdominal Exam GI & Abdominal Exam: Soft, Normal Bowel Sounds - Extremities Exam Extremities Exam: Normal Inspection - Neurological Exam Neurological Exam: Alert, Oriented x3 Assessment and Plan (1) COPD (chronic obstructive pulmonary disease) Assessment & Plan: continue nebulizer treatment and inhaled steroids GI workup Stable from pulmonary standpoint Status: Acute (2) Hematochezia Status: Acute
[2016-10-25] MEDS: HYDROmorphone 1 mg/ml ISec IVP PRN ×4 (01:05→11:29)
[2016-10-25] MEDS: Albuterol-Ipratrop 3 mg / 0.5 (3 ml) UD INH SCH ×3 (02:19→13:21)
[2016-10-25] MEDS: Levothyroxine 50 MCG TAB PO SCH (05:36)
--- NOTE | 2016-10-25 07:02 | CP.PCM.PN ---
Subjective - Date & Time of Evaluation Date of Evaluation: 10/25/16 Objective - Vital Signs/Intake and Output Vital Signs (last 24 hours): Temp Pulse Resp BP Pulse Ox 98.2 F 63 20 106/70 97 10/25/16 05:28 10/25/16 05:28 10/25/16 05:28 10/25/16 05:28 10/25/16 05:28 - Medications Medications: Current Medications Albuterol/Ipratropium (Combivent Respimat) 1 puff IH RQID [facility] Albuterol/Ipratropium (Duoneb 3 Mg/0.5 Mg (3 Ml) Ud) 3 ml INH RQ6 [facility] Last Admin: 10/25/16 02:19 Dose: Not Given Alprazolam (Xanax) 1 mg PO DAILY [facility] Last Admin: 10/24/16 12:27 Dose: 1 mg Amiodarone HCl (Cordarone) 200 mg PO DAILY [facility] Last Admin: 10/24/16 11:17 Dose: 200 mg Aspirin (Aspirin Chewable) 81 mg PO DAILY [facility] Carvedilol (Coreg) 3.125 mg PO BID [facility] Last Admin: 10/24/16 18:22 Dose: 3.125 mg Enalapril Maleate (Vasotec) 5 mg PO DAILY [facility] Last Admin: 10/24/16 12:28 Dose: 5 mg Furosemide (Lasix) 20 mg PO Q12H [facility] Last Admin: 10/24/16 20:53 Dose: 20 mg Gabapentin (Neurontin) 100 mg PO TID [facility] Last Admin: 10/24/16 18:23 Dose: 100 mg Glimepiride (Amaryl) 1 mg PO BIDAC [facility] Last Admin: 10/24/16 17:30 Dose: Not Given Hydromorphone HCl (Dilaudid) 0.5 mg IVP Q3 PRN PRN Reason: Pain, severe (8-10) Last Admin: 10/25/16 05:33 Dose: 0.5 mg Dextrose/Sodium Chloride (Dextrose 5%/0.45% Ns 1000 Ml) 1,000 mls @ 80 mls/hr IV .[id number] [facility] Last Admin: 10/24/16 22:46 Dose: Not Given Lactated Ringer's (Lactated Ringer's 500ml) 500 mls @ 75 mls/hr IV .Q6H40M [facility] Levothyroxine Sodium (Synthroid) 50 mcg PO DAILY@0630 [facility] Last Admin: 10/25/16 05:36 Dose: 50 mcg Ondansetron HCl (Zofran Inj) 4 mg IVP Q6 PRN PRN Reason: Nausea/Vomiting Pantoprazole Sodium (Protonix Inj) 40 mg IVP Q12 [facility] Last Admin: 10/24/16 21:41 Dose: 40 mg Rosuvastatin Calcium (Crestor) 5 mg PO HS [facility] Last Admin: 10/24/16 21:41 Dose: 5 mg Fluticasone/Salmeterol (Advair Diskus 250/50) 1 puff INH RQ12 [facility] Last Admin: 10/24/16 19:28 Dose: Not Given Ticagrelor (Brilinta) 90 mg PO BID [facility] - Labs Labs: 10/24/16 06:19 10/24/16 06:19 PT 11.6 SECONDS (9.7-12.2) 10/21/16 00:10 INR 1.0 10/21/16 00:10 APTT 27 SECONDS (21-34) 10/21/16 00:10
[2016-10-25 07:13] LABS: BASO % 0.8 % (0.0-2.0); EOS # 0.2 K/uL (0.0-0.7); EOS % 4.1 % (0.0-4.0); HEMATOCRIT 31.8 % (35.0-51.0); LYMPH # 1.6 K/uL (1.0-4.3); LYMPH % 29.4 % (20.0-40.0); MEAN CELL VOLUME 89.1 fL (80.0-94.0); MEAN CORPUSCULAR HEMOGLOBIN 28.5 pg (27.0-31.0); MEAN CORPUSCULAR HGB CONC 31.9 g/dL (33.0-37.0); MONO # 0.4 K/uL (0.0-0.8); MONO % 7.6 % (0.0-10.0); NRBC % 0.1 % (0.0-2.0); RED CELL DISTRIBUTION WIDTH 16.7 % (11.5-14.5); WHITE BLOOD COUNT 5.5 K/uL (4.8-10.8)
[2016-10-25] MEDS: Fluticasone-Salmeterol 250-50mcg Diskus INH SCH (07:32)
--- NOTE | 2016-10-25 08:03 | CARD ---
APPROVED REPORT EKG Measurement Heart [id number] DC [id number] [id number] <Conclusion> Atrial-ventricular paced rhythm possible bi V Nonspecific T wave abnormality Abnormal ECG
[2016-10-25 08:27] LABS: CHLORIDE 100 mmol/L (98-107); POTASSIUM 4.1 mmol/L (3.6-5.2); SODIUM 137 mmol/L (132-148)
[2016-10-25 08:29] LABS: ALB/GLOB RATIO 1.4 (1.0-2.1); ALKALINE PHOSPHATASE 58 U/L (38-126); AST/SGOT 47 U/L (17-59); BILIRUBIN,TOTAL 0.4 mg/dL (0.2-1.3); CARBON DIOXIDE 27 mmol/L (22-30); GFR AFRICAN-AMERICAN > 60; TOTAL PROTEIN 6.6 g/dL (6.3-8.3)
[2016-10-25 08:30] LABS: ALT/SGPT 67 U/L (21-72); BLOOD UREA NITROGEN 18 mg/dL (9-20); CALCIUM 8.8 mg/dl (8.6-10.4); GLUCOSE,RANDOM 122 mg/dL (75-110); MAGNESIUM 2.2 mg/dL (1.6-2.3); PHOSPHOROUS 3.8 mg/dL (2.5-4.5)
[2016-10-25 08:36] VITALS: PULSE 101; RESP 18; TEMP 97.6; O2SAT 98
--- NOTE | 2016-10-25 09:36 | CP.PCM.DIS ---
Provider - Provider Date of Admission: 10/21/16 07:34 Attending physician: Emmett Dey Jr, MD Consults: Dr. Willie Mckeon Time Spent in preparation of Discharge (in minutes): 35 Hospital Course - Lab Results Lab Results: Most Recent Lab Values WBC 5.5 K/uL (4.8-10.8) 10/25/16 07:03 RBC 3.57 Mil/uL (4.40-5.90) L 10/25/16 07:03 Hgb 10.2 g/dL (12.0-18.0) L 10/25/16 07:03 Hct 31.8 % (35.0-51.0) L 10/25/16 07:03 MCV 89.1 fL (80.0-94.0) 10/25/16 07:03 MCH 28.5 pg (27.0-31.0) 10/25/16 07:03 MCHC 31.9 g/dL (33.0-37.0) L 10/25/16 07:03 RDW 16.7 % (11.5-14.5) H 10/25/16 07:03 Plt Count 202 K/uL (130-400) 10/25/16 07:03 MPV 8.0 fL (7.2-11.7) 10/25/16 07:03 Neut % (Auto) 58.1 % (50.0-75.0) 10/25/16 07:03 Lymph % (Auto) 29.4 % (20.0-40.0) 10/25/16 07:03 [place] % (Auto) 7.6 % (0.0-10.0) 10/25/16 07:03 Eos % (Auto) 4.1 % (0.0-4.0) H 10/25/16 07:03 Baso % (Auto) 0.8 % (0.0-2.0) 10/25/16 07:03 Neut # 3.2 K/uL (1.8-7.0) 10/25/16 07:03 Lymph # 1.6 K/uL (1.0-4.3) 10/25/16 07:03 [place] # 0.4 K/uL (0.0-0.8) 10/25/16 07:03 Eos # 0.2 K/uL (0.0-0.7) 10/25/16 07:03 Baso # 0.0 K/uL (0.0-0.2) 10/25/16 07:03 PT 11.6 SECONDS (9.7-12.2) 10/21/16 00:10 INR 1.0 10/21/16 00:10 APTT 27 SECONDS (21-34) 10/21/16 00:10 D-Dimer, Quantitative 488 ng/mlDDU (0-243) H 10/21/16 19:49 Sodium 137 mmol/L (132-148) 10/25/16 07:03 Potassium 4.1 mmol/L (3.6-5.2) 10/25/16 07:03 Chloride 100 mmol/L (98-107) 10/25/16 07:03 Carbon Dioxide 27 mmol/L (22-30) 10/25/16 07:03 Anion Gap 13 (10-20) 10/25/16 07:03 BUN 18 mg/dL (9-20) 10/25/16 07:03 Creatinine 1.4 MG/DL (0.8-1.5) 10/25/16 07:03 Est GFR ( Amer) > 60 10/25/16 07:03 Est GFR (Non-Af Amer) 53 10/25/16 07:03 POC Glucose (mg/dL) 115 mg/dL (65-110) H 10/25/16 06:26 Random Glucose 122 mg/dL (75-110) H 10/25/16 07:03 Lactic Acid 0.9 mmol/L (0.7-2.1) 10/21/16 19:49 Calcium 8.8 mg/dl (8.6-10.4) 10/25/16 07:03 Phosphorus 3.8 mg/dL (2.5-4.5) 10/25/16 07:03 Magnesium 2.2 mg/dL (1.6-2.3) 10/25/16 07:03 Total Bilirubin 0.4 mg/dL (0.2-1.3) 10/25/16 07:03 AST 47 U/L (17-59) 10/25/16 07:03 ALT 67 U/L (21-72) 10/25/16 07:03 Alkaline Phosphatase 58 U/L (38-126) 10/25/16 07:03 Total Protein 6.6 g/dL (6.3-8.3) 10/25/16 07:03 Albumin 3.8 g/dL (3.5-5.0) 10/25/16 07:03 Globulin 2.8 gm/dL (2.2-3.9) 10/25/16 07:03 Albumin/Globulin Ratio 1.4 (1.0-2.1) 10/25/16 07:03 Amylase 52 U/L (30-110) 10/21/16 19:49 Lipase 110 U/L (23-300) 10/21/16 00:10 Urine Color Straw (YELLOW) 10/21/16 00:48 Urine Clarity Clear (Clear) 10/21/16 00:48 Urine pH 5.0 (5.0-8.0) 10/21/16 00:48 Ur Specific [place] 1.010 (1.003-1.030) 10/21/16 00:48 Urine Protein Negative mg/dL (NEGATIVE) 10/21/16 00:48 Urine Glucose (UA) Normal mg/dL (Normal) 10/21/16 00:48 Urine Ketones Negative mg/dL (NEGATIVE) 10/21/16 00:48 Urine Blood Negative (NEGATIVE) 10/21/16 00:48 Urine Nitrate Negative (NEGATIVE) 10/21/16 00:48 Urine Bilirubin Negative (NEGATIVE) 10/21/16 00:48 Urine Urobilinogen Normal mg/dL (0.2-1.0) 10/21/16 00:48 Ur Leukocyte Esterase Neg [place]/uL (Negative) 10/21/16 00:48 Urine WBC (Auto) < 1 /hpf (0-5) 10/21/16 00:48 Stool Occult Blood Negative (NEGATIVE) 10/21/16 01:00 Blood Type A NEGATIVE 10/20/16 02:30 Antibody Screen Negative 10/20/16 02:30 - Hospital Course Hospital Course: CC - "I had a bloody bowel movement last night" HPI - 55 yeasr old male with an extensive cardiac history, CHF with pacemaker and defibrillator, of DM, diabetic neuropathy, gout, HLD, COPD, presenting with hemtochezia x 1 episode which occurred at around 10PM last evening, He states he did not want to come to the ED but his encouraged him to come. Pt states yesterday he had 5 bowel movements, and on the last one he had a significant amount of bright red blood in the toilet. Despite his known history of hemorrhoids pt states he has never experienced this before. Pt admits to experiencing nausea but has no vomited at this time. He has diffuse abdominal pain, 3/10, cramping in nature, feels distended, but continues to pass flatus. CT read as partial sbo, however beyond the distended stomach there is little evidence of small bowel dilatation. His HgB is consistent with previous admissions. Two attempts were made to pass NGT in the ED without success. Patient denies shortness or breath, chest pain, headache, changes in vision, numbness or weakness in the extremities, dizziness. Patient states he is frustrated because he keeps having to return to the hospital. Hospital course - The patient presented to the ED with bright red blood per recturm. In the ED blood labs were drawn and omnipaque, morphine, and IV fluids were given. In the ED the Hgb was 11.3, unchanged from 10/03/2016. A CT abdominal /pelvis was taken which showed marked gastric dilation, dilated small bowel proximally with nondilated small bowel distally. Dr. Borja from surgery was consulted to rule out small bowel obstruction. Surgery opinion was unlikely obstruction and GI consultation with Dr. Gomez to evaluate possible GI bleed. As per GI a CT angiogram was recommended. CT angiogram showed no significant stenoses. GI performed colonoscopy on 10/24/2016 which showed internal hemorrhoids, diverticulosis in sigmoid colon. Dr. Gomez recommended regular diet, con't present meds, repeat colonoscopy in 10 yrs for screening purposes and f/u in his office in 2 weeks. During the hospital stay pulmonary was also consulted due to patient's past medical history of COPD. Nebulizer treatment and inhaled steroids were given as recommended by Dr. Ceja from Pulmonary. Discharge Exam - Head Exam Head Exam: ATRAUMATIC, NORMOCEPHALIC - Eye Exam Eye Exam: EOMI, Normal appearance Pupil Exam: PERRL - ENT Exam ENT Exam: Mucous Membranes Moist - Neck Exam Neck exam: Normal Inspection - Respiratory Exam Respiratory Exam: Prolonged Expiratory Phase. absent: Rales, Rhonchi, Wheezes - Cardiovascular Exam Cardiovascular Exam: REGULAR RHYTHM, RRR - GI/Abdominal Exam GI & Abdominal Exam: Normal Bowel Sounds, Soft - Rectal Exam Rectal Exam: Deferred - Extremities Exam Extremities exam: normal inspection - Neurological Exam Neurological exam: Alert, Oriented x3 - Psychiatric Exam Psychiatric exam: Normal Affect, Normal Mood - Skin Skin Exam: Dry, Intact, Normal Color, Warm Discharge Plan - Discharge Medications Prescriptions: Docusate Sodium [Colace] 100 mg PO BID #60 capsule - Follow Up Plan Disposition: HOME/ ROUTINE Instructions: Laxative, Stool Softeners (By mouth), Heart Failure (DC), Colonoscopy (DC), Heart Healthy Diet (DC), Acute Abdominal Pain (DC), Bowel Obstruction (DC) Additional Instructions: Patient stable for discharge per Dr. Dey. Patient may resume his home medications. He has been prescribed the following medications: Colace 100 mg PO BID Patient is make an appointment with their PMD, Dr. Dey, within one week of discharge for follow-up. He should also make an appointment to follow up with GI specialist, Dr. Gomez, to continue evaluation of internal hemmorhoids and diverticulosis. He is advised to return to the emergency department if symptoms return or worsen. These instructions were given to the pt in Faroese. Patient expressed verbal understanding of these instructions. Referrals: Emmett Dey Jr., MD [Medical Doctor] - Willie Gomez MD [Staff Provider] -
[2016-10-25 09:46] VITALS: BP 122/80
== END 2016-10-25 14:10 | disposition home or self-care (01) | DRG 394 ==
LOC: C.ER 23:36 → C.9E 10-21 07:34 → C.6T 10-21 07:54
PROVIDERS: ADMIT Internal Medicine; ATTEND Internal Medicine
PROC: 0DJD8ZZ Inspection of Lower Intestinal Tract, Via Natural or Artificial Opening Endoscopic (ICD-10-PCS; principal; 2016-10-24 09:46)
DX: K64.0 First degree hemorrhoids (principal); K92.1 Melena; I11.0 Hypertensive heart disease with heart failure; I50.9 Heart failure, unspecified; E11.40 Type 2 diabetes mellitus with diabetic neuropathy, unspecified; Z95.5 Presence of coronary angioplasty implant and graft; I25.2 Old myocardial infarction; E78.5 Hyperlipidemia, unspecified; E03.9 Hypothyroidism, unspecified; J44.9 Chronic obstructive pulmonary disease, unspecified; M10.9 Gout, unspecified; E78.00 Pure hypercholesterolemia, unspecified; I25.10 Atherosclerotic heart disease of native coronary artery without angina pectoris; K57.30 Diverticulosis of large intestine without perforation or abscess without bleeding; Z80.1 Family history of malignant neoplasm of trachea, bronchus and lung; Z82.49 Family history of ischemic heart disease and other diseases of the circulatory system; Z87.891 Personal history of nicotine dependence; Z79.82 Long term (current) use of aspirin; Z79.84 Long term (current) use of oral hypoglycemic drugs; Z79.899 Other long term (current) drug therapy; Z86.73 Personal history of transient ischemic attack (TIA), and cerebral infarction without residual deficits; Z87.01 Personal history of pneumonia (recurrent); Z95.0 Presence of cardiac pacemaker

== ENCOUNTER 2016-12-02 15:40 | Inpatient (IN) | payer BC, MEDICARE ==
[2016-12-02 15:41] VITALS: BMI 24.6
[2016-12-02] MEDS ORDERED: Albuterol-Ipratrop 3 mg / 0.5 (3 ml) UD INH STA (16:09)
[2016-12-02] MEDS ORDERED: MethylPREDNISolone 40 mg Vial IVP STA (16:09)
--- NOTE | 2016-12-02 16:12 | C.PDOC ---
History Of Present Illness 56 year old male presents to the emergency department with complaints of productive cough with yellow sputum, mild left sided chest pain, and shortness of breath. He states "it feels like pneumonia." Patient notes a history COPD, HTN, pacemarker, and hyperlipidemia. He denies any fever or other complaints at this time. Time Seen by Provider: 12/02/16 15:51 Chief Complaint (Nursing): Chest Pain History Per: Patient History/Exam Limitations: no limitations Onset/Duration Of Symptoms: Days (4 days of productive cough ) Current Symptoms Are (Timing): Still Present Quality: "Pain" Associated Symptoms: denies: Nausea, Dyspnea, Diaphoresis, Syncope Recent travel outside of the [place]: No Past Medical History Reviewed: Historical Data, Nursing Documentation, Vital Signs Vital Signs: Last Vital Signs Temp 98.1 F 12/02/16 15:49 Pulse 69 12/02/16 15:49 Resp 21 12/02/16 15:49 BP 137/96 H 12/02/16 15:49 Pulse Ox 96 12/02/16 16:55 - Medical History PMH: Anxiety, Asthma, Bipolar Disorder, Bronchitis, CAD, Cardia Arrhythmia, CHF , COPD (EMPHYSEMA), Diabetes, Emphysema, HTN, Hypercholesterolemia, Hypothyroidism, Pneumonia (2016) Surgical History: Coronary Stent, Pacemaker (defibrilator BY [employer]) - [facility] Procedures APPLICATION OF SPLINT (07/14/14) BUNIONECTOMY NEC (11/25/14) CORONAR ARTERIOGR-2 CATH (06/07/13) DESTRUC-FOOT JT LES NEC (11/25/14) FLUOROSCOPY OF LEFT HEART USING LOW OSMOLAR CONTRAST (05/23/16) FLUOROSCOPY OF MULT COR ART USING L OSM CONTRAST (05/23/16) INSPECTION OF LOWER INTESTINAL TRACT, ENDO (10/21/16) LARYGNOSCOPY AND OTH TRACHEOSCOPY (12/31/13) LEFT HEART CARDIAC CATH (06/07/13) MEASURE OF CARDIAC SAMPL & PRESSURE, L HEART, PERC APPROACH (05/23/16) RT & LT HEART ANGIOCARD (06/07/13) Family History: States: Unknown Family Hx, [place] (dad at 49) - Social History Hx Tobacco Use: No Hx Alcohol Use: Yes (quit 4 years ago) Hx Substance Use: Yes (quit 8 years ago) - Immunization History Hx Tetanus Toxoid Vaccination: No Hx Influenza Vaccination: No Hx Pneumococcal Vaccination: No Review Of Systems Constitutional: Negative for: Fever, Chills Cardiovascular: Positive for: Chest Pain (mild left sided chest pain ) Respiratory: Positive for: Cough (with yellow sputum ), Shortness of Breath Gastrointestinal: Negative for: Nausea, Vomiting, Abdominal Pain, Diarrhea Physical Exam - Physical Exam Appears: Non-toxic, No Acute Distress Skin: Warm, Dry, Ecchymosis (scattered ecchymosis across chest and bilateral upper arms ) Head: Atraumatic Eye(s): bilateral: Normal Inspection, PERRL, EOMI Oral Mucosa: Moist Neck: Supple Chest: Symmetrical, No Deformity, No Tenderness, Ecchymosis (scattered ecchymosis ) Cardiovascular: Rhythm Regular Respiratory: No Rhonchi, No Stridor, No Wheezing, Other (diminished breath sounds on right base in compatison to left base ) Gastrointestinal/Abdominal: Soft, No Tenderness, No Distention, No Guarding, No Rebound Extremity: Normal ROM, No Tenderness Neurological/Psych: Oriented x3 ED Course And Treatment - Laboratory Results Result Diagrams: 12/02/16 16:33 12/02/16 16:33 ECG: Interpreted By Me, Viewed By Me Interpretation Of ECG: Paced rhythm 63 bpm O2 Sat by Pulse Oximetry: 96 (room air ) Medical Decision Making Medical Decision Making: copd/cp - r/o acs, pneumonia- labs imaging pending 535: pt reassesed: cxr neg. wheeezing improving, but persistent. case discussed with dr funk covering dr wilson, accepts Disposition - Disposition Disposition: HOSPITALIZED Disposition Time: 17:35 Condition: STABLE Forms: [facility] (Khmer) - Clinical Impression Clinical Impression: COPD (chronic obstructive pulmonary disease), Chest pain - Scribe Statement The provider has reviewed the documentation as recorded by the Scribe Beryl Burroughs All medical record entries made by the Scribe were at my direction and personally dictated by me. I have reviewed the chart and agree that the record accurately reflects my personal performance of the history, physical exam, medical decision making, and the department course for this patient. I have also personally directed, reviewed, and agree with the discharge instructions and disposition.
[2016-12-02] MEDS ORDERED: Albuterol-Ipratrop 3 mg / 0.5 (3 ml) UD ONE (16:35)
[2016-12-02 16:40] LABS: BASO # 0.1 K/uL (0.0-0.2); BASO % 0.9 % (0.0-2.0); EOS # 0.1 K/uL (0.0-0.7); EOS % 0.9 % (0.0-4.0); LYMPH # 1.6 K/uL (1.0-4.3); LYMPH % 20.6 % (20.0-40.0); MEAN CELL VOLUME 87.3 fL (80.0-94.0); MEAN CORPUSCULAR HEMOGLOBIN 28.6 pg (27.0-31.0); MEAN CORPUSCULAR HGB CONC 32.8 g/dL (33.0-37.0); MEAN PLATELET VOLUME 7.6 fL (7.2-11.7); MONO # 0.6 K/uL (0.0-0.8); MONO % 7.4 % (0.0-10.0); RED CELL DISTRIBUTION WIDTH 16.4 % (11.5-14.5); WHITE BLOOD COUNT 7.7 K/uL (4.8-10.8)
--- NOTE | 2016-12-02 16:40 | RAD ---
PROCEDURE: CHEST RADIOGRAPH, 1 VIEW. Portable study 16:17. HISTORY: chest pain COMPARISON: 10/01/2016. FINDINGS: LUNGS: Clear. PLEURA: No pneumothorax or pleural fluid seen. CARDIOVASCULAR: Cardiomegaly. No evidence of acute, significant cardiovascular disease. Position/ configuration of pacemaker Satisfactory. OSSEOUS STRUCTURES: No significant abnormalities. VISUALIZED UPPER ABDOMEN: Normal. OTHER FINDINGS: None. IMPRESSION: No active disease. No acute/significant interval changes.
[2016-12-02 16:46] LABS: VENOUS BLOOD GAS BASE EXCESS -7.1 mmol/L (0.0-2.0); VENOUS BLOOD GAS PCO2 29 mmHg (40-60); VENOUS BLOOD PH 7.37 (7.32-7.43)
[2016-12-02 16:46] LABS: POTASSIUM 4.5 mmol/L (3.6-5.2)
[2016-12-02 16:48] LABS: ALB/GLOB RATIO 1.3 (1.0-2.1); BILIRUBIN,TOTAL 0.4 mg/dL (0.2-1.3); INR 1.1; TOTAL PROTEIN 7.1 g/dL (6.3-8.3)
[2016-12-02 16:49] LABS: CALCIUM 8.4 mg/dl (8.6-10.4)
[2016-12-02 17:00] LABS: TROPONIN I 0.03 ng/mL (0.00-0.120)
[2016-12-02] MEDS ORDERED: MethylPREDNISolone 40 mg Vial IVP SCH (22:00)
[2016-12-03] MEDS: MethylPREDNISolone 40 mg Vial IVP SCH ×4 (00:23→21:13)
[2016-12-03] MEDS: Albuterol-Ipratrop 3 mg / 0.5 (3 ml) UD INH SCH ×4 (01:14→19:26)
[2016-12-03] MEDS: Levothyroxine 50 MCG TAB PO SCH (05:48)
[2016-12-03] MEDS ORDERED: Fluticasone-Salmeterol 250-50mcg Diskus INH SCH (08:00)
[2016-12-03] MEDS: Aspirin 325 mg EC Tablets PO SCH (09:43)
[2016-12-03] MEDS: Enoxaparin 40 mg Syringe SC SCH (09:44)
--- NOTE | 2016-12-03 12:19 | CP.PCM.CON ---
History of Present Illness - History of Present Illness History of Present Illness: 56 year old with hx of DM, HTN, complicated by ischemic cardiomyopathy, i/17 had percutanous itervention on a in stent restenosis in RCA, EF 20%, later an evaluation of CP was non cardiac. also with COPD. now admitted with atypical CP , no ekg changes, neg enz. for EST as out pt, continue Brilinta, BOBBY and B Harini is off for active COPD. observe DM, lipids, TSH for hypothyroid, ? amio. Review of Systems - Review of Systems Systems not reviewed;Unavailable: Respiratory Distress - Constitutional Constitutional: Anorexia, Weakness - EENT Eyes: absent: Discharge, Photophobia Ears: absent: Ear Discharge Nose/Mouth/Throat: absent: Epistaxis - Cardiovascular Cardiovascular: Chest Pain. absent: Acrocyanosis, Diaphoresis, Pedal Edema, Syncope - Respiratory Respiratory: Dyspnea. absent: Hemoptysis - Gastrointestinal Gastrointestinal: absent: Abdominal Pain, Diarrhea, Hematemesis, Vomiting - Genitourinary Genitourinary: absent: Change in Urinary Stream Past Patient History - Infectious Disease Hx of Infectious Diseases: None - Tetanus Immunizations Tetanus Immunization: Unknown - Past Medical History & Family History Past Medical History?: Yes - Past Social History Smoking Status: Former Smoker - CARDIAC Hx Cardia Arrhythmia: Yes Hx Congestive Heart Failure: Yes Hx Hypercholesterolemia: Yes Hx Hypertension: Yes Hx Pacemaker: Yes (defibrilator BY [employer]) - PULMONARY Hx Asthma: Yes Hx Bronchitis: Yes Hx Chronic Obstructive Pulmonary Disease (COPD): Yes (EMPHYSEMA) Hx Emphysema: Yes Hx Pneumonia: Yes (2016) - NEUROLOGICAL Hx Neurological Disorder: Yes - HEENT Hx HEENT Problems: No - RENAL Hx Chronic Kidney Disease: No - ENDOCRINE/METABOLIC Hx Hypothyroidism: Yes - HEMATOLOGICAL/ONCOLOGICAL Hx Blood Disorders: No - INTEGUMENTARY Hx Dermatological Problems: No - MUSCULOSKELETAL/RHEUMATOLOGICAL Hx Falls: Yes - GASTROINTESTINAL Hx Gastrointestinal Disorders: Yes - GENITOURINARY/GYNECOLOGICAL Hx Genitourinary Disorders: Yes Hx Prostate Problems: Yes - PSYCHIATRIC Hx Substance Use: Yes (former) - SURGICAL HISTORY Hx Coronary Stent: Yes - ANESTHESIA Hx Anesthesia: Yes Hx Anesthesia Reactions: No Hx Malignant Hyperthermia: No Meds Allergies/Adverse Reactions: Allergies Allergy/AdvReac Type Severity Reaction Status Date / Time moxifloxacin HCl Allergy RASH Verified 12/02/16 15:54 [From Avelox] docosanol [From Abreva] AdvReac Verified 12/02/16 15:54 - Medications Medications: Current Medications Albuterol/Ipratropium (Duoneb 3 Mg/0.5 Mg (3 Ml) Ud) 3 ml INH RQ6 [facility] Last Admin: 12/03/16 08:05 Dose: 3 ml Alprazolam (Xanax) 1 mg PO TID [facility] Last Admin: 12/03/16 09:45 Dose: 1 mg Amiodarone HCl (Cordarone) 200 mg PO DAILY [facility] Last Admin: 12/03/16 09:43 Dose: 200 mg Aspirin (Ecotrin) 325 mg PO DAILY [facility] Last Admin: 12/03/16 09:43 Dose: 325 mg Clopidogrel Bisulfate (Plavix) 75 mg PO DAILY [facility] Last Admin: 12/03/16 09:44 Dose: 75 mg Docusate Sodium (Colace) 100 mg PO BID [facility] Last Admin: 12/03/16 09:43 Dose: 100 mg Enalapril Maleate (Vasotec) 5 mg PO DAILY [facility] Last Admin: 12/03/16 09:44 Dose: 5 mg Enoxaparin Sodium (Lovenox) 40 mg SC DAILY [facility] Last Admin: 12/03/16 09:44 Dose: 40 mg Famotidine (Pepcid) 20 mg PO DAILY [facility] Last Admin: 12/03/16 09:44 Dose: 20 mg Furosemide (Lasix) 20 mg PO Q12H [facility] Last Admin: 12/03/16 09:43 Dose: 20 mg Gabapentin (Neurontin) 300 mg PO TID [facility] Last Admin: 12/03/16 09:44 Dose: 300 mg Glimepiride (Amaryl) 1 mg PO BID [facility] Last Admin: 12/03/16 10:03 Dose: 1 mg Levothyroxine Sodium (Synthroid) 50 mcg PO DAILY@0630 [facility] Last Admin: 12/03/16 05:48 Dose: 50 mcg Methylprednisolone (Solu-Medrol) 40 mg IVP Q8 [facility] Last Admin: 12/03/16 05:48 Dose: 40 mg Rosuvastatin Calcium (Crestor) 5 mg PO HS [facility] Last Admin: 12/02/16 21:39 Dose: 5 mg Fluticasone/Salmeterol (Advair Diskus 250/50) 1 puff INH RQ12 [facility] Last Admin: 12/03/16 08:05 Dose: Not Given Ticagrelor (Brilinta) 90 mg PO BID [facility] Last Admin: 12/03/16 09:43 Dose: 90 mg Tramadol HCl (Ultram) 50 mg PO Q6 PRN PRN Reason: Pain, moderate (4-7) Last Admin: 12/03/16 09:53 Dose: 50 mg Physical Exam - Constitutional Appears: No Acute Distress - Head Exam Head Exam: ATRAUMATIC - Eye Exam Eye Exam: EOMI - ENT Exam ENT Exam: Mucous Membranes Moist - Neck Exam Neck exam: Negative for: Lymphadenopathy, Tenderness, Thyromegaly - Respiratory Exam Respiratory Exam: Clear to Auscultation Bilateral, Wheezes - Cardiovascular Exam Cardiovascular Exam: REGULAR RHYTHM, Systolic Murmur - GI/Abdominal Exam GI & Abdominal Exam: Normal Bowel Sounds. absent: Organomegaly - Rectal Exam Rectal Exam: Deferred - Extremities Exam Extremities exam: Positive for: normal capillary refill. Negative for: calf tenderness - Neurological Exam Neurological exam: Alert, Oriented x3 - Psychiatric Exam Psychiatric exam: Anxious - Skin Skin Exam: Dry Results - Vital Signs Recent Vital Signs: Last Vital Signs Temp 97.6 F 12/03/16 08:05 Pulse 64 12/03/16 08:05 Resp 18 12/03/16 08:05 BP 134/73 12/03/16 09:44 Pulse Ox 96 12/03/16 08:05 - Labs Result Diagrams: 12/02/16 16:33 12/02/16 16:33 Labs: Laboratory Results - last 24 hr 12/02/16 12/03/16 12/03/16 21:24 00:38 06:25 POC Glucose (mg/dL) 225 H 205 H Total Creatine Kinase 175 H CK-MB (Mass) 2.29 Troponin I, Quant 0.0230 12/03/16 12/03/16 08:33 11:31 POC Glucose (mg/dL) 208 H Total Creatine Kinase 163 CK-MB (Mass) 3.10 Troponin I, Quant 0.0150 Assessment & Plan (1) Chest pain Status: Acute Comment: No [place], for EST as out pt (2) Status post angioplasty with stent Status: Chronic (3) COPD (chronic obstructive pulmonary disease) Status: Acute Comment: on treatment (4) Ischemic cardiomyopathy Status: Acute Comment: Chronic LV systolic heart failure, ? a fib, ? hx of V Fib, on amio, ICD , acei, no B Harini with active COPD (5) Diabetes mellitus type 2 in nonobese Status: Chronic
--- NOTE | 2016-12-03 12:20 | CP.PCM.HP ---
History of Present Illness - History of Present Illness History of Present Illness: 56 years old male male patient with past medical history of hypertension, diabetes, ischemic cardiomyopathy, CAD, arrhythmia, CHF, COPD, hypothyroidism and patient presented to the emergency department with complaint of left-sided chest pain, shortness of breath and productive cough with yellow sputum. Denies any fever, nausea, vomiting No diaphoresis, syncope, dizziness No recent history of trauma Next no EKG changes in the ED, negative enzymes for EST. Present on Admission - Present on Admission Any Indicators Present on Admission: No Past Patient History - Infectious Disease Hx of Infectious Diseases: None - Tetanus Immunizations Tetanus Immunization: Unknown - Past Medical History & Family History Past Medical History?: Yes - Past Social History Smoking Status: Former Smoker - CARDIAC Hx Cardia Arrhythmia: Yes Hx Congestive Heart Failure: Yes Hx Hypercholesterolemia: Yes Hx Hypertension: Yes Hx Pacemaker: Yes (defibrilator BY [employer]) - PULMONARY Hx Asthma: Yes Hx Bronchitis: Yes Hx Chronic Obstructive Pulmonary Disease (COPD): Yes (EMPHYSEMA) Hx Emphysema: Yes Hx Pneumonia: Yes (2016) - NEUROLOGICAL Hx Neurological Disorder: Yes - HEENT Hx HEENT Problems: No - RENAL Hx Chronic Kidney Disease: No - ENDOCRINE/METABOLIC Hx Hypothyroidism: Yes - HEMATOLOGICAL/ONCOLOGICAL Hx Blood Disorders: No - INTEGUMENTARY Hx Dermatological Problems: No - MUSCULOSKELETAL/RHEUMATOLOGICAL Hx Falls: Yes - GASTROINTESTINAL Hx Gastrointestinal Disorders: Yes - GENITOURINARY/GYNECOLOGICAL Hx Genitourinary Disorders: Yes Hx Prostate Problems: Yes - PSYCHIATRIC Hx Substance Use: Yes (former) - SURGICAL HISTORY Hx Coronary Stent: Yes - ANESTHESIA Hx Anesthesia: Yes Hx Anesthesia Reactions: No Hx Malignant Hyperthermia: No Meds Allergies/Adverse Reactions: Allergies Allergy/AdvReac Type Severity Reaction Status Date / Time amoxicillin Allergy Verified 01/21/17 18:36 moxifloxacin HCl Allergy RASH Verified 01/21/17 18:36 [From Avelox] Physical Exam - Constitutional Appears: Well - Head Exam Head Exam: ATRAUMATIC, NORMAL INSPECTION, NORMOCEPHALIC - Eye Exam Eye Exam: EOMI, Normal appearance, PERRL Pupil Exam: NORMAL ACCOMODATION, PERRL - ENT Exam ENT Exam: Mucous Membranes Moist, Normal Exam - Neck Exam Neck exam: Positive for: Normal Inspection - Respiratory Exam Respiratory Exam: Decreased Breath Sounds - Cardiovascular Exam Cardiovascular Exam: REGULAR RHYTHM, +S1, +S2 - GI/Abdominal Exam GI & Abdominal Exam: Diminished Bowel Sounds, Soft - Rectal Exam Rectal Exam: Deferred Results - Vital Signs Recent Vital Signs: Last Vital Signs Temp 97.6 F 12/03/16 08:05 Pulse 64 12/03/16 08:05 Resp 18 12/03/16 08:05 BP 134/73 12/03/16 09:44 Pulse Ox 96 12/03/16 08:05 - Labs Result Diagrams: 12/08/16 07:15 12/08/16 07:15 Labs: Laboratory Results - last 24 hr 12/02/16 12/03/16 12/03/16 21:24 00:38 06:25 POC Glucose (mg/dL) 225 H 205 H Total Creatine Kinase 175 H CK-MB (Mass) 2.29 Troponin I, Quant 0.0230 12/03/16 12/03/16 08:33 11:31 POC Glucose (mg/dL) 208 H Total Creatine Kinase 163 CK-MB (Mass) 3.10 Troponin I, Quant 0.0150 Assessment & Plan (1) Abdominal pain Status: Acute (2) Abdominal pain Status: Acute (3) Acute kidney injury Status: Acute (4) Acute on chronic congestive heart failure Status: Acute (5) Ankle sprain Status: Acute (6) Antiplatelet or antithrombotic long-term use Status: Acute (7) Bronchitis Status: Acute (8) Bunion of great toe of left foot Status: Acute (9) CAD (coronary artery disease) Status: Acute (10) COPD (chronic obstructive pulmonary disease) Status: Acute (11) COPD (chronic obstructive pulmonary disease) Status: Acute (12) COPD exacerbation Status: Acute (13) Chest discomfort Status: Acute (14) Chest pain Status: Acute (15) Chest pain Status: Acute (16) Chest pain Status: Acute (17) Chronic congestive heart failure Status: Acute (18) Constipation Status: Acute (19) Diarrhea Status: Acute (20) Dizziness Status: Acute (21) Dyspnea Status: Acute (22) Dysuria Status: Acute (23) Epistaxis Status: Acute (24) Gastritis Status: Acute (25) Gout attack Status: Acute (26) Hematochezia Status: Acute (27) History of ventricular fibrillation Status: Acute (28) Hoarseness of voice Status: Acute (29) Hyperlipidemia Status: Acute (30) Ischemic cardiomyopathy Status: Acute (31) Left upper lobe consolidation Status: Acute (32) Left ventricular systolic dysfunction, chronic Status: Acute (33) Leg edema Status: Acute (34) Migraine Status: Acute (35) Multiple falls Status: Acute (36) Nausea Status: Acute (37) Neuropathy Status: Acute (38) PAD (peripheral artery disease) Status: Acute (39) Pneumonia Status: Acute (40) Pneumonia Status: Acute (41) Prophylactic measure Status: Acute (42) Rash Status: Acute (43) Small bowel obstruction Status: Acute (44) Syncope Status: Acute (45) The administrative codes within the [employer] content you are accessing may have as of 08/06/2013. Please contact your IT Dept/Help Desk and request the latest Regulatory release be installed. IT Dept/Help Desk- Please refer to our FAQ page ([email or web address]) or contact [employer] Customer Support at [email or web address] Status: Acute (46) Upper respiratory infection Status: Acute (47) Vomiting Status: Acute (48) AF (atrial fibrillation) Status: Chronic (49) Anxiety reaction Status: Chronic (50) Bronchiectasis Status: Chronic (51) CAD (coronary artery disease) Status: Chronic (52) CHF (congestive heart failure) Status: Chronic (53) Cough Status: Chronic (54) Diabetes mellitus Status: Chronic (55) Diabetes mellitus type 2 in nonobese Status: Chronic (56) Gout Status: Chronic (57) HTN (hypertension) Status: Chronic (58) Hypothyroidism Status: Chronic (59) Myocardial infarct, old Status: Chronic (60) Status post angioplasty with stent Status: Chronic - Assessment and Plan (Free Text) Plan: Labs reviewed EKG noted [place] ruled out No beta-nathan with 2 COPD Aspirin Brilinta Lovenox Vasotec DuoNeb Cordarone
--- NOTE | 2016-12-03 12:29 | CP.PCM.CON ---
History of Present Illness - History of Present Illness History of Present Illness: Reason for consultation: Shortness of breath and productive cough Patient is a 56 year old male with past medical history of COPD CHF s/ p AICD, HTN, HLD, DM, peripheral neuropathy, and gout who presents with complaint of shortness of breath and productive cough for the past 2 days. He denies any fever, chills, abdominal pain, dysuria, diarrhea, hematachezia, dizziness, or weakness. PMHx: COPD/ emphysema, HLD, HTN, DM, CAD, gout, neuropathy, hypothyroidism PSHx: ACID, cardiac cath, status post RCA stent placement, left foot surgery FamHx: father of [place] @ 49, mother of lung cancer at 56 Social: former 5 ppd smoker for 40 years, quit 4 years ago; formerly used alcohol, quit in 2008 Allergies: moxifloxacin Review of Systems - Review of Systems All systems: reviewed and no additional remarkable complaints except (Shortness of breath and productive cough) Past Patient History - Infectious Disease Hx of Infectious Diseases: None - Tetanus Immunizations Tetanus Immunization: Unknown - Past Medical History & Family History Past Medical History?: Yes - Past Social History Smoking Status: Former Smoker - CARDIAC Hx Cardia Arrhythmia: Yes Hx Congestive Heart Failure: Yes Hx Hypercholesterolemia: Yes Hx Hypertension: Yes Hx Pacemaker: Yes (defibrilator BY [employer]) - PULMONARY Hx Asthma: Yes Hx Bronchitis: Yes Hx Chronic Obstructive Pulmonary Disease (COPD): Yes (EMPHYSEMA) Hx Emphysema: Yes Hx Pneumonia: Yes (2015) - NEUROLOGICAL Hx Neurological Disorder: Yes - HEENT Hx HEENT Problems: No - RENAL Hx Chronic Kidney Disease: No - ENDOCRINE/METABOLIC Hx Hypothyroidism: Yes - HEMATOLOGICAL/ONCOLOGICAL Hx Blood Disorders: No - INTEGUMENTARY Hx Dermatological Problems: No - MUSCULOSKELETAL/RHEUMATOLOGICAL Hx Falls: Yes - GASTROINTESTINAL Hx Gastrointestinal Disorders: Yes - GENITOURINARY/GYNECOLOGICAL Hx Genitourinary Disorders: Yes Hx Prostate Problems: Yes - PSYCHIATRIC Hx Substance Use: Yes (former) - SURGICAL HISTORY Hx Coronary Stent: Yes - ANESTHESIA Hx Anesthesia: Yes Hx Anesthesia Reactions: No Hx Malignant Hyperthermia: No Meds Allergies/Adverse Reactions: Allergies Allergy/AdvReac Type Severity Reaction Status Date / Time moxifloxacin HCl Allergy RASH Verified 12/02/16 15:54 [From Avelox] docosanol [From Abreva] AdvReac Verified 12/02/16 15:54 - Medications Medications: Current Medications Albuterol/Ipratropium (Duoneb 3 Mg/0.5 Mg (3 Ml) Ud) 3 ml INH RQ4 [facility] Alprazolam (Xanax) 1 mg PO TID [facility] Last Admin: 12/03/16 09:45 Dose: 1 mg Amiodarone HCl (Cordarone) 200 mg PO DAILY [facility] Last Admin: 12/03/16 09:43 Dose: 200 mg Aspirin (Ecotrin) 325 mg PO DAILY [facility] Last Admin: 12/03/16 09:43 Dose: 325 mg Docusate Sodium (Colace) 100 mg PO BID [facility] Last Admin: 12/03/16 09:43 Dose: 100 mg Enalapril Maleate (Vasotec) 5 mg PO DAILY [facility] Last Admin: 12/03/16 09:44 Dose: 5 mg Enoxaparin Sodium (Lovenox) 40 mg SC DAILY [facility] Last Admin: 12/03/16 09:44 Dose: 40 mg Famotidine (Pepcid) 20 mg PO DAILY [facility] Last Admin: 12/03/16 09:44 Dose: 20 mg Furosemide (Lasix) 20 mg PO Q12H [facility] Last Admin: 12/03/16 09:43 Dose: 20 mg Gabapentin (Neurontin) 300 mg PO TID [facility] Last Admin: 12/03/16 09:44 Dose: 300 mg Glimepiride (Amaryl) 1 mg PO BID [facility] Last Admin: 12/03/16 10:03 Dose: 1 mg Aztreonam 1 gm/ Sodium (Chloride) 100 mls @ 100 mls/hr IVPB Q8H [facility] Levothyroxine Sodium (Synthroid) 50 mcg PO DAILY@0630 [facility] Last Admin: 12/03/16 05:48 Dose: 50 mcg Methylprednisolone (Solu-Medrol) 40 mg IVP Q8 [facility] Last Admin: 12/03/16 05:48 Dose: 40 mg Rosuvastatin Calcium (Crestor) 5 mg PO HS [facility] Last Admin: 12/02/16 21:39 Dose: 5 mg Ticagrelor (Brilinta) 90 mg PO BID [facility] Last Admin: 12/03/16 09:43 Dose: 90 mg Tramadol HCl (Ultram) 50 mg PO Q6 PRN PRN Reason: Pain, moderate (4-7) Last Admin: 12/03/16 09:53 Dose: 50 mg Physical Exam - Head Exam Head Exam: ATRAUMATIC, NORMOCEPHALIC - Eye Exam Eye Exam: Normal appearance - ENT Exam ENT Exam: Mucous Membranes Moist - Neck Exam Neck exam: Positive for: Normal Inspection - Respiratory Exam Respiratory Exam: Rhonchi - Cardiovascular Exam Cardiovascular Exam: REGULAR RHYTHM - GI/Abdominal Exam GI & Abdominal Exam: Normal Bowel Sounds, Soft - Extremities Exam Extremities exam: Positive for: normal inspection - Neurological Exam Neurological exam: Alert, Oriented x3 Results - Vital Signs Recent Vital Signs: Last Vital Signs Temp 97.6 F 12/03/16 08:05 Pulse 64 12/03/16 08:05 Resp 18 12/03/16 08:05 BP 134/73 12/03/16 09:44 Pulse Ox 96 12/03/16 08:05 - Labs Result Diagrams: 12/02/16 16:33 12/02/16 16:33 Labs: Laboratory Results - last 24 hr 12/02/16 12/03/16 12/03/16 21:24 00:38 06:25 POC Glucose (mg/dL) 225 H 205 H Total Creatine Kinase 175 H CK-MB (Mass) 2.29 Troponin I, Quant 0.0230 12/03/16 12/03/16 08:33 11:31 POC Glucose (mg/dL) 208 H Total Creatine Kinase 163 CK-MB (Mass) 3.10 Troponin I, Quant 0.0150 Assessment & Plan (1) COPD exacerbation Status: Acute Comment: Continue IV steroids, nebulizer treatment and IV antibiotics (2) Status post angioplasty with stent Status: Chronic (3) Left ventricular systolic dysfunction, chronic Status: Acute
[2016-12-03] MEDS ORDERED: Aztreonam 1 GM in Sodium Chloride 0.9% 100 ML IVPB SCH (13:00)
[2016-12-03] MEDS: Promethazine/Cod 6.25mg-10mg/5ml Syr UD PO PRN (18:18)
[2016-12-03] MEDS: guaiFENesin DM 200 mg-20 mg/10 ml UD PO PRN (23:42)
[2016-12-04] MEDS: Promethazine/Cod 6.25mg-10mg/5ml Syr UD PO PRN ×2 (00:46→09:19)
[2016-12-04] MEDS: Albuterol-Ipratrop 3 mg / 0.5 (3 ml) UD INH SCH ×6 (01:03→20:27)
[2016-12-04] MEDS: MethylPREDNISolone 40 mg Vial IVP SCH ×3 (05:26→21:10)
[2016-12-04] MEDS: Levothyroxine 50 MCG TAB PO SCH (06:03)
[2016-12-04] MEDS: Enoxaparin 40 mg Syringe SC SCH (09:19)
[2016-12-04] MEDS: Aspirin 325 mg EC Tablets PO SCH (09:20)
--- NOTE | 2016-12-04 12:28 | CP.PCM.PN ---
Subjective - Date & Time of Evaluation Date of Evaluation: 12/04/16 Time of Evaluation: 11:20 - Subjective Subjective: Patient seen and examined. Still complaining of productive cough and shortness of breath Denies chest pain Complaining of nocturnal snoring and frequent awakening at night Objective - Vital Signs/Intake and Output Vital Signs (last 24 hours): Temp Pulse Resp BP Pulse Ox 98.2 F 61 18 115/72 98 12/04/16 07:10 12/04/16 07:10 12/04/16 07:10 12/04/16 09:19 12/04/16 07:10 Intake and Output: 12/04/16 12/04/16 06:59 18:59 Intake Total 914 Balance 914 - Medications Medications: Current Medications Albuterol/Ipratropium (Duoneb 3 Mg/0.5 Mg (3 Ml) Ud) 3 ml INH RQ4 [facility] Last Admin: 12/04/16 11:14 Dose: 3 ml Alprazolam (Xanax) 1 mg PO TID [facility] Last Admin: 12/04/16 09:20 Dose: 1 mg Amiodarone HCl (Cordarone) 200 mg PO DAILY [facility] Last Admin: 12/04/16 09:21 Dose: 200 mg Aspirin (Ecotrin) 325 mg PO DAILY [facility] Last Admin: 12/04/16 09:20 Dose: 325 mg Docusate Sodium (Colace) 100 mg PO BID [facility] Last Admin: 12/04/16 09:20 Dose: 100 mg Enalapril Maleate (Vasotec) 5 mg PO DAILY [facility] Last Admin: 12/04/16 09:19 Dose: 5 mg Enoxaparin Sodium (Lovenox) 40 mg SC DAILY [facility] Last Admin: 12/04/16 09:19 Dose: 40 mg Famotidine (Pepcid) 20 mg PO DAILY [facility] Last Admin: 12/04/16 09:21 Dose: 20 mg Furosemide (Lasix) 20 mg PO Q12H [facility] Last Admin: 12/04/16 09:19 Dose: 20 mg Gabapentin (Neurontin) 300 mg PO TID [facility] Last Admin: 12/04/16 09:20 Dose: 300 mg Glimepiride (Amaryl) 1 mg PO BID [facility] Last Admin: 12/04/16 09:20 Dose: 1 mg Guaifenesin/Dextromethorphan (Robitussin Dm) 10 ml PO Q4H PRN PRN Reason: Cough and congestion Last Admin: 12/03/16 23:42 Dose: 10 ml Clindamycin Phosphate 600 mg/ (Sodium Chloride) 54 mls @ 100 mls/hr IVPB Q8H [facility] Last Admin: 12/04/16 05:26 Dose: 100 mls/hr Ceftriaxone Sodium 1 gm/ (Sodium Chloride) 100 mls @ 100 mls/hr IVPB DAILY [facility] Last Admin: 12/04/16 09:18 Dose: 100 mls/hr Levothyroxine Sodium (Synthroid) 50 mcg PO DAILY@0630 [facility] Last Admin: 12/04/16 06:03 Dose: 50 mcg Methylprednisolone (Solu-Medrol) 40 mg IVP Q8 [facility] Last Admin: 12/04/16 05:26 Dose: 40 mg Promethazine HCl/Codeine (Phenergan/Codeine Oral Syrup) 5 ml PO Q4 PRN PRN Reason: Cough and congestion Last Admin: 12/04/16 09:19 Dose: 5 ml Rosuvastatin Calcium (Crestor) 5 mg PO HS [facility] Last Admin: 12/03/16 21:14 Dose: 5 mg Ticagrelor (Brilinta) 90 mg PO BID [facility] Last Admin: 12/04/16 09:20 Dose: 90 mg Tramadol HCl (Ultram) 50 mg PO TID [facility] Last Admin: 12/04/16 09:20 Dose: 50 mg - Labs Labs: PT 12.7 SECONDS (9.7-12.2) H 12/02/16 16:33 INR 1.1 12/02/16 16:33 APTT 27 SECONDS (21-34) 12/02/16 16:33 - Head Exam Head Exam: ATRAUMATIC, NORMOCEPHALIC - Eye Exam Eye Exam: Normal appearance - ENT Exam ENT Exam: Mucous Membranes Moist - Neck Exam Neck Exam: Full ROM - Respiratory Exam Respiratory Exam: Clear to Ausculation Bilateral - Cardiovascular Exam Cardiovascular Exam: REGULAR RHYTHM - GI/Abdominal Exam GI & Abdominal Exam: Normal Bowel Sounds - Extremities Exam Extremities Exam: Full ROM, Normal Inspection Assessment and Plan (1) COPD exacerbation Assessment & Plan: Continue steroids, nebulizer treatment, antibiotics and antitussive Status: Acute (2) Status post angioplasty with stent Status: Chronic (3) Left ventricular systolic dysfunction, chronic Status: Acute
--- NOTE | 2016-12-04 12:33 | CP.PCM.PN ---
Subjective - Date & Time of Evaluation Date of Evaluation: 12/04/16 Time of Evaluation: 13:00 - Subjective Subjective: clinically same Objective - Vital Signs/Intake and Output Vital Signs (last 24 hours): Temp Pulse Resp BP Pulse Ox 98.2 F 61 18 115/72 98 12/04/16 07:10 12/04/16 07:10 12/04/16 07:10 12/04/16 09:19 12/04/16 07:10 Intake and Output: 12/04/16 12/04/16 06:59 18:59 Intake Total 914 Balance 914 - Medications Medications: Current Medications Albuterol/Ipratropium (Duoneb 3 Mg/0.5 Mg (3 Ml) Ud) 3 ml INH RQ4 [facility] Last Admin: 12/04/16 11:14 Dose: 3 ml Alprazolam (Xanax) 1 mg PO TID [facility] Last Admin: 12/04/16 09:20 Dose: 1 mg Amiodarone HCl (Cordarone) 200 mg PO DAILY [facility] Last Admin: 12/04/16 09:21 Dose: 200 mg Aspirin (Ecotrin) 325 mg PO DAILY [facility] Last Admin: 12/04/16 09:20 Dose: 325 mg Docusate Sodium (Colace) 100 mg PO BID [facility] Last Admin: 12/04/16 09:20 Dose: 100 mg Enalapril Maleate (Vasotec) 5 mg PO DAILY [facility] Last Admin: 12/04/16 09:19 Dose: 5 mg Enoxaparin Sodium (Lovenox) 40 mg SC DAILY [facility] Last Admin: 12/04/16 09:19 Dose: 40 mg Famotidine (Pepcid) 20 mg PO DAILY [facility] Last Admin: 12/04/16 09:21 Dose: 20 mg Furosemide (Lasix) 20 mg PO Q12H [facility] Last Admin: 12/04/16 09:19 Dose: 20 mg Gabapentin (Neurontin) 300 mg PO TID [facility] Last Admin: 12/04/16 09:20 Dose: 300 mg Glimepiride (Amaryl) 1 mg PO BID [facility] Last Admin: 12/04/16 09:20 Dose: 1 mg Guaifenesin/Dextromethorphan (Robitussin Dm) 10 ml PO Q4H PRN PRN Reason: Cough and congestion Last Admin: 12/03/16 23:42 Dose: 10 ml Clindamycin Phosphate 600 mg/ (Sodium Chloride) 54 mls @ 100 mls/hr IVPB Q8H [facility] Last Admin: 12/04/16 05:26 Dose: 100 mls/hr Ceftriaxone Sodium 1 gm/ (Sodium Chloride) 100 mls @ 100 mls/hr IVPB DAILY [facility] Last Admin: 12/04/16 09:18 Dose: 100 mls/hr Levothyroxine Sodium (Synthroid) 50 mcg PO DAILY@0630 [facility] Last Admin: 12/04/16 06:03 Dose: 50 mcg Methylprednisolone (Solu-Medrol) 40 mg IVP Q8 [facility] Last Admin: 12/04/16 05:26 Dose: 40 mg Rosuvastatin Calcium (Crestor) 5 mg PO HS [facility] Last Admin: 12/03/16 21:14 Dose: 5 mg Ticagrelor (Brilinta) 90 mg PO BID [facility] Last Admin: 12/04/16 09:20 Dose: 90 mg Tramadol HCl (Ultram) 50 mg PO TID [facility] Last Admin: 12/04/16 09:20 Dose: 50 mg - Labs Labs: PT 12.7 SECONDS (9.7-12.2) H 12/02/16 16:33 INR 1.1 12/02/16 16:33 APTT 27 SECONDS (21-34) 12/02/16 16:33 - Constitutional Appears: Well - Head Exam Head Exam: ATRAUMATIC, NORMAL INSPECTION, NORMOCEPHALIC - Eye Exam Eye Exam: EOMI, Normal appearance, PERRL Pupil Exam: NORMAL ACCOMODATION, PERRL - ENT Exam ENT Exam: Mucous Membranes Moist, Normal Exam - Neck Exam Neck Exam: Full ROM, Normal Inspection. absent: Lymphadenopathy - Respiratory Exam Respiratory Exam: Decreased Breath Sounds - Cardiovascular Exam Cardiovascular Exam: REGULAR RHYTHM, +S1, +S2 - GI/Abdominal Exam GI & Abdominal Exam: Soft, Diminished Bowel Sounds - Rectal Exam Rectal Exam: Deferred Assessment and Plan (1) Abdominal pain Status: Acute (2) Abdominal pain Status: Acute (3) Acute kidney injury Status: Acute (4) Acute on chronic congestive heart failure Status: Acute (5) Ankle sprain Status: Acute (6) Antiplatelet or antithrombotic long-term use Status: Acute (7) Bronchitis Status: Acute (8) Bunion of great toe of left foot Status: Acute (9) CAD (coronary artery disease) Status: Acute (10) COPD (chronic obstructive pulmonary disease) Status: Acute (11) COPD (chronic obstructive pulmonary disease) Status: Acute (12) COPD exacerbation Status: Acute (13) Chest discomfort Status: Acute (14) Chest pain Status: Acute (15) Chest pain Status: Acute (16) Chest pain Status: Acute (17) Chronic congestive heart failure Status: Acute (18) Constipation Status: Acute (19) Diarrhea Status: Acute (20) Dizziness Status: Acute (21) Dyspnea Status: Acute (22) Dysuria Status: Acute (23) Epistaxis Status: Acute (24) Gastritis Status: Acute (25) Gout attack Status: Acute (26) Hematochezia Status: Acute (27) History of ventricular fibrillation Status: Acute (28) Hoarseness of voice Status: Acute (29) Hyperlipidemia Status: Acute (30) Ischemic cardiomyopathy Status: Acute (31) Left upper lobe consolidation Status: Acute (32) Left ventricular systolic dysfunction, chronic Status: Acute (33) Leg edema Status: Acute (34) Migraine Status: Acute (35) Multiple falls Status: Acute (36) Nausea Status: Acute (37) Neuropathy Status: Acute (38) PAD (peripheral artery disease) Status: Acute (39) Pneumonia Status: Acute (40) Pneumonia Status: Acute (41) Prophylactic measure Status: Acute (42) Rash Status: Acute (43) Small bowel obstruction Status: Acute (44) Syncope Status: Acute (45) The administrative codes within the [employer] content you are accessing may have as of 08/06/2013. Please contact your IT Dept/Help Desk and request the latest Regulatory release be installed. IT Dept/Help Desk- Please refer to our FAQ page ([email or web address]) or contact [employer] Customer Support at [email or web address] Status: Acute (46) Upper respiratory infection Status: Acute (47) Vomiting Status: Acute (48) AF (atrial fibrillation) Status: Chronic (49) Anxiety reaction Status: Chronic (50) Bronchiectasis Status: Chronic (51) CAD (coronary artery disease) Status: Chronic (52) CHF (congestive heart failure) Status: Chronic (53) Cough Status: Chronic (54) Diabetes mellitus Status: Chronic (55) Diabetes mellitus type 2 in nonobese Status: Chronic (56) Gout Status: Chronic (57) HTN (hypertension) Status: Chronic (58) Hypothyroidism Status: Chronic (59) Myocardial infarct, old Status: Chronic (60) Status post angioplasty with stent Status: Chronic - Assessment and Plan (Free Text) Plan: Cardio on board Pulmonary on board Consider ENT evaluation DuoNeb Aspirin Brilinta Clindamycin Ceftriaxone Synthyroid Solu-Medrol Bronchodilator
[2016-12-04] MEDS: guaiFENesin DM 200 mg-20 mg/10 ml UD PO PRN ×2 (14:46→22:58)
--- NOTE | 2016-12-04 16:49 | CP.PCM.CON ---
History of Present Illness - History of Present Illness History of Present Illness: 56 year old male with past medical history of COPD CHF s/p AICD, HTN, HLD, DM, peripheral neuropathy, and gout who presents with complaint of shortness of breath and productive cough for the past 2 days. He denies any fever, chills, abdominal pain, dysuria, diarrhea, hematachezia, dizziness, or weakness. PMHx: COPD/ emphysema, HLD, HTN, DM, CAD, gout, neuropathy, hypothyroidism PSHx: ACID, cardiac cath, status post RCA stent placement, left foot surgery FamHx: father of CT @ 49, mother of lung cancer at 56 Social: former 5 ppd smoker for 40 years, quit 4 years ago; formerly used alcohol, quit in 2008 Allergies: moxifloxacin Review of Systems - Review of Systems All systems: reviewed and no additional remarkable complaints except - Constitutional Constitutional: As Per HPI - EENT Eyes: absent: As Per HPI, Blind Spots, Blurred Vision, Change in Vision, Decreased Night Vision, Diplopia, Discharge, Dry Eye, Exophthalmos, Floaters, Irritation, Itchy Eyes, Loss of Peripheral Vision, Pain, Photophobia, Requires Corrective Lenses, Sees Flashes, Spots in Vision, Tunnel Vision, Other Visual Disturbances, Loss of Vision, Other Ears: absent: As Per HPI, Decreased Hearing, Ear Discharge, Ear Pain, Tinnitus, Abnormal Hearing, Disequilibrium, Dizziness, Other Nose/Mouth/Throat: absent: As Per HPI, Epistaxis, Nasal Congestion, Nasal Discharge, Nasal Obstruction, Nasal Trauma, Nose Pain, Post Nasal Drip, Sinus Pain, Sinus Pressure, Bleeding Gums, Change in Voice, Dental Pain, Dry Mouth, Dysphagia, Halitosis, Hoarsness, Lip Swelling, Mouth Lesions, Mouth Pain, Odynophagia, Sore Throat, Throat Swelling, Tongue Swelling, Facial Pain, Neck Pain, Neck Mass, Other - Cardiovascular Cardiovascular: As Per HPI - Respiratory Respiratory: As Per HPI, Cough. absent: Hemoptysis - Gastrointestinal Gastrointestinal: absent: As Per HPI, Abdominal Pain, Belching, Bloating, Change in Bowel Habits, Change in Stool Character, Coffee Ground Emesis, Constipation, Cramping, Diarrhea, Dyspepsia, Dysphagia, Early Satiety, Excessive Flatus, Fecal Incontinence, Heartburn, Hematemesis, Hematochezia, Loose Stools, Melena, Nausea, Odynophagia, Temesmus, Vomiting, Other - Genitourinary Genitourinary: absent: As Per HPI, Change in Urinary Stream, Difficulty Urinating, Dysuria, Flank Pain, Hematuria, Pyuria, Nocturia, Urinary Incontinence, Urinary Frequency, Urinary Hesitance, Urinary Urgency, Voiding Freq/Small Amts, Freq UTI, Hx Renal/Bladder Calculi, Hx /Renal Surgery, Bladder Distension, Other - Musculoskeletal Musculoskeletal: absent: As Per HPI, Abnormal Gait, Arthralgias, Atrophy, Back Pain, Deformity, Joint Swelling, Limited Range of Motion, Loss of Height, Muscle Cramps, Muscle Weakness, Myalgias, Neck Pain, Numbness, Radiating Pain into Limb, Stiffness, Tingling, Other - Integumentary Integumentary: absent: As Per HPI, Acne, Alopecia, Bleeding Lesions, Change in Hair, Change in Nails, Change in Pigmentation, Changing Lesions, Dry Skin, Erythema, Furuncle, Hirsutism, Lesions, New Lesions, Non-Healing Lesions, Photosensitivity, Pruritus, Rash, Skin Pain, Skin Ulcer, Sores, Striae, Swelling , Unusual Bruising, Wounds, Jaundice, Other - Psychiatric Psychiatric: absent: As Per HPI, Abnormal Sleep Pattern, Anhedonia, Anxiety, Auditory Hallucinations, Behavioral Changes, Change in Appetite, Change in Libido, Confusion, Depression, Difficulty Concentrating, Hallucinations, Homicidal Ideation, Hopelessness, Irritability, Memory Loss, Mood Swings, Panic Attacks, Paranoia, Suicidal Ideation, Visual Hallucinations, Tactile Hallucinations, Other - Endocrine Endocrine: As Per HPI - Hematologic/Lymphatic Hematologic: absent: As Per HPI, Easy Bleeding, Easy Bruising, Lymphadenopathy, Other Past Patient History - Infectious Disease Hx of Infectious Diseases: None - Tetanus Immunizations Tetanus Immunization: Unknown - Past Medical History & Family History Past Medical History?: Yes - Past Social History Smoking Status: Former Smoker - CARDIAC Hx Cardia Arrhythmia: Yes Hx Congestive Heart Failure: Yes Hx Hypercholesterolemia: Yes Hx Hypertension: Yes Hx Pacemaker: Yes (defibrilator BY [employer]) - PULMONARY Hx Asthma: Yes Hx Bronchitis: Yes Hx Chronic Obstructive Pulmonary Disease (COPD): Yes (EMPHYSEMA) Hx Emphysema: Yes Hx Pneumonia: Yes (2016) - NEUROLOGICAL Hx Neurological Disorder: Yes - HEENT Hx HEENT Problems: No - RENAL Hx Chronic Kidney Disease: No - ENDOCRINE/METABOLIC Hx Hypothyroidism: Yes - HEMATOLOGICAL/ONCOLOGICAL Hx Blood Disorders: No - INTEGUMENTARY Hx Dermatological Problems: No - MUSCULOSKELETAL/RHEUMATOLOGICAL Hx Falls: Yes - GASTROINTESTINAL Hx Gastrointestinal Disorders: Yes - GENITOURINARY/GYNECOLOGICAL Hx Genitourinary Disorders: Yes Hx Prostate Problems: Yes - PSYCHIATRIC Hx Substance Use: Yes (former) - SURGICAL HISTORY Hx Coronary Stent: Yes - ANESTHESIA Hx Anesthesia: Yes Hx Anesthesia Reactions: No Hx Malignant Hyperthermia: No Meds Allergies/Adverse Reactions: Allergies Allergy/AdvReac Type Severity Reaction Status Date / Time moxifloxacin HCl Allergy RASH Verified 12/02/16 15:54 [From Avelox] docosanol [From Abreva] AdvReac Verified 12/02/16 15:54 - Medications Medications: Current Medications Albuterol/Ipratropium (Duoneb 3 Mg/0.5 Mg (3 Ml) Ud) 3 ml INH RQ4 [facility] Last Admin: 12/04/16 16:03 Dose: 3 ml Alprazolam (Xanax) 1 mg PO TID [facility] Last Admin: 12/04/16 13:40 Dose: 1 mg Amiodarone HCl (Cordarone) 200 mg PO DAILY [facility] [place] Last Admin: 12/04/16 09:21 Dose: 200 mg Aspirin (Ecotrin) 325 mg PO DAILY [facility] [place] Last Admin: 12/04/16 09:20 Dose: 325 mg Docusate Sodium (Colace) 100 mg PO BID [facility] [place] Last Admin: 12/04/16 09:20 Dose: 100 mg Enalapril Maleate (Vasotec) 5 mg PO DAILY [facility] Last Admin: 12/04/16 09:19 Dose: 5 mg Enoxaparin Sodium (Lovenox) 40 mg SC DAILY [facility] [place] Last Admin: 12/04/16 09:19 Dose: 40 mg Famotidine (Pepcid) 20 mg PO DAILY [facility] [place] Last Admin: 12/04/16 09:21 Dose: 20 mg Furosemide (Lasix) 20 mg PO Q12H [facility] Last Admin: 12/04/16 09:19 Dose: 20 mg Gabapentin (Neurontin) 300 mg PO TID [facility] [place] Last Admin: 12/04/16 13:40 Dose: 300 mg Glimepiride (Amaryl) 1 mg PO BID [facility] [place] Last Admin: 12/04/16 09:20 Dose: 1 mg Guaifenesin/Dextromethorphan (Robitussin Dm) 10 ml PO Q4H PRN PRN Reason: Cough and congestion Last Admin: 12/04/16 14:46 Dose: 10 ml Clindamycin Phosphate 600 mg/ (Sodium Chloride) 54 mls @ 100 mls/hr IVPB Q8H [facility] [place] Last Admin: 12/04/16 13:39 Dose: 100 mls/hr Ceftriaxone Sodium 1 gm/ (Sodium Chloride) 100 mls @ 100 mls/hr IVPB DAILY [facility] [place] Last Admin: 12/04/16 09:18 Dose: 100 mls/hr Levothyroxine Sodium (Synthroid) 50 mcg PO DAILY@0630 [facility] [place] Last Admin: 12/04/16 06:03 Dose: 50 mcg Methylprednisolone (Solu-Medrol) 40 mg IVP Q8 [facility] [place] Last Admin: 12/04/16 13:40 Dose: 40 mg Rosuvastatin Calcium (Crestor) 5 mg PO HS [facility] [place] Last Admin: 12/03/16 21:14 Dose: 5 mg Ticagrelor (Brilinta) 90 mg PO BID [facility] [place] Last Admin: 12/04/16 09:20 Dose: 90 mg Tramadol HCl (Ultram) 50 mg PO TID [facility] Last Admin: 12/04/16 13:41 Dose: 50 mg Physical Exam - Constitutional Appears: Non-toxic, Chronically Ill - Head Exam Head Exam: NORMOCEPHALIC - Eye Exam Eye Exam: PERRL. absent: Scleral icterus - ENT Exam ENT Exam: Mucous Membranes Dry, Normal External Ear Exam - Neck Exam Neck exam: Negative for: Lymphadenopathy - Respiratory Exam Respiratory Exam: Decreased Breath Sounds, Prolonged Expiratory Phase, Rhonchi - Cardiovascular Exam Cardiovascular Exam: REGULAR RHYTHM, +S1, +S2 - GI/Abdominal Exam GI & Abdominal Exam: Diminished Bowel Sounds, Soft. absent: Tenderness - Rectal Exam Rectal Exam: Deferred - Exam Exam: NORMAL INSPECTION - Extremities Exam Extremities exam: Positive for: pedal pulses present. Negative for: calf tenderness, pedal edema, tenderness - Back Exam Back exam: absent: CVA tenderness (L), CVA tenderness (R), paraspinal tenderness - Neurological Exam Neurological exam: Alert, CN II-XII Intact, Oriented x3, Reflexes Normal - Psychiatric Exam Psychiatric exam: Normal Mood - Skin Skin Exam: Dry, Intact Results - Vital Signs Recent Vital Signs: Last Vital Signs Temp 98.2 F 12/04/16 07:10 Pulse 61 12/04/16 07:10 Resp 18 12/04/16 07:10 BP 115/72 12/04/16 09:19 Pulse Ox 98 12/04/16 07:10 - Labs Result Diagrams: 12/02/16 16:33 12/02/16 16:33 Labs: Laboratory Results - last 24 hr 12/03/16 12/04/16 12/04/16 21:33 01:12 06:19 POC Glucose (mg/dL) 174 H 263 H Total Creatine Kinase 149 CK-MB (Mass) 3.77 H Troponin I, Quant 0.0280 12/04/16 11:20 POC Glucose (mg/dL) 257 H Total Creatine Kinase CK-MB (Mass) Troponin I, Quant Assessment & Plan (1) COPD (chronic obstructive pulmonary disease) Status: Acute (2) Chest pain Status: Acute (3) Status post angioplasty with stent Status: Chronic (4) Abdominal pain Status: Acute (5) Acute kidney injury Status: Acute (6) Acute on chronic congestive heart failure Status: Acute (7) Chronic congestive heart failure Status: Acute (8) Hoarseness of voice Status: Acute (9) Ischemic cardiomyopathy Status: Acute (10) Diabetes mellitus type 2 in nonobese Status: Chronic (11) HTN (hypertension) Status: Chronic - Assessment and Plan (Free Text) Assessment: acute exac copd hx cad s/p aicd pulm on board- c/o sore throat unclear if this is anginal equivalent consider ENT eval cardio on board
--- NOTE | 2016-12-04 22:41 | CP.PCM.PN ---
Subjective - Date & Time of Evaluation Date of Evaluation: 12/04/16 Time of Evaluation: 18:00 - Subjective Subjective: asking for cardiac cath, dr marinelli Objective - Vital Signs/Intake and Output Vital Signs (last 24 hours): Temp Pulse Resp BP Pulse Ox 98.2 F 63 20 128/74 97 12/04/16 17:13 12/04/16 17:13 12/04/16 17:13 12/04/16 21:10 12/04/16 17:13 Intake and Output: 12/04/16 12/05/16 18:59 06:59 Intake Total 750 Balance 750 - Medications Medications: Current Medications Albuterol/Ipratropium (Duoneb 3 Mg/0.5 Mg (3 Ml) Ud) 3 ml INH RQ4 [facility] Last Admin: 12/04/16 20:27 Dose: 3 ml Alprazolam (Xanax) 1 mg PO TID [facility] Last Admin: 12/04/16 17:41 Dose: 1 mg Amiodarone HCl (Cordarone) 200 mg PO DAILY [facility] Last Admin: 12/04/16 09:21 Dose: 200 mg Aspirin (Ecotrin) 325 mg PO DAILY [facility] Last Admin: 12/04/16 09:20 Dose: 325 mg Docusate Sodium (Colace) 100 mg PO BID [facility] Last Admin: 12/04/16 17:40 Dose: 100 mg Enalapril Maleate (Vasotec) 5 mg PO DAILY [facility] Last Admin: 12/04/16 09:19 Dose: 5 mg Enoxaparin Sodium (Lovenox) 40 mg SC DAILY [facility] Last Admin: 12/04/16 09:19 Dose: 40 mg Famotidine (Pepcid) 20 mg PO DAILY [facility] Last Admin: 12/04/16 09:21 Dose: 20 mg Furosemide (Lasix) 20 mg PO Q12H [facility] Last Admin: 12/04/16 21:10 Dose: 20 mg Gabapentin (Neurontin) 300 mg PO TID [facility] Last Admin: 12/04/16 17:42 Dose: 300 mg Glimepiride (Amaryl) 1 mg PO BID [facility] Last Admin: 12/04/16 17:40 Dose: 1 mg Guaifenesin/Dextromethorphan (Robitussin Dm) 10 ml PO Q4H PRN PRN Reason: Cough and congestion Last Admin: 12/04/16 14:46 Dose: 10 ml Clindamycin Phosphate 600 mg/ (Sodium Chloride) 54 mls @ 100 mls/hr IVPB Q8H [facility] Last Admin: 12/04/16 21:09 Dose: 100 mls/hr Ceftriaxone Sodium 1 gm/ (Sodium Chloride) 100 mls @ 100 mls/hr IVPB DAILY [facility] Last Admin: 12/04/16 09:18 Dose: 100 mls/hr Levothyroxine Sodium (Synthroid) 50 mcg PO DAILY@0630 [facility] Last Admin: 12/04/16 06:03 Dose: 50 mcg Methylprednisolone (Solu-Medrol) 40 mg IVP Q8 [facility] Last Admin: 12/04/16 21:10 Dose: 40 mg Rosuvastatin Calcium (Crestor) 5 mg PO HS [facility] Last Admin: 12/04/16 21:10 Dose: 5 mg Ticagrelor (Brilinta) 90 mg PO BID [facility] Last Admin: 12/04/16 17:40 Dose: 90 mg Tramadol HCl (Ultram) 50 mg PO TID [facility] Last Admin: 12/04/16 17:41 Dose: 50 mg - Labs Labs: PT 12.7 SECONDS (9.7-12.2) H 12/02/16 16:33 INR 1.1 12/02/16 16:33 APTT 27 SECONDS (21-34) 12/02/16 16:33 - Constitutional Appears: Non-toxic - Head Exam Head Exam: ATRAUMATIC - Eye Exam Eye Exam: EOMI - ENT Exam ENT Exam: Mucous Membranes Moist - Neck Exam Neck Exam: absent: Lymphadenopathy, Tenderness - Respiratory Exam Respiratory Exam: Clear to Ausculation Bilateral, Rhonchi, Wheezes - Cardiovascular Exam Cardiovascular Exam: REGULAR RHYTHM, Murmur. absent: Gallop - GI/Abdominal Exam GI & Abdominal Exam: Normal Bowel Sounds. absent: Organomegaly - Rectal Exam Rectal Exam: Deferred - Extremities Exam Extremities Exam: Normal Capillary Refill. absent: Calf Tenderness - Neurological Exam Neurological Exam: Alert, Oriented x3 - Psychiatric Exam Psychiatric exam: Anxious - Skin Skin Exam: Dry Assessment and Plan (1) Chest pain Status: Acute (2) Status post angioplasty with stent Status: Chronic (3) COPD (chronic obstructive pulmonary disease) Status: Acute (4) Ischemic cardiomyopathy Status: Acute (5) Diabetes mellitus type 2 in nonobese Status: Chronic
[2016-12-05] MEDS: Albuterol-Ipratrop 3 mg / 0.5 (3 ml) UD INH SCH ×6 (00:18→23:48)
[2016-12-05] MEDS: MethylPREDNISolone 40 mg Vial IVP SCH ×3 (05:02→21:42)
[2016-12-05] MEDS: Levothyroxine 50 MCG TAB PO SCH (05:42)
[2016-12-05] MEDS: Enoxaparin 40 mg Syringe SC SCH (09:39)
[2016-12-05] MEDS: Aspirin 325 mg EC Tablets PO SCH (09:39)
--- NOTE | 2016-12-05 11:46 | CP.PCM.PN ---
Subjective - Date & Time of Evaluation Date of Evaluation: 12/05/16 Time of Evaluation: 07:00 - Subjective Subjective: c/o choking sensation for bronch with dr cai Objective - Vital Signs/Intake and Output Vital Signs (last 24 hours): Temp Pulse Resp BP Pulse Ox 97.6 F 69 18 122/82 98 12/05/16 07:40 12/05/16 07:40 12/05/16 07:40 12/05/16 09:40 12/05/16 07:40 Intake and Output: 12/05/16 12/05/16 06:59 18:59 Intake Total 480 Balance 480 - Medications Medications: Current Medications Albuterol/Ipratropium (Duoneb 3 Mg/0.5 Mg (3 Ml) Ud) 3 ml INH RQ4 [facility] Last Admin: 12/05/16 11:23 Dose: 3 ml Alprazolam (Xanax) 1 mg PO TID [facility] Last Admin: 12/05/16 09:40 Dose: 1 mg Amiodarone HCl (Cordarone) 200 mg PO DAILY [facility] Last Admin: 12/05/16 09:39 Dose: 200 mg Aspirin (Ecotrin) 325 mg PO DAILY [facility] Last Admin: 12/05/16 09:39 Dose: 325 mg Docusate Sodium (Colace) 100 mg PO BID [facility] Last Admin: 12/05/16 09:38 Dose: 100 mg Enalapril Maleate (Vasotec) 5 mg PO DAILY [facility] Last Admin: 12/05/16 09:40 Dose: 5 mg Enoxaparin Sodium (Lovenox) 40 mg SC DAILY [facility] Last Admin: 12/05/16 09:39 Dose: 40 mg Famotidine (Pepcid) 20 mg PO DAILY [facility] Last Admin: 12/05/16 09:40 Dose: 20 mg Furosemide (Lasix) 20 mg PO Q12H [facility] Last Admin: 12/05/16 09:39 Dose: 20 mg Gabapentin (Neurontin) 300 mg PO TID [facility] Last Admin: 12/05/16 09:39 Dose: 300 mg Glimepiride (Amaryl) 1 mg PO BID [facility] Last Admin: 12/05/16 09:38 Dose: 1 mg Guaifenesin/Dextromethorphan (Robitussin Dm) 10 ml PO Q4H PRN PRN Reason: Cough and congestion Last Admin: 12/04/16 22:58 Dose: 10 ml Clindamycin Phosphate 600 mg/ (Sodium Chloride) 54 mls @ 100 mls/hr IVPB Q8H [facility] Last Admin: 12/05/16 05:03 Dose: 100 mls/hr Ceftriaxone Sodium 1 gm/ (Sodium Chloride) 100 mls @ 100 mls/hr IVPB DAILY [facility] Last Admin: 12/05/16 09:40 Dose: 100 mls/hr Levothyroxine Sodium (Synthroid) 50 mcg PO DAILY@0630 [facility] Last Admin: 12/05/16 05:42 Dose: 50 mcg Methylprednisolone (Solu-Medrol) 40 mg IVP Q8 [facility] Last Admin: 12/05/16 05:02 Dose: 40 mg Rosuvastatin Calcium (Crestor) 5 mg PO HS [facility] Last Admin: 12/04/16 21:10 Dose: 5 mg Ticagrelor (Brilinta) 90 mg PO BID [facility] Last Admin: 12/05/16 09:38 Dose: 90 mg Tramadol HCl (Ultram) 50 mg PO TID [facility] Last Admin: 12/05/16 09:40 Dose: 50 mg - Labs Labs: PT 12.7 SECONDS (9.7-12.2) H 12/02/16 16:33 INR 1.1 12/02/16 16:33 APTT 27 SECONDS (21-34) 12/02/16 16:33 - Constitutional Appears: Non-toxic - Head Exam Head Exam: ATRAUMATIC - Eye Exam Eye Exam: EOMI, PERRL - ENT Exam ENT Exam: Mucous Membranes Dry - Neck Exam Neck Exam: absent: Lymphadenopathy - Respiratory Exam Respiratory Exam: Decreased Breath Sounds - Cardiovascular Exam Cardiovascular Exam: REGULAR RHYTHM - GI/Abdominal Exam GI & Abdominal Exam: Distended, Soft - Rectal Exam Rectal Exam: Deferred - Exam Exam: NORMAL INSPECTION - Extremities Exam Extremities Exam: absent: Pedal Edema - Back Exam Back Exam: absent: CVA tenderness (L), CVA tenderness (R) - Neurological Exam Neurological Exam: Alert, Awake, Oriented x3 - Psychiatric Exam Psychiatric exam: Normal Mood - Skin Skin Exam: Dry Assessment and Plan (1) COPD (chronic obstructive pulmonary disease) Status: Acute (2) Chest pain Status: Acute (3) Status post angioplasty with stent Status: Chronic (4) Abdominal pain Status: Acute (5) Acute kidney injury Status: Acute (6) Acute on chronic congestive heart failure Status: Acute (7) Chronic congestive heart failure Status: Acute (8) Hoarseness of voice Status: Acute (9) Ischemic cardiomyopathy Status: Acute (10) Diabetes mellitus type 2 in nonobese Status: Chronic (11) HTN (hypertension) Status: Chronic
--- NOTE | 2016-12-05 12:23 | CP.PCM.PN ---
Subjective - Date & Time of Evaluation Date of Evaluation: 12/05/16 Time of Evaluation: 12:00 - Subjective Subjective: For bronchoscopy, with choking sensation. We will evaluate with invasive cardiology for possible Catheterization Objective - Vital Signs/Intake and Output Vital Signs (last 24 hours): Temp Pulse Resp BP Pulse Ox 97.6 F 69 18 122/82 98 12/05/16 07:40 12/05/16 07:40 12/05/16 07:40 12/05/16 09:40 12/05/16 07:40 Intake and Output: 12/05/16 12/05/16 06:59 18:59 Intake Total 480 Balance 480 - Medications Medications: Current Medications Albuterol/Ipratropium (Duoneb 3 Mg/0.5 Mg (3 Ml) Ud) 3 ml INH RQ4 [facility] Last Admin: 12/05/16 11:23 Dose: 3 ml Alprazolam (Xanax) 1 mg PO TID [facility] Last Admin: 12/05/16 09:40 Dose: 1 mg Amiodarone HCl (Cordarone) 200 mg PO DAILY [facility] Last Admin: 12/05/16 09:39 Dose: 200 mg Aspirin (Ecotrin) 325 mg PO DAILY [facility] Last Admin: 12/05/16 09:39 Dose: 325 mg Docusate Sodium (Colace) 100 mg PO BID [facility] Last Admin: 12/05/16 09:38 Dose: 100 mg Enalapril Maleate (Vasotec) 5 mg PO DAILY [facility] Last Admin: 12/05/16 09:40 Dose: 5 mg Enoxaparin Sodium (Lovenox) 40 mg SC DAILY [facility] Last Admin: 12/05/16 09:39 Dose: 40 mg Famotidine (Pepcid) 20 mg PO DAILY [facility] Last Admin: 12/05/16 09:40 Dose: 20 mg Furosemide (Lasix) 20 mg PO Q12H [facility] Last Admin: 12/05/16 09:39 Dose: 20 mg Gabapentin (Neurontin) 300 mg PO TID [facility] Last Admin: 12/05/16 09:39 Dose: 300 mg Glimepiride (Amaryl) 1 mg PO BID [facility] Last Admin: 12/05/16 09:38 Dose: 1 mg Guaifenesin/Dextromethorphan (Robitussin Dm) 10 ml PO Q4H PRN PRN Reason: Cough and congestion Last Admin: 12/04/16 22:58 Dose: 10 ml Clindamycin Phosphate 600 mg/ (Sodium Chloride) 54 mls @ 100 mls/hr IVPB Q8H [facility] Last Admin: 12/05/16 05:03 Dose: 100 mls/hr Ceftriaxone Sodium 1 gm/ (Sodium Chloride) 100 mls @ 100 mls/hr IVPB DAILY [facility] Last Admin: 12/05/16 09:40 Dose: 100 mls/hr Levothyroxine Sodium (Synthroid) 50 mcg PO DAILY@0630 [facility] Last Admin: 12/05/16 05:42 Dose: 50 mcg Methylprednisolone (Solu-Medrol) 40 mg IVP Q8 [facility] Last Admin: 12/05/16 05:02 Dose: 40 mg Rosuvastatin Calcium (Crestor) 5 mg PO HS [facility] Last Admin: 12/04/16 21:10 Dose: 5 mg Ticagrelor (Brilinta) 90 mg PO BID [facility] Last Admin: 12/05/16 09:38 Dose: 90 mg Tramadol HCl (Ultram) 50 mg PO TID [facility] Last Admin: 12/05/16 09:40 Dose: 50 mg - Labs Labs: PT 12.7 SECONDS (9.7-12.2) H 12/02/16 16:33 INR 1.1 12/02/16 16:33 APTT 27 SECONDS (21-34) 12/02/16 16:33 - Constitutional Appears: Non-toxic - Head Exam Head Exam: ATRAUMATIC - Eye Exam Eye Exam: EOMI - ENT Exam ENT Exam: Mucous Membranes Moist - Neck Exam Neck Exam: absent: Lymphadenopathy, Thyromegaly - Respiratory Exam Respiratory Exam: Clear to Ausculation Bilateral, Wheezes - Cardiovascular Exam Cardiovascular Exam: REGULAR RHYTHM - GI/Abdominal Exam GI & Abdominal Exam: Normal Bowel Sounds. absent: Organomegaly - Rectal Exam Rectal Exam: Deferred - Extremities Exam Extremities Exam: Normal Capillary Refill. absent: Calf Tenderness - Neurological Exam Neurological Exam: Alert, Oriented x3 - Psychiatric Exam Psychiatric exam: Anxious - Skin Skin Exam: Dry Assessment and Plan (1) Chest pain Status: Acute (2) Status post angioplasty with stent Status: Chronic (3) COPD (chronic obstructive pulmonary disease) Status: Acute (4) Ischemic cardiomyopathy Status: Acute (5) Diabetes mellitus type 2 in nonobese Status: Chronic
[2016-12-05] MEDS: guaiFENesin DM 200 mg-20 mg/10 ml UD PO PRN ×2 (14:19→21:54)
--- NOTE | 2016-12-05 14:39 | CARD ---
APPROVED REPORT EKG Measurement Heart [id number] <Conclusion> AV dual-paced rhythm Abnormal ECG
--- NOTE | 2016-12-05 16:09 | CP.PCM.PN ---
Objective - Vital Signs/Intake and Output Vital Signs (last 24 hours): Temp Pulse Resp BP Pulse Ox 97.6 F 69 18 122/82 98 12/05/16 07:40 12/05/16 07:40 12/05/16 07:40 12/05/16 09:40 12/05/16 07:40 Intake and Output: 12/05/16 12/05/16 06:59 18:59 Intake Total 480 Balance 480 - Medications Medications: Current Medications Albuterol/Ipratropium (Duoneb 3 Mg/0.5 Mg (3 Ml) Ud) 3 ml INH RQ4 [facility] Last Admin: 12/05/16 15:50 Dose: 3 ml Alprazolam (Xanax) 1 mg PO TID [facility] Last Admin: 12/05/16 13:49 Dose: 1 mg Amiodarone HCl (Cordarone) 200 mg PO DAILY [facility] Last Admin: 12/05/16 09:39 Dose: 200 mg Aspirin (Ecotrin) 325 mg PO DAILY [facility] Last Admin: 12/05/16 09:39 Dose: 325 mg Docusate Sodium (Colace) 100 mg PO BID [facility] Last Admin: 12/05/16 09:38 Dose: 100 mg Enalapril Maleate (Vasotec) 5 mg PO DAILY [facility] Last Admin: 12/05/16 09:40 Dose: 5 mg Enoxaparin Sodium (Lovenox) 40 mg SC DAILY [facility] Last Admin: 12/05/16 09:39 Dose: 40 mg Famotidine (Pepcid) 20 mg PO DAILY [facility] Last Admin: 12/05/16 09:40 Dose: 20 mg Furosemide (Lasix) 20 mg PO Q12H [facility] Last Admin: 12/05/16 09:39 Dose: 20 mg Gabapentin (Neurontin) 300 mg PO TID [facility] Last Admin: 12/05/16 13:48 Dose: 300 mg Glimepiride (Amaryl) 1 mg PO BID [facility] Last Admin: 12/05/16 09:38 Dose: 1 mg Guaifenesin/Dextromethorphan (Robitussin Dm) 10 ml PO Q4H PRN PRN Reason: Cough and congestion Last Admin: 12/05/16 14:19 Dose: 10 ml Clindamycin Phosphate 600 mg/ (Sodium Chloride) 54 mls @ 100 mls/hr IVPB Q8H [facility] Last Admin: 12/05/16 13:48 Dose: 100 mls/hr Ceftriaxone Sodium 1 gm/ (Sodium Chloride) 100 mls @ 100 mls/hr IVPB DAILY [facility] Last Admin: 12/05/16 09:40 Dose: 100 mls/hr Levothyroxine Sodium (Synthroid) 50 mcg PO DAILY@0630 [facility] Last Admin: 12/05/16 05:42 Dose: 50 mcg Methylprednisolone (Solu-Medrol) 40 mg IVP Q8 [facility] Last Admin: 12/05/16 13:48 Dose: 40 mg Rosuvastatin Calcium (Crestor) 5 mg PO HS [facility] Last Admin: 12/04/16 21:10 Dose: 5 mg Ticagrelor (Brilinta) 90 mg PO BID [facility] Last Admin: 12/05/16 09:38 Dose: 90 mg Tramadol HCl (Ultram) 50 mg PO TID [facility] Last Admin: 12/05/16 13:48 Dose: 50 mg - Labs Labs: PT 12.7 SECONDS (9.7-12.2) H 12/02/16 16:33 INR 1.1 12/02/16 16:33 APTT 27 SECONDS (21-34) 12/02/16 16:33 Assessment and Plan (1) COPD exacerbation Status: Acute (2) Status post angioplasty with stent Status: Chronic (3) Left ventricular systolic dysfunction, chronic Status: Acute
--- NOTE | 2016-12-05 18:22 | CP.PCM.PN ---
Subjective - Date & Time of Evaluation Date of Evaluation: 12/05/16 Time of Evaluation: 11:20 - Subjective Subjective: clinically same Objective - Vital Signs/Intake and Output Vital Signs (last 24 hours): Temp Pulse Resp BP Pulse Ox 97.6 F 69 20 116/72 98 12/05/16 15:00 12/05/16 15:00 12/05/16 15:00 12/05/16 15:00 12/05/16 15:00 Intake and Output: 12/05/16 12/05/16 06:59 18:59 Intake Total 480 Balance 480 - Medications Medications: Current Medications Albuterol/Ipratropium (Duoneb 3 Mg/0.5 Mg (3 Ml) Ud) 3 ml INH RQ4 [facility] Last Admin: 12/05/16 15:50 Dose: 3 ml Alprazolam (Xanax) 1 mg PO TID [facility] Last Admin: 12/05/16 17:53 Dose: 1 mg Amiodarone HCl (Cordarone) 200 mg PO DAILY [facility] Last Admin: 12/05/16 09:39 Dose: 200 mg Aspirin (Ecotrin) 325 mg PO DAILY [facility] Last Admin: 12/05/16 09:39 Dose: 325 mg Docusate Sodium (Colace) 100 mg PO BID [facility] Last Admin: 12/05/16 17:53 Dose: 100 mg Enalapril Maleate (Vasotec) 5 mg PO DAILY [facility] Last Admin: 12/05/16 09:40 Dose: 5 mg Enoxaparin Sodium (Lovenox) 40 mg SC DAILY [facility] Last Admin: 12/05/16 09:39 Dose: 40 mg Famotidine (Pepcid) 20 mg PO DAILY [facility] Last Admin: 12/05/16 09:40 Dose: 20 mg Furosemide (Lasix) 20 mg PO Q12H [facility] Last Admin: 12/05/16 09:39 Dose: 20 mg Gabapentin (Neurontin) 300 mg PO TID [facility] Last Admin: 12/05/16 17:53 Dose: 300 mg Glimepiride (Amaryl) 1 mg PO BID [facility] Last Admin: 12/05/16 17:53 Dose: 1 mg Guaifenesin/Dextromethorphan (Robitussin Dm) 10 ml PO Q4H PRN PRN Reason: Cough and congestion Last Admin: 12/05/16 14:19 Dose: 10 ml Clindamycin Phosphate 600 mg/ (Sodium Chloride) 54 mls @ 100 mls/hr IVPB Q8H [facility] Last Admin: 12/05/16 13:48 Dose: 100 mls/hr Ceftriaxone Sodium 1 gm/ (Sodium Chloride) 100 mls @ 100 mls/hr IVPB DAILY [facility] Last Admin: 12/05/16 09:40 Dose: 100 mls/hr Levothyroxine Sodium (Synthroid) 50 mcg PO DAILY@0630 [facility] Last Admin: 12/05/16 05:42 Dose: 50 mcg Methylprednisolone (Solu-Medrol) 40 mg IVP Q8 [facility] Last Admin: 12/05/16 13:48 Dose: 40 mg Rosuvastatin Calcium (Crestor) 5 mg PO HS [facility] Last Admin: 12/04/16 21:10 Dose: 5 mg Ticagrelor (Brilinta) 90 mg PO BID [facility] Last Admin: 12/05/16 17:53 Dose: 90 mg Tramadol HCl (Ultram) 50 mg PO TID [facility] Last Admin: 12/05/16 17:53 Dose: 50 mg - Labs Labs: PT 12.7 SECONDS (9.7-12.2) H 12/02/16 16:33 INR 1.1 12/02/16 16:33 APTT 27 SECONDS (21-34) 12/02/16 16:33 - Constitutional Appears: Well - Head Exam Head Exam: ATRAUMATIC, NORMAL INSPECTION, NORMOCEPHALIC - Eye Exam Eye Exam: EOMI, Normal appearance, PERRL Pupil Exam: NORMAL ACCOMODATION, PERRL - ENT Exam ENT Exam: Mucous Membranes Moist, Normal Exam - Neck Exam Neck Exam: Full ROM, Normal Inspection. absent: Lymphadenopathy - Respiratory Exam Respiratory Exam: Decreased Breath Sounds - Cardiovascular Exam Cardiovascular Exam: REGULAR RHYTHM, +S1, +S2 - GI/Abdominal Exam GI & Abdominal Exam: Soft, Diminished Bowel Sounds - Rectal Exam Rectal Exam: Deferred Assessment and Plan (1) Abdominal pain Status: Acute (2) Abdominal pain Status: Acute (3) Acute kidney injury Status: Acute (4) Acute on chronic congestive heart failure Status: Acute (5) Ankle sprain Status: Acute (6) Antiplatelet or antithrombotic long-term use Status: Acute (7) Bronchitis Status: Acute (8) Bunion of great toe of left foot Status: Acute (9) CAD (coronary artery disease) Status: Acute (10) COPD (chronic obstructive pulmonary disease) Status: Acute (11) COPD (chronic obstructive pulmonary disease) Status: Acute (12) COPD exacerbation Status: Acute (13) Chest discomfort Status: Acute (14) Chest pain Status: Acute (15) Chest pain Status: Acute (16) Chest pain Status: Acute (17) Chronic congestive heart failure Status: Acute (18) Constipation Status: Acute (19) Diarrhea Status: Acute (20) Dizziness Status: Acute (21) Dyspnea Status: Acute (22) Dysuria Status: Acute (23) Epistaxis Status: Acute (24) Gastritis Status: Acute (25) Gout attack Status: Acute (26) Hematochezia Status: Acute (27) History of ventricular fibrillation Status: Acute (28) Hoarseness of voice Status: Acute (29) Hyperlipidemia Status: Acute (30) Ischemic cardiomyopathy Status: Acute (31) Left upper lobe consolidation Status: Acute (32) Left ventricular systolic dysfunction, chronic Status: Acute (33) Leg edema Status: Acute (34) Migraine Status: Acute (35) Multiple falls Status: Acute (36) Nausea Status: Acute (37) Neuropathy Status: Acute (38) PAD (peripheral artery disease) Status: Acute (39) Pneumonia Status: Acute (40) Pneumonia Status: Acute (41) Prophylactic measure Status: Acute (42) Rash Status: Acute (43) Small bowel obstruction Status: Acute (44) Syncope Status: Acute (45) The administrative codes within the [employer] content you are accessing may have as of 08/06/2013. Please contact your IT Dept/Help Desk and request the latest Regulatory release be installed. IT Dept/Help Desk- Please refer to our FAQ page ([email or web address] or contact [employer] Customer Support at [email or web address] Status: Acute (46) Upper respiratory infection Status: Acute (47) Vomiting Status: Acute (48) AF (atrial fibrillation) Status: Chronic (49) Anxiety reaction Status: Chronic (50) Bronchiectasis Status: Chronic (51) CAD (coronary artery disease) Status: Chronic (52) CHF (congestive heart failure) Status: Chronic (53) Cough Status: Chronic (54) Diabetes mellitus Status: Chronic (55) Diabetes mellitus type 2 in nonobese Status: Chronic (56) Gout Status: Chronic (57) HTN (hypertension) Status: Chronic (58) Hypothyroidism Status: Chronic (59) Myocardial infarct, old Status: Chronic (60) Status post angioplasty with stent Status: Chronic - Assessment and Plan (Free Text) Plan: Complaint of choking sensation Thank you in the past continue antibiotics Lasix Solu-Medrol Lovenox Cordarone Ray ID on board Cardio on board
[2016-12-06] MEDS: Albuterol-Ipratrop 3 mg / 0.5 (3 ml) UD INH SCH ×5 (04:32→19:37)
[2016-12-06] MEDS: Levothyroxine 50 MCG TAB PO SCH (05:44)
[2016-12-06] MEDS: MethylPREDNISolone 40 mg Vial IVP SCH ×3 (05:44→21:26)
[2016-12-06] MEDS: guaiFENesin DM 200 mg-20 mg/10 ml UD PO PRN ×3 (05:54→21:26)
[2016-12-06] MEDS: Enoxaparin 40 mg Syringe SC SCH (09:50)
[2016-12-06] MEDS: Aspirin 325 mg EC Tablets PO SCH (09:54)
--- NOTE | 2016-12-06 10:24 | CP.PCM.PN ---
Subjective - Date & Time of Evaluation Date of Evaluation: 12/06/16 Time of Evaluation: 07:00 - Subjective Subjective: 56 year old male with past medical history of COPD CHF s/p AICD, HTN, HLD, DM, peripheral neuropathy, and gout who presents with complaint of shortness of breath and productive cough for the past 2 days. He denies any fever, chills, abdominal pain, dysuria, diarrhea, hematachezia, dizziness, or weakness. PMHx: COPD/ emphysema, HLD, HTN, DM, CAD, gout, neuropathy, hypothyroidism PSHx: ACID, cardiac cath, status post RCA stent placement, left foot surgery c/o weakness fatigue and sense of choking iv rx renewed dr cai on board Objective - Vital Signs/Intake and Output Vital Signs (last 24 hours): Temp Pulse Resp BP Pulse Ox 98.1 F 64 20 130/73 97 12/06/16 07:00 12/06/16 07:00 12/06/16 07:00 12/06/16 09:51 12/06/16 07:00 Intake and Output: 12/06/16 12/06/16 06:59 18:59 Intake Total 550 Balance 550 - Medications Medications: Current Medications Albuterol/Ipratropium (Duoneb 3 Mg/0.5 Mg (3 Ml) Ud) 3 ml INH RQ4 [facility] Last Admin: 12/06/16 07:32 Dose: 3 ml Alprazolam (Xanax) 1 mg PO TID [facility] Last Admin: 12/06/16 09:51 Dose: 1 mg Amiodarone HCl (Cordarone) 200 mg PO DAILY [facility] Last Admin: 12/06/16 09:51 Dose: 200 mg Aspirin (Ecotrin) 325 mg PO DAILY [facility] Last Admin: 12/06/16 09:54 Dose: 325 mg Docusate Sodium (Colace) 100 mg PO BID [facility] Last Admin: 12/06/16 09:51 Dose: 100 mg Enalapril Maleate (Vasotec) 5 mg PO DAILY [facility] Last Admin: 12/06/16 09:51 Dose: 5 mg Enoxaparin Sodium (Lovenox) 40 mg SC DAILY [facility] Last Admin: 12/06/16 09:50 Dose: 40 mg Famotidine (Pepcid) 20 mg PO DAILY [facility] Last Admin: 12/06/16 09:51 Dose: 20 mg Furosemide (Lasix) 20 mg PO Q12H [facility] Last Admin: 12/06/16 09:50 Dose: 20 mg Gabapentin (Neurontin) 300 mg PO TID [facility] Last Admin: 12/06/16 09:51 Dose: 300 mg Glimepiride (Amaryl) 1 mg PO BID [facility] Last Admin: 12/06/16 09:51 Dose: 1 mg Guaifenesin/Dextromethorphan (Robitussin Dm) 10 ml PO Q4H PRN PRN Reason: Cough and congestion Last Admin: 12/06/16 09:52 Dose: 10 ml Clindamycin Phosphate 600 mg/ (Sodium Chloride) 54 mls @ 100 mls/hr IVPB Q8H [facility] Last Admin: 12/06/16 05:43 Dose: 100 mls/hr Ceftriaxone Sodium 1 gm/ (Sodium Chloride) 100 mls @ 100 mls/hr IVPB DAILY [facility] Last Admin: 12/06/16 09:52 Dose: 100 mls/hr Levothyroxine Sodium (Synthroid) 50 mcg PO DAILY@0630 [facility] Last Admin: 12/06/16 05:44 Dose: 50 mcg Methylprednisolone (Solu-Medrol) 40 mg IVP Q8 [facility] Last Admin: 12/06/16 05:44 Dose: 40 mg Rosuvastatin Calcium (Crestor) 5 mg PO HS [facility] Last Admin: 12/05/16 21:39 Dose: 5 mg Ticagrelor (Brilinta) 90 mg PO BID [facility] Last Admin: 12/06/16 09:51 Dose: 90 mg Tramadol HCl (Ultram) 50 mg PO TID [facility] Last Admin: 12/06/16 09:51 Dose: 50 mg - Labs Labs: PT 12.7 SECONDS (9.7-12.2) H 12/02/16 16:33 INR 1.1 12/02/16 16:33 APTT 27 SECONDS (21-34) 12/02/16 16:33 - Constitutional Appears: Non-toxic, Chronically Ill - Head Exam Head Exam: NORMOCEPHALIC - Eye Exam Eye Exam: PERRL - ENT Exam ENT Exam: Mucous Membranes Dry, Normal External Ear Exam - Neck Exam Neck Exam: absent: Lymphadenopathy - Respiratory Exam Respiratory Exam: Decreased Breath Sounds, Clear to Ausculation Bilateral - Cardiovascular Exam Cardiovascular Exam: REGULAR RHYTHM - GI/Abdominal Exam GI & Abdominal Exam: Distended, Soft - Rectal Exam Rectal Exam: Deferred - Exam Exam: NORMAL INSPECTION - Extremities Exam Extremities Exam: absent: Calf Tenderness, Pedal Edema - Back Exam Back Exam: absent: CVA tenderness (L), CVA tenderness (R) - Neurological Exam Neurological Exam: Alert, Awake, Oriented x3 - Psychiatric Exam Psychiatric exam: Normal Mood - Skin Skin Exam: Dry Assessment and Plan (1) COPD (chronic obstructive pulmonary disease) Status: Acute (2) Chest pain Status: Acute (3) Status post angioplasty with stent Status: Chronic (4) Abdominal pain Status: Acute (5) Acute kidney injury Status: Acute (6) Acute on chronic congestive heart failure Status: Acute (7) Chronic congestive heart failure Status: Acute (8) Hoarseness of voice Status: Acute (9) Ischemic cardiomyopathy Status: Acute (10) Diabetes mellitus type 2 in nonobese Status: Chronic (11) HTN (hypertension) Status: Chronic
[2016-12-06] MEDS ORDERED: Magnesium Hydroxide Susp 30 ml UD PO ONE (14:03)
--- NOTE | 2016-12-06 17:09 | CP.PCM.PN ---
Subjective - Date & Time of Evaluation Date of Evaluation: 12/06/16 Time of Evaluation: 12:00 - Subjective Subjective: clinically same Objective - Vital Signs/Intake and Output Vital Signs (last 24 hours): Temp Pulse Resp BP Pulse Ox 98.4 F 95 H 20 120/79 98 12/06/16 15:10 12/06/16 16:08 12/06/16 15:10 12/06/16 15:10 12/06/16 15:10 Intake and Output: 12/06/16 12/06/16 06:59 18:59 Intake Total 550 750 Balance 550 750 - Medications Medications: Current Medications Albuterol/Ipratropium (Duoneb 3 Mg/0.5 Mg (3 Ml) Ud) 3 ml INH RQ4 [facility] Last Admin: 12/06/16 16:12 Dose: 3 ml Alprazolam (Xanax) 1 mg PO TID [facility] Last Admin: 12/06/16 13:27 Dose: 1 mg Amiodarone HCl (Cordarone) 200 mg PO DAILY [facility] Last Admin: 12/06/16 09:51 Dose: 200 mg Aspirin (Ecotrin) 325 mg PO DAILY [facility] Last Admin: 12/06/16 09:54 Dose: 325 mg Docusate Sodium (Colace) 100 mg PO BID [facility] Last Admin: 12/06/16 09:51 Dose: 100 mg Enalapril Maleate (Vasotec) 5 mg PO DAILY [facility] Last Admin: 12/06/16 09:51 Dose: 5 mg Enoxaparin Sodium (Lovenox) 40 mg SC DAILY [facility] Last Admin: 12/06/16 09:50 Dose: 40 mg Famotidine (Pepcid) 20 mg PO DAILY [facility] Last Admin: 12/06/16 09:51 Dose: 20 mg Furosemide (Lasix) 20 mg PO Q12H [facility] Last Admin: 12/06/16 09:50 Dose: 20 mg Gabapentin (Neurontin) 300 mg PO TID [facility] Last Admin: 12/06/16 13:27 Dose: 300 mg Glimepiride (Amaryl) 1 mg PO BID [facility] Last Admin: 12/06/16 09:51 Dose: 1 mg Guaifenesin/Dextromethorphan (Robitussin Dm) 10 ml PO Q4H PRN PRN Reason: Cough and congestion Last Admin: 12/06/16 09:52 Dose: 10 ml Clindamycin Phosphate 600 mg/ (Sodium Chloride) 54 mls @ 100 mls/hr IVPB Q8H [facility] Last Admin: 12/06/16 14:11 Dose: 100 mls/hr Ceftriaxone Sodium 1 gm/ (Sodium Chloride) 100 mls @ 100 mls/hr IVPB DAILY [facility] Last Admin: 12/06/16 09:52 Dose: 100 mls/hr Insulin Human Regular (Novolin R) 0 unit SC ACHS [facility] PRN Reason: Protocol Levothyroxine Sodium (Synthroid) 50 mcg PO DAILY@0630 [facility] Last Admin: 12/06/16 05:44 Dose: 50 mcg Methylprednisolone (Solu-Medrol) 40 mg IVP Q8 [facility] Last Admin: 12/06/16 13:27 Dose: 40 mg Rosuvastatin Calcium (Crestor) 5 mg PO HS [facility] Last Admin: 12/05/16 21:39 Dose: 5 mg Ticagrelor (Brilinta) 90 mg PO BID [facility] Last Admin: 12/06/16 09:51 Dose: 90 mg Tramadol HCl (Ultram) 50 mg PO TID [facility] Last Admin: 12/06/16 13:27 Dose: 50 mg - Labs Labs: PT 12.7 SECONDS (9.7-12.2) H 12/02/16 16:33 INR 1.1 12/02/16 16:33 APTT 27 SECONDS (21-34) 12/02/16 16:33 - Constitutional Appears: Well - Head Exam Head Exam: ATRAUMATIC, NORMAL INSPECTION, NORMOCEPHALIC - Eye Exam Eye Exam: EOMI, Normal appearance, PERRL Pupil Exam: NORMAL ACCOMODATION, PERRL - ENT Exam ENT Exam: Mucous Membranes Moist, Normal Exam - Neck Exam Neck Exam: Full ROM, Normal Inspection. absent: Lymphadenopathy - Respiratory Exam Respiratory Exam: Decreased Breath Sounds - Cardiovascular Exam Cardiovascular Exam: REGULAR RHYTHM, +S1, +S2 - GI/Abdominal Exam GI & Abdominal Exam: Soft, Diminished Bowel Sounds - Rectal Exam Rectal Exam: Deferred Assessment and Plan (1) Abdominal pain Status: Acute (2) Abdominal pain Status: Acute (3) Acute kidney injury Status: Acute (4) Acute on chronic congestive heart failure Status: Acute (5) Ankle sprain Status: Acute (6) Antiplatelet or antithrombotic long-term use Status: Acute (7) Bronchitis Status: Acute (8) Bunion of great toe of left foot Status: Acute (9) CAD (coronary artery disease) Status: Acute (10) COPD (chronic obstructive pulmonary disease) Status: Acute (11) COPD (chronic obstructive pulmonary disease) Status: Acute (12) COPD exacerbation Status: Acute (13) Chest discomfort Status: Acute (14) Chest pain Status: Acute (15) Chest pain Status: Acute (16) Chest pain Status: Acute (17) Chronic congestive heart failure Status: Acute (18) Constipation Status: Acute (19) Diarrhea Status: Acute (20) Dizziness Status: Acute (21) Dyspnea Status: Acute (22) Dysuria Status: Acute (23) Epistaxis Status: Acute (24) Gastritis Status: Acute (25) Gout attack Status: Acute (26) Hematochezia Status: Acute (27) History of ventricular fibrillation Status: Acute (28) Hoarseness of voice Status: Acute (29) Hyperlipidemia Status: Acute (30) Ischemic cardiomyopathy Status: Acute (31) Left upper lobe consolidation Status: Acute (32) Left ventricular systolic dysfunction, chronic Status: Acute (33) Leg edema Status: Acute (34) Migraine Status: Acute (35) Multiple falls Status: Acute (36) Nausea Status: Acute (37) Neuropathy Status: Acute (38) PAD (peripheral artery disease) Status: Acute (39) Pneumonia Status: Acute (40) Pneumonia Status: Acute (41) Prophylactic measure Status: Acute (42) Rash Status: Acute (43) Small bowel obstruction Status: Acute (44) Syncope Status: Acute (45) The administrative codes within the [employer] content you are accessing may have as of 08/06/2013. Please contact your IT Dept/Help Desk and request the latest Regulatory release be installed. IT Dept/Help Desk- Please refer to our FAQ page ([email or web address] or contact [employer] Customer Support at [email or web address] Status: Acute (46) Upper respiratory infection Status: Acute (47) Vomiting Status: Acute (48) AF (atrial fibrillation) Status: Chronic (49) Anxiety reaction Status: Chronic (50) Bronchiectasis Status: Chronic (51) CAD (coronary artery disease) Status: Chronic (52) CHF (congestive heart failure) Status: Chronic (53) Cough Status: Chronic (54) Diabetes mellitus Status: Chronic (55) Diabetes mellitus type 2 in nonobese Status: Chronic (56) Gout Status: Chronic (57) HTN (hypertension) Status: Chronic (58) Hypothyroidism Status: Chronic (59) Myocardial infarct, old Status: Chronic (60) Status post angioplasty with stent Status: Chronic - Assessment and Plan (Free Text) Plan: ID consult follow-up with pulmonary consult Follow-up with the ENT who said patient needs a GI consultations for blood can be done as an outpatient continue current medications patient prefers to get the bronchoscopy done advised to talk to the pulmonary doctor continue IV antibiotic continue same
[2016-12-06] MEDS: (Novolin R) Insulin Human Regular 100 units/ml vial SC SCH ×2 (17:18→21:11)
--- NOTE | 2016-12-06 18:30 | CP.PCM.PN ---
Subjective - Date & Time of Evaluation Date of Evaluation: 12/06/16 Time of Evaluation: 12:15 - Subjective Subjective: Patient seen and examined. Still complaining off dry cough and wheezing Sitting comfortably in no distress Objective - Vital Signs/Intake and Output Vital Signs (last 24 hours): Temp Pulse Resp BP Pulse Ox 98.4 F 95 H 20 120/79 98 12/06/16 15:10 12/06/16 16:08 12/06/16 15:10 12/06/16 15:10 12/06/16 15:10 Intake and Output: 12/06/16 12/06/16 06:59 18:59 Intake Total 550 750 Balance 550 750 - Medications Medications: Current Medications Albuterol/Ipratropium (Duoneb 3 Mg/0.5 Mg (3 Ml) Ud) 3 ml INH RQ4 [facility] Last Admin: 12/06/16 16:12 Dose: 3 ml Alprazolam (Xanax) 1 mg PO TID [facility] Last Admin: 12/06/16 17:19 Dose: 1 mg Amiodarone HCl (Cordarone) 200 mg PO DAILY [facility] Last Admin: 12/06/16 09:51 Dose: 200 mg Aspirin (Ecotrin) 325 mg PO DAILY [facility] Last Admin: 12/06/16 09:54 Dose: 325 mg Docusate Sodium (Colace) 100 mg PO BID [facility] Last Admin: 12/06/16 17:19 Dose: 100 mg Enalapril Maleate (Vasotec) 5 mg PO DAILY [facility] Last Admin: 12/06/16 09:51 Dose: 5 mg Enoxaparin Sodium (Lovenox) 40 mg SC DAILY [facility] Last Admin: 12/06/16 09:50 Dose: 40 mg Famotidine (Pepcid) 20 mg PO DAILY [facility] Last Admin: 12/06/16 09:51 Dose: 20 mg Furosemide (Lasix) 20 mg PO Q12H [facility] Last Admin: 12/06/16 09:50 Dose: 20 mg Gabapentin (Neurontin) 300 mg PO TID [facility] Last Admin: 12/06/16 17:19 Dose: 300 mg Glimepiride (Amaryl) 1 mg PO BID [facility] Last Admin: 12/06/16 17:18 Dose: 1 mg Guaifenesin/Dextromethorphan (Robitussin Dm) 10 ml PO Q4H PRN PRN Reason: Cough and congestion Last Admin: 12/06/16 09:52 Dose: 10 ml Clindamycin Phosphate 600 mg/ (Sodium Chloride) 54 mls @ 100 mls/hr IVPB Q8H [facility] Last Admin: 12/06/16 14:11 Dose: 100 mls/hr Ceftriaxone Sodium 1 gm/ (Sodium Chloride) 100 mls @ 100 mls/hr IVPB DAILY [facility] Last Admin: 12/06/16 09:52 Dose: 100 mls/hr Insulin Human Regular (Novolin R) 0 unit SC ACHS [facility] PRN Reason: Protocol Last Admin: 12/06/16 17:18 Dose: 3 unit Levothyroxine Sodium (Synthroid) 50 mcg PO DAILY@0630 [facility] Last Admin: 12/06/16 05:44 Dose: 50 mcg Methylprednisolone (Solu-Medrol) 40 mg IVP Q8 [facility] Last Admin: 12/06/16 13:27 Dose: 40 mg Rosuvastatin Calcium (Crestor) 5 mg PO HS [facility] Last Admin: 12/05/16 21:39 Dose: 5 mg Ticagrelor (Brilinta) 90 mg PO BID [facility] Last Admin: 12/06/16 17:18 Dose: 90 mg Tramadol HCl (Ultram) 50 mg PO TID [facility] Last Admin: 12/06/16 17:19 Dose: 50 mg - Labs Labs: PT 12.7 SECONDS (9.7-12.2) H 12/02/16 16:33 INR 1.1 12/02/16 16:33 APTT 27 SECONDS (21-34) 12/02/16 16:33 - Head Exam Head Exam: ATRAUMATIC, NORMOCEPHALIC - Eye Exam Eye Exam: Normal appearance - ENT Exam ENT Exam: Mucous Membranes Moist - Neck Exam Neck Exam: Normal Inspection - Respiratory Exam Respiratory Exam: Clear to Ausculation Bilateral - Cardiovascular Exam Cardiovascular Exam: REGULAR RHYTHM - GI/Abdominal Exam GI & Abdominal Exam: Soft, Normal Bowel Sounds Assessment and Plan (1) COPD exacerbation Assessment & Plan: Taper IV steroids Continue nebulizer treatment and antitussive Status: Acute (2) Status post angioplasty with stent Status: Chronic (3) Left ventricular systolic dysfunction, chronic Status: Acute
--- NOTE | 2016-12-06 20:01 | CP.PCM.PN ---
Subjective - Date & Time of Evaluation Date of Evaluation: 12/06/16 Time of Evaluation: 12:00 - Subjective Subjective: less sob, steroid is tapered down, observe, Objective - Vital Signs/Intake and Output Vital Signs (last 24 hours): Temp Pulse Resp BP Pulse Ox 98.4 F 95 H 20 120/79 98 12/06/16 15:10 12/06/16 16:08 12/06/16 15:10 12/06/16 15:10 12/06/16 15:10 Intake and Output: 12/06/16 12/07/16 18:59 06:59 Intake Total 750 Balance 750 - Medications Medications: Current Medications Albuterol/Ipratropium (Duoneb 3 Mg/0.5 Mg (3 Ml) Ud) 3 ml INH RQ4 [facility] Last Admin: 12/06/16 19:37 Dose: 3 ml Alprazolam (Xanax) 1 mg PO TID [facility] Last Admin: 12/06/16 17:19 Dose: 1 mg Amiodarone HCl (Cordarone) 200 mg PO DAILY [facility] Last Admin: 12/06/16 09:51 Dose: 200 mg Aspirin (Ecotrin) 325 mg PO DAILY [facility] Last Admin: 12/06/16 09:54 Dose: 325 mg Docusate Sodium (Colace) 100 mg PO BID [facility] Last Admin: 12/06/16 17:19 Dose: 100 mg Enalapril Maleate (Vasotec) 5 mg PO DAILY [facility] Last Admin: 12/06/16 09:51 Dose: 5 mg Enoxaparin Sodium (Lovenox) 40 mg SC DAILY [facility] Last Admin: 12/06/16 09:50 Dose: 40 mg Famotidine (Pepcid) 20 mg PO DAILY [facility] Last Admin: 12/06/16 09:51 Dose: 20 mg Furosemide (Lasix) 20 mg PO Q12H [facility] Last Admin: 12/06/16 09:50 Dose: 20 mg Gabapentin (Neurontin) 300 mg PO TID [facility] Last Admin: 12/06/16 17:19 Dose: 300 mg Glimepiride (Amaryl) 1 mg PO BID [facility] Last Admin: 12/06/16 17:18 Dose: 1 mg Guaifenesin/Dextromethorphan (Robitussin Dm) 10 ml PO Q4H PRN PRN Reason: Cough and congestion Last Admin: 12/06/16 09:52 Dose: 10 ml Clindamycin Phosphate 600 mg/ (Sodium Chloride) 54 mls @ 100 mls/hr IVPB Q8H [facility] Last Admin: 12/06/16 14:11 Dose: 100 mls/hr Ceftriaxone Sodium 1 gm/ (Sodium Chloride) 100 mls @ 100 mls/hr IVPB DAILY [facility] Last Admin: 12/06/16 09:52 Dose: 100 mls/hr Insulin Human Regular (Novolin R) 0 unit SC ACHS [facility] PRN Reason: Protocol Last Admin: 12/06/16 17:18 Dose: 3 unit Levothyroxine Sodium (Synthroid) 50 mcg PO DAILY@0630 [facility] Last Admin: 12/06/16 05:44 Dose: 50 mcg Methylprednisolone (Solu-Medrol) 40 mg IVP Q8 [facility] Last Admin: 12/06/16 13:27 Dose: 40 mg Rosuvastatin Calcium (Crestor) 5 mg PO HS [facility] Last Admin: 12/05/16 21:39 Dose: 5 mg Ticagrelor (Brilinta) 90 mg PO BID [facility] Last Admin: 12/06/16 17:18 Dose: 90 mg Tramadol HCl (Ultram) 50 mg PO TID [facility] Last Admin: 12/06/16 17:19 Dose: 50 mg - Labs Labs: PT 12.7 SECONDS (9.7-12.2) H 12/02/16 16:33 INR 1.1 12/02/16 16:33 APTT 27 SECONDS (21-34) 12/02/16 16:33 - Constitutional Appears: Non-toxic - Head Exam Head Exam: ATRAUMATIC - Eye Exam Eye Exam: EOMI - ENT Exam ENT Exam: Mucous Membranes Moist - Neck Exam Neck Exam: absent: Lymphadenopathy, Thyromegaly - Respiratory Exam Respiratory Exam: Clear to Ausculation Bilateral, Wheezes. absent: Rales - Cardiovascular Exam Cardiovascular Exam: REGULAR RHYTHM - GI/Abdominal Exam GI & Abdominal Exam: Normal Bowel Sounds. absent: Organomegaly - Rectal Exam Rectal Exam: Deferred - Extremities Exam Extremities Exam: Normal Capillary Refill. absent: Calf Tenderness - Neurological Exam Neurological Exam: Alert, Oriented x3 - Psychiatric Exam Psychiatric exam: Normal Mood - Skin Skin Exam: Dry Assessment and Plan (1) Chest pain Status: Acute (2) Status post angioplasty with stent Status: Chronic (3) COPD (chronic obstructive pulmonary disease) Status: Acute (4) Ischemic cardiomyopathy Status: Acute (5) Diabetes mellitus type 2 in nonobese Status: Chronic
[2016-12-07] MEDS: Albuterol-Ipratrop 3 mg / 0.5 (3 ml) UD INH SCH ×4 (00:41→13:01)
--- NOTE | 2016-12-07 03:35 | OP ---
PROCEDURE DATE: 12/06/2016 PREOPERATIVE DIAGNOSIS: Dysphagia. POSTOPERATIVE DIAGNOSIS: Dysphagia. PROCEDURE: Flexible laryngoscopy. SURGEON: Sharath Nayak MD SIGNIFICANT FINDINGS: Arytenoid erythema. DESCRIPTION OF PROCEDURE: The patient was placed in seated position. A flexible laryngoscope was inserted into the nasal cavity, passed through nasopharynx, oropharynx, and hypopharynx. The base of tongue, vallecula, epiglottis, AE fold, false cords, true cords, arytenoids, pyriform sinuses, and pharyngeal oneill were brought into view. Arytenoid erythema was noted. The flexible laryngoscope was removed. The patient tolerated the procedure well. The patient is assessed of having gastroesophageal reflux disease. We would recommend a gastroenterology consult. Sharath Nayak MD MTDD
[2016-12-07] MEDS: MethylPREDNISolone 40 mg Vial IVP SCH ×2 (05:26→13:34)
[2016-12-07] MEDS: Levothyroxine 50 MCG TAB PO SCH (05:29)
[2016-12-07 06:06] LABS: HEMATOCRIT 33.2 % (35.0-51.0); LYMPH # 0.5 K/uL (1.0-4.3); MEAN CELL VOLUME 87.8 fL (80.0-94.0); MEAN CORPUSCULAR HEMOGLOBIN 28.9 pg (27.0-31.0); MEAN PLATELET VOLUME 8.1 fL (7.2-11.7); MONO # 0.6 K/uL (0.0-0.8); MONO % 5.1 % (0.0-10.0); NRBC % 0.4 % (0.0-2.0); PLATELET COUNT 179 K/uL (130-400); RED CELL DISTRIBUTION WIDTH 16.9 % (11.5-14.5); WHITE BLOOD COUNT 11.6 K/uL (4.8-10.8)
[2016-12-07 06:19] LABS: ALKALINE PHOSPHATASE 50 U/L (38-126); ALT/SGPT 40 U/L (21-72); AST/SGOT 22 U/L (17-59); BILIRUBIN,TOTAL 0.2 mg/dL (0.2-1.3); BLOOD UREA NITROGEN 23 mg/dL (9-20); CALCIUM 8.1 mg/dl (8.6-10.4); CARBON DIOXIDE 30 mmol/L (22-30); CHLORIDE 93 mmol/L (98-107); GFR AFRICAN-AMERICAN > 60; GLUCOSE,RANDOM 235 mg/dL (75-110); POTASSIUM 4.7 mmol/L (3.6-5.2); SODIUM 132 mmol/L (132-148); TOTAL PROTEIN 5.8 g/dL (6.3-8.3)
[2016-12-07 06:23] LABS: ALB/GLOB RATIO 1.4 (1.0-2.1)
[2016-12-07] MEDS: (Novolin R) Insulin Human Regular 100 units/ml vial SC SCH ×4 (08:12→23:52)
[2016-12-07 08:13] LABS: NEUTROPHIL 94 % (50-75); TOTAL CELLS COUNTED 100
--- NOTE | 2016-12-07 09:19 | CP.PCM.PN ---
<Bailey Siddiqui - Last Filed: 12/07/16 15:37> Subjective - Date & Time of Evaluation Date of Evaluation: 12/07/16 Time of Evaluation: 09:19 - Subjective Subjective: PGY-2 Resident Medicine Progress Note for Dr. Dey Patient seen and examined at bedside. No acute events overnight. Patient still complains of coughing, SOB and wheezing. Patient is eating and drinking well. Patient's constipation has resolved last night. Denies headache, fever, chills, shortness of breath, chest pain, abdominal pain, nausea, vomiting, or diarrhea. Objective - Vital Signs/Intake and Output Vital Signs (last 24 hours): Temp Pulse Resp BP Pulse Ox 97.6 F 24 L 20 129/74 96 12/06/16 23:50 12/07/16 08:00 12/06/16 23:50 12/06/16 23:50 12/06/16 23:50 Intake and Output: 12/07/16 12/07/16 06:59 18:59 Intake Total 700 Balance 700 - Medications Medications: Current Medications Albuterol/Ipratropium (Duoneb 3 Mg/0.5 Mg (3 Ml) Ud) 3 ml INH RQ4 [facility] Last Admin: 12/07/16 07:19 Dose: 3 ml Alprazolam (Xanax) 1 mg PO TID [facility] Last Admin: 12/06/16 17:19 Dose: 1 mg Amiodarone HCl (Cordarone) 200 mg PO DAILY [facility] Last Admin: 12/06/16 09:51 Dose: 200 mg Aspirin (Ecotrin) 325 mg PO DAILY [facility] Last Admin: 12/06/16 09:54 Dose: 325 mg Docusate Sodium (Colace) 100 mg PO BID [facility] Last Admin: 12/06/16 17:19 Dose: 100 mg Enalapril Maleate (Vasotec) 5 mg PO DAILY [facility] Last Admin: 12/06/16 09:51 Dose: 5 mg Enoxaparin Sodium (Lovenox) 40 mg SC DAILY [facility] Last Admin: 12/06/16 09:50 Dose: 40 mg Famotidine (Pepcid) 20 mg PO DAILY [facility] Last Admin: 12/06/16 09:51 Dose: 20 mg Furosemide (Lasix) 20 mg PO Q12H [facility] Last Admin: 12/06/16 21:26 Dose: 20 mg Gabapentin (Neurontin) 300 mg PO TID [facility] Last Admin: 12/06/16 17:19 Dose: 300 mg Glimepiride (Amaryl) 1 mg PO BID [facility] Last Admin: 12/06/16 17:18 Dose: 1 mg Guaifenesin/Dextromethorphan (Robitussin Dm) 10 ml PO Q4H [facility] PRN Reason: Cough and congestion Last Admin: 12/06/16 21:26 Dose: 10 ml Clindamycin Phosphate 600 mg/ (Sodium Chloride) 54 mls @ 100 mls/hr IVPB Q8H [facility] Last Admin: 12/07/16 05:26 Dose: 100 mls/hr Ceftriaxone Sodium 1 gm/ (Sodium Chloride) 100 mls @ 100 mls/hr IVPB DAILY [facility] Last Admin: 12/06/16 09:52 Dose: 100 mls/hr Insulin Human Regular (Novolin R) 0 unit SC ACHS [facility] PRN Reason: Protocol Last Admin: 12/07/16 08:12 Dose: 2 unit Levothyroxine Sodium (Synthroid) 50 mcg PO DAILY@0630 [facility] Last Admin: 12/07/16 05:29 Dose: 50 mcg Methylprednisolone (Solu-Medrol) 40 mg IVP Q8 [facility] Last Admin: 12/07/16 05:26 Dose: 40 mg Rosuvastatin Calcium (Crestor) 5 mg PO HS [facility] Last Admin: 12/06/16 21:28 Dose: 5 mg Ticagrelor (Brilinta) 90 mg PO BID [facility] Last Admin: 12/06/16 17:18 Dose: 90 mg Tramadol HCl (Ultram) 50 mg PO TID [facility] Last Admin: 12/06/16 17:19 Dose: 50 mg - Labs Labs: 12/07/16 05:53 12/07/16 05:53 PT 12.7 SECONDS (9.7-12.2) H 12/02/16 16:33 INR 1.1 12/02/16 16:33 APTT 27 SECONDS (21-34) 12/02/16 16:33 - Constitutional Appears: Well, Non-toxic, No Acute Distress - Head Exam Head Exam: ATRAUMATIC, NORMAL INSPECTION, NORMOCEPHALIC - Eye Exam Eye Exam: EOMI, Normal appearance, PERRL - ENT Exam ENT Exam: Mucous Membranes Moist, Normal Exam - Neck Exam Neck Exam: Full ROM, Normal Inspection. absent: Lymphadenopathy - Respiratory Exam Respiratory Exam: Clear to Ausculation Bilateral, NORMAL BREATHING PATTERN. absent: Respiratory Distress - Cardiovascular Exam Cardiovascular Exam: REGULAR RHYTHM, +S1, +S2. absent: Murmur - GI/Abdominal Exam GI & Abdominal Exam: Soft, Normal Bowel Sounds. absent: Tenderness - Extremities Exam Extremities Exam: Full ROM, Normal Capillary Refill, Normal Inspection. absent : Joint Swelling, Pedal Edema - Neurological Exam Neurological Exam: Alert, Awake, Oriented x3 Assessment and Plan - Assessment and Plan (Free Text) Assessment: COPD Exacerbation -Follow pulmonary recommendations -Continue Steroid taper, Prednisone PO tomorrow -Continue Atrovent and Robitussin -Monitor vitals and oxygenation -Probable discharge tomorrow CAD s/p Stent -Follow cardiology recommendations -ASA -Brilinta 90mg BID CHF -Coreg 3.125 mg PO daily -Enalapril 5mg PO daily -Lasix 20 mg PO Q12 -Amiodarone 200 mg PO daily [facility] -Crestor 5mg daily DM -Amaryl 1mg po BID -ISS low -Accucheck ACHS Hypothyroidism -Synthroid 50mcg daily Throat closing, resolve -Follow ENT recommendations -Flexible laryngoscopy showed arythenoid erythema -Tolerating diet well Prophylactic measures -Lovenox -Pepcid <Emmett Dey Jr. - Last Filed: 12/12/16 12:15> Objective - Vital Signs/Intake and Output Vital Signs (last 24 hours): Temp Pulse Resp BP Pulse Ox 98.4 F 62 20 133/86 99 12/08/16 16:39 12/08/16 16:39 12/08/16 16:39 12/08/16 16:39 12/08/16 16:39 - Labs Labs: 12/08/16 07:15 12/08/16 07:15 PT 12.7 SECONDS (9.7-12.2) H 12/02/16 16:33 INR 1.1 12/02/16 16:33 APTT 27 SECONDS (21-34) 12/02/16 16:33 Attending/Attestation - Attestation I have personally seen and examined this patient.: Yes I have fully participated in the care of the patient.: Yes I have reviewed all pertinent clinical information, including history, physical exam and plan: Yes Notes (Text): 12/12/16 12:15 Agree with resident note and findings
[2016-12-07] MEDS: Aspirin 325 mg EC Tablets PO SCH (09:26)
[2016-12-07] MEDS: Enoxaparin 40 mg Syringe SC SCH (09:26)
--- NOTE | 2016-12-07 11:29 | CP.PCM.PN ---
Subjective - Date & Time of Evaluation Date of Evaluation: 12/07/16 Time of Evaluation: 11:40 - Subjective Subjective: clinically same Objective - Vital Signs/Intake and Output Vital Signs (last 24 hours): Temp Pulse Resp BP Pulse Ox 97.6 F 24 L 20 124/84 96 12/06/16 23:50 12/07/16 08:00 12/06/16 23:50 12/07/16 09:25 12/06/16 23:50 Intake and Output: 12/07/16 12/07/16 06:59 18:59 Intake Total 700 Balance 700 - Medications Medications: Current Medications Albuterol/Ipratropium (Duoneb 3 Mg/0.5 Mg (3 Ml) Ud) 3 ml INH RQ4 [facility] Last Admin: 12/07/16 07:19 Dose: 3 ml Alprazolam (Xanax) 1 mg PO TID [facility] Last Admin: 12/07/16 09:25 Dose: 1 mg Amiodarone HCl (Cordarone) 200 mg PO DAILY [facility] Last Admin: 12/07/16 09:26 Dose: 200 mg Aspirin (Ecotrin) 325 mg PO DAILY [facility] Last Admin: 12/07/16 09:26 Dose: 325 mg Docusate Sodium (Colace) 100 mg PO BID [facility] Last Admin: 12/07/16 09:25 Dose: 100 mg Enalapril Maleate (Vasotec) 5 mg PO DAILY [facility] Last Admin: 12/07/16 09:25 Dose: 5 mg Enoxaparin Sodium (Lovenox) 40 mg SC DAILY [facility] Last Admin: 12/07/16 09:26 Dose: 40 mg Famotidine (Pepcid) 20 mg PO DAILY [facility] Last Admin: 12/07/16 09:25 Dose: 20 mg Furosemide (Lasix) 20 mg PO Q12H [facility] Last Admin: 12/07/16 09:25 Dose: 20 mg Gabapentin (Neurontin) 300 mg PO TID [facility] Last Admin: 12/07/16 09:26 Dose: 300 mg Glimepiride (Amaryl) 1 mg PO BID [facility] Last Admin: 12/07/16 09:26 Dose: 1 mg Guaifenesin/Dextromethorphan (Robitussin Dm) 10 ml PO Q4H PRN PRN Reason: Cough and congestion Last Admin: 12/06/16 21:26 Dose: 10 ml Clindamycin Phosphate 600 mg/ (Sodium Chloride) 54 mls @ 100 mls/hr IVPB Q8H [facility] Last Admin: 12/07/16 05:26 Dose: 100 mls/hr Ceftriaxone Sodium 1 gm/ (Sodium Chloride) 100 mls @ 100 mls/hr IVPB DAILY [facility] Last Admin: 12/07/16 09:24 Dose: 100 mls/hr Insulin Human Regular (Novolin R) 0 unit SC ACHS [facility] PRN Reason: Protocol Last Admin: 12/07/16 08:12 Dose: 2 unit Levothyroxine Sodium (Synthroid) 50 mcg PO DAILY@0630 [facility] Last Admin: 12/07/16 05:29 Dose: 50 mcg Methylprednisolone (Solu-Medrol) 40 mg IVP Q8 [facility] Last Admin: 12/07/16 05:26 Dose: 40 mg Rosuvastatin Calcium (Crestor) 5 mg PO HS [facility] Last Admin: 12/06/16 21:28 Dose: 5 mg Ticagrelor (Brilinta) 90 mg PO BID [facility] Last Admin: 12/07/16 09:25 Dose: 90 mg Tramadol HCl (Ultram) 50 mg PO TID [facility] Last Admin: 12/07/16 09:25 Dose: 50 mg - Labs Labs: 12/07/16 05:53 12/07/16 05:53 PT 12.7 SECONDS (9.7-12.2) H 12/02/16 16:33 INR 1.1 12/02/16 16:33 APTT 27 SECONDS (21-34) 12/02/16 16:33 - Constitutional Appears: Well - Head Exam Head Exam: ATRAUMATIC, NORMAL INSPECTION, NORMOCEPHALIC - Eye Exam Eye Exam: EOMI, Normal appearance, PERRL Pupil Exam: NORMAL ACCOMODATION, PERRL - ENT Exam ENT Exam: Mucous Membranes Moist, Normal Exam - Neck Exam Neck Exam: Full ROM, Normal Inspection. absent: Lymphadenopathy - Respiratory Exam Respiratory Exam: Decreased Breath Sounds - Cardiovascular Exam Cardiovascular Exam: REGULAR RHYTHM, +S1, +S2 - GI/Abdominal Exam GI & Abdominal Exam: Soft, Diminished Bowel Sounds - Rectal Exam Rectal Exam: Deferred Assessment and Plan (1) Abdominal pain Status: Acute (2) Abdominal pain Status: Acute (3) Acute kidney injury Status: Acute (4) Acute on chronic congestive heart failure Status: Acute (5) Ankle sprain Status: Acute (6) Antiplatelet or antithrombotic long-term use Status: Acute (7) Bronchitis Status: Acute (8) Bunion of great toe of left foot Status: Acute (9) CAD (coronary artery disease) Status: Acute (10) COPD (chronic obstructive pulmonary disease) Status: Acute (11) COPD (chronic obstructive pulmonary disease) Status: Acute (12) COPD exacerbation Status: Acute (13) Chest discomfort Status: Acute (14) Chest pain Status: Acute (15) Chest pain Status: Acute (16) Chest pain Status: Acute (17) Chronic congestive heart failure Status: Acute (18) Constipation Status: Acute (19) Diarrhea Status: Acute (20) Dizziness Status: Acute (21) Dyspnea Status: Acute (22) Dysuria Status: Acute (23) Epistaxis Status: Acute (24) Gastritis Status: Acute (25) Gout attack Status: Acute (26) Hematochezia Status: Acute (27) History of ventricular fibrillation Status: Acute (28) Hoarseness of voice Status: Acute (29) Hyperlipidemia Status: Acute (30) Ischemic cardiomyopathy Status: Acute (31) Left upper lobe consolidation Status: Acute (32) Left ventricular systolic dysfunction, chronic Status: Acute (33) Leg edema Status: Acute (34) Migraine Status: Acute (35) Multiple falls Status: Acute (36) Nausea Status: Acute (37) Neuropathy Status: Acute (38) PAD (peripheral artery disease) Status: Acute (39) Pneumonia Status: Acute (40) Pneumonia Status: Acute (41) Prophylactic measure Status: Acute (42) Rash Status: Acute (43) Small bowel obstruction Status: Acute (44) Syncope Status: Acute (45) The administrative codes within the [employer] content you are accessing may have as of 08/06/2013. Please contact your IT Dept/Help Desk and request the latest Regulatory release be installed. IT Dept/Help Desk- Please refer to our FAQ page ([email or web address]) or contact [employer] Customer Support at [email or web address] Status: Acute (46) Upper respiratory infection Status: Acute (47) Vomiting Status: Acute (48) AF (atrial fibrillation) Status: Chronic (49) Anxiety reaction Status: Chronic (50) Bronchiectasis Status: Chronic (51) CAD (coronary artery disease) Status: Chronic (52) CHF (congestive heart failure) Status: Chronic (53) Cough Status: Chronic (54) Diabetes mellitus Status: Chronic (55) Diabetes mellitus type 2 in nonobese Status: Chronic (56) Gout Status: Chronic (57) HTN (hypertension) Status: Chronic (58) Hypothyroidism Status: Chronic (59) Myocardial infarct, old Status: Chronic (60) Status post angioplasty with stent Status: Chronic - Assessment and Plan (Free Text) Plan: Patient seen and examined at bedside No acute event overnight Cough present Encourage fluid intake Solu-Medrol Synthyroid Accu-Cheks Insulin Continue antibiotics
--- NOTE | 2016-12-07 15:17 | CP.PCM.PN ---
Subjective - Date & Time of Evaluation Date of Evaluation: 12/07/16 Time of Evaluation: 11:00 - Subjective Subjective: Patient seen and examined. Still complaining of shortness of breath Patient seen by ENT status post fiberoptic laryngoscopy consistent with GERD Objective - Vital Signs/Intake and Output Vital Signs (last 24 hours): Temp Pulse Resp BP Pulse Ox 97.6 F 24 L 20 124/84 96 12/06/16 23:50 12/07/16 08:00 12/06/16 23:50 12/07/16 09:25 12/06/16 23:50 Intake and Output: 12/07/16 12/07/16 06:59 18:59 Intake Total 700 Balance 700 - Medications Medications: Current Medications Albuterol/Ipratropium (Duoneb 3 Mg/0.5 Mg (3 Ml) Ud) 3 ml INH RQ4 [facility] Last Admin: 12/07/16 13:01 Dose: 3 ml Alprazolam (Xanax) 1 mg PO TID [facility] Last Admin: 12/07/16 13:34 Dose: 1 mg Amiodarone HCl (Cordarone) 200 mg PO DAILY [facility] Last Admin: 12/07/16 09:26 Dose: 200 mg Aspirin (Ecotrin) 325 mg PO DAILY [facility] Last Admin: 12/07/16 09:26 Dose: 325 mg Docusate Sodium (Colace) 100 mg PO BID [facility] Last Admin: 12/07/16 09:25 Dose: 100 mg Enalapril Maleate (Vasotec) 5 mg PO DAILY [facility] Last Admin: 12/07/16 09:25 Dose: 5 mg Enoxaparin Sodium (Lovenox) 40 mg SC DAILY [facility] Last Admin: 12/07/16 09:26 Dose: 40 mg Famotidine (Pepcid) 20 mg PO DAILY [facility] Last Admin: 12/07/16 09:25 Dose: 20 mg Furosemide (Lasix) 20 mg PO Q12H [facility] Last Admin: 12/07/16 09:25 Dose: 20 mg Gabapentin (Neurontin) 300 mg PO TID [facility] Last Admin: 12/07/16 13:33 Dose: 300 mg Glimepiride (Amaryl) 1 mg PO BID [facility] Last Admin: 12/07/16 09:26 Dose: 1 mg Guaifenesin/Dextromethorphan (Robitussin Dm) 10 ml PO Q4H PRN PRN Reason: Cough and congestion Last Admin: 12/06/16 21:26 Dose: 10 ml Clindamycin Phosphate 600 mg/ (Sodium Chloride) 54 mls @ 100 mls/hr IVPB Q8H [facility] Last Admin: 12/07/16 13:34 Dose: 100 mls/hr Ceftriaxone Sodium 1 gm/ (Sodium Chloride) 100 mls @ 100 mls/hr IVPB DAILY [facility] Last Admin: 12/07/16 09:24 Dose: 100 mls/hr Insulin Human Regular (Novolin R) 0 unit SC ACHS [facility] PRN Reason: Protocol Last Admin: 12/07/16 12:29 Dose: 3 unit Levothyroxine Sodium (Synthroid) 50 mcg PO DAILY@0630 [facility] Last Admin: 12/07/16 05:29 Dose: 50 mcg Methylprednisolone (Solu-Medrol) 40 mg IVP Q12 [facility] Rosuvastatin Calcium (Crestor) 5 mg PO HS [facility] Last Admin: 12/06/16 21:28 Dose: 5 mg Ticagrelor (Brilinta) 90 mg PO BID [facility] Last Admin: 12/07/16 09:25 Dose: 90 mg Tramadol HCl (Ultram) 50 mg PO TID [facility] Last Admin: 12/07/16 13:33 Dose: 50 mg - Labs Labs: 12/07/16 05:53 12/07/16 05:53 PT 12.7 SECONDS (9.7-12.2) H 12/02/16 16:33 INR 1.1 12/02/16 16:33 APTT 27 SECONDS (21-34) 12/02/16 16:33 - Constitutional Appears: No Acute Distress - Head Exam Head Exam: ATRAUMATIC, NORMOCEPHALIC - Eye Exam Eye Exam: Normal appearance - ENT Exam ENT Exam: Mucous Membranes Moist - Neck Exam Neck Exam: Normal Inspection - Respiratory Exam Respiratory Exam: Clear to Ausculation Bilateral - Cardiovascular Exam Cardiovascular Exam: REGULAR RHYTHM - GI/Abdominal Exam GI & Abdominal Exam: Soft, Normal Bowel Sounds Assessment and Plan (1) COPD exacerbation Assessment & Plan: Switch to by mouth prednisone and continue nebulizer treatment Status: Acute (2) Status post angioplasty with stent Status: Chronic (3) Left ventricular systolic dysfunction, chronic Status: Acute
[2016-12-07] MEDS: Ipratropium 0.02% Inhal Soln (0.5 mg/2.5 ml) UD IH PRN (19:21)
--- NOTE | 2016-12-07 21:14 | CP.PCM.PN ---
Subjective - Date & Time of Evaluation Date of Evaluation: 12/07/16 Time of Evaluation: 13:00 - Subjective Subjective: wheezing, had laryngoscopy, errhythema, stable CAD Objective - Vital Signs/Intake and Output Vital Signs (last 24 hours): Temp Pulse Resp BP Pulse Ox 98.2 F 64 22 158/95 H 98 12/07/16 15:55 12/07/16 16:08 12/07/16 15:55 12/07/16 15:55 12/07/16 15:55 - Medications Medications: Current Medications Alprazolam (Xanax) 1 mg PO TID [facility] Last Admin: 12/07/16 17:49 Dose: 1 mg Amiodarone HCl (Cordarone) 200 mg PO DAILY [facility] Last Admin: 12/07/16 09:26 Dose: 200 mg Aspirin (Ecotrin) 325 mg PO DAILY [facility] Last Admin: 12/07/16 09:26 Dose: 325 mg Docusate Sodium (Colace) 100 mg PO BID [facility] Last Admin: 12/07/16 17:50 Dose: Not Given Enalapril Maleate (Vasotec) 5 mg PO DAILY [facility] Last Admin: 12/07/16 09:25 Dose: 5 mg Enoxaparin Sodium (Lovenox) 40 mg SC DAILY [facility] Last Admin: 12/07/16 09:26 Dose: 40 mg Famotidine (Pepcid) 20 mg PO DAILY [facility] Last Admin: 12/07/16 09:25 Dose: 20 mg Furosemide (Lasix) 20 mg PO Q12H [facility] Last Admin: 12/07/16 09:25 Dose: 20 mg Gabapentin (Neurontin) 300 mg PO TID [facility] Last Admin: 12/07/16 17:49 Dose: 300 mg Glimepiride (Amaryl) 1 mg PO BID [facility] Last Admin: 12/07/16 17:49 Dose: 1 mg Guaifenesin/Dextromethorphan (Robitussin Dm) 10 ml PO Q4H PRN PRN Reason: Cough and congestion Last Admin: 12/06/16 21:26 Dose: 10 ml Clindamycin Phosphate 600 mg/ (Sodium Chloride) 54 mls @ 100 mls/hr IVPB Q8H [facility] Last Admin: 12/07/16 13:34 Dose: 100 mls/hr Ceftriaxone Sodium 1 gm/ (Sodium Chloride) 100 mls @ 100 mls/hr IVPB DAILY [facility] Last Admin: 12/07/16 09:24 Dose: 100 mls/hr Insulin Human Regular (Novolin R) 0 unit SC ACHS [facility] PRN Reason: Protocol Last Admin: 12/07/16 17:51 Dose: 1 unit Ipratropium [place] (Atrovent) 0.5 mg IH RQ6 PRN PRN Reason: Shortness of Breath Last Admin: 12/07/16 19:21 Dose: 0.5 mg Levothyroxine Sodium (Synthroid) 50 mcg PO DAILY@0630 [facility] Last Admin: 12/07/16 05:29 Dose: 50 mcg Methylprednisolone (Solu-Medrol) 40 mg IVP Q12 [facility] Stop: 12/07/16 22:01 Prednisone (Prednisone Tab) 40 mg PO DAILY [facility] Rosuvastatin Calcium (Crestor) 5 mg PO HS [facility] Last Admin: 12/06/16 21:28 Dose: 5 mg Ticagrelor (Brilinta) 90 mg PO BID [facility] Last Admin: 12/07/16 17:49 Dose: 90 mg Tramadol HCl (Ultram) 50 mg PO TID [facility] Last Admin: 12/07/16 17:49 Dose: 50 mg - Labs Labs: 12/07/16 05:53 12/07/16 05:53 PT 12.7 SECONDS (9.7-12.2) H 12/02/16 16:33 INR 1.1 12/02/16 16:33 APTT 27 SECONDS (21-34) 12/02/16 16:33 - Constitutional Appears: Non-toxic - Head Exam Head Exam: ATRAUMATIC - Eye Exam Eye Exam: EOMI - ENT Exam ENT Exam: Mucous Membranes Moist - Neck Exam Neck Exam: absent: Lymphadenopathy, Thyromegaly - Respiratory Exam Respiratory Exam: Clear to Ausculation Bilateral, Wheezes - Cardiovascular Exam Cardiovascular Exam: REGULAR RHYTHM, Murmur - GI/Abdominal Exam GI & Abdominal Exam: Normal Bowel Sounds. absent: Organomegaly - Rectal Exam Rectal Exam: Deferred - Extremities Exam Extremities Exam: Normal Capillary Refill. absent: Calf Tenderness - Neurological Exam Neurological Exam: Alert, Oriented x3 - Psychiatric Exam Psychiatric exam: Normal Mood - Skin Skin Exam: Dry Assessment and Plan (1) Chest pain Status: Acute (2) Status post angioplasty with stent Status: Chronic (3) COPD (chronic obstructive pulmonary disease) Status: Acute (4) Ischemic cardiomyopathy Status: Acute (5) Diabetes mellitus type 2 in nonobese Status: Chronic
[2016-12-07] MEDS: guaiFENesin DM 200 mg-20 mg/10 ml UD PO PRN (21:19)
[2016-12-07] MEDS ORDERED: MethylPREDNISolone 40 mg Vial IVP ONE (22:00)
[2016-12-07] MEDS ORDERED: MethylPREDNISolone 40 mg Vial IVP SCH (22:00)
[2016-12-08] MEDS: Levothyroxine 50 MCG TAB PO SCH (05:30)
[2016-12-08] MEDS: Ipratropium 0.02% Inhal Soln (0.5 mg/2.5 ml) UD IH PRN (07:10)
[2016-12-08 07:34] LABS: BASO % 0.1 % (0.0-2.0); HEMATOCRIT 35.2 % (35.0-51.0); LYMPH # 0.5 K/uL (1.0-4.3); LYMPH % 4.3 % (20.0-40.0); MEAN CELL VOLUME 87.7 fL (80.0-94.0); MEAN CORPUSCULAR HEMOGLOBIN 28.8 pg (27.0-31.0); MEAN CORPUSCULAR HGB CONC 32.9 g/dL (33.0-37.0); MEAN PLATELET VOLUME 7.9 fL (7.2-11.7); MONO # 0.7 K/uL (0.0-0.8); MONO % 5.5 % (0.0-10.0); NRBC % 0.2 % (0.0-2.0); PLATELET COUNT 198 K/uL (130-400); RED CELL DISTRIBUTION WIDTH 17.1 % (11.5-14.5); WHITE BLOOD COUNT 12.3 K/uL (4.8-10.8)
[2016-12-08 07:53] LABS: ALB/GLOB RATIO 1.4 (1.0-2.1); ALKALINE PHOSPHATASE 56 U/L (38-126); ALT/SGPT 40 U/L (21-72); AST/SGOT 27 U/L (17-59); BILIRUBIN,TOTAL 0.3 mg/dL (0.2-1.3); BLOOD UREA NITROGEN 31 mg/dL (9-20); CALCIUM 8.2 mg/dl (8.6-10.4); CARBON DIOXIDE 33 mmol/L (22-30); CHLORIDE 86 mmol/L (98-107); GFR AFRICAN-AMERICAN > 60; GLUCOSE,RANDOM 231 mg/dL (75-110); POTASSIUM 4.9 mmol/L (3.6-5.2); SODIUM 130 mmol/L (132-148); TOTAL PROTEIN 6.2 g/dL (6.3-8.3)
[2016-12-08] MEDS: (Novolin R) Insulin Human Regular 100 units/ml vial SC SCH ×2 (08:08→12:47)
[2016-12-08 08:41] LABS: NEUTROPHIL 87 % (50-75); NUCLEATED RED BLOOD CELL 1 % (0-0); TOTAL CELLS COUNTED 100
[2016-12-08] MEDS: Aspirin 325 mg EC Tablets PO SCH (09:19)
[2016-12-08] MEDS: Enoxaparin 40 mg Syringe SC SCH (09:20)
--- NOTE | 2016-12-08 12:01 | CP.PCM.PN ---
Subjective - Date & Time of Evaluation Date of Evaluation: 12/08/16 Time of Evaluation: 09:40 - Subjective Subjective: The patient seen and examined. Breathing and cough much improved Still complaining of dyspnea and wheezing on exertion Denies chest pain Stable to discharge home Consider sleep study as outpatient Objective - Vital Signs/Intake and Output Vital Signs (last 24 hours): Temp Pulse Resp BP Pulse Ox 97.7 F 68 18 118/87 96 12/08/16 07:40 12/08/16 08:00 12/08/16 07:40 12/08/16 09:19 12/08/16 07:40 Intake and Output: 12/08/16 12/08/16 06:59 18:59 Intake Total 530 Balance 530 - Medications Medications: Current Medications Alprazolam (Xanax) 1 mg PO TID [facility] Last Admin: 12/08/16 09:19 Dose: 1 mg Amiodarone HCl (Cordarone) 200 mg PO DAILY [facility] Last Admin: 12/08/16 09:19 Dose: 200 mg Aspirin (Ecotrin) 325 mg PO DAILY [facility] Last Admin: 12/08/16 09:19 Dose: 325 mg Docusate Sodium (Colace) 100 mg PO BID [facility] Last Admin: 12/08/16 09:20 Dose: 100 mg Enalapril Maleate (Vasotec) 5 mg PO DAILY [facility] Last Admin: 12/08/16 09:19 Dose: 5 mg Enoxaparin Sodium (Lovenox) 40 mg SC DAILY [facility] Last Admin: 12/08/16 09:20 Dose: 40 mg Famotidine (Pepcid) 20 mg PO DAILY [facility] Last Admin: 12/08/16 09:19 Dose: 20 mg Furosemide (Lasix) 20 mg PO Q12H [facility] Last Admin: 12/08/16 09:19 Dose: 20 mg Gabapentin (Neurontin) 300 mg PO TID [facility] Last Admin: 12/08/16 09:20 Dose: 300 mg Glimepiride (Amaryl) 1 mg PO BID [facility] Last Admin: 12/08/16 09:20 Dose: 1 mg Guaifenesin/Dextromethorphan (Robitussin Dm) 10 ml PO Q4H PRN PRN Reason: Cough and congestion Last Admin: 12/07/16 21:19 Dose: 10 ml Clindamycin Phosphate 600 mg/ (Sodium Chloride) 54 mls @ 100 mls/hr IVPB Q8H [facility] Last Admin: 12/08/16 05:30 Dose: 100 mls/hr Ceftriaxone Sodium 1 gm/ (Sodium Chloride) 100 mls @ 100 mls/hr IVPB DAILY [facility] Last Admin: 12/08/16 09:18 Dose: 100 mls/hr Insulin Human Regular (Novolin R) 0 unit SC ACHS [facility] PRN Reason: Protocol Last Admin: 12/08/16 08:08 Dose: 2 unit Ipratropium [place] (Atrovent) 0.5 mg IH RQ6 PRN PRN Reason: Shortness of Breath Last Admin: 12/08/16 07:10 Dose: 0.5 mg Levothyroxine Sodium (Synthroid) 50 mcg PO DAILY@0630 [facility] Last Admin: 12/08/16 05:30 Dose: 50 mcg Prednisone (Prednisone Tab) 40 mg PO DAILY [facility] Last Admin: 12/08/16 09:20 Dose: 40 mg Rosuvastatin Calcium (Crestor) 5 mg PO HS [facility] Last Admin: 12/07/16 21:20 Dose: 5 mg Ticagrelor (Brilinta) 90 mg PO BID [facility] Last Admin: 12/08/16 09:20 Dose: 90 mg Tramadol HCl (Ultram) 50 mg PO TID [facility] Last Admin: 12/08/16 09:19 Dose: 50 mg - Labs Labs: 12/08/16 07:15 12/08/16 07:15 PT 12.7 SECONDS (9.7-12.2) H 12/02/16 16:33 INR 1.1 12/02/16 16:33 APTT 27 SECONDS (21-34) 12/02/16 16:33 Assessment and Plan (1) COPD exacerbation Status: Acute (2) Status post angioplasty with stent Status: Chronic (3) Left ventricular systolic dysfunction, chronic Status: Acute
--- NOTE | 2016-12-08 16:07 | CP.PCM.DIS ---
Provider - Provider Date of Admission: 12/02/16 17:33 Attending physician: Emmett Dey Jr, MD Time Spent in preparation of Discharge (in minutes): 55 Hospital Course - Lab Results Lab Results: Micro Results 12/05/16 14:55 Sputum Gram Stain - Final 12/05/16 14:55 Sputum Sputum Culture - Final NORMAL ORAL MARIA DOLORES 12/04/16 21:00 Throat Group A Strep Throat Culture - Final NO BETA STREP GROUP A ISOLATED. Most Recent Lab Values WBC 12.3 K/uL (4.8-10.8) H 12/08/16 07:15 RBC 4.01 Mil/uL (4.40-5.90) L 12/08/16 07:15 Hgb 11.6 g/dL (12.0-18.0) L 12/08/16 07:15 Hct 35.2 % (35.0-51.0) 12/08/16 07:15 MCV 87.7 fL (80.0-94.0) 12/08/16 07:15 MCH 28.8 pg (27.0-31.0) 12/08/16 07:15 MCHC 32.9 g/dL (33.0-37.0) L 12/08/16 07:15 RDW 17.1 % (11.5-14.5) H 12/08/16 07:15 Plt Count 198 K/uL (130-400) 12/08/16 07:15 MPV 7.9 fL (7.2-11.7) 12/08/16 07:15 Neut % (Auto) 90.1 % (50.0-75.0) H 12/08/16 07:15 Lymph % (Auto) 4.3 % (20.0-40.0) L 12/08/16 07:15 [place] % (Auto) 5.5 % (0.0-10.0) 12/08/16 07:15 Eos % (Auto) 0.0 % (0.0-4.0) 12/08/16 07:15 Baso % (Auto) 0.1 % (0.0-2.0) 12/08/16 07:15 Neut # 11.1 K/uL (1.8-7.0) H 12/08/16 07:15 Lymph # 0.5 K/uL (1.0-4.3) L 12/08/16 07:15 [place] # 0.7 K/uL (0.0-0.8) 12/08/16 07:15 Eos # 0.0 K/uL (0.0-0.7) 12/08/16 07:15 Baso # 0.0 K/uL (0.0-0.2) 12/08/16 07:15 Neutrophils % (Manual) 87 % (50-75) H 12/08/16 07:15 Lymphocytes % (Manual) 6 % (20-40) L 12/08/16 07:15 Monocytes % (Manual) 7 % (0-10) 12/08/16 07:15 Nucleated RBC % 1 % (0-0) H 12/08/16 07:15 Toxic Granulation Present 12/08/16 07:15 Platelet Estimate Normal (NORMAL) 12/08/16 07:15 Polychromasia Slight 12/07/16 05:53 Hypochromasia (manual) Slight 12/08/16 07:15 Poikilocytosis (manual Slight 12/08/16 07:15 Anisocytosis (manual) Slight 12/08/16 07:15 Tear Drop Cells Slight 12/08/16 07:15 Ovalocytes Slight 12/07/16 05:53 PT 12.7 SECONDS (9.7-12.2) H 12/02/16 16:33 INR 1.1 12/02/16 16:33 APTT 27 SECONDS (21-34) 12/02/16 16:33 pO2 71 mm/Hg (30-55) H 12/02/16 16:35 VBG pH 7.37 (7.32-7.43) 12/02/16 16:35 VBG pCO2 29 mmHg (40-60) L 12/02/16 16:35 VBG HCO3 19.3 mmol/L 12/02/16 16:35 VBG Total CO2 17.7 mmol/L (22-28) L 12/02/16 16:35 VBG O2 Sat (Calc) 93.1 % (40-65) H 12/02/16 16:35 VBG Base Excess -7.1 mmol/L (0.0-2.0) L 12/02/16 16:35 VBG Potassium 2.9 mmol/L (3.6-5.2) L 12/02/16 16:35 Sodium 148.0 mmol/l (132-148) 12/02/16 16:35 Chloride 121.0 mmol/L (98-107) H 12/02/16 16:35 Glucose 59 mg/dl (75-110) L 12/02/16 16:35 Lactate 0.8 mmol/L (0.7-2.1) 12/02/16 16:35 Sodium 130 mmol/L (132-148) L 12/08/16 07:15 Potassium 4.9 mmol/L (3.6-5.2) 12/08/16 07:15 Chloride 86 mmol/L (98-107) L 12/08/16 07:15 Carbon Dioxide 33 mmol/L (22-30) H 12/08/16 07:15 Anion Gap 16 (10-20) 12/08/16 07:15 BUN 31 mg/dL (9-20) H 12/08/16 07:15 Creatinine 1.3 MG/DL (0.8-1.5) 12/08/16 07:15 Est GFR ( Amer) > 60 12/08/16 07:15 Est GFR (Non-Af Amer) 57 12/08/16 07:15 POC Glucose (mg/dL) 288 mg/dL (65-110) H 12/08/16 11:13 Random Glucose 231 mg/dL (75-110) H 12/08/16 07:15 Hemoglobin A1c 5.8 % (4.2-6.5) 12/05/16 07:04 Calcium 8.2 mg/dl (8.6-10.4) L 12/08/16 07:15 Total Bilirubin 0.3 mg/dL (0.2-1.3) 12/08/16 07:15 AST 27 U/L (17-59) 12/08/16 07:15 ALT 40 U/L (21-72) 12/08/16 07:15 Alkaline Phosphatase 56 U/L (38-126) 12/08/16 07:15 Total Creatine Kinase 149 U/L (55-170) 12/04/16 01:12 CK-MB (Mass) 3.77 ng/mL (0.0-3.38) H 12/04/16 01:12 Troponin I 0.0300 ng/mL (0.00-0.120) 12/02/16 16:33 Troponin I, Quant 0.0280 ng/mL (0.00-0.120) 12/04/16 01:12 NT-Pro-B Natriuret Pep 715 pg/mL (0-900) 12/02/16 16:33 Total Protein 6.2 g/dL (6.3-8.3) L 12/08/16 07:15 Albumin 3.7 g/dL (3.5-5.0) 12/08/16 07:15 Globulin 2.5 gm/dL (2.2-3.9) 12/08/16 07:15 Albumin/Globulin Ratio 1.4 (1.0-2.1) 12/08/16 07:15 Venous Blood Potassium 2.9 mmol/L (3.6-5.2) L 12/02/16 16:35 Influenza Typ A,B (EIA) Negative for flu a/b (NEGATIVE) 12/04/16 22:00 - Hospital Course Hospital Course: Upon admission: Patient is a 56 year old male with past medical history of COPD CHF s/ p AICD, HTN, HLD, DM, peripheral neuropathy, and gout who presents with complaint of shortness of breath and productive cough for the past 2 days. He denies any fever, chills, abdominal pain, dysuria, diarrhea, hematachezia, dizziness, or weakness. PMHx: COPD/ emphysema, HLD, HTN, DM, CAD, gout, neuropathy, hypothyroidism PSHx: ACID, cardiac cath, status post RCA stent placement, left foot surgery FamHx: father of [place] @ 49, mother of lung cancer at 56 Social: former 5 ppd smoker for 40 years, quit 4 years ago; formerly used alcohol, quit in 2008 Allergies: moxifloxacin Throughout Hospital Course: Patient was admitted for COPD exacerbation. Patient was started in steroids, Atrovent, and Robitussin. patient was resumed on his home medications for PMHx of CHF s/p AICD, HTN, HLD, DM, peripheral neuropathy, and gout. Pulmonary was consulted, patient was evaluated and started on steroids and recommendations for sleep study for sleep apnea. Please review EMR for complete record. Discharge Exam - Head Exam Head Exam: ATRAUMATIC - Eye Exam Eye Exam: EOMI, Normal appearance, PERRL Pupil Exam: NORMAL ACCOMODATION - Respiratory Exam Respiratory Exam: Clear to PA & Lateral, NORMAL BREATHING PATTERN. absent: Wheezes - Cardiovascular Exam Cardiovascular Exam: REGULAR RHYTHM, RRR, +S1, +S2 - GI/Abdominal Exam GI & Abdominal Exam: Normal Bowel Sounds, Soft. absent: Distended, Tenderness - Extremities Exam Extremities exam: normal inspection, pedal pulses present - Neurological Exam Neurological exam: Alert, Oriented x3 - Psychiatric Exam Psychiatric exam: Normal Affect, Normal Mood - Skin Skin Exam: Dry, Intact, Normal Color Discharge Plan - Discharge Medications Prescriptions: Pantoprazole Sodium [Protonix] 40 mg PO DAILY #30 ect predniSONE [Prednisone] 10 mg PO DAILY #3 tab predniSONE [Prednisone] 20 mg PO DAILY #3 tab predniSONE [Prednisone] 40 mg PO DAILY #2 tab predniSONE [predniSONE Tab] 30 mg PO DAILY #3 tab - Follow Up Plan Condition: STABLE Disposition: HOME/ ROUTINE Additional Instructions: Patient is to continue his current medications with the addition of Protonix 40mg by mouth daily and prednisone 40mg by mouth x 2 days, prednisone 30mg by mouth x 3 days, prednisone 20mg by mouth x 3 days, and prednisone 10mg by mouth x 3 days. Patient will need to follow up with PMD, Dr. Dey, within 1 week. Patient will be handed referral to follow up with Dr. Ceja, for sleep study test. If your symptoms return, please return to the ED. Referrals: Mike Ceja MD [Staff Provider] -
[2016-12-08 16:40] VITALS: BP 133/86; PULSE 62; RESP 20; TEMP 98.4; O2SAT 99
== END 2016-12-08 17:05 | disposition home or self-care (01) | DRG 191 ==
LOC: C.ER 15:40 → C.9E 17:33 → C.6T 18:26
PROVIDERS: ADMIT Internal Medicine; ATTEND Internal Medicine
PROC: 0CJS8ZZ Inspection of Larynx, Via Natural or Artificial Opening Endoscopic (ICD-10-PCS; principal; 2016-12-06)
DX: J44.1 Chronic obstructive pulmonary disease with (acute) exacerbation (principal); I50.22 Chronic systolic (congestive) heart failure; I11.0 Hypertensive heart disease with heart failure; E11.42 Type 2 diabetes mellitus with diabetic polyneuropathy; I25.5 Ischemic cardiomyopathy; E78.5 Hyperlipidemia, unspecified; M10.9 Gout, unspecified; G47.30 Sleep apnea, unspecified; K21.9 Gastro-esophageal reflux disease without esophagitis; R13.10 Dysphagia, unspecified; Z95.5 Presence of coronary angioplasty implant and graft; Z95.810 Presence of automatic (implantable) cardiac defibrillator; Z82.49 Family history of ischemic heart disease and other diseases of the circulatory system; Z80.1 Family history of malignant neoplasm of trachea, bronchus and lung; Z87.891 Personal history of nicotine dependence

== ENCOUNTER 2016-12-08 21:19 | Emergency (ER) | payer BC, MEDICARE ==
[2016-12-08 21:19] VITALS: BMI 24.6
[2016-12-08 21:40] VITALS: RESP 16
[2016-12-08 21:56] VITALS: TEMP 98.3
--- NOTE | 2016-12-08 22:37 | C.PDOC ---
History Of Present Illness Patient presents to ED with complaints of high blood pressure and headache since this afternoon. Patient was discharged from ED this afternoon and states he understood not to take blood pressure medication. At ED patient reports headache resolved, took blood pressure medication and is feeling better now. Patient denies chest pain, palpitations, vision changes or any other complaints at this time. Time Seen by Provider: 12/08/16 22:36 Chief Complaint (Nursing): High Blood Pressure History Per: Patient History/Exam Limitations: no limitations Onset/Duration Of Symptoms: Hrs Current Symptoms Are (Timing): Still Present Associated Symptoms: denies: Chest Pain, Blurred Vision Quality Of Symptoms: Asymptomatic Severity: Mild Pain Scale Rating Of: 2 Exacerbating Factor(s): Pos: Recently Missed Doses Of Medication Recent travel outside of the [place]: No Past Medical History Reviewed: Historical Data, Nursing Documentation, Vital Signs Vital Signs: Last Vital Signs Temp 98.3 F 12/08/16 21:55 Pulse 66 12/08/16 21:55 Resp 16 12/08/16 21:55 BP 133/84 12/08/16 21:55 Pulse Ox 98 12/08/16 22:56 - Medical History PMH: Anxiety, Asthma, Bipolar Disorder, Bronchitis, CAD, Cardia Arrhythmia, CHF , COPD (EMPHYSEMA), Diabetes, Emphysema, HTN, Hypercholesterolemia, Hypothyroidism, Pneumonia (2016) Denies: Chronic Kidney Disease Surgical History: Coronary Stent, Pacemaker (defibrilator BY [employer]) - [facility] Procedures APPLICATION OF SPLINT (07/14/14) BUNIONECTOMY NEC (11/25/14) CORONAR ARTERIOGR-2 CATH (06/07/13) DESTRUC-FOOT JT LES NEC (11/25/14) FLUOROSCOPY OF LEFT HEART USING LOW OSMOLAR CONTRAST (05/23/16) FLUOROSCOPY OF MULT COR ART USING L OSM CONTRAST (05/23/16) INSPECTION OF LOWER INTESTINAL TRACT, ENDO (10/21/16) LARYGNOSCOPY AND OTH TRACHEOSCOPY (12/31/13) LEFT HEART CARDIAC CATH (06/07/13) MEASURE OF CARDIAC SAMPL & PRESSURE, L HEART, PERC APPROACH (05/23/16) RT & LT HEART ANGIOCARD (06/07/13) Family History: States: [place] (dad at 49) - Social History Hx Tobacco Use: No Hx Alcohol Use: No (former) Hx Substance Use: No (former) - Immunization History Hx Tetanus Toxoid Vaccination: No Hx Influenza Vaccination: No Hx Pneumococcal Vaccination: No Review Of Systems Cardiovascular: Negative for: Chest Pain, Palpitations Gastrointestinal: Negative for: Nausea, Vomiting, Diarrhea Skin: Negative for: Rash Neurological: Positive for: Headache Physical Exam - Physical Exam Appears: Non-toxic, No Acute Distress Skin: Warm, Dry Head: Normacephalic Oral Mucosa: Moist Chest: Symmetrical Cardiovascular: Rhythm Regular Respiratory: No Rales, No Rhonchi, No Wheezing Neurological/Psych: Oriented x3, Other (Non focal deficits) ED Course And Treatment O2 Sat by Pulse Oximetry: 98 (RA) Pulse Ox Interpretation: Normal Medical Decision Making Medical Decision Making: Upon provider reevaluation patient is feeling better, is medically stable, and requires no further treatment in the ED at this time. Patient will be discharged home . Counseling was provided and all questions were answered regarding diagnosis and need for follow up with dr wilson. There is agreement to discharge plan. Return if symptoms persist or worsen. Disposition Counseled Patient/Family Regarding: Studies Performed, Diagnosis, Need For Followup - Disposition Referrals: Emmett Wilson Jr., MD [Medical Doctor] - Disposition: HOME/ ROUTINE Disposition Time: 22:36 Condition: FAIR Additional Instructions: Please return if symptoms recur Instructions: Hypertension (DC) Forms: [facility] ([place]) - Clinical Impression Clinical Impression: HTN (hypertension) - Scribe Statement The provider has reviewed the documentation as recorded by the Scribbradley Ulrich All medical record entries made by the Scribe were at my direction and personally dictated by me. I have reviewed the chart and agree that the record accurately reflects my personal performance of the history, physical exam, medical decision making, and the department course for this patient. I have also personally directed, reviewed, and agree with the discharge instructions and disposition.
[2016-12-08 23:27] VITALS: BP 128/81; PULSE 71; O2SAT 97
== END 2016-12-08 23:28 | disposition home or self-care (01) ==
LOC: C.ER 21:19
DX: I10 Essential (primary) hypertension (principal)

== ENCOUNTER 2017-01-13 16:42 | Emergency (ER) | payer BC, MEDICARE ==
[2017-01-13 16:42] VITALS: BMI 24.6
--- NOTE | 2017-01-13 16:57 | C.PDOC ---
History Of Present Illness 56M c/o left side chest pain "sharp pinching" for 2 hours constant over his defib site. non-rad nonexertional. feels much better now. says his bp was high at home over 200 and then "I popped three pills" and now his bp is back to normal so he assoc his pain w his bp. he also notes headaches and neck pain after falling 6ft from a ladder 5 days ago- did not seek medical attention at that time. Time Seen by Provider: 01/13/17 16:56 Chief Complaint (Nursing): Chest Pain Past Medical History Vital Signs: Last Vital Signs Temp 97.9 F 01/13/17 18:32 Pulse 63 01/13/17 18:32 Resp 17 01/13/17 18:32 BP 102/53 L 01/13/17 18:32 Pulse Ox 97 01/13/17 18:32 - Medical History PMH: Anxiety, Asthma, Bipolar Disorder, Bronchitis, CAD, Cardia Arrhythmia, CHF , COPD (EMPHYSEMA), Diabetes, Emphysema, HTN, Hypercholesterolemia, Hypothyroidism, Pneumonia (2016) Surgical History: Coronary Stent, Pacemaker (defibrilator BY [employer]) - [employer] Procedures APPLICATION OF SPLINT (07/14/14) BUNIONECTOMY NEC (11/25/14) CORONAR ARTERIOGR-2 CATH (06/07/13) DESTRUC-FOOT JT LES NEC (11/25/14) FLUOROSCOPY OF LEFT HEART USING LOW OSMOLAR CONTRAST (05/23/16) FLUOROSCOPY OF MULT COR ART USING L OSM CONTRAST (05/23/16) INSPECTION OF LARYNX, ENDO (12/02/16) INSPECTION OF LOWER INTESTINAL TRACT, ENDO (10/21/16) LARYGNOSCOPY AND OTH TRACHEOSCOPY (12/31/13) LEFT HEART CARDIAC CATH (06/07/13) MEASURE OF CARDIAC SAMPL & PRESSURE, L HEART, PERC APPROACH (05/23/16) RT & LT HEART ANGIOCARD (06/07/13) Family History: States: [place] (dad at 49) - Social History Hx Tobacco Use: No Hx Alcohol Use: Yes (former) Hx Substance Use: Yes (former) - Immunization History Hx Tetanus Toxoid Vaccination: No Hx Influenza Vaccination: No Hx Pneumococcal Vaccination: No Review Of Systems Except As Marked, All Systems Reviewed And Found Negative. Constitutional: Negative for: Fever Cardiovascular: Positive for: Chest Pain. Negative for: Edema Respiratory: Negative for: Cough, Shortness of Breath Gastrointestinal: Negative for: Nausea, Vomiting Musculoskeletal: Positive for: Neck Pain Neurological: Positive for: Headache. Negative for: Weakness, Numbness Physical Exam - Physical Exam Appears: Well, Non-toxic, No Acute Distress Skin: Warm, Dry Head: Atraumatic Eye(s): bilateral: PERRL Oral Mucosa: Moist Neck: Normal ROM, Midline Cervical Tenderness Chest: No Tenderness Cardiovascular: Rhythm Regular Respiratory: No Decreased Breath Sounds, No Accessory Muscle Use, No Rales, No Rhonchi, No Wheezing Gastrointestinal/Abdominal: Soft, No Tenderness Extremity: No Swelling Pulses: Left Radial: Normal, Right Radial: Normal Neurological/Psych: Oriented x3, Normal Motor, Normal Sensation, Other (no focal deficits) ED Course And Treatment - Laboratory Results Result Diagrams: 01/13/17 17:18 01/13/17 17:18 O2 Sat by Pulse Oximetry: 99 (RA) Pulse Ox Interpretation: Normal - Radiology CXR: Viewed By Me, Read By Radiologist CXR Interpretation: Yes: No Acute Disease - CT Scan/US CT - Head Other Rad Studies (CT/US): Read By Radiologist, Radiology Report Reviewed CT/US Interpretation: PROCEDURE: CT HEAD WITHOUT CONTRAST. HISTORY: fall headache. COMPARISON: 10/01/2016. TECHNIQUE: Axial computed tomography images were obtained through the head/brain without intravenous contrast. Radiation dose: Total exam DLP = 867.57 mGy-cm. This CT exam was performed using one or more of the following dose reduction techniques: Automated exposure control, adjustment of the mA and/or kV according to patient size, and/ or use of iterative reconstruction technique. FINDINGS: HEMORRHAGE: No intracranial hemorrhage. BRAIN: No mass effect or edema. No atrophy or chronic microvascular ischemic changes. VENTRICLES: Unremarkable. No hydrocephalus. CALVARIUM: Unremarkable. PARANASAL SINUSES: Mild mucosal thickening versus secretions in sphenoid sinus. MASTOID AIR CELLS: Unremarkable as visualized. No inflammatory changes. OTHER FINDINGS: None. IMPRESSION: Normal CT of the Head. No intracranial hemorrhage. Mucosal thickening versus secretions in sphenoid sinus. CT - Cervical Spine Other Rad Studies (CT/US): Read By Radiologist, Radiology Report Reviewed CT/US Interpretation: PROCEDURE: CT Cervical Spine without contrast. HISTORY: Fall, weakness and neck pain. COMPARISON: None available. TECHNIQUE: Axial computed tomography images were obtained of the cervical spine without the use of intravenous contrast. Coronal and sagittal reformatted images were created and reviewed. Radiation dose: Total exam DLP = 510.50 mGy-cm. This CT exam was performed using one or more of the following dose reduction techniques: Automated exposure control, adjustment of the mA and/or kV according to patient size, and/or use of iterative reconstruction technique. FINDINGS: VERTEBRAE: There is straightening of the cervical spine with loss of normal cervical lordosis. Vertebral alignment is normal. Vertebral height is maintained. There is no acute fracture or traumatic anterior listhesis. Bone mineralization is normal. The craniocervical junction is normal. The atlantoaxial joint is normal. DISCS/SPINAL CANAL/NEURAL FORAMINA: There is mild multilevel degenerative disc disease due to combination of disc osteophyte complexes, uncovertebral joint hypertrophy and multilevel facet arthropathy, worse at C5-6 with severe left neural foraminal stenosis. No spinal canal stenosis. Discs heights are grossly preserved. PARASPINAL SOFT TISSUES: The paraspinous soft tissues are normal. There is multifocal nuchal ligament calcification in the lower cervical spine. There is no prevertebral soft tissue thickening. OTHER FINDINGS: There is no acute or pneumothorax. There is mild paraseptal emphysema. IMPRESSION: 1. No acute fracture or traumatic anterior listhesis. 2. Straightening of the cervical spine may be positional or related to muscle spasm. Medical Decision Making Medical Decision Making: ecg- atrial paced rhythm 72, rbbb, similar to prior rec admission but pt does not wish to stay. v/u of risks. signed out ama. Disposition - Disposition Referrals: Emmett Dey Jr., MD [Medical Doctor] - Disposition: AGAINST MEDICAL ADVICE Disposition Time: 18:27 Condition: STABLE Additional Instructions: Please follow up with your doctor. Return to the ER for any worsening symptoms or for any other concerns. Instructions: Chest Pain (ED) Forms: General Discharge Instructions, [facility] ([place]) - Clinical Impression Clinical Impression: Chest pain
[2017-01-13 17:27] LABS: BASO # 0.1 K/uL (0.0-0.2); BASO % 1.2 % (0.0-2.0); EOS # 0.1 K/uL (0.0-0.7); EOS % 0.7 % (0.0-4.0); HEMATOCRIT 35.1 % (35.0-51.0); LYMPH # 1.6 K/uL (1.0-4.3); LYMPH % 21.4 % (20.0-40.0); MEAN CELL VOLUME 86.7 fL (80.0-94.0); MEAN CORPUSCULAR HEMOGLOBIN 29.1 pg (27.0-31.0); MEAN CORPUSCULAR HGB CONC 33.5 g/dL (33.0-37.0); MEAN PLATELET VOLUME 7.7 fL (7.2-11.7); MONO # 0.8 K/uL (0.0-0.8); RED CELL DISTRIBUTION WIDTH 16.6 % (11.5-14.5); WHITE BLOOD COUNT 7.5 K/uL (4.8-10.8)
[2017-01-13 17:33] LABS: CHLORIDE 104 mmol/L (98-107); SODIUM 139 mmol/L (132-148)
[2017-01-13 17:35] LABS: BILIRUBIN,TOTAL 0.5 mg/dL (0.2-1.3); CARBON DIOXIDE 22 mmol/L (22-30); GFR AFRICAN-AMERICAN > 60
[2017-01-13 17:36] LABS: ALB/GLOB RATIO 1.6 (1.0-2.1); ALKALINE PHOSPHATASE 73 U/L (38-126); ALT/SGPT 69 U/L (21-72); AST/SGOT 48 U/L (17-59); BLOOD UREA NITROGEN 23 mg/dL (9-20); CALCIUM 8.4 mg/dl (8.6-10.4); GLUCOSE,RANDOM 79 mg/dL (75-110)
--- NOTE | 2017-01-13 17:43 | RAD ---
HISTORY: cp COMPARISON: 12/02/2016 FINDINGS: LUNGS: No active pulmonary disease. PLEURA: No significant pleural effusion identified, no pneumothorax apparent. CARDIOVASCULAR: AICD. OSSEOUS STRUCTURES: No significant abnormalities. VISUALIZED UPPER ABDOMEN: Normal. OTHER FINDINGS: None. IMPRESSION: No active disease.
--- NOTE | 2017-01-13 18:13 | CT ---
PROCEDURE: CT HEAD WITHOUT CONTRAST. HISTORY: fall headache COMPARISON: 10/01/2016 TECHNIQUE: Axial computed tomography images were obtained through the head/brain without intravenous contrast. Radiation dose: Total exam DLP = 867.57 mGy-cm. This CT exam was performed using one or more of the following dose reduction techniques: Automated exposure control, adjustment of the mA and/or kV according to patient size, and/or use of iterative reconstruction technique. FINDINGS: HEMORRHAGE: No intracranial hemorrhage. BRAIN: No mass effect or edema. No atrophy or chronic microvascular ischemic changes. VENTRICLES: Unremarkable. No hydrocephalus. CALVARIUM: Unremarkable. PARANASAL SINUSES: Mild mucosal thickening versus secretions in sphenoid sinus. MASTOID AIR CELLS: Unremarkable as visualized. No inflammatory changes. OTHER FINDINGS: None. IMPRESSION: Normal CT of the Head. No intracranial hemorrhage. Mucosal thickening versus secretions in sphenoid sinus.
--- NOTE | 2017-01-13 18:26 | CT ---
PROCEDURE: CT Cervical Spine without contrast HISTORY: Fall, weakness and neck pain COMPARISON: None available. TECHNIQUE: Axial computed tomography images were obtained of the cervical spine without the use of intravenous contrast. Coronal and sagittal reformatted images were created and reviewed. Radiation dose: Total exam DLP = 510.50 mGy-cm. This CT exam was performed using one or more of the following dose reduction techniques: Automated exposure control, adjustment of the mA and/or kV according to patient size, and/or use of iterative reconstruction technique. FINDINGS: VERTEBRAE: There is straightening of the cervical spine with loss of normal cervical lordosis. Vertebral alignment is normal. Vertebral height is maintained. There is no acute fracture or traumatic anterior listhesis. Bone mineralization is normal. The craniocervical junction is normal. The atlantoaxial joint is normal. DISCS/SPINAL CANAL/NEURAL FORAMINA: There is mild multilevel degenerative disc disease due to combination of disc osteophyte complexes, uncovertebral joint hypertrophy and multilevel facet arthropathy, worse at C5-6 with severe left neural foraminal stenosis. No spinal canal stenosis. Discs heights are grossly preserved. PARASPINAL SOFT TISSUES: The paraspinous soft tissues are normal. There is multifocal nuchal ligament calcification in the lower cervical spine. There is no prevertebral soft tissue thickening. OTHER FINDINGS: There is no acute or pneumothorax. There is mild paraseptal emphysema. IMPRESSION: 1. No acute fracture or traumatic anterior listhesis. 2. Straightening of the cervical spine may be positional or related to muscle spasm.
[2017-01-13 18:32] VITALS: BP 102/53; PULSE 63; RESP 17; TEMP 97.9
--- NOTE | 2017-01-16 12:45 | CARD ---
APPROVED REPORT EKG Measurement Heart [id number] [id number] <Conclusion> Suspect arm lead reversal, interpretation assumes no reversal Atrial-paced rhythm Right bundle branch block Inferior infarct, age undetermined Possible Anterolateral infarct, age undetermined Abnormal ECG
[2017-01-17 16:27] VITALS: O2SAT 99
== END 2017-01-13 18:37 | disposition left against medical advice (07) ==
LOC: C.ER 16:42
DX: R07.9 Chest pain, unspecified (principal)

== ENCOUNTER 2017-01-21 18:20 | Emergency (ER) | payer BC ==
[2017-01-21 18:20] VITALS: BMI 24.6
--- NOTE | 2017-01-21 20:29 | C.PDOC ---
History Of Present Illness 56 year old male presents to the ER with a complaint of a small pruritic rash to the left forearm, between the right 3rd and 4th digits, and of a small patch of ecchymosis below the left upper chest pacemaker. Patient reports he had his pacemaker replaced 10 years ago. Patient has had multiple prior and recent evaluations which were all normal. Denies chest pressure, chest pain, or SOB. Time Seen by Provider: 01/21/17 20:21 Chief Complaint (Nursing): Chest Pain History Per: Patient History/Exam Limitations: no limitations Onset/Duration Of Symptoms: Days Current Symptoms Are (Timing): Still Present Associated Symptoms: denies: Nausea, Dyspnea, Diaphoresis, Syncope Modifying Factors: None Exacerbating Factors: None Alleviating Factors: None Recent travel outside of the [place]: No Past Medical History Reviewed: Historical Data, Nursing Documentation, Vital Signs Vital Signs: Last Vital Signs Temp 98.6 F 01/21/17 20:41 Pulse 66 01/21/17 20:41 Resp 16 01/21/17 20:41 BP 103/66 01/21/17 20:41 Pulse Ox 98 01/21/17 20:41 - Medical History PMH: Anxiety, Asthma, Bipolar Disorder, Bronchitis, CAD, Cardia Arrhythmia, CHF , COPD (EMPHYSEMA), Diabetes, Emphysema, HTN, Hypercholesterolemia, Hypothyroidism, Pneumonia (2016) Surgical History: Cholecystectomy, Coronary Stent (x13), Pacemaker ( defibrilator BY [employer]) - [facility] Procedures APPLICATION OF SPLINT (07/14/14) BUNIONECTOMY NEC (11/25/14) CORONAR ARTERIOGR-2 CATH (06/07/13) DESTRUC-FOOT JT LES NEC (11/25/14) FLUOROSCOPY OF LEFT HEART USING LOW OSMOLAR CONTRAST (05/23/16) FLUOROSCOPY OF MULT COR ART USING L OSM CONTRAST (05/23/16) INSPECTION OF LARYNX, ENDO (12/02/16) INSPECTION OF LOWER INTESTINAL TRACT, ENDO (10/21/16) LARYGNOSCOPY AND OTH TRACHEOSCOPY (12/31/13) LEFT HEART CARDIAC CATH (06/07/13) MEASURE OF CARDIAC SAMPL & PRESSURE, L HEART, PERC APPROACH (05/23/16) RT & LT HEART ANGIOCARD (06/07/13) Family History: States: Unknown Family Hx, [place] (dad at 49) - Social History Hx Tobacco Use: No Hx Alcohol Use: No (former) Hx Substance Use: Yes (former) - Immunization History Hx Tetanus Toxoid Vaccination: No Hx Influenza Vaccination: Yes Hx Pneumococcal Vaccination: No Review Of Systems Constitutional: Negative for: Fever, Chills Cardiovascular: Negative for: Chest Pain, Palpitations Respiratory: Negative for: Shortness of Breath Skin: Positive for: Rash, Other (Ecchymosis) Neurological: Negative for: Weakness, Numbness Physical Exam - Physical Exam Appears: Non-toxic, No Acute Distress, Other (Calm, Comfortable) Skin: Warm, Dry, Rash (2x2cm area of small fluid filled vesicles to left upper forearm. 1x1 cm area of small fluid filled vesicles between right 3rd and 4th finger.), Ecchymosis (2x5cm area to left upper chest from questionable fall last week) Head: Atraumatic, Normacephalic Eye(s): bilateral: Normal Inspection, EOMI Oral Mucosa: Moist Neck: Normal, Supple Chest: No Tenderness, Other (Pace maker to left upper chest) Cardiovascular: Rhythm Regular Respiratory: Normal Breath Sounds, No Rales, No Rhonchi, No Wheezing Gastrointestinal/Abdominal: Soft, No Tenderness Neurological/Psych: Oriented x3, Normal Speech, Normal Cognition ED Course And Treatment ECG: Interpreted By Me, Viewed By Me ECG Rhythm: AV Paced ECG Interpretation: Normal Rate From EC O2 Sat by Pulse Oximetry: 99 (Room air) Pulse Ox Interpretation: Normal Medical Decision Making Medical Decision Making: no new complaints BP normal in ED ? mild poison andria on L forearm, no pruritis defer w/u as complete w/u including multiple CT's done 01/13/17 Disposition Doctor Will See Patient In The: Office Counseled Patient/Family Regarding: Studies Performed, Diagnosis - Disposition Referrals: Emmett Dey Jr., MD [Medical Doctor] - Disposition: HOME/ ROUTINE Disposition Time: 20:29 Condition: GOOD Additional Instructions: ? mild poison Andria on forearm please follow-up with Dr. Dey as needed Return to ED if your BP becomes very abnormal- Home BP cuffs are notoriously inaccurate, but we are happy to check your BP for you as needed. Instructions: Acute Rash (ED) Forms: [employer] ([place]) - Clinical Impression Clinical Impression: Rash - Scribe Statement The provider has reviewed the documentation as recorded by the Scribe Deshawn Valdez All medical record entries made by the Scribe were at my direction and personally dictated by me. I have reviewed the chart and agree that the record accurately reflects my personal performance of the history, physical exam, medical decision making, and the department course for this patient. I have also personally directed, reviewed, and agree with the discharge instructions and disposition.
[2017-01-21 20:42] VITALS: BP 103/66; PULSE 66; RESP 16; TEMP 98.6
[2017-01-21 22:47] VITALS: O2SAT 99
--- NOTE | 2017-01-24 22:35 | CARD ---
APPROVED REPORT EKG Measurement Heart [id number] <Conclusion> AV dual-paced rhythm Abnormal ECG
== END 2017-01-21 20:41 | disposition home or self-care (01) ==
LOC: C.ER 18:20
DX: R21 Rash and other nonspecific skin eruption (principal)

== ENCOUNTER 2017-05-25 15:22 | Observation (INO) | payer BC, MEDICARE ==
[2017-05-25 15:22] VITALS: BMI 24.6
--- NOTE | 2017-05-25 15:33 | C.PDOC ---
History Of Present Illness 56F c/o intermittent exertional anterior chest pain and sob for the last 6 days , since having his pm checked last monday. no other exac or reliev fx. denies cough/fever. Time Seen by Provider: 05/25/17 15:32 Chief Complaint (Nursing): Chest Pain Past Medical History Vital Signs: Last Vital Signs Temp 97.4 F L 05/25/17 23:55 Pulse 60 05/26/17 00:00 Resp 20 05/26/17 03:09 BP 102/67 05/26/17 03:09 Pulse Ox 89 L 05/26/17 03:09 - Medical History PMH: Anxiety, Asthma, Bipolar Disorder, Bronchitis, CAD, Cardia Arrhythmia, CHF , COPD (EMPHYSEMA), Diabetes, Emphysema, HTN, Hypercholesterolemia, Hypothyroidism, Pneumonia (2016) Denies: Chronic Kidney Disease Surgical History: Cholecystectomy, Coronary Stent (x13), Pacemaker ( defibrilator BY [employer]) - [facility] Procedures APPLICATION OF SPLINT (07/14/14) BUNIONECTOMY NEC (11/25/14) CORONAR ARTERIOGR-2 CATH (06/07/13) DESTRUC-FOOT JT LES NEC (11/25/14) FLUOROSCOPY OF LEFT HEART USING LOW OSMOLAR CONTRAST (05/23/16) FLUOROSCOPY OF MULT COR ART USING L OSM CONTRAST (05/23/16) INSPECTION OF LARYNX, ENDO (12/02/16) INSPECTION OF LOWER INTESTINAL TRACT, ENDO (10/21/16) LARYGNOSCOPY AND OTH TRACHEOSCOPY (12/31/13) LEFT HEART CARDIAC CATH (06/07/13) MEASURE OF CARDIAC SAMPL & PRESSURE, L HEART, PERC APPROACH (05/23/16) RT & LT HEART ANGIOCARD (06/07/13) Family History: States: [place] (dad at 49) - Social History Hx Tobacco Use: No Hx Alcohol Use: No (former) Hx Substance Use: Yes (former) - Immunization History Hx Tetanus Toxoid Vaccination: No Hx Influenza Vaccination: Yes Hx Pneumococcal Vaccination: No Review Of Systems Except As Marked, All Systems Reviewed And Found Negative. Constitutional: Negative for: Fever, Chills Cardiovascular: Positive for: Chest Pain. Negative for: Palpitations, Edema Respiratory: Positive for: Shortness of Breath. Negative for: Cough, Hemoptysis , Sputum Gastrointestinal: Negative for: Nausea, Vomiting, Abdominal Pain Neurological: Negative for: Weakness, Numbness, Altered Mental Status, Headache Physical Exam - Physical Exam Appears: Well, Non-toxic, No Acute Distress Skin: Warm, Dry, No Diaphoretic Head: Atraumatic Eye(s): bilateral: PERRL Nose: No Epistaxis Oral Mucosa: Moist Cardiovascular: Rhythm Regular Respiratory: No Decreased Breath Sounds, No Accessory Muscle Use, No Rales, No Rhonchi, No Stridor, No Wheezing Gastrointestinal/Abdominal: Soft, No Tenderness, No Distention Extremity: No Swelling Pulses: Left Radial: Normal, Right Radial: Normal Neurological/Psych: Oriented x3, Normal Motor, Normal Sensation, Other (no focal deficits) ED Course And Treatment - Laboratory Results Result Diagrams: 05/25/17 15:53 05/25/17 15:53 Medical Decision Making Medical Decision Making: ecg- a paced rhythm 62, LAD, LBBB, no stemi merna Dey who will admit 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 LUNGS: Mild pulmonary venous congestion. Please note that chest x-ray has limited sensitivity for the detection of pulmonary masses. PLEURA: No significant pleural effusion identified. No definite pneumothorax . CARDIOVASCULAR: Left-sided AICD. Cardiomegaly. OSSEOUS STRUCTURES: No acute osseous abnormality identified. VISUALIZED UPPER ABDOMEN: Unremarkable. OTHER FINDINGS: None. IMPRESSION: Cardiomegaly. Left-sided AICD. Mild pulmonary venous congestion. Disposition - Disposition Disposition: HOSPITALIZED Disposition Time: 16:31 Condition: STABLE - Clinical Impression Clinical Impression: Chest pain
[2017-05-25] MEDS ORDERED: Albuterol-Ipratrop 3 mg / 0.5 (3 ml) UD IH STA (15:42)
[2017-05-25 15:57] LABS: BASO # 0.1 K/uL (0.0-0.2); BASO % 0.8 % (0.0-2.0); EOS # 0.2 K/uL (0.0-0.7); EOS % 2.1 % (0.0-4.0); HEMOGLOBIN 11.7 g/dL (12.0-18.0); LYMPH # 1.7 K/uL (1.0-4.3); LYMPH % 19.7 % (20.0-40.0); MEAN CELL VOLUME 83.1 fL (80.0-94.0); MEAN CORPUSCULAR HEMOGLOBIN 27.5 pg (27.0-31.0); MEAN CORPUSCULAR HGB CONC 33.1 g/dL (33.0-37.0); MEAN PLATELET VOLUME 7.5 fL (7.2-11.7); MONO # 0.6 K/uL (0.0-0.8); MONO % 6.8 % (0.0-10.0); NEUT # 5.9 K/uL (1.8-7.0); NEUT % 70.6 % (50.0-75.0); NRBC % 0.1 % (0.0-2.0); RBC 4.24 Mil/uL (4.40-5.90); RED CELL DISTRIBUTION WIDTH 15.5 % (11.5-14.5); WHITE BLOOD COUNT 8.4 K/uL (4.8-10.8)
--- NOTE | 2017-05-25 16:08 | RAD ---
HISTORY: Chest pain COMPARISON: Chest x-ray performed 01/13/17 TECHNIQUE: Chest, one view. FINDINGS: Examination limited by habitus. LUNGS: Mild pulmonary venous congestion. Please note that chest x-ray has limited sensitivity for the detection of pulmonary masses. PLEURA: No significant pleural effusion identified. No definite pneumothorax . CARDIOVASCULAR: Left-sided AICD. Cardiomegaly. OSSEOUS STRUCTURES: No acute osseous abnormality identified. VISUALIZED UPPER ABDOMEN: Unremarkable. OTHER FINDINGS: None. IMPRESSION: Cardiomegaly. Left-sided AICD. Mild pulmonary venous congestion.
[2017-05-25 16:10] LABS: ALB/GLOB RATIO 1.1 (1.0-2.1); ALBUMIN 4.2 g/dL (3.5-5.0); CALCIUM 8.8 mg/dl (8.6-10.4)
[2017-05-25] MEDS ORDERED: Albuterol-Ipratrop 3 mg / 0.5 (3 ml) UD ONE ×2 (16:14→19:57)
[2017-05-25 16:21] LABS: TROPONIN I 0.032 ng/mL (0.00-0.120)
[2017-05-25] MEDS ORDERED: Sodium Chloride 0.9% 1,000 ML IV ONE (16:23)
[2017-05-25] MEDS ORDERED: Sodium Chloride 0.9% 1,000 ML ONE (16:27)
[2017-05-25 18:09] LABS: URINE BACTERIA RARE (<OCC); URINE BILIRUBIN NEGATIVE (NEGATIVE); URINE BLOOD NEGATIVE (NEGATIVE); URINE CLARITY Clear (Clear); URINE COLOR Yellow (YELLOW); URINE GLUCOSE (UA) NORMAL (Normal); URINE LEUKOCYTE ESTERASE NEG Leu/uL (Negative); URINE NITRATE NEGATIVE (NEGATIVE); URINE PROTEIN NEGATIVE (NEGATIVE); URINE UROBILINOGEN NORMAL mg/dL (0.2-1.0)
--- NOTE | 2017-05-25 18:55 | CP.PCM.HP ---
History of Present Illness - History of Present Illness History of Present Illness: CC: "chest pain" HPI: 56 year old male with medical history of DM, diabetic neuropathy, gout, HLD , COPD, CHF with pacemaker/ICD presets to the ED for chest pain. Patient stated he saw Dr. Jackson on Monday as he was having fluttering in his stomach. He stated Dr. Jackson removed a wire from his defibrillator. He stated later Monday evening as he was watching TV he began to have chest pain on the middle of his chest that radiated to the right side. He stated the pain is a 10/10 at its worse. He states it is a tightness feeling. He states the pain comes and goes. The pain is currently a 4/10 and that is at its best. He stated he came to the ED today because he started to become short of breath. He stated over this week he has also had palpitations that come and go. He denies nausea, vomiting, diarrhea, constipation, fever, recent travel. He states he recently had the 24hour stomach virus but other than that he has been feeling well prior to this week. PMD: Dr. Dey Cardio: Dr. Jackson Pulm: Dr. Ceja PMH: DM, diabetic neuropathy, gout, HLD, COPD, CHF with pacemaker/ICD Allergies: moxifloxacin, docosanol --> hives Meds: per chart FH: Mother: - lung cancer; father- - [place] Social hx: Former smoker. Former heavy drinker, last drink 2008. Denies illegal drugs. Does not work. Lives in with . Present on Admission - Present on Admission Any Indicators Present on Admission: No Review of Systems - Constitutional Constitutional: absent: Chills, Fever, Headache, Night Sweats - EENT Eyes: absent: Blurred Vision - Cardiovascular Cardiovascular: Chest Pain, Chest Pain at Rest, Dyspnea, Dyspnea on Exertion, Lightheadedness, Palpitations - Respiratory Respiratory: Dyspnea. absent: Cough - Gastrointestinal Gastrointestinal: absent: Constipation, Diarrhea, Nausea, Vomiting - Genitourinary Genitourinary: absent: Dysuria - Neurological Neurological: absent: Tingling, Tremor Past Patient History - Infectious Disease Hx of Infectious Diseases: None - Tetanus Immunizations Tetanus Immunization: Unknown - Past Medical History & Family History Past Medical History?: Yes - Past Social History Smoking Status: Former Smoker - CARDIAC Hx Cardia Arrhythmia: Yes Hx Congestive Heart Failure: Yes Hx Hypercholesterolemia: Yes Hx Hypertension: Yes Hx Pacemaker: Yes (defibrilator BY [employer]) - PULMONARY Hx Asthma: Yes Hx Bronchitis: Yes Hx Chronic Obstructive Pulmonary Disease (COPD): Yes (EMPHYSEMA) Hx Emphysema: Yes Hx Pneumonia: Yes (2016) - NEUROLOGICAL Hx Neurological Disorder: Yes - HEENT Hx HEENT Problems: No - RENAL Hx Chronic Kidney Disease: No - ENDOCRINE/METABOLIC Hx Hypothyroidism: Yes - HEMATOLOGICAL/ONCOLOGICAL Hx Blood Disorders: No - INTEGUMENTARY Hx Dermatological Problems: No - MUSCULOSKELETAL/RHEUMATOLOGICAL Hx Falls: Yes - GASTROINTESTINAL Hx Gastrointestinal Disorders: Yes - GENITOURINARY/GYNECOLOGICAL Hx Genitourinary Disorders: Yes Hx Prostate Problems: Yes - PSYCHIATRIC Hx Anxiety: Yes Hx Bipolar Disorder: Yes Hx Substance Use: Yes (former) - SURGICAL HISTORY Hx Cholecystectomy: Yes Hx Coronary Stent: Yes (x13) - ANESTHESIA Hx Anesthesia: Yes Hx Anesthesia Reactions: No Hx Malignant Hyperthermia: No Meds Allergies/Adverse Reactions: Allergies Allergy/AdvReac Type Severity Reaction Status Date / Time amoxicillin Allergy Verified 05/25/17 15:26 moxifloxacin HCl Allergy RASH Verified 05/25/17 15:26 [From Avelox] Physical Exam - Constitutional Appears: No Acute Distress - Head Exam Head Exam: ATRAUMATIC, NORMAL INSPECTION - Eye Exam Eye Exam: EOMI, Normal appearance - ENT Exam ENT Exam: Mucous Membranes Moist - Respiratory Exam Respiratory Exam: Clear to Auscultation Bilateral, NORMAL BREATHING PATTERN. absent: Rales, Rhonchi, Wheezes, Stridor - Cardiovascular Exam Cardiovascular Exam: REGULAR RHYTHM, +S1, +S2 Additional comments: defibrillator on the right upper chest wall - GI/Abdominal Exam GI & Abdominal Exam: Normal Bowel Sounds, Soft. absent: Tenderness - Extremities Exam Extremities exam: Positive for: normal inspection. Negative for: calf tenderness, joint swelling, pedal edema, tenderness - Neurological Exam Neurological exam: Alert, Oriented x3 - Psychiatric Exam Psychiatric exam: Normal Affect, Normal Mood - Skin Skin Exam: Normal Color, Warm Results - Vital Signs Recent Vital Signs: Last Vital Signs Temp 98.4 F 05/25/17 15:35 Pulse 62 05/25/17 18:05 Resp 21 05/25/17 18:05 BP 95/59 L 05/25/17 18:05 Pulse Ox 97 05/25/17 18:05 - Labs Result Diagrams: 05/25/17 15:53 05/25/17 15:53 Labs: Laboratory Results - last 24 hr 05/25/17 05/25/17 05/25/17 15:39 15:53 15:53 WBC 8.4 RBC 4.24 L Hgb 11.7 L Hct 35.3 MCV 83.1 D MCH 27.5 MCHC 33.1 RDW 15.5 H Plt Count 233 MPV 7.5 Neut % (Auto) 70.6 Lymph % (Auto) 19.7 L [place] % (Auto) 6.8 Eos % (Auto) 2.1 Baso % (Auto) 0.8 Neut # 5.9 Lymph # 1.7 [place] # 0.6 Eos # 0.2 Baso # 0.1 Sodium 132 Potassium 4.9 Chloride 97 L Carbon Dioxide 28 Anion Gap 12 BUN 32 H Creatinine 2.0 H Est GFR ( Amer) 42 Est GFR (Non-Af Amer) 35 POC Glucose (mg/dL) 78 Random Glucose 83 Calcium 8.8 Total Bilirubin 0.5 AST 71 H D ALT 100 H D Alkaline Phosphatase 95 Troponin I 0.0320 NT-Pro-B Natriuret Pep 1470 H Total Protein 7.8 Albumin 4.2 Globulin 3.6 Albumin/Globulin Ratio 1.1 Urine Color Urine Clarity Urine pH Ur Specific [place] Urine Protein Urine Glucose (UA) Urine Ketones Urine Blood Urine Nitrate Urine Bilirubin Urine Urobilinogen Ur Leukocyte Esterase Urine WBC (Auto) Urine RBC (Auto) Ur Transition Epith Cell Urine Bacteria 05/25/17 17:59 WBC RBC Hgb Hct MCV MCH MCHC RDW Plt Count MPV Neut % (Auto) Lymph % (Auto) [place] % (Auto) Eos % (Auto) Baso % (Auto) Neut # Lymph # [place] # Eos # Baso # Sodium Potassium Chloride Carbon Dioxide Anion Gap BUN Creatinine Est GFR ( Amer) Est GFR (Non-Af Amer) POC Glucose (mg/dL) Random Glucose Calcium Total Bilirubin AST ALT Alkaline Phosphatase Troponin I NT-Pro-B Natriuret Pep Total Protein Albumin Globulin Albumin/Globulin Ratio Urine Color Yellow Urine Clarity Clear Urine pH 6.0 Ur Specific [place] 1.015 Urine Protein Negative Urine Glucose (UA) Normal Urine Ketones Negative Urine Blood Negative Urine Nitrate Negative Urine Bilirubin Negative Urine Urobilinogen Normal Ur Leukocyte Esterase Neg Urine WBC (Auto) < 1 Urine RBC (Auto) 1 Ur Transition Epith Cell < 1 Urine Bacteria Rare Assessment & Plan - Assessment and Plan (Free Text) Assessment: Chest Pain Troponin Negative f/u Trop x2 and EKG x2 Cardiology Consult: Dr. Jackson -->help appreciated Hx of congestive heart failure ICD/pace in place, patient with low EF Coreg 3.125 mg PO daily Enalapril 5mg PO daily Lasix 20 mg PO Q12 Crestor 5 mg PO HS Amiodarone 200 mg PO daily Hx MT/Coronary stents Brilinta 90 mg PO BID Aspirin 81 mg PO BID Hx of HLD Crestor PO HS Hx of DM ISS/accuchecks Hypothyroid Levothyroxine 50mcg PO daily COPD Pulm Consult: Dr. Ceja --> help appreciated Duonebs prn Advair 250/50 Symicort GI/DVT ppx SCDs protonix 40mg IV BID Brilinta 90 mg PO BID Case discussed with Dr. Tiburcio Munroe PGY-1
[2017-05-25] MEDS: Albuterol-Ipratrop 3 mg / 0.5 (3 ml) UD INH SCH (19:54)
[2017-05-25] MEDS ORDERED: Fluticasone-Salmeterol 100-50mcg Diskus INH SCH (20:00)
[2017-05-25] MEDS ORDERED: (Novolin R) Insulin Human Regular 100 units/ml vial SC SCH (22:00)
[2017-05-25 23:00] VITALS: TEMP 97.4
[2017-05-26] MEDS: Albuterol-Ipratrop 3 mg / 0.5 (3 ml) UD INH SCH (01:02)
[2017-05-26] MEDS ORDERED: guaiFENesin 200 mg/10 ml Syrup UD PO ONE (01:41)
[2017-05-26] MEDS ORDERED: MethylPREDNISolone 40 mg Vial IVP STA (02:30)
[2017-05-26 02:34] VITALS: RESP 20
[2017-05-26] MEDS ORDERED: Sodium Bicarbonate (8.4%) 50 Meq Syringe IV ONE ×3 (03:26→03:43)
[2017-05-26] MEDS ORDERED: Calcium Chloride 1000 mg/10 ml Syringe IV ONE (03:32)
[2017-05-26] MEDS ORDERED: Amiodarone 150mg/3 ml vial IV ONE (03:37)
--- NOTE | 2017-05-26 04:16 | CP.PCM.PRO ---
Pronouncement of Note - Clinical Findings Physical Exam: No Response Verbal/Painful Stimuli, Absent Peripheral Pulses{ Carotid & Femoral}, Absent Heart & Breath Sounds, No Pupillary Light Reflex, No Corneal Reflex, Pupils Fixed & Dilated, Absence of Vital Signs - Pronouncement Time Time of Pronouncement of : 03:55 - Notifications Pronouncement Notifications: Family Notified, Atending Notified Television And Radio Repairer Notified: Yes - [place] [id number]
--- NOTE | 2017-05-26 04:20 | PCM.RRT ---
[employer] Nurses Assessment - Situation Date: 05/26/17 Time [employer] [employer] was called: 03:15 [employer] Responder Arrival Time:: 03:15 [employer] Location:: Med/Surg Room Number: 372 [employer] Reason for Call: O2 Saturation below 90% [employer] [employer] Called By: RN - IV IV Inserted during [employer]IVE [employer]?: No - Respiratory [employer] Delivery Method: Intubated Was the Patient Ventilated with Bag/Mask 100% O2?: Yes Secretions Suctioned?: Yes Was the Patient Intubated?: Yes Was the Patient Placed on a Ventilator?: No - Medication Medications Administered During [employer]: 9 rounds of EPI, 3 rounds Bicarb, 1 dose, calcium chloride, 1 dose amiodarone - Diagnostic Test Ordered EKG: Yes CPR started during [employer]IVE [employer]?: Yes - [place] Coma Scale Coma Scale Eye Opening: No response Coma Scale Motor: None Coma Scale Verbal: No response Coma Scale Total: 3 - Time [employer] [employer] Ended Time [employer] Ended: 03:55 - Recommendations Notifications: Attending Physician, Family or Designated Caregiver - Constitutional Appears: Toxic - Head Head Exam: ATRAUMATIC - Respiratory Exam Respiratory Exam: Decreased Breath Sounds Plan - Assessment of Findings&Treatment Plan Patient was seen 2:50 am s/p nebulizer treatment @ 1:30. Patient reported difficulty breathing, with chest pain. He was saturating at 85 % on 2L NC. At this time he was placed on nonrebreather 100%, pulse ox increased to low 90s. EMMA and EKG were ordered, as well as a stat dose of solumedrol. As per nursing, upon performing the EKG - patient became unresponsive. [employer] called 3:12 Upon arrival, patient was unresponsive, pulse ox was low 70s. ICU and Anesthesia paged. Crash cart was brought in and paddles were attached to the patient. No pulse detected on the monitor and on patient. CODE BLUE called 3:15 Patient was intubated-- flash pulmonary edema noted, underwent 9 rounds of EPI, 3 rounds Bicarb, 1 dose, calcium chloride, 1 dose amiodarone, shocked twice. No spontaneous regain of pulse. Time of 3:55 Family and Primary Attending notified. [employer] notified.
--- NOTE | 2017-05-26 04:20 | CP.PCM.DIS ---
Provider - Provider Date of Admission: 05/25/17 16:31 Attending physician: Emmett Dey Jr, MD Time Spent in preparation of Discharge (in minutes): 45 Hospital Course - Lab Results Lab Results: Most Recent Lab Values WBC 8.4 K/uL (4.8-10.8) 05/25/17 15:53 RBC 4.24 Mil/uL (4.40-5.90) L 05/25/17 15:53 Hgb 11.7 g/dL (12.0-18.0) L 05/25/17 15:53 Hct 35.3 % (35.0-51.0) 05/25/17 15:53 MCV 83.1 fL (80.0-94.0) D 05/25/17 15:53 MCH 27.5 pg (27.0-31.0) 05/25/17 15:53 MCHC 33.1 g/dL (33.0-37.0) 05/25/17 15:53 RDW 15.5 % (11.5-14.5) H 05/25/17 15:53 Plt Count 233 K/uL (130-400) 05/25/17 15:53 MPV 7.5 fL (7.2-11.7) 05/25/17 15:53 Neut % (Auto) 70.6 % (50.0-75.0) 05/25/17 15:53 Lymph % (Auto) 19.7 % (20.0-40.0) L 05/25/17 15:53 [place] % (Auto) 6.8 % (0.0-10.0) 05/25/17 15:53 Eos % (Auto) 2.1 % (0.0-4.0) 05/25/17 15:53 Baso % (Auto) 0.8 % (0.0-2.0) 05/25/17 15:53 Neut # 5.9 K/uL (1.8-7.0) 05/25/17 15:53 Lymph # 1.7 K/uL (1.0-4.3) 05/25/17 15:53 [place] # 0.6 K/uL (0.0-0.8) 05/25/17 15:53 Eos # 0.2 K/uL (0.0-0.7) 05/25/17 15:53 Baso # 0.1 K/uL (0.0-0.2) 05/25/17 15:53 Sodium 132 mmol/L (132-148) 05/25/17 15:53 Potassium 4.9 mmol/L (3.6-5.2) 05/25/17 15:53 Chloride 97 mmol/L (98-107) L 05/25/17 15:53 Carbon Dioxide 28 mmol/L (22-30) 05/25/17 15:53 Anion Gap 12 (10-20) 05/25/17 15:53 BUN 32 mg/dL (9-20) H 05/25/17 15:53 Creatinine 2.0 mg/dL (0.8-1.5) H 05/25/17 15:53 Est GFR ( Amer) 42 05/25/17 15:53 Est GFR (Non-Af Amer) 35 05/25/17 15:53 POC Glucose (mg/dL) 219 mg/dL (65-110) H 05/26/17 03:11 Random Glucose 83 mg/dL (75-110) 05/25/17 15:53 Calcium 8.8 mg/dl (8.6-10.4) 05/25/17 15:53 Total Bilirubin 0.5 mg/dL (0.2-1.3) 05/25/17 15:53 AST 71 U/L (17-59) H D 05/25/17 15:53 ALT 100 U/L (21-72) H D 05/25/17 15:53 Alkaline Phosphatase 95 U/L (38-126) 05/25/17 15:53 Troponin I 0.0330 ng/mL (0.00-0.120) 05/25/17 23:01 NT-Pro-B Natriuret Pep 1470 pg/mL (0-900) H 05/25/17 15:53 Total Protein 7.8 g/dL (6.3-8.3) 05/25/17 15:53 Albumin 4.2 g/dL (3.5-5.0) 05/25/17 15:53 Globulin 3.6 gm/dL (2.2-3.9) 05/25/17 15:53 Albumin/Globulin Ratio 1.1 (1.0-2.1) 05/25/17 15:53 Urine Color Yellow (YELLOW) 05/25/17 17:59 Urine Clarity Clear (Clear) 05/25/17 17:59 Urine pH 6.0 (5.0-8.0) 05/25/17 17:59 Ur Specific [place] 1.015 (1.003-1.030) 05/25/17 17:59 Urine Protein Negative mg/dL (NEGATIVE) 05/25/17 17:59 Urine Glucose (UA) Normal mg/dL (Normal) 05/25/17 17:59 Urine Ketones Negative mg/dL (NEGATIVE) 05/25/17 17:59 Urine Blood Negative (NEGATIVE) 05/25/17 17:59 Urine Nitrate Negative (NEGATIVE) 05/25/17 17:59 Urine Bilirubin Negative (NEGATIVE) 05/25/17 17:59 Urine Urobilinogen Normal mg/dL (0.2-1.0) 05/25/17 17:59 Ur Leukocyte Esterase Neg [place]/uL (Negative) 05/25/17 17:59 Urine WBC (Auto) < 1 /hpf (0-5) 05/25/17 17:59 Urine RBC (Auto) 1 /hpf (0-3) 05/25/17 17:59 Ur Transition Epith Cell < 1 /hpf (0-3) 05/25/17 17:59 Urine Bacteria Rare (<OCC) 05/25/17 17:59 - Hospital Course Hospital Course: Upon Admission: HPI: 56 year old male with medical history of DM, diabetic neuropathy, gout, HLD , COPD, CHF with pacemaker/ICD presets to the ED for chest pain. Patient stated he saw Dr. Jackson on Monday as he was having fluttering in his stomach. He stated Dr. Jackson removed a wire from his defibrillator. He stated later Monday evening as he was watching TV he began to have chest pain on the middle of his chest that radiated to the right side. He stated the pain is a 10/10 at its worse. He states it is a tightness feeling. He states the pain comes and goes. The pain is currently a 4/10 and that is at its best. He stated he came to the ED today because he started to become short of breath. He stated over this week he has also had palpitations that come and go. He denies nausea, vomiting, diarrhea, constipation, fever, recent travel. He states he recently had the 24hour stomach virus but other than that he has been feeling well prior to this week. PMD: Dr. Dey Cardio: Dr. Jackson Pulm: Dr. Ceja PMH: DM, diabetic neuropathy, gout, HLD, COPD, CHF with pacemaker/ICD Allergies: moxifloxacin, docosanol --> hives Meds: per chart FH: Mother: - lung cancer; father- - [place] Social hx: Former smoker. Former heavy drinker, last drink 2008. Denies illegal drugs. Does not work. Lives in with . Throughout Hospital Course: Patient was admitted for chest pain r/o ACS. He was restarted on his home medications with serial EKGs and ROMIs which were negative. INDUCTION FURNACE OPERATOR and Code blue were called for this patient. Patient was seen 2:50 am s/p nebulizer treatment @ 1:30am. Patient reported difficulty breathing, with chest pain. He was saturating at 85 % on 2L NC. At this time he was placed on nonrebreather 100%, pulse ox increased to low 90s. EMMA and EKG were ordered, as well as a stat dose of solumedrol. As per nursing, upon performing the EKG - patient became unresponsive. INDUCTION FURNACE OPERATOR called 3:12 Upon arrival, patient was unresponsive, pulse ox was low 70s. ICU and Anesthesia paged. Crash cart was brought in and paddles were attached to the patient. No pulse detected on the monitor and on patient. CODE BLUE called 3:15 Patient was intubated-- flash pulmonary edema noted, underwent 9 rounds of EPI, 3 rounds Bicarb, 1 dose, calcium chloride, 1 dose amiodarone, shocked twice. No spontaneous regain of pulse. Time of 3:55 Family and Primary Attending notified. [employer] notified. This is a brief summary of the patient's hospital course, please review EMR for full records. Discharge Exam - Head Exam Head Exam: ATRAUMATIC (PATIENT ), NORMAL INSPECTION Discharge Plan - Follow Up Plan Condition: Disposition: WITH WITHOUT AUTOPSY
--- NOTE | 2017-05-26 04:26 | PCM.PROC ---
Procedures Attestation:: I certify that I have explained the specified Operation(s) or Procedure(s), risks, benefits and reasonable alternatives to the Patient and/or other person responsible. The opportunity was given to ask questions and all questions answered - Intubation Time Out Performed: Yes Sedative: None Laryngoscope: Juve (4) ET Tube Size: 8.0 ET Tube Uncuffed: No ET Tube Secured at Depth: 24 ET Tube Secured [place]arion: Teeth ET Tube Placement Confirmation: Visualized Passing Through Cords, Breath Sounds Equal Bilaterally, No Breath Sounds Over Epigastrum, Confirmation w/Capnometry Procedure Immediate Complications: Hypoxia Additional comments: Patient had pink frothy secretions continuous during code post intubation, SPO2 improved very late during the code despite which patient didn't regain pulse.
[2017-05-26] MEDS ORDERED: Levothyroxine 50 MCG TAB PO SCH (06:30)
[2017-05-26 07:49] VITALS: PULSE 60
[2017-05-26 07:59] VITALS: BP 102/67; O2SAT 89
[2017-05-26] MEDS ORDERED: MethylPREDNISolone 40 mg Vial IVP SCH (10:00)
--- NOTE | 2017-05-26 11:13 | CARD ---
APPROVED REPORT EKG Measurement Heart [id number] <Conclusion> Atrial-paced rhythm Left axis deviation Left bundle branch block Abnormal ECG
--- NOTE | 2017-05-26 11:15 | CARD ---
APPROVED REPORT EKG Measurement Heart [id number] <Conclusion> Atrial-paced rhythm with prolonged AV conduction Left axis deviation Left bundle branch block Abnormal ECG
[2017-05-27] MEDS ORDERED: Influenza Vaccine 60 mcg/0.5 mL SYR (4YR UP) IM ONE (10:00)
[2017-05-27] MEDS ORDERED: Pneumococcal 23-Valent Vaccine IM ONE (10:00)
--- NOTE | 2017-05-28 00:08 | CARD ---
APPROVED REPORT EKG Measurement Heart [id number] <Conclusion> Possible malfunctioning pacemaker Possible Anterolateral infarct, age undetermined Abnormal ECG
== END 2017-05-26 03:55 ==
LOC: C.ER 15:22 → C.9E 16:31 → C.6T 21:36
PROVIDERS: ADMIT Internal Medicine; ATTEND Internal Medicine
DX: R07.9 Chest pain, unspecified (principal); Z79.84 Long term (current) use of oral hypoglycemic drugs; Z79.899 Other long term (current) drug therapy; Z79.51 Long term (current) use of inhaled steroids; Z79.82 Long term (current) use of aspirin; Z88.1 Allergy status to other antibiotic agents; R09.02 Hypoxemia; E11.40 Type 2 diabetes mellitus with diabetic neuropathy, unspecified; M10.9 Gout, unspecified; J43.9 Emphysema, unspecified; I50.9 Heart failure, unspecified; I11.0 Hypertensive heart disease with heart failure; I25.10 Atherosclerotic heart disease of native coronary artery without angina pectoris; F31.9 Bipolar disorder, unspecified; E78.00 Pure hypercholesterolemia, unspecified; E03.9 Hypothyroidism, unspecified; F41.9 Anxiety disorder, unspecified; Z95.5 Presence of coronary angioplasty implant and graft; Z95.810 Presence of automatic (implantable) cardiac defibrillator; F19.11 Other psychoactive substance abuse, in remission; I44.7 Left bundle-branch block, unspecified; Z82.49 Family history of ischemic heart disease and other diseases of the circulatory system; Z87.891 Personal history of nicotine dependence; F10.11 Alcohol abuse, in remission
CPT/HCPCS: 31500; 36415; 71045; 80053; 81001; 82948; 83880; 84484; 85025; 93005; 94640; 96361; 96374; 99285; G0378; J0171; J0282; J2920; J7040